=== PATIENT | male | born 1965 | race Caucasian/White ===

== ENCOUNTER → 2016-08-11 | Outpatient (CLI) | payer OTHER ==
[~2016-08-11] MED LIST: BROM100T PO; BROM500T2 PO; BROMALINE PO; FLM4 PO; GLUCTAB7 PO; LISI-729 PO; METF1000 PO; OXCA300T4 PO; OXYC1TAB3 PO; POTA1080 PO; ZOLP10TA PO
== END | disposition home or self-care (01) ==
LOC: C.RDSM 15:10
PROVIDERS: ATTEND Physical Medicine & Rehabilitation Sports Medicine
DX: M25.562 Pain in left knee (principal)

== ENCOUNTER → 2016-08-11 | Outpatient (CLI) | payer OTHER ==
[~2016-08-11] VITALS: Ht 180.3 cm; Wt 147.5 kg
[2016-08-11 08:45] VITALS: BP 142/92; PULSE 84; Ht 180.3 cm; Wt 147.5 kg
== END | disposition home or self-care (01) ==
LOC: C.NEUR 08:31
PROVIDERS: ATTEND Internal Medicine Pulmonary Disease
DX: G47.33 Obstructive sleep apnea (adult) (pediatric) (principal); E66.9 Obesity, unspecified; G47.00 Insomnia, unspecified; M25.562 Pain in left knee

== ENCOUNTER → 2016-08-18 | Outpatient (CLI) | payer OTHER | END | disposition home or self-care (01) | LOC: C.MRI 07:39 | PROVIDERS: ATTEND Physical Medicine & Rehabilitation Sports Medicine | DX: M25.562 Pain in left knee (principal) ==

== ENCOUNTER → 2016-08-24 | Outpatient (CLI) | payer OTHER ==
--- NOTE | 2016-08-24 15:26 | DIAGNOSTIC IMAGING REPORT ---
Pain LEFT LOWER EXT JOINT WITHOUT CLINICAL HISTORY: L KNEE PAIN pain TECHNIQUE: Multiaxial MRI acquisition COMPARISON STUDY: FINDINGS: Study is suboptimal and was attempted on 2 separate occasions. Patient complained of discomfort at both separate occasions creating significant patient motion. Signal characteristics the osseous structures are in general unremarkable. Findings of generalized moderate degenerative change of the medial joint compartment. Cruciate ligament are intact. Lateral meniscus is unremarkable. Medial meniscus demonstrates truncation and substance loss is noted anterior horn. Posterior horn of the medial meniscus appears to be generally intact. There is a small joint effusion. There is no significant popliteal cyst. The cruciate ligament is again are intact. IMPRESSION: 1. Limited study despite attempts on 2 separate occasions to scan the patient 2. Motion artifact compromises diagnostic accuracy in the study. 3. Generalized degenerative deterioration medial joint compartment with substance loss anterior meniscus medial joint compartment. 4. Lateral meniscus is intact. 5. Mild degenerative change patellofemoral joint compartment Electronically signed by: Aydin Gee M.D. 08/24/2016 3:24 PM Dictated Date/Time: 08/24/2016 3:19 PM
== END | disposition home or self-care (01) ==
LOC: C.MRIBC 13:38
PROVIDERS: ATTEND Physical Medicine & Rehabilitation Sports Medicine
DX: M25.562 Pain in left knee (principal); M17.12 Unilateral primary osteoarthritis, left knee

== ENCOUNTER → 2016-10-20 | Outpatient (CLI) | payer OTHER ==
[~2016-10-20] VITALS: Ht 180.3 cm; Wt 147.6 kg
[2016-10-20 09:38] VITALS: BP 143/83; PULSE 61; Ht 180.3 cm; Wt 147.6 kg
== END ==
LOC: C.NEUR 09:04
PROVIDERS: ATTEND Internal Medicine Pulmonary Disease
DX: G47.33 Obstructive sleep apnea (adult) (pediatric) (principal)

== ENCOUNTER → 2016-11-10 | Outpatient (CLI) | payer OTHER ==
[2016-11-10 17:15] LABS: BLOOD UREA NITROGEN 20 mg/dl (7-18); BUN/CREATININE RATIO 16.8 (10-20); CALCIUM 9.8 mg/dl (8.5-10.1); CARBON DIOXIDE 31 mmol/L (21-32); CHLORIDE 110 mmol/L (98-107); GLUCOSE 109 mg/dl (70-99); POTASSIUM 4.1 mmol/L (3.5-5.1); SODIUM 146 mmol/L (136-145)
[2016-11-10 17:54] LABS: HEMATOCRIT 43.7 % (42-52); MEAN CELL VOLUME 92.2 fL (80-100); MEAN CORPUSCULAR HEMOGLOBIN 30.6 pg (25-34); MEAN CORPUSCULAR HGB CONC 33.2 g/dl (32-36); MEAN PLATELET VOLUME 12.2 fL (7.4-10.4); PLATELET COUNT 81 K/uL (130-400); RED BLOOD COUNT 4.74 M/uL (4.7-6.1); WHITE BLOOD COUNT 5.47 K/uL (4.8-10.8)
[2016-11-10 17:55] LABS: BASO % 1.3 %; BASO ABS # 0.07 K/uL (0-0.2); COMPLETE YES; EOS % 6.9 %; IG% 0.2 %; LYMPH % 29.4 %; LYMPH ABS # 1.61 K/uL (1.2-3.4); NEUT % 56.2 %
[2016-11-11 06:45] LABS: ESTIMATED AVERAGE GLUCOSE 126 mg/dl; HA1C FLAG Normal (Normal)
== END | disposition home or self-care (01) ==
LOC: C.LABBC 13:53
PROVIDERS: ATTEND Internal Medicine Geriatric Medicine
DX: I10 Essential (primary) hypertension (principal); F31.9 Bipolar disorder, unspecified; E11.9 Type 2 diabetes mellitus without complications

== ENCOUNTER 2016-11-21 02:30 | Emergency (ER) | payer OTHER ==
[~2016-11-21] VITALS: Ht 180.3 cm; Wt 154.0 kg
[~2016-11-21 02:30] MED LIST changes: -BROM500T2 PO; -BROMALINE PO; -FLM4 PO; -LISI-729 PO; -OXYC1TAB3 PO; -POTA1080 PO
[2016-11-21 02:37] VITALS: TEMP 37.4; Ht 180.3 cm; Wt 154.0 kg
--- NOTE | 2016-11-21 02:47 | EMERGENCY ROOM VISIT NOTE ---
History Report prepared by Priti: Tamera Sahu Under the Supervision of: Dr. Sharlene Fernandez M.D. First contact with patient: 02:33 Chief Complaint: CHEST PAIN Stated Complaint: CHEST PRESSURE/TIGHTNESS Nursing Triage Summary: patient states he woke up at 0100 with chest pain described as pressure. has hx of indigestion/ reflux. EMS gave patient aspirin and one nitro prior to arrival. patient states he has no discomfort at this time . History of Present Illness The patient is a 51 year old male who presents to the Emergency Room with complaints of persistent chest pressure starting 0100 today. He presents to the ED by EMS after waking up with chest pain. He was given nitro and aspirin en route. His blood sugar was [address] He reports face tingling, left arm tingling, and headache. He denies any vomiting or abdominal pain. He had a cold several weeks ago. He has a history of type 2 diabetes, bipolar disorder, sleep apnea. Source of History: patient Onset: 99 today Position: chest Quality: pressure Timing: other (persistent) Associated Symptoms: + headache, No abdominal pain, No vomiting Note: Pt reports face tingling, left arm tingling. Review of Systems See HPI for pertinent positives & negatives. A total of 10 systems reviewed and were otherwise negative. Past Medical & Surgical Medical Problems: (1) Anxiety (2) Benign hypertension (3) BIPOLAR AFFECTIVE NOS (4) Bipolar disorder (5) CHEST PAIN NOS (6) Cholecystectomy (7) DIAB ROCIO WO COMPL, TYPE II OR UNSPEC TYPE, NOT UNCNTRLD (8) Fatty liver disease, nonalcoholic (9) Kidney stones (10) OBESITY, NOS (11) OBSTRUCTIVE SLEEP APNEA (ADULT) (PEDIATRIC) (12) Stress echocardiography (13) Thrombocytopenia Family History FHx: cancer FHx: heart disease FHx: hypertension FHx: kidney disease/stones Social History Smoking Status: Never Smoker Alcohol Use: none Drug Use: none Marital Status: single Housing Status: lives alone Occupation Status: disabled Current/Historical Medications Scheduled Pfolytmqxqx-Llulfatifvk-Itr C- (Glucosamine Chondroitin), 1 TAB PO QAM Metformin Hcl (Glucophage), 1,000 MG PO BIDM Oxcarbazepine (Trileptal), 300 MG PO BID Scheduled PRN Zolpidem Tartrate (Ambien), 10 MG PO HS PRN for Sleep Allergies Coded Allergies: Meloxicam (Verified Allergy, Intermediate, RASH, 11/21/16) Aspirin (Verified Allergy, Mild, NOSE BLEEDS, 11/21/16) Penicillins (Verified Allergy, Mild, TACHYCARDIA, 11/21/16) Physical Exam Vital Signs Date Time Temp Pulse Resp B/P Pulse Ox O2 Delivery O2 Flow Rate FiO2 11/21/16 05:18 74 18 134/89 98 Room Air 11/21/16 04:37 79 20 138/80 98 Room Air 11/21/16 02:55 75 11/21/16 02:37 95 Room Air 11/21/16 02:37 37.4 79 20 138/79 95 Room Air Physical Exam Vital signs reviewed. General: Chronically ill-appearing 51 year old male, obese, in no significant distress. HEENT: No scleral icterus, PERRLA, neck supple. Atraumatic. Cardiovascular: Regular rate and rhythm, no extra sounds. Pulmonary: Clear to auscultation bilaterally, normal work of breathing. Abdomen: Soft, nontender, nondistended, positive bowel sounds. Musculoskeletal: Atraumatic, no peripheral edema. Neurologic: Patient awake alert and oriented x 3, full strength in all 4 extremities. Cranial nerves 2 through 12 grossly intact. Skin: Warm, dry, no rash Medical Decision & Procedures ER Provider Diagnostic Interpretation: X-ray results as stated below per interpretation by me: Chest X-ray: Cardiomegaly with a widened mediastinum. Pulmonary congestion. No focal lung consolidation. No significant change from previous. Laboratory Results 11/21/16 02:40 Red Blood Count 4.93, Mean Corpuscular Volume 91.9, Mean Corpuscular Hemoglobin 30.4, Mean Corpuscular Hemoglobin Concent 33.1, Mean Platelet Volume 12.6, Neutrophils (%) (Auto) 55.5, Lymphocytes (%) (Auto) 27.9, Monocytes (%) (Auto) 8.9, Eosinophils (%) (Auto) 6.0, Basophils (%) (Auto) 1.4, Neutrophils # (Auto) 3.25, Lymphocytes # (Auto) 1.63, Monocytes # (Auto) 0.52, Eosinophils # (Auto) 0.35, Basophils # (Auto) 0.08 11/21/16 02:40 Test 11/21/16 02:40 11/21/16 05:00 White Blood Count 5.85 K/uL (4.8-10.8) Red Blood Count 4.93 M/uL (4.7-6.1) Hemoglobin 15.0 g/dL (14.0-18.0) Hematocrit 45.3 % (42-52) Mean Corpuscular Volume 91.9 fL (80-100) Mean Corpuscular Hemoglobin 30.4 pg (25-34) Mean Corpuscular Hemoglobin Concent 33.1 g/dl (32-36) Platelet Count 83 K/uL (130-400) Mean Platelet Volume 12.6 fL (7.4-10.4) Neutrophils (%) (Auto) 55.5 % Lymphocytes (%) (Auto) 27.9 % Monocytes (%) (Auto) 8.9 % Eosinophils (%) (Auto) 6.0 % Basophils (%) (Auto) 1.4 % Neutrophils # (Auto) 3.25 K/uL (1.4-6.5) Lymphocytes # (Auto) 1.63 K/uL (1.2-3.4) Monocytes # (Auto) 0.52 K/uL (0.11-0.59) Eosinophils # (Auto) 0.35 K/uL (0-0.5) Basophils # (Auto) 0.08 K/uL (0-0.2) RDW Standard Deviation 48.0 fL (36.4-46.3) RDW Coefficient of Variation 14.3 % (11.5-14.5) Immature Granulocyte % (Auto) 0.3 % Immature Granulocyte # (Auto) 0.02 K/uL (0.00-0.02) Platelet Estimate DECREASED Red Blood Cell Morphology Unremarkable Anion Gap 3.0 mmol/L (3-11) Est Creatinine Clear Calc Drug Dose 111.2 ml/min Estimated GFR () 81.2 Estimated GFR (Non- 70.1 BUN/Creatinine Ratio 17.6 (10-20) Calcium Level 9.6 mg/dl (8.5-10.1) Total Bilirubin 0.6 mg/dl (0.2-1) Direct Bilirubin 0.1 mg/dl (0-0.2) Aspartate Amino Transf (AST/SGOT) 22 U/L (15-37) Alanine Aminotransferase (ALT/SGPT) 62 U/L (12-78) Alkaline Phosphatase 104 U/L (45-117) Total Creatine Kinase 64 U/L (39-308) Creatine Kinase MB 1.4 ng/ml (0.5-3.6) Creatine Kinase MB Ratio 2.2 (0-3.0) Total Protein 7.0 gm/dl (6.4-8.2) Albumin 3.7 gm/dl (3.4-5.0) Bedside Troponin I 0.000 ng/ml (0-0.045) Laboratory results per my review. ECG Indication: chest pain Rate (beats per minute): 71 Rhythm: normal sinus Findings: no acute ischemic change, left axis deviation, no ectopy ED Course 0240: Past medical records reviewed. The patient was evaluated in room B6. A complete history and physical examination was performed. 0300: Nitroglycerin 0.4 mg SL. 0530: Upon reevaluation, the patient appeared to have improvement of his symptoms. I discussed findings with him. He verbalized agreement of the treatment plan. He was discharged home. Medical Decision Differential diagnosis: Acute coronary syndrome, pulmonary embolus, aortic dissection, musculoskeletal pain, pneumonia, pleural effusion, pneumothorax This patient was evaluated and appeared to be in no significant distress. The neurologic exam is completely intact. Patient's EKG reveals no evidence of acute ischemia. Troponins are negative 2. Chest x-ray reveals some widening of the mediastinum which is unchanged from previous. There is no evidence of focal lung consolidation. The patient has remained stable and has no complaints of pain at this time. He was discharged to follow-up with his primary care physician this week for consideration of further cardiac testing. He will return to the ER for worsening of symptoms or any medical concerns. Impression Primary Impression: Chest pain radiating to arm Scribe Attestation The scribe's documentation has been prepared under my direction and personally reviewed by me in its entirety. I confirm that the note above accurately reflects all work, treatment, procedures, and medical decision making performed by me. Departure Information Dispostion Home / Self-Care Referrals Julio Mortensen M.D. (PCP) Forms HOME CARE DOCUMENTATION FORM, IMPORTANT VISIT INFORMATION Patient Instructions My [facility] Additional Instructions Diagnosis: Chest pain with radiation to the arm Continue your medications as prescribed. Follow-up with your physician this week for reevaluation. Return to the ER for worsening of symptoms or any medical concerns.
[2016-11-21] MEDS ORDERED: NITROGLYCERIN 0.4 MG SL PER TAB CHARGE SL PRN (03:00)
[2016-11-21 03:41] LABS: BUN/CREATININE RATIO 17.6 (10-20); CALCIUM 9.6 mg/dl (8.5-10.1); CREATININE 1.2 mg/dl (0.60-1.40); POTASSIUM 3.9 mmol/L (3.5-5.1)
[2016-11-21 03:46] LABS: CKMB/CK RATIO 2.2 (0-3.0)
[2016-11-21 03:57] LABS: HEMATOCRIT 45.3 % (42-52); MEAN CELL VOLUME 91.9 fL (80-100); MEAN CORPUSCULAR HEMOGLOBIN 30.4 pg (25-34); MEAN CORPUSCULAR HGB CONC 33.1 g/dl (32-36); MEAN PLATELET VOLUME 12.6 fL (7.4-10.4); PLATELET COUNT 83 K/uL (130-400); RED BLOOD COUNT 4.93 M/uL (4.7-6.1); WHITE BLOOD COUNT 5.85 K/uL (4.8-10.8)
[2016-11-21 03:58] LABS: BASO % 1.4 %; BASO ABS # 0.08 K/uL (0-0.2); COMPLETE YES; IG% 0.3 %; LYMPH % 27.9 %; LYMPH ABS # 1.63 K/uL (1.2-3.4); MONO % 8.9 %; NEUT % 55.5 %; PLT ESTIMATE DECREASED
[2016-11-21 05:18] VITALS: BP 134/89; PULSE 74; O2SAT 98
--- NOTE | 2016-11-21 09:26 | DIAGNOSTIC IMAGING REPORT ---
CHEST ONE VIEW PORTABLE CLINICAL HISTORY: Chest pain. COMPARISON STUDY: Chest radiograph December 21, 2014. FINDINGS: The patient is rotated. Moderate cardiomegaly is unchanged. There is no evidence of pulmonary edema. There are minimal bibasilar opacities. There is no lobar consolidation. No pneumothorax or pleural effusion is present. IMPRESSION: 1. Minimal bibasilar opacities which favor atelectasis. 2. Moderate cardiomegaly without evidence of pulmonary edema. Electronically signed by: Matthew Mccracken M.D. 11/21/2016 9:25 AM Dictated Date/Time: 11/21/2016 9:24 AM
[2017-04-30] MEDS ORDERED: OXCA300T4 PO (12:39)
== END 2016-11-21 05:39 | disposition home or self-care (01) ==
LOC: EDBD 02:30 → C.EDB 02:31
DX: R07.9 Chest pain, unspecified (principal); I10 Essential (primary) hypertension; E11.9 Type 2 diabetes mellitus without complications; F31.9 Bipolar disorder, unspecified; F41.9 Anxiety disorder, unspecified; G47.33 Obstructive sleep apnea (adult) (pediatric); Z87.442 Personal history of urinary calculi; Z90.49 Acquired absence of other specified parts of digestive tract; K76.0 Fatty (change of) liver, not elsewhere classified; Z79.4 Long term (current) use of insulin; Z79.899 Other long term (current) drug therapy; Z88.0 Allergy status to penicillin; Z88.6 Allergy status to analgesic agent; Z88.8 Allergy status to other drugs, medicaments and biological substances; Z80.9 Family history of malignant neoplasm, unspecified; Z82.49 Family history of ischemic heart disease and other diseases of the circulatory system; Z84.1 Family history of disorders of kidney and ureter

== ENCOUNTER → 2016-12-08 | Outpatient (CLI) | payer OTHER ==
[~2016-12-08] MED LIST changes: -BROM100T PO; +BROM500T2 PO; +BROMALINE PO; +FLM4 PO; +LISI-729 PO; +OXYC1TAB3 PO; +POTA1080 PO
--- NOTE | 2016-12-08 14:30 | DIAGNOSTIC IMAGING REPORT ---
LEFT LOWER EXTREMITY VENOUS DOPPLER CLINICAL HISTORY: Left leg pain and swelling. COMPARISON STUDY: No previous studies for comparison. TECHNIQUE: Sonography of the deep venous system of the left lower extremity was performed. Compression and augmentation were evaluated. FINDINGS: The left common femoral, superficial femoral and popliteal veins were compressible. Augmentation was normal. Flow was shown within the deep calf vessels. IMPRESSION: No evidence of deep venous thrombus within the left lower extremity. Electronically signed by: Matthew Mccracken M.D. 12/08/2016 2:28 PM Dictated Date/Time: 12/08/2016 2:28 PM
== END | disposition home or self-care (01) ==
LOC: C.ULTRBC 13:52
PROVIDERS: ATTEND Physician Assistant Medical
DX: R60.0 Localized edema (principal)

== ENCOUNTER 2017-01-15 23:21 | Emergency (ER) | payer OTHER ==
[~2017-01-15] VITALS: Ht 180.3 cm; Wt 145.9 kg
[~2017-01-15 23:21] MED LIST changes: -BROM500T2 PO; -BROMALINE PO; -FLM4 PO; -LISI-729 PO; -OXYC1TAB3 PO; -POTA1080 PO
[2017-01-15 23:24] VITALS: TEMP 36.5; Ht 180.3 cm; Wt 145.9 kg
[2017-01-15] MEDS ORDERED: SODIUM CHLORIDE 0.9% 1000ML 1,000 ML IV STA (23:37)
[2017-01-15] MEDS ORDERED: MoRPHine SULFATE 4 MG/ML 1 ML CARP\\VIAL IV STA (23:37)
[2017-01-15] MEDS ORDERED: ONDANSETRON INJ 2 MG/ML 2 ML VIAL IV STA (23:37)
[2017-01-16 00:12] LABS: BUN/CREATININE RATIO 12.6 (10-20); CALCIUM 9.4 mg/dl (8.5-10.1); CREATININE 1.6 mg/dl (0.60-1.40); POTASSIUM 3.6 mmol/L (3.5-5.1)
[2017-01-16 00:25] LABS: BASO % 0.9 %; BASO ABS # 0.09 K/uL (0-0.2); COMPLETE YES; EOS % 3.8 %; HEMATOCRIT 45.5 % (42-52); IG% 0.2 %; LYMPH % 15.7 %; LYMPH ABS # 1.62 K/uL (1.2-3.4); MEAN CELL VOLUME 88.5 fL (80-100); MEAN CORPUSCULAR HEMOGLOBIN 30.5 pg (25-34); MEAN CORPUSCULAR HGB CONC 34.5 g/dl (32-36); MEAN PLATELET VOLUME 12.6 fL (7.4-10.4); MONO % 7.2 %; NEUT % 72.2 %; PLATELET COUNT 98 K/uL (130-400); PLT ESTIMATE DECREASED; RED BLOOD COUNT 5.14 M/uL (4.7-6.1); WHITE BLOOD COUNT 10.29 K/uL (4.8-10.8)
--- NOTE | 2017-01-16 00:31 | DIAGNOSTIC IMAGING REPORT ---
CT SCAN OF THE ABDOMEN AND PELVIS WITHOUT IV CONTRAST CLINICAL HISTORY: Bilateral flank pain. Diarrhea. COMPARISON STUDY: Abdominal CT dated 12/04/2014. TECHNIQUE: CT scan of the abdomen and pelvis is performed from the lung bases to the proximal femora. Images are reviewed in the axial, sagittal, and coronal planes. IV contrast was not administered for this examination as per the referring clinician. Automated dose control exposure was utilized. The examination is degraded by large body habitus, and by streak artifact from the body wall abutting the CT gantry. CT DOSE: 1887.82 mGy.cm FINDINGS: Lung bases: The heart is top normal in size and without pericardial effusion. The lung bases are clear. Gynecomastia is noted. There is a tiny hiatal hernia. Liver: Evaluation of the liver is degraded by streak artifact. The unenhanced liver is enlarged, measuring 20.3 cm in length. The liver demonstrates diffusely diminished attenuation consistent with hepatic steatosis. There is no intrahepatic biliary ductal dilatation. Gallbladder: Surgically absent noting clips in the gallbladder fossa. Spleen: The spleen is enlarged, measuring 14.2 cm in length. Pancreas: Atrophic for age. Adrenal glands: Unremarkable. Kidneys: The unenhanced kidneys demonstrate mild cortical atrophy. There is a 6 mm obstructing calculus in the right proximal ureter at the level of L3 seen on axial image #251. This causes moderate right-sided hydronephrosis. There is associated right-sided perinephric stranding and trace fluid. There are at least 2 additional nonobstructing right renal calculi measuring up to 5 mm. There are at least 6 nonobstructing left calculi measuring up to 7 mm. There is no left-sided hydronephrosis. Scattered renal cysts are noted. The largest measures 2.1 cm arises exophytically from the left upper pole. Additional subcentimeter cortical hypodensities also likely represent cysts but are too small for definitive characterization. Abdominal vasculature: The abdominal aorta is normal in course and caliber. Bowel: The small bowel and colon are normal in course and caliber. There is mild colonic diverticulosis without CT evidence of acute diverticulitis. The appendix is well-visualized and normal. Peritoneum: There is no intraperitoneal free air or abdominal ascites. There is a fat-containing umbilical hernia. Lymphadenopathy: None. Pelvic viscera: The bladder, prostate, and seminal vesicles are normal as imaged. Skeletal structures: The skeletal structures appear osteopenic. There is lumbosacral spondylosis. Flowing anterior osteophytes suggest DISH. No lytic or blastic lesions are seen. IMPRESSION: 1. There is a 6 mm obstructing calculus in the right proximal ureter. This causes moderate right-sided hydronephrosis. 2. Additional bilateral nonobstructing renal calculi are noted as detailed above. 3. Hepatomegaly and severe hepatic steatosis. 4. Mild sigmoid diverticulosis without CT evidence of acute diverticulitis. 5. Splenomegaly. 6. Additional findings as above. Electronically signed by: Florentino Christensen M.D. 01/16/2017 12:29 AM Dictated Date/Time: 01/16/2017 12:19 AM
[2017-01-16] MEDS ORDERED: LISI-729 PO (01:07)
[2017-01-16] MEDS ORDERED: BROMALINE PO (01:10)
[2017-01-16 01:15] LABS: URINE APPEARANCE CLOUDY (CLEAR); URINE BILIRUBIN NEG (NEG); URINE COLOR YELLOW; URINE NITRITE NEG (NEG); URINE SPECIFIC GRAVITY 1.017 (1.000-1.030); UROBILINOGEN NEG (NEG)
[2017-01-16 01:21] LABS: MANUAL MICROSCOPIC REQUIRED? NO; REVIEW REQ? YES
[2017-01-16 01:47] LABS: URINE MUCUS PRESENT (NONE PRSENT)
[2017-01-16] MEDS ORDERED: OXYC1TAB3 PO (02:03)
[2017-01-16 02:06] VITALS: BP 109/73; PULSE 82; O2SAT 92
[2017-01-16] MEDS ORDERED: OXYCODONE IR HOME PACK PO ONE (02:15)
--- NOTE | 2017-01-16 02:15 | EMERGENCY ROOM VISIT NOTE ---
History Report prepared by Priti: John Moncada Under the Supervision of: Dr. Hema Perez M.D. First contact with patient: 23:29 Chief Complaint: ABDOMINAL PAIN Stated Complaint: L AND R SIDE PAIN History of Present Illness The patient is a 52 year old male who presents to the Emergency Room with complaints of constant right sided abdominal pain that goes into his left side starting around 1530 today. He states that the pain is sharp. He states that he has been dealing with this pain since and is on and off. The patient states that he has had some diarrhea, which is very watery, and he denies any hematochezia. He additionally denies any fever, vomiting, or urinary symptoms. He states that he has a history of kidney stones and he states that this pain is similar. Source of History: patient Onset: 1529 Position: abdomen Quality: sharp Timing: constant Associated Symptoms: + diarrhea, No fevers, No vomiting, No hematochezia, No urinary symptoms Review of Systems See HPI for pertinent positives & negatives. A total of 10 systems reviewed and were otherwise negative. Past Medical & Surgical Medical Problems: (1) Anxiety (2) Benign hypertension (3) BIPOLAR AFFECTIVE NOS (4) Bipolar disorder (5) CHEST PAIN NOS (6) Cholecystectomy (7) DIAB ROCIO WO COMPL, TYPE II OR UNSPEC TYPE, NOT UNCNTRLD (8) Fatty liver disease, nonalcoholic (9) Kidney stones (10) OBESITY, NOS (11) OBSTRUCTIVE SLEEP APNEA (ADULT) (PEDIATRIC) (12) Stress echocardiography (13) Thrombocytopenia Family History FHx: cancer FHx: heart disease FHx: hypertension FHx: kidney disease/stones Social History Smoking Status: Never Smoker Alcohol Use: none Drug Use: none Marital Status: single Housing Status: lives alone Occupation Status: disabled Current/Historical Medications Scheduled Tqlvvagajgc-Afscdianggz-Xmx C- (Glucosamine Chondroitin), 2 TABS PO QAM Lisinopril (Zestril), 5 MG PO DAILY Metformin Hcl (Glucophage), 1,000 MG PO BIDM Oxcarbazepine (Trileptal), 300 MG PO BID [Bromaline], 1 TAB PO DAILY Scheduled PRN Oxycodone Ir (Roxicodone Ir), 5 MG PO Q4H PRN for Pain Zolpidem Tartrate (Ambien), 10 MG PO HS PRN for Sleep Allergies Coded Allergies: Meloxicam (Verified Allergy, Intermediate, RASH, 01/15/17) Aspirin (Verified Allergy, Mild, NOSE BLEEDS, 01/15/17) Penicillins (Verified Allergy, Mild, TACHYCARDIA, 01/15/17) Physical Exam Vital Signs Date Time Temp Pulse Resp B/P (MAP) Pulse Ox O2 Delivery O2 Flow Rate FiO2 01/16/17 02:06 82 24 109/73 92 Room Air 01/16/17 01:00 85 24 117/74 92 Room Air 01/15/17 23:24 36.5 95 20 146/95 96 Room Air Physical Exam Constitutional: Vital signs reviewed. Eyes: Pupils are equal round reactive to light. Conjunctiva are noninjected. ENT: Pharynx is clear without erythema or exudate. Mucous membranes are dry. Neck supple without meningeal signs. Respiratory: Clear to auscultation bilaterally. Breath sounds are equal bilaterally. Cardiovascular: Regular rate and rhythm. No rubs or gallops. GI: Diffuse abdominal tenderness. No CVA tenderness. Soft and nondistended. Bowel sounds are present. Musculoskeletal: No peripheral edema. No lower extremity tenderness. Integumentary: No cyanosis. Neurological: The patient is awake and alert. No focal deficits. Psychiatric: Normal affect. Medical Decision & Procedures ER Provider Diagnostic Interpretation: X-ray results as stated below per interpretation by me and the radiologist: CT SCAN OF THE ABDOMEN AND PELVIS WITHOUT IV CONTRAST CLINICAL HISTORY: Bilateral flank pain. Diarrhea. COMPARISON STUDY: Abdominal CT dated 12/04/2014. TECHNIQUE: CT scan of the abdomen and pelvis is performed from the lung bases to the proximal femora. Images are reviewed in the axial, sagittal, and coronal planes. IV contrast was not administered for this examination as per the referring clinician. Automated dose control exposure was utilized. The examination is degraded by large body habitus, and by streak artifact from the body wall abutting the CT gantry. CT DOSE: 1887.82 mGy.cm FINDINGS: Lung bases: The heart is top normal in size and without pericardial effusion. The lung bases are clear. Gynecomastia is noted. There is a tiny hiatal hernia. Liver: Evaluation of the liver is degraded by streak artifact. The unenhanced liver is enlarged, measuring 20.3 cm in length. The liver demonstrates diffusely diminished attenuation consistent with hepatic steatosis. There is no intrahepatic biliary ductal dilatation. Gallbladder: Surgically absent noting clips in the gallbladder fossa. Spleen: The spleen is enlarged, measuring 14.2 cm in length. Pancreas: Atrophic for age. Adrenal glands: Unremarkable. Kidneys: The unenhanced kidneys demonstrate mild cortical atrophy. There is a 6 mm obstructing calculus in the right proximal ureter at the level of L3 seen on axial image #251. This causes moderate right-sided hydronephrosis. There is associated right-sided perinephric stranding and trace fluid. There are at least 2 additional nonobstructing right renal calculi measuring up to 5 mm. There are at least 6 nonobstructing left calculi measuring up to 7 mm. There is no left-sided hydronephrosis. Scattered renal cysts are noted. The largest measures 2.1 cm arises exophytically from the left upper pole. Additional subcentimeter cortical hypodensities also likely represent cysts but are too small for definitive characterization. Abdominal vasculature: The abdominal aorta is normal in course and caliber. Bowel: The small bowel and colon are normal in course and caliber. There is mild colonic diverticulosis without CT evidence of acute diverticulitis. The appendix is well-visualized and normal. Peritoneum: There is no intraperitoneal free air or abdominal ascites. There is a fat-containing umbilical hernia. Lymphadenopathy: None. Pelvic viscera: The bladder, prostate, and seminal vesicles are normal as imaged. Skeletal structures: The skeletal structures appear osteopenic. There is lumbosacral spondylosis. Flowing anterior osteophytes suggest DISH. No lytic or blastic lesions are seen. IMPRESSION: 1. There is a 6 mm obstructing calculus in the right proximal ureter. This causes moderate right-sided hydronephrosis. 2. Additional bilateral nonobstructing renal calculi are noted as detailed above. 3. Hepatomegaly and severe hepatic steatosis. 4. Mild sigmoid diverticulosis without CT evidence of acute diverticulitis. 5. Splenomegaly. 6. Additional findings as above. Electronically signed by: Florentino Christensen M.D. 01/16/2017 12:29 AM Dictated Date/Time: 01/16/2017 12:19 AM Laboratory Results 01/15/17 23:45 Red Blood Count 5.14, Mean Corpuscular Volume 88.5, Mean Corpuscular Hemoglobin 30.5, Mean Corpuscular Hemoglobin Concent 34.5, Mean Platelet Volume 12.6, Neutrophils (%) (Auto) 72.2, Lymphocytes (%) (Auto) 15.7, Monocytes (%) (Auto) 7.2, Eosinophils (%) (Auto) 3.8, Basophils (%) (Auto) 0.9, Neutrophils # (Auto) 7.43, Lymphocytes # (Auto) 1.62, Monocytes # (Auto) 0.74, Eosinophils # (Auto) 0.39, Basophils # (Auto) 0.09 01/15/17 23:45 Test 01/15/17 23:45 01/16/17 00:50 White Blood Count 10.29 K/uL (4.8-10.8) Red Blood Count 5.14 M/uL (4.7-6.1) Hemoglobin 15.7 g/dL (14.0-18.0) Hematocrit 45.5 % (42-52) Mean Corpuscular Volume 88.5 fL (80-100) Mean Corpuscular Hemoglobin 30.5 pg (25-34) Mean Corpuscular Hemoglobin Concent 34.5 g/dl (32-36) Platelet Count 98 K/uL (130-400) Mean Platelet Volume 12.6 fL (7.4-10.4) Neutrophils (%) (Auto) 72.2 % Lymphocytes (%) (Auto) 15.7 % Monocytes (%) (Auto) 7.2 % Eosinophils (%) (Auto) 3.8 % Basophils (%) (Auto) 0.9 % Neutrophils # (Auto) 7.43 K/uL (1.4-6.5) Lymphocytes # (Auto) 1.62 K/uL (1.2-3.4) Monocytes # (Auto) 0.74 K/uL (0.11-0.59) Eosinophils # (Auto) 0.39 K/uL (0-0.5) Basophils # (Auto) 0.09 K/uL (0-0.2) RDW Standard Deviation 44.3 fL (36.4-46.3) RDW Coefficient of Variation 13.6 % (11.5-14.5) Immature Granulocyte % (Auto) 0.2 % Immature Granulocyte # (Auto) 0.02 K/uL (0.00-0.02) Platelet Estimate DECREASED Red Blood Cell Morphology Unremarkable Anion Gap 10.0 mmol/L (3-11) Est Creatinine Clear Calc Drug Dose 80.0 ml/min Estimated GFR () 57.0 Estimated GFR (Non- 49.2 BUN/Creatinine Ratio 12.6 (10-20) Calcium Level 9.4 mg/dl (8.5-10.1) Total Bilirubin 1.1 mg/dl (0.2-1) Direct Bilirubin 0.2 mg/dl (0-0.2) Aspartate Amino Transf (AST/SGOT) 55 U/L (15-37) Alanine Aminotransferase (ALT/SGPT) 105 U/L (12-78) Alkaline Phosphatase 111 U/L (45-117) Total Protein 7.3 gm/dl (6.4-8.2) Albumin 4.0 gm/dl (3.4-5.0) Lipase 275 U/L (73-393) Urine Color YELLOW Urine Appearance CLOUDY (CLEAR) Urine pH 5.0 (4.5-7.5) Urine Specific [place] 1.017 (1.000-1.030) Urine Protein TRACE (NEG) Urine Glucose (UA) NEG (NEG) Urine Ketones NEG (NEG) Urine Occult Blood 3+ (NEG) Urine Nitrite NEG (NEG) Urine Bilirubin NEG (NEG) Urine Urobilinogen NEG (NEG) Urine Leukocyte Esterase NEG (NEG) Urine WBC (Auto) 1-5 /hpf (0-5) Urine RBC (Auto) 0-4 /hpf (0-4) Urine Hyaline Casts (Auto) 1-5 /lpf (0-5) Urine Epithelial Cells (Auto) 10-20 /lpf (0-5) Urine Bacteria (Auto) NEG (NEG) Urine Crystals URIC ACID (NONE PRSENT) Urine Mucus PRESENT (NONE PRSENT) Urine Yeast (Auto) (NONE PRSENT) Laboratory results as reviewed by me. Medications Administered Medications (Trade) Dose Ordered Sig/Lisa Route Start Time Stop Time Status Last Admin Dose Admin Morphine Sulfate (MoRPHine SULFATE INJ) 4 mg ONE STAT IV 01/15/17 23:37 01/15/17 23:39 DC 01/15/17 23:54 4 MG Ondansetron HCl (Zofran Inj) 4 mg NOW STAT IV 01/15/17 23:37 01/15/17 23:39 DC 01/15/17 23:53 4 MG Sodium Chloride 1,000 ml @ 999 mls/hr Q1H1M STAT IV 01/15/17 23:37 01/16/17 00:37 DC 01/15/17 23:53 999 MLS/HR Oxycodone HCl (Roxicodone Immediate Rel 5MG Home Pack) 1 homepack UD ONCE PO 01/16/17 02:15 01/16/17 02:16 01/16/17 02:10 1 HOMEPACK ED Course 2329: The patient was evaluated in room C5. A complete history and physical exam was performed. 2337: Sodium Chloride 1000 ml @ 999 mls/hr IV, Zofran Inj 4mg IV, Morphine Sulfate 4mg IV 0058: I reevaluated the patient, and he states that he is feeling better now. I discussed the test results with him. 0158: I reevaluated the patient, and he feels ready for discharge. I discussed the test results including the incidental findings on CT. I discussed tonight's findings with he. He verbalized agreement of the treatment plan. He was discharged home. 0215: Roxicodone Immediate Rel 5mg Home Pack PO Medical Decision This is a 52-year-old male who presents with abdominal pain. Differential diagnosis includes renal colic, hydronephrosis, colitis, irritable bowel syndrome, pancreatitis. I did perform a limited focused review of portions of the patient's old chart on the electronic medical record. The patient has had no recent pertinent visits to this hospital. Blood Pressure Screening: Patient was found to have an elevated blood pressure and was referred to their primary doctor for recheck and further treatment. Medication Reconciliation: I attest that I have personally reviewed the patient' s current medication list. I did evaluate the patient as noted above. IV access was established. I did treat the patient with IV morphine and Zofran. He is also given normal saline IV. I did order and review the patient's urinalysis as described above. I did order and review the patient's blood work as noted in the electronic medical record. I did order a CT of the abdomen and pelvis. I did review the images myself as well as the radiology report as described above. The patient has a 6 mm proximal ureteral stone. I did reevaluate the patient. I did discuss the test results with the patient. He states he is feeling better at this time. He does feel well enough for discharge. He will follow up with his urologist. He was given a prescription for oxycodone and discharged with his mother. Impression Primary Impression: Renal colic Additional Impressions: Hepatosplenomegaly Diverticulosis Scribe Attestation The scribe's documentation has been prepared under my direct and personally reviewed by me in its entirety. I confirm that the note above accurately reflects all work, treatment, procedures, and medical decision making performed by me. Departure Information Dispostion Home / Self-Care Prescriptions Oxycodone Ir (Roxicodone Ir) 5 Mg Tab 5 MG PO Q4H Y for Pain, #20 TAB Prov: Hema Perez M.D. 01/16/17 Referrals Julio Mortensen M.D. (PCP) Forms Call Back Authorization, HOME CARE DOCUMENTATION FORM, IMPORTANT VISIT INFORMATION Patient Instructions Kidney Stones Expectant Therapy, My [facility] Additional Instructions You have been examined and treated today on an emergency basis only. This is not a substitute for, or an effort to provide, complete comprehensive medical care. It is impossible to recognize and treat all injuries or illnesses in a single emergency department visit. It is therefore important that you follow up closely with your physician and urologist. Call as soon as possible for an appointment. Return for worsening symptoms or if you develop fever, vomiting, or any other concerning symptoms. Problem Qualifiers Additional Impressions: Diverticulosis Diverticulosis site: diverticulosis of large intestine Diverticulosis bleeding: diverticulosis without bleeding Qualified Codes: K57.30 - Diverticulosis of large intestine without perforation or abscess without bleeding
== END 2017-01-16 02:16 | disposition home or self-care (01) ==
LOC: C.EDB 23:22 → C.EDC 01-16 02:16
DX: K57.30 Diverticulosis of large intestine without perforation or abscess without bleeding (principal); N20.1 Calculus of ureter; R16.2 Hepatomegaly with splenomegaly, not elsewhere classified; F41.9 Anxiety disorder, unspecified; I10 Essential (primary) hypertension; E11.9 Type 2 diabetes mellitus without complications; F31.9 Bipolar disorder, unspecified; G47.33 Obstructive sleep apnea (adult) (pediatric); Z90.49 Acquired absence of other specified parts of digestive tract; K76.0 Fatty (change of) liver, not elsewhere classified; Z82.49 Family history of ischemic heart disease and other diseases of the circulatory system; Z79.899 Other long term (current) drug therapy

== ENCOUNTER → 2017-01-31 | Outpatient (CLI) | payer OTHER ==
[~2017-01-31] MED LIST changes: +BROM500T2 PO; +BROMALINE PO; +FLM4 PO; +LISI-729 PO; +OXYC1TAB3 PO; +POTA1080 PO
== END | disposition home or self-care (01) ==
LOC: C.LABSPEC 11:17
PROVIDERS: ATTEND Urology
DX: N20.0 Calculus of kidney (principal)

== ENCOUNTER → 2017-02-02 | Outpatient (CLI) | payer OTHER | END | disposition home or self-care (01) | LOC: C.LAB1850 13:08 | PROVIDERS: ATTEND Physician Assistant | DX: R94.5 Abnormal results of liver function studies (principal); K80.20 Calculus of gallbladder without cholecystitis without obstruction ==

== ENCOUNTER → 2017-02-03 | Outpatient (CLI) | payer OTHER ==
[~2017-02-03] VITALS: Ht 180.3 cm; Wt 146.1 kg
[2017-02-03 08:38] VITALS: BP 139/84; PULSE 80; Ht 180.3 cm; Wt 146.1 kg
== END | disposition home or self-care (01) ==
LOC: C.NEUR 08:10
PROVIDERS: ATTEND Internal Medicine Pulmonary Disease
DX: G47.33 Obstructive sleep apnea (adult) (pediatric) (principal)

== ENCOUNTER → 2017-02-09 | Outpatient (CLI) | payer OTHER ==
--- NOTE | 2017-02-09 09:24 | DIAGNOSTIC IMAGING REPORT ---
KUB CLINICAL HISTORY: Nephrolithiasis. FINDINGS: 3 AP supine abdominal radiographs are correlated with abdominal CT dated 01/16/2017. The examination is degraded by large body habitus. There is a nonobstructed abdominal bowel gas pattern. No evidence of intraperitoneal free air is seen on these supine views. Cholecystectomy clips are noted. There is no radiographic evidence of nephrolithiasis. Phleboliths are seen in the pelvis. Lumbosacral spondylosis is observed. The bony pelvis appears intact. IMPRESSION: There is no radiographic evidence of nephrolithiasis. Kidney stones seen by CT were not apparent by x-ray. Electronically signed by: Florentino Christensen M.D. 02/09/2017 9:23 AM Dictated Date/Time: 02/09/2017 9:21 AM
== END | disposition home or self-care (01) ==
LOC: C.RADBC 08:18
PROVIDERS: ATTEND Urology
DX: N20.0 Calculus of kidney (principal)

== ENCOUNTER 2017-04-02 05:59 | Emergency (ER) | payer OTHER ==
[~2017-04-02] VITALS: Ht 180.3 cm; Wt 145.0 kg
[~2017-04-02 05:59] MED LIST changes: -BROM500T2 PO; -FLM4 PO; -POTA1080 PO
[2017-04-02 06:04] VITALS: TEMP 36.8; Ht 180.3 cm; Wt 145.0 kg
[2017-04-02] MEDS ORDERED: BROM500T2 PO (06:39)
[2017-04-02] MEDS ORDERED: FLM4 PO (06:39)
[2017-04-02] MEDS ORDERED: POTA1080 PO (06:39)
[2017-04-02] MEDS ORDERED: MoRPHine SULFATE 4 MG/ML 1 ML CARP\\VIAL IM STA (06:44)
[2017-04-02] MEDS: KETOROLAC TROMETHAMINE 30 MG/ML VIAL IV STA ×2 (06:44→07:23)
[2017-04-02] MEDS ORDERED: KETOROLAC TROMETHAMINE 60 MG/2 ML VIAL IM STA (07:43)
--- NOTE | 2017-04-02 07:45 | DIAGNOSTIC IMAGING REPORT ---
CERVICAL SPINE 2 OR 3 VIEWS CLINICAL HISTORY: Chronic neck pain. COMPARISON STUDY: Cervical spine 05/24/2012. FINDINGS: The cervical spine is visualized from C1 through T1 on the lateral view. Straightening of the cervical spine. Alignment appears intact. No fractures. There is fused anterior osteophytes seen from C2 through T1. Mild disc space narrowing throughout the cervical spine. The C1-C2 interval and prevertebral soft tissues are intact. The fused anterior osteophytes appear to extend into the thoracic spine, unchanged. 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 This results in the straightening of the cervical spine. No acute fractures. Electronically signed by: Hema Guevara M.D. 04/02/2017 7:43 AM Dictated Date/Time: 04/02/2017 7:41 AM
[2017-04-02 08:00] VITALS: BP 162/69; PULSE 63; O2SAT 97
--- NOTE | 2017-04-02 08:03 | EMERGENCY ROOM VISIT NOTE ---
History Report prepared by Priti: Yumiko Bower Under the Supervision of: Dr. Lang Guidry D.O. First contact with patient: 06:33 Chief Complaint: NECK PAIN Stated Complaint: NECK PAIN History of Present Illness The patient is a 52 year old male who presents to the Emergency Room with complaints of persistent left sided neck pain that began two hours ago. He currently rates his discomfort as a 7/10 in severity. The patient states that he had just gotten back from a walk this morning when his pain began. He reports numbness in his left arm that has resolved. The patient states that heat alleviates his symptoms. He reports increased pain with movement of his neck and lifting left upper extremity. The patient describes his pain as a soreness. He states that he has had similar pain in the past. The patient states that the last time he had it was one year ago. He states that last year he went to physical therapy, noting that he had made progress. The patient denies any IV drug use. He reports a history of diabetes, noting that his blood glucose was 116 mg/dL around 0600 this morning. Pt denies headache, change in vision, fevers, runny nose, sore throat, chest pain, shortness of breath, nausea, vomiting, and diarrhea. Source of History: patient Onset: two hours ago Position: neck (left sided) Symptom Intensity: 7/10 Quality: other (soreness) Timing: other (persistent) Modifying Factors (Worsening): movement (of neck) Modifying Factors (Relieving): heat Review of Systems See HPI for pertinent positives & negatives. A total of 10 systems reviewed and were otherwise negative. Past Medical & Surgical Medical Problems: (1) Anxiety (2) Benign hypertension (3) BIPOLAR AFFECTIVE NOS (4) Bipolar disorder (5) CHEST PAIN NOS (6) Cholecystectomy (7) DIAB ROCIO WO COMPL, TYPE II OR UNSPEC TYPE, NOT UNCNTRLD (8) Fatty liver disease, nonalcoholic (9) Kidney stones (10) OBESITY, NOS (11) OBSTRUCTIVE SLEEP APNEA (ADULT) (PEDIATRIC) (12) Stress echocardiography (13) Thrombocytopenia Family History FHx: cancer FHx: heart disease FHx: hypertension FHx: kidney disease/stones Social History Smoking Status: Former Smoker Alcohol Use: none Drug Use: none Marital Status: single Housing Status: lives alone Occupation Status: disabled Current/Historical Medications Scheduled Bromelains (Bromelain), 1 TAB PO DAILY Mbmogclhgha-Azomcuwyauu-Srn C- (Glucosamine Chondroitin), 2 TABS PO QAM Lisinopril (Zestril), 5 MG PO DAILY Metformin Hcl (Glucophage), 1,000 MG PO BIDM Oxcarbazepine (Trileptal), 300 MG PO BID Potassium Citrate (Alkalinizer (Potassium Citrate ER), 1 TAB PO BID Tamsulosin HCl (Tamsulosin HCl), 0.4 MG PO DAILY Scheduled PRN Zolpidem Tartrate (Ambien), 10 MG PO HS PRN for Sleep Allergies Coded Allergies: Meloxicam (Verified Allergy, Intermediate, RASH, 04/02/17) Aspirin (Verified Allergy, Mild, NOSE BLEEDS, 04/02/17) Penicillins (Verified Allergy, Mild, TACHYCARDIA, 04/02/17) Physical Exam Vital Signs Date Time Temp Pulse Resp B/P (MAP) Pulse Ox O2 Delivery O2 Flow Rate FiO2 04/02/17 08:00 63 18 162/69 97 04/02/17 06:04 36.8 67 14 134/77 97 Room Air Physical Exam GENERAL: alert, sitting up in bed, holding left neck, well appearing, well nourished, minimal distress distress, non-toxic EYE EXAM: normal conjunctiva, PERRL and EOM's intact OROPHARYNX: no exudate, no erythema, lips, buccal mucosa, and tongue normal and mucous membranes are moist NECK: Moderate pain with rotation/flexion/extension of neck and with abduction of left upper extremity all located on the left posterior lateral cervical musculature LUNGS: Clear to auscultation. Normal chest wall mechanics HEART: no murmurs, S1 normal and S2 normal ABDOMEN: abdomen soft, non-tender, normo-active bowel sounds, no masses, no rebound or guarding. BACK: Back is symmetrical on inspection and there is no deformity, no midline tenderness, no CVA tenderness. SKIN: no rashes and no bruising UPPER EXTREMITIES: Flexion/extension of shoulder, elbow, wrist is 5/5 bilaterally, radial pulses 2/4 gross sensations are intact. Abduction of digits and grasp intact LOWER EXTREMITIES: No pitting edema. NEURO EXAM: Normal sensorium, cranial nerves II-XII grossly intact. Medical Decision & Procedures ER Provider Diagnostic Interpretation: Radiology results as stated below per my review and the radiologist's interpretation: CERVICAL SPINE 2 OR 3 VIEWS CLINICAL HISTORY: Chronic neck pain. COMPARISON STUDY: Cervical spine 05/24/2012. FINDINGS: The cervical spine is visualized from C1 through T1 on the lateral view. Straightening of the cervical spine. Alignment appears intact. No fractures. There is fused anterior osteophytes seen from C2 through T1. Mild disc space narrowing throughout the cervical spine. The C1-C2 interval and prevertebral soft tissues are intact. The fused anterior osteophytes appear to extend into the thoracic spine, unchanged. 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 This results in the straightening of the cervical spine. No acute fractures. Electronically signed by: Hema Guevara M.D. 04/02/2017 7:43 AM Dictated Date/Time: 04/02/2017 7:41 AM Medications Administered Medications (Trade) Dose Ordered Sig/Lisa Route Start Time Stop Time Status Last Admin Dose Admin Morphine Sulfate (MoRPHine SULFATE INJ) 4 mg NOW STAT IM 04/02/17 06:44 04/02/17 06:45 DC 04/02/17 07:23 4 MG Ketorolac Tromethamine (Toradol Inj) 60 mg NOW STAT IM 04/02/17 07:43 04/02/17 07:45 DC 04/02/17 07:48 60 MG ED Course ED COURSE: Vital signs were reviewed and showed hypertensive The patients medical record was reviewed The above diagnostic studies were performed and reviewed. ED treatments and interventions as stated above. 0635: The patient was evaluated in room A11B. A complete history and physical examination was performed. 0644: Ordered Morphine Sulfate 4 mg IM. 0743: Ordered Toradol Inj 30 mg IV. 0751: Upon reevaluation, the patient is resting comfortably.I discussed my findings with the patient and he understands and agrees with the treatment plan. Based on the patients age, coexisting illnesses, exam and lab findings the decision to treat as an outpatient was made. The patient remained stable while under my care. The patient appeared well at the time of discharge. Medical Decision Differential diagnoses includes but is not limited to lumbar radiculopathy, muscle strain, facture, cauda equina, mass, and disc herniation. Patient is a 52-year-old male that presents to ER for left-sided neck pain which started at 4 AM this morning. He notes the pain is worse with movement of his head and abduction of his left upper extremity. On exam pain is reproducible on palpation of the left paracervical muscles tracting into his left trapezius. Pain is worsened with abduction of left upper extremity and rotation of his neck. X-rays show no acute fracture. Patient is completely neurologically intact. He has had this multiple times in the past. Followed up with PT. Do not believe cardiac symptoms are clearly reproducible. Patient is given IM morphine and Toradol. Rotation of his neck improved significantly along with abduction of his left upper extremity. He was discharged follow-up with PCP and PTT. Instructed not to drive for remainder of today. Tylenol and/ or Motrin as needed. Discussed with Pt concerning signs and symptoms to watch out for. Pt was instructed to follow up with their PCP and discussed with the patient their option to return to the ED at anytime for persistent or worsening symptoms. The appropriate anticipatory guidance and out-patient management, including indications for return to the emergency department, were explained at length to the patient and understood. Medication Reconcilliation Current Medication List: was personally reviewed by me Blood Pressure Screening Patient's blood pressure: Elevated blood pressure Blood pressure disposition: Elevated BP felt to be situational, Did not require urgent referral Impression Primary Impression: Sprain of cervical neck Scribe Attestation The scribe's documentation has been prepared under my direction and personally reviewed by me in its entirety. I confirm that the note above accurately reflects all work, treatment, procedures, and medical decision making performed by me. Departure Information Dispostion Home / Self-Care Referrals Julio Mortensen M.D. (PCP) Forms HOME CARE DOCUMENTATION FORM, IMPORTANT VISIT INFORMATION, WORK / SCHOOL INSTRUCTIONS Patient Instructions ED Sprain Strain Neck, My [facility] Additional Instructions Please follow up with your primary care doctor or if you are a student, [facility] with in the next 24 hours. Any worsening of your symptoms, please return to the ED immediately. This includes any fevers greater than 100.4, worsening pain, chest pain, shortness breath, persistent nausea, vomiting, unable to eat or drink, or any other concerning signs or symptoms from your standpoint. You were given medications during this visit that will inhibit your ability to drive, operate machinery and work. Please do NOT drive, operate machinery, drink alcohol or work for the next 12hrs. Problem Qualifiers Primary Impression: Sprain of cervical neck Encounter type: initial encounter Qualified Codes: S13.9XXA - Sprain of joints and ligaments of unspecified parts of neck, initial encounter
== END 2017-04-02 07:59 | disposition home or self-care (01) ==
LOC: EDBD 05:59 → C.EDA 06:02
DX: S13.8XXA Sprain of joints and ligaments of other parts of neck, initial encounter (principal); M54.2 Cervicalgia; X58.XXXA Exposure to other specified factors, initial encounter; E11.9 Type 2 diabetes mellitus without complications; F31.9 Bipolar disorder, unspecified; Z79.4 Long term (current) use of insulin; Z87.891 Personal history of nicotine dependence; Z79.899 Other long term (current) drug therapy

== ENCOUNTER → 2017-04-13 | Outpatient (CLI) | payer OTHER ==
[~2017-04-13] MED LIST changes: +BROM500T2 PO; -BROMALINE PO; +FLM4 PO; -OXYC1TAB3 PO; +POTA1080 PO
--- NOTE | 2017-04-13 15:58 | DIAGNOSTIC IMAGING REPORT ---
ART DOP LOWER EXT BILAT HISTORY: 52 years-old Male TYPE 11 DIABETES,DIABETIC NEUROPATHY diabetic neuropathy. COMPARISON: None available TECHNIQUE: Multiple real-time sonographic images of the bilateral lower extremity arterial structures were obtained assessing grayscale appearance, color and spectral flow. Segmental pressures were also obtained. FINDINGS: RIGHT: Brachial-124; posterior tibial-135 with index of 0.97; dorsalis pedis-128 with index of 0.92. Triphasic arterial waveforms are noted with minimal areas of atherosclerotic plaquing. No elevated peak systolic velocities or occlusion identified. LEFT: Brachial-139; posterior tibial-136 with index of 0.98; dorsalis pedis-137 with index of 0.99. Triphasic arterial waveforms are noted with minimal areas of atherosclerotic plaquing. No elevated peak systolic velocities or occlusion identified. IMPRESSION: 1. Patent arterial structures of the bilateral lower extremities with triphasic flow throughout. 2. Segmental pressures as above. The above report was generated using voice recognition software. It may contain grammatical, syntax or spelling errors. Electronically signed by: Jeremiah Marie M.D. 04/13/2017 3:57 PM Dictated Date/Time: 04/13/2017 3:53 PM
== END | disposition home or self-care (01) ==
LOC: C.ULTR 14:42
PROVIDERS: ATTEND Podiatrist
DX: E11.40 Type 2 diabetes mellitus with diabetic neuropathy, unspecified (principal)

== ENCOUNTER → 2017-04-20 | Outpatient (CLI) | payer OTHER ==
[2017-04-20 17:20] LABS: ALB/GLOB RATIO 1.1 (0.9-2); ALKALINE PHOSPHATASE 94 U/L (45-117); ALT/SGPT 66 U/L (12-78); AST/SGOT 41 U/L (15-37); BLOOD UREA NITROGEN 25 mg/dl (7-18); BUN/CREATININE RATIO 20.7 (10-20); CALCIUM 9.7 mg/dl (8.5-10.1); CARBON DIOXIDE 27 mmol/L (21-32); CHLORIDE 108 mmol/L (98-107); GLUCOSE 80 mg/dl (70-99); POTASSIUM 3.9 mmol/L (3.5-5.1); SODIUM 143 mmol/L (136-145)
[2017-04-20 17:27] LABS: PROSTATE SPECIFIC ANTIGEN 0.276 ng/ml (0.000-4.000)
== END | disposition home or self-care (01) ==
LOC: C.LABBC 14:34
PROVIDERS: ATTEND Urology
DX: N20.0 Calculus of kidney (principal)

== ENCOUNTER 2017-04-28 20:36 | Inpatient (IN) | payer OTHER ==
[~2017-04-28] VITALS: Ht 175.3 cm; Wt 133.6 kg
[2017-04-28] MEDS ORDERED: ONDANSETRON INJ 2 MG/ML 2 ML VIAL IV STA (20:57)
[2017-04-28] MEDS ORDERED: SODIUM CHLORIDE 0.9% 1000ML 1,000 ML IV STA (20:57)
[2017-04-28 21:28] LABS: VEN BLD GAS O2 SATURATION 81.7 %; VEN BLOOD GAS BASE EXCESS 1.9 mEq/L
--- NOTE | 2017-04-28 21:48 | EMERGENCY ROOM VISIT NOTE ---
History Report prepared by Priti: Brian Recinos Under the Supervision of: Dr. Kushal Rios D.O. First contact with patient: 20:48 Chief Complaint: OVERDOSE (INTENTIONAL) Stated Complaint: OVERDOSE History of Present Illness The patient is a 52 year old male who presents to the Emergency Room with complaints of a sudden overdose that occurred prior to arrival. EMS reports that he intentionally took 12 Ambien tablets 45 minutes ago. Per EMS, the patient's friend called 911 to report this overdose. Per nursing, the patient was able to ambulate to the ambulance and was able to keep his eyes open in the ED. Nursing states that he possibly vomited. The HPI is limited due to the patient's condition. Source of History: EMS, nursing staff Onset: 45 minutes SUPPORT STAFF Position: other (global) Timing: other (sudden) Modifying Factors (Worsening): other (Ambien) Associated Symptoms: + vomiting Review of Systems The ROS is limited due to the patient's condition. Past Medical & Surgical Medical Problems: (1) Anxiety (2) Benign hypertension (3) BIPOLAR AFFECTIVE NOS (4) Bipolar disorder (5) CHEST PAIN NOS (6) Cholecystectomy (7) DIAB ROCIO WO COMPL, TYPE II OR UNSPEC TYPE, NOT UNCNTRLD (8) Drug overdose, intentional (9) Fatty liver disease, nonalcoholic (10) Hypoxia (11) Kidney stones (12) OBESITY, NOS (13) OBSTRUCTIVE SLEEP APNEA (ADULT) (PEDIATRIC) (14) Stress echocardiography (15) Thrombocytopenia Family History FHx: cancer FHx: heart disease FHx: hypertension FHx: kidney disease/stones Social History Smoking Status: Current Every Day Smoker Alcohol Use: none Drug Use: none Marital Status: single Housing Status: lives alone Occupation Status: disabled Current/Historical Medications Scheduled Lisinopril (Zestril), 5 MG PO DAILY Metformin Hcl (Glucophage), 1,000 MG PO BIDM Oxcarbazepine (Trileptal), 450 MG PO BID Tamsulosin HCl (Tamsulosin HCl), 0.4 MG PO DAILY Allergies Coded Allergies: Meloxicam (Verified Allergy, Intermediate, RASH, 04/02/17) Aspirin (Verified Allergy, Mild, NOSE BLEEDS, 04/02/17) Penicillins (Verified Allergy, Mild, TACHYCARDIA, 04/02/17) Physical Exam Vital Signs Date Time Temp Pulse Resp B/P (MAP) Pulse Ox O2 Delivery O2 Flow Rate FiO2 04/28/17 22:58 67 18 121/74 98 Oxymask 04/28/17 22:05 66 18 101/59 100 Oxymask 15.0 04/28/17 21:17 78 18 103/66 98 Oxymask 15.0 04/28/17 20:59 98 Mask 15.0 04/28/17 20:57 97 Mask 15.0 04/28/17 20:48 76 04/28/17 20:40 36.7 80 81 Room Air Physical Exam GENERAL: Obtunded and does not respond to verbal or painful commands. EYES: Eyes are closed. When forced open, pupils were equal round and reactive to light. EOMs are intact. EARS, NOSE, MOUTH AND THROAT: The nose is without any evidence of any deformity. Mucous membranes are moist tongue is midline NECK: The neck is nontender and supple. RESPIRATORY: Normal respiratory effort is noted there is no evidence of wheezing rhonchi or rales CARDIOVASCULAR: Regular rate and rhythm noted there no murmurs rubs or gallops normal S1 normal S2 GASTROINTESTINAL: The abdomen is soft. Bowel sounds are present in all quadrants. Abdomen is nontender MUSCULOSKELETAL/EXTREMITIES: There is no evidence of gross deformity full range of motion is noted in the hips and shoulders SKIN: There is no obvious evidence of any rash. There are no petechiae, pallor or cyanosis noted. NEUROLOGIC: Will not answer questions. Unable to assess orientation at time. Patellar reflexes are 2+ bilaterally. Medical Decision & Procedures ER Provider Diagnostic Interpretation: X-ray results as stated below per interpretation by me and the radiologist. CHEST ONE VIEW PORTABLE CLINICAL HISTORY: Overdose. COMPARISON STUDY: Chest radiograph November 21, 2016. FINDINGS: Lung volumes are normal. No pneumothorax or pleural effusion is present. Mild left basilar opacity favors atelectasis. Moderate cardiomegaly is unchanged. There is no evidence of pulmonary edema. IMPRESSION: 1. Mild left basilar opacity which favors atelectasis. 2. Stable cardiomegaly without evidence of pulmonary edema. Electronically signed by: Matthew Mccracken M.D. 04/28/2017 10:08 PM Dictated Date/Time: 04/28/2017 10:07 PM Laboratory Results Test 04/28/17 20:50 04/28/17 21:17 04/28/17 23:27 Prothrombin Time 10.7 SECONDS (9.0-12.0) Prothromb Time International Ratio 1.0 (0.9-1.1) Activated Partial Thromboplast Time 26.2 SECONDS (21.0-31.0) Partial Thromboplastin Ratio 1.0 Osmolality 298 mOsm/kg (280-300) Direct Bilirubin 0.1 mg/dl (0-0.2) Lipase 337 U/L (73-393) Salicylates Level < 1.7 mg/dl (2.8-20) Acetaminophen Level < 2 ug/ml (10-30) Venous Blood pH 7.35 (7.36-7.41) Venous Blood Partial Pressure CO2 53 mmHg (38.0-50.0) Venous Blood Partial Pressure O2 51 mmHg Venous Blood HCO3 28 mmol/L Venous Blood Oxygen Saturation 81.7 % Venous Blood Base Excess 1.9 mEq/L Ethyl Alcohol mg/dL < 3.0 mg/dl (0-3) Urine Color YELLOW Urine Appearance CLEAR (CLEAR) Urine pH 5.0 (4.5-7.5) Urine Specific [place] 1.018 (1.000-1.030) Urine Protein NEG (NEG) Urine Glucose (UA) NEG (NEG) Urine Ketones NEG (NEG) Urine Occult Blood NEG (NEG) Urine Nitrite NEG (NEG) Urine Bilirubin NEG (NEG) Urine Urobilinogen NEG (NEG) Urine Leukocyte Esterase NEG (NEG) Urine Opiates Screen NEG (NEG) Urine Methadone, Qualitative NEG (NEG) Urine Barbiturates NEG (NEG) Urine Phencyclidine (PCP) Level NEG (NEG) Ur Amphetamine/Methamphetamine NEG (NEG) MDMA (Ecstasy) Screen NEG (NEG) Urine Benzodiazepines Screen NEG (NEG) Urine Cocaine Metabolite NEG (NEG) Urine Marijuana (THC) NEG (NEG) Laboratory results per my review. Medications Administered Medications (Trade) Dose Ordered Sig/Lisa Route Start Time Stop Time Status Last Admin Dose Admin Sodium Chloride 1,000 ml @ 999 mls/hr Q1H1M STAT IV 04/28/17 20:57 04/28/17 21:57 DC 04/28/17 21:16 999 MLS/HR Ondansetron HCl (Zofran Inj) 4 mg NOW STAT IV 04/28/17 20:57 04/28/17 20:58 DC 04/28/17 21:15 4 MG ECG Indication: other (overdose) Rate (beats per minute): 77 Rhythm: normal sinus Findings: no ectopy, other (no acute ST segments, early transition) Comparison ECG Date: 11/21/16 Change: no significant change ED Course 2049: The patient was evaluated in room C04. A complete history and physical examination were performed. 2056: Ordered Sodium Chloride 1000 ml @ 999 mls/hr IV. 2303: I discussed the patient's case with Dr. Cheng [facility] Hospitalist. She understands the patient's condition and agrees to accept the patient. The patient will be further evaluated. Medical Decision Prior records/ancillary studies reviewed and summarized above. Nursing notes reviewed. Additional history obtained from patient. The patient's history was concerning for altered mental status. Differential diagnosis: Etiologies such as metabolic, infection, hypoglycemia, electrolyte abnormalities , cardiac sources, intracerebral event, toxicologic, neurologic, as well as others were entertained. The patient is a 52-year-old male who presented to the emergency department for an evaluation after taking multiple doses of Ambien in an attempt to hurt himself. The patient was able to walk out to the ambulance provided time he was received in the emergency department he was very obtunded. He had one episode of hypoxia but this improved on supplemental oxygen. The patient was not found to be retaining CO2. Degree that would require intervention. The patient was observed for a period of time and only mild improvement of his altered mental status was noted. This reason I discussed his case with the on-call [facility] hospitalist group. They've agreed to evaluate the patient in the emergency department for further management and disposition. Medication Reconcilliation Current Medication List: was personally reviewed by me Blood Pressure Screening Patient's blood pressure: Normal blood pressure Consults Time Called: 2303 Consulting Physician: Dr. Cheng [facility] Hospitalist Returned Call: [phone] I discussed the patient's case with Dr. Cheng [facility] Hospitalist. She understands the patient's condition and agrees to accept the patient. The patient will be further evaluated. Impression Primary Impression: Altered mental status Additional Impressions: Suicide gesture Ambien accidental overdose Scribe Attestation The scribe's documentation has been prepared under my direction and personally reviewed by me in its entirety. I confirm that the note above accurately reflects all work, treatment, procedures, and medical decision making performed by me. Departure Information Dispostion Being Evaluated By Hospitalist Prescriptions Oxcarbazepine (TRILEPTAL) 300 Mg Tab 450 MG PO BID, #90 TABS 1 Refill Prov: Kurt Portillo MD 04/30/17 Referrals Julio Mortensen M.D. (PCP) Patient Instructions My [facility] Problem Qualifiers Primary Impression: Altered mental status Altered mental status type: unspecified Qualified Codes: R41.82 - Altered mental status, unspecified Additional Impressions: Suicide gesture Encounter type: initial encounter Qualified Codes: X83.8XXA - Intentional self-harm by other specified means, initial encounter Ambien accidental overdose Encounter type: initial encounter Qualified Codes: T42.6X1A - Poisoning by other antiepileptic and sedative-hypnotic drugs, accidental (unintentional), initial encounter
[2017-04-28 21:54] LABS: PROTHROMBIN TIME (PATIENT) 10.7 SECONDS (9.0-12.0)
[2017-04-28 21:57] LABS: BUN/CREATININE RATIO 24.6 (10-20); CALCIUM 9.7 mg/dl (8.5-10.1); CREATININE 1.13 mg/dl (0.60-1.40); POTASSIUM 3.7 mmol/L (3.5-5.1)
[2017-04-28 21:59] LABS: ACETAMINOPHEN < 2 ug/ml (10-30)
[2017-04-28 22:05] LABS: BASO ABS # 0.06 K/uL (0-0.2); COMPLETE YES; EOS % 6.1 %; IG% 0.2 %; LYMPH % 27.3 %; LYMPH ABS # 1.71 K/uL (1.2-3.4); MEAN CELL VOLUME 91.1 fL (80-100); MEAN CORPUSCULAR HEMOGLOBIN 30.8 pg (25-34); MEAN CORPUSCULAR HGB CONC 33.8 g/dl (32-36); MONO % 5.9 %; NEUT % 59.5 %; PLATELET COUNT 94 K/uL (130-400); PLT ESTIMATE DECREASED; RED BLOOD COUNT 4.39 M/uL (4.7-6.1); WHITE BLOOD COUNT 6.27 K/uL (4.8-10.8)
--- NOTE | 2017-04-28 22:09 | DIAGNOSTIC IMAGING REPORT ---
CHEST ONE VIEW PORTABLE CLINICAL HISTORY: Overdose. COMPARISON STUDY: Chest radiograph November 21, 2016. FINDINGS: Lung volumes are normal. No pneumothorax or pleural effusion is present. Mild left basilar opacity favors atelectasis. Moderate cardiomegaly is unchanged. There is no evidence of pulmonary edema. IMPRESSION: 1. Mild left basilar opacity which favors atelectasis. 2. Stable cardiomegaly without evidence of pulmonary edema. Electronically signed by: Matthew Mccracken M.D. 04/28/2017 10:08 PM Dictated Date/Time: 04/28/2017 10:07 PM
--- NOTE | 2017-04-28 23:43 | History and Physical ---
History & Physical Date & Time of Service: Apr 28, 2017 at 23:43 Chief Complaint: Overdose Primary Care Physician: Julio Mortensen M.D. History of Present Illness Source: patient, hospital records Limited ROS secondary to somnolence This is a 52 yo m with a history of bipolar disorder that is presenting to us in the ED after a suicide attempt earlier this evening. A friend was concerned that the patient was suicidal and called EMS to assess the patient. He was found after he had ingested 12 Ambien. By the time he was in the ED he was extremely somnolent with an oxygen requirement. He has a history of suicidal attempts in the past. Past Medical/Surgical History Medical Problems: (1) Anxiety Status: Chronic (2) Benign hypertension Status: Chronic (3) BIPOLAR AFFECTIVE NOS Status: Chronic (4) Bipolar disorder Status: Chronic (5) CHEST PAIN NOS Status: Chronic (6) Cholecystectomy Status: Resolved (7) DIAB ROCIO WO COMPL, TYPE II OR UNSPEC TYPE, NOT UNCNTRLD Status: Chronic (8) Fatty liver disease, nonalcoholic Status: Chronic (9) Kidney stones Status: Chronic (10) OBESITY, NOS Status: Chronic (11) OBSTRUCTIVE SLEEP APNEA (ADULT) (PEDIATRIC) Status: Chronic (12) Stress echocardiography Status: Resolved (13) Thrombocytopenia Status: Chronic Family History FHx: cancer FHx: heart disease FHx: hypertension FHx: kidney disease/stones Social History Smoking Status: Current Every Day Smoker Smokeless Tobacco Use: No Alcohol Use: none Drug Use: none Marital Status: single Housing status: lives alone Occupational Status: disabled Immunizations History of Influenza Vaccine: Yes History of Tetanus Vaccine?: Yes Tetanus Immunization Date: Apr 12, 2009 History of Pneumococcal: No History of Hepatitis B Vaccine: No Multi-Drug Resistant Organisms History of MDRO: No Allergies Coded Allergies: Meloxicam (Verified Allergy, Intermediate, RASH, 04/02/17) Aspirin (Verified Allergy, Mild, NOSE BLEEDS, 04/02/17) Penicillins (Verified Allergy, Mild, TACHYCARDIA, 04/02/17) Home Medications Scheduled Lisinopril (Zestril), 5 MG PO DAILY Metformin Hcl (Glucophage), 1,000 MG PO BIDM Oxcarbazepine (Trileptal), 300 MG PO BID Tamsulosin HCl (Tamsulosin HCl), 0.4 MG PO DAILY Scheduled PRN Zolpidem Tartrate (Ambien), 10 MG PO HS PRN for Sleep Review of Systems Unable to obtain meaningful ROS secondary to somnolence Physical Exam Vital Signs Date Time Temp Pulse Resp B/P (MAP) Pulse Ox O2 Delivery O2 Flow Rate FiO2 04/28/17 22:58 67 18 121/74 98 Oxymask 04/28/17 22:05 66 18 101/59 100 Oxymask 15.0 04/28/17 21:17 78 18 103/66 98 Oxymask 15.0 04/28/17 20:59 98 Mask 15.0 04/28/17 20:57 97 Mask 15.0 04/28/17 20:48 76 04/28/17 20:40 36.7 80 81 Room Air General Appearance: + obese, + pertinent finding (sitting up in bed somnolent, oxymask in place) Head: normocephalic, atraumatic Eyes: normal inspection ENT: normal ENT inspection Neck: supple Respiratory/Chest: normal breath sounds, no respiratory distress, no accessory muscle use Cardiovascular: regular rate, rhythm, no murmur, normal peripheral pulses Abdomen/GI: normal bowel sounds, non tender, soft Back: normal inspection Extremities/Musculoskelatal: no calf tenderness, + pertinent finding (the right LE is > left LE, difficult to assess if this is BL) Neurologic/Psych: alert, normal mood/affect, oriented x 3 Skin: normal color, warm/dry, no rash Lymphatic: no adenopathy Diagnostics Laboratory Results Results Past 24 Hours Test 04/28/17 20:50 04/28/17 20:57 04/28/17 21:17 Range/Units White Blood Count 6.27 4.8-10.8 K/uL Red Blood Count 4.39 4.7-6.1 M/uL Hemoglobin 13.5 14.0-18.0 g/dL Hematocrit 40.0 42-52 % Mean Corpuscular Volume 91.1 80-100 fL Mean Corpuscular Hemoglobin 30.8 25-34 pg Mean Corpuscular Hemoglobin Concent 33.8 32-36 g/dl Platelet Count 94 130-400 K/uL Mean Platelet Volume 13.0 7.4-10.4 fL Neutrophils (%) (Auto) 59.5 % Lymphocytes (%) (Auto) 27.3 % Monocytes (%) (Auto) 5.9 % Eosinophils (%) (Auto) 6.1 % Basophils (%) (Auto) 1.0 % Neutrophils # (Auto) 3.74 1.4-6.5 K/uL Lymphocytes # (Auto) 1.71 1.2-3.4 K/uL Monocytes # (Auto) 0.37 0.11-0.59 K/uL Eosinophils # (Auto) 0.38 0-0.5 K/uL Basophils # (Auto) 0.06 0-0.2 K/uL RDW Standard Deviation 47.5 36.4-46.3 fL RDW Coefficient of Variation 14.2 11.5-14.5 % Immature Granulocyte % (Auto) 0.2 % Immature Granulocyte # (Auto) 0.01 0.00-0.02 K/uL Platelet Estimate DECREASED Prothrombin Time 10.7 9.0-12.0 SECONDS Prothromb Time International Ratio 1.0 0.9-1.1 Activated Partial Thromboplast Time 26.2 21.0-31.0 SECONDS Partial Thromboplastin Ratio 1.0 Sodium Level 140 136-145 mmol/L Potassium Level 3.7 3.5-5.1 mmol/L Chloride Level 108 98-107 mmol/L Carbon Dioxide Level 27 21-32 mmol/L Anion Gap 5.0 3-11 mmol/L Blood Urea Nitrogen 28 7-18 mg/dl Creatinine 1.13 0.60-1.40 mg/dl Est Creatinine Clear Calc Drug Dose 109.3 ml/min Estimated GFR () 86.7 Estimated GFR (Non- 74.8 BUN/Creatinine Ratio 24.6 10-20 Random Glucose 122 70-99 mg/dl Osmolality 298 280-300 mOsm/kg Calcium Level 9.7 8.5-10.1 mg/dl Total Bilirubin 0.6 0.2-1 mg/dl Direct Bilirubin 0.1 0-0.2 mg/dl Aspartate Amino Transf (AST/SGOT) 31 15-37 U/L Alanine Aminotransferase (ALT/SGPT) 51 12-78 U/L Alkaline Phosphatase 93 45-117 U/L Total Creatine Kinase 335 39-308 U/L Creatine Kinase MB 13.4 0.5-3.6 ng/ml Creatine Kinase MB Ratio 4.0 0-3.0 Troponin I 0.018 0-0.045 ng/ml Total Protein 6.9 6.4-8.2 gm/dl Albumin 3.7 3.4-5.0 gm/dl Lipase 337 73-393 U/L Salicylates Level < 1.7 2.8-20 mg/dl Acetaminophen Level < 2 10-30 ug/ml Venous Blood pH 7.35 7.36-7.41 Venous Blood Partial Pressure CO2 53 38.0-50.0 mmHg Venous Blood Partial Pressure O2 51 mmHg Venous Blood HCO3 28 mmol/L Venous Blood Oxygen Saturation 81.7 % Venous Blood Base Excess 1.9 mEq/L Ethyl Alcohol mg/dL < 3.0 0-3 mg/dl Diagnostic Radiology CHEST ONE VIEW PORTABLE CLINICAL HISTORY: Overdose. COMPARISON STUDY: Chest radiograph November 21, 2016. FINDINGS: Lung volumes are normal. No pneumothorax or pleural effusion is present. Mild left basilar opacity favors atelectasis. Moderate cardiomegaly is unchanged. There is no evidence of pulmonary edema. IMPRESSION: 1. Mild left basilar opacity which favors atelectasis. 2. Stable cardiomegaly without evidence of pulmonary edema. EKG HR 74, no ectopy or ischemic changes noted Impression Assessment and Plan This is a 52 yo m s/p intentional overdose for SI and a history of bipolar disorder Intentional overdose of Ambien for SI with history of Bipolar disorder - Psych consult - Admission to Tele - O2 per nursing protocol - Ambien and Trileptal held Thrombocytopenia - CBC recheck in am - peripheral smear Elevation of CKMB - repeat CKMB and troponin - monitor on tele DMII - insulin ISS with BSG AC HS - metformin held - once tolerating PO can cont Lisinopril 5 mg DVt Prophylaxis SCD Attending Addendum: I have physically seen and examined this patient, have directed the resident's medical activities, and agree with the H&P as noted above with the following exceptions as noted. The patient is sedated, obese, normocephalic and atraumatic, lying in bed and in no acute distress. HEENT--PERRL, EOMI, mucous membranes and oropharynx dry. Neck--supple, no JVD or bruits, thyroid normal, trachea midline, no adenopathy. Heart--normal S1 and S2, no extra beats, no murmurs, rubs or gallops. Lungs--clear bilaterally with good air movement, no respiratory distress, no accessory muscle use. Abdomen--normal bowel sounds and soft, nontender and nondistended, no hernias or masses, no organomegaly, obese. Extremities--no cyanosis, clubbing. Left lower extremity +1 pitting edema, right lower extremity trace to 1+ pitting edema. There are good distal pulses b/ l. Dermatologic--normal skin turgor, normal color, warm and dry, no abnormal lymph nodes, no rash. Neurologic--cranial nerves II through XII grossly intact. Rheumatologic--normal range of motion. Psychiatric--sedated. Assessment and Plan: Intentional overdose of Ambien/bipolar disorder-- Admit to telemetry for observation. Nothing by mouth status until more alert. Holding Ambien and Trileptal. Consult psychiatry. Elevated CK-MB ratio-- Admit to telemetry for serial cardiac enzymes and cardiac rhythm monitoring. Diabetes mellitus-- place on Accu-Cheks before meals and at bedtime with NovoLog coverage per scale. Hold metformin Thrombocytopenia-- Peripheral smear. Repeat CBC with differential in a.m. Level of Care Telemetry Advanced Directives Existing Advance Directive: No Existing Living Will: No Existing Power of Costume Specialist: No Resuscitation Status FULL RESUSCITATION VTE Prophylaxis VTE Risk Assessment Done? Y/N: Yes Risk Level: Moderate Given or contraindicated: SCD's Social Service Consult None Apply Note Total Time: Critical Care 30 - 74 minutes Additional Copies To Julio Mortensen M.D.
[2017-04-28 23:53] LABS: URINE APPEARANCE CLEAR (CLEAR); URINE BILIRUBIN NEG (NEG); URINE COLOR YELLOW; URINE NITRITE NEG (NEG); URINE SPECIFIC GRAVITY 1.018 (1.000-1.030); UROBILINOGEN NEG (NEG)
[2017-04-28 23:54] LABS: MANUAL MICROSCOPIC REQUIRED? NO; REVIEW REQ? NO
[2017-04-29] VITALS (8 sets, daily range): BP systolic 113–132; BP diastolic 68–78; PULSE 62–82; TEMP 36.3–36.7; O2SAT 92–99; Ht 175.3 cm; Wt 133.6 kg
[2017-04-29 00:15] LABS: BENZODIAZEPINE, URINE NEG (NEG); COCAINE,URINE NEG (NEG); PHENCYCLIDINE, URINE NEG (NEG)
[2017-04-29] MEDS: SODIUM CHLORIDE 0.9% 1000ML 1,000 ML IV SCH ×2 (00:35→07:46)
[2017-04-29] MEDS ORDERED: GLUCAGON FOR INJ 1 MG VIAL SQ PRN (00:45)
[2017-04-29] MEDS ORDERED: GLUCOSE 40% GEL 15 GM TUBE PO PRN (00:45)
[2017-04-29] MEDS ORDERED: DEXTROSE 50% 50 ML SYR IV PRN (00:45)
[2017-04-29] MEDS ORDERED: GLUCOSE 10 TABS/TUBE PO PRN (00:45)
[2017-04-29] MEDS: INSULIN ASPART 100 UNITS/ML 3 ML PEN SC SCH ×4 (07:00→21:33)
--- NOTE | 2017-04-29 07:09 | DIAGNOSTIC IMAGING REPORT ---
BILATERAL LOWER EXTREMITY VENOUS DOPPLER HISTORY: Leg swelling. COMPARISON STUDY: Left leg venous doppler 12/08/2016. FINDINGS: There is normal compressibility, flow, and augmentation within the bilateral lower extremity deep venous systems. IMPRESSION: No DVT within the right or left lower extremity. Electronically signed by: Hema Guevara M.D. 04/29/2017 7:07 AM Dictated Date/Time: 04/29/2017 7:07 AM
[2017-04-29 07:28] LABS: BUN/CREATININE RATIO 20.1 (10-20); CALCIUM 9.4 mg/dl (8.5-10.1); CREATININE 1.03 mg/dl (0.60-1.40); POTASSIUM 3.9 mmol/L (3.5-5.1)
[2017-04-29 07:32] LABS: ALB/GLOB RATIO 1.2 (0.9-2)
[2017-04-29] MEDS: LISINOPRIL 5 MG TAB PO SCH (07:45)
[2017-04-29] MEDS: TAMSULOSIN HCL 0.4 MG CAP PO SCH (07:45)
[2017-04-29 08:28] LABS: HEMATOCRIT 40.3 % (42-52); MEAN CELL VOLUME 91.6 fL (80-100); MEAN CORPUSCULAR HEMOGLOBIN 30.2 pg (25-34); MEAN PLATELET VOLUME 12.8 fL (7.4-10.4); PLATELET COUNT 94 K/uL (130-400)
[2017-04-29 08:30] LABS: BASO % 0.7 %; BASO ABS # 0.04 K/uL (0-0.2); COMPLETE YES; EOS % 3.9 %; HYPERSEGMENTED POLYS 1+; IG% 0.2 %; LYMPH ABS # 1.14 K/uL (1.2-3.4); MONO % 5.1 %; NEUT % 70.1 %; PLT ESTIMATE DECREASED; TOXIC GRANULATION 1+
--- NOTE | 2017-04-29 09:56 | Psychiatric Consultation ---
Consultation Date of Consultation Apr 29, 2017. Identifying Data Arturo Rey is a 52-year-old male who presented to the ED on 04/28/17 after a suicide attempt by Ambesha OD. Pt currently resides in [place] and was brought to ED after call to EMS by both his mother and the pt. Chief Complaint "I shouldn't have given her my social security number". History of Present Illness Arturo Rey, 52 y/o male, seen in ICU room E203-1 for psychiatric consult after attempted overdose on Ambien on 04/28/2017. After attempted suicide attempt, he regretted his decision and called his mother who called the EMS. He then followed up by calling the EMS himself. Brought to ED and admitted to the medical floor. Pt admitted to taking "a dozen" Ambien due to increased stress with online "fiance". Pt states he began experimenting with online dating this year and has been texting a particular female regularly. The relationship escalated quickly and she soon asked him to her. Although he stated they should meet first, he viewed their relationship as "fiances". She began asking him for his device passwords and eventually obtained his social security number. After receiving alerts from [employer], he questioned the female about her identity. The texting ended abruptly after this interaction and the pt felt hopeless. Realizing his finances and personal information could be at risk he stated "I just thought my life was over". This led to the overdose of Ambien and his subsequent admission. He is currently prescribed Trileptal by Dr. King at [facility] for his bipolar disorder. Pt admits to depression but denies current SI/HI, visual/auditory hallucinations , delusions, or ray. Past Psychiatric History Current OP Treatment: psychiatrist (Dr. Fernando Whitaker [facility]), therapist (Miguel Angel Dooley, private clinical psychologist in [place]), case mgr Prior OP Treatment: [facility] [place] psych rehab Prior Psych Hospitalizations: [facility] (last stay was D/C'd end of February 2017, SI), [facility] (last admit 2006), other ([facility] - multiple psych admits in ) Access to a Gun: No Suicide Attempts: Yes (Cut in ) Past Medication Trials [facility] - 2006 Depakote Lamictal Past Medical/Surgical History History of Concussion/Seizure: No (1) Benign hypertension (2) DIAB ROCIO WO COMPL, TYPE II OR UNSPEC TYPE, NOT UNCNTRLD (3) OBESITY, NOS (4) OBSTRUCTIVE SLEEP APNEA (ADULT) (PEDIATRIC) (5) Cholecystectomy Allergies Allergies: Coded Allergies: Meloxicam (Verified Allergy, Intermediate, RASH, 04/02/17) Aspirin (Verified Allergy, Mild, NOSE BLEEDS, 04/02/17) Penicillins (Verified Allergy, Mild, TACHYCARDIA, 04/02/17) Home Medications Scheduled Lisinopril (Zestril), 5 MG PO DAILY Metformin Hcl (Glucophage), 1,000 MG PO BIDM Oxcarbazepine (Trileptal), 300 MG PO BID Tamsulosin HCl (Tamsulosin HCl), 0.4 MG PO DAILY Scheduled PRN Zolpidem Tartrate (Ambien), 10 MG PO HS PRN for Sleep Family History FHx: cancer FHx: heart disease FHx: hypertension FHx: kidney disease/stones History of Suicide: No History of Substance Abuse: No Psychiatric History: Yes (depression - maternal grandmother admitted to [facility] until end of life) Alcohol Use Alcohol Use In Past 12 Months: No Smoking Use Smoking Status: Never Smoker Substance History denies substance use Personal History Lives in: [place], [place] Childhood: Pt has two sisters and a mother who live nearby and seem very supportive. Relationship History: never Children: none Legal History: none Psychological Trauma History: Denies Hx Traumatic Event Review of Systems Psych: denies symptoms other than stated above Constitutional: denied Cardiovascular: denied GI: denied Neurologic: denied Remainder of 10 body systems also reviewed and denied other than noted above. Examination Vital Signs Vital Signs Past 12 Hours Date Time Temp Pulse Resp B/P (MAP) Pulse Ox O2 Delivery O2 Flow Rate FiO2 04/29/17 06:58 36.5 62 17 129/73 (91) 93 Room Air 04/29/17 04:00 Room Air 04/29/17 03:05 36.5 82 17 127/76 (93) 96 04/29/17 00:13 36.3 74 19 132/74 99 Nasal Cannula 2.0 04/29/17 00:01 64 18 108/66 98 04/28/17 23:55 64 04/28/17 23:48 69 18 108/66 98 Nasal Cannula 2.0 04/28/17 22:58 67 18 121/74 98 Oxymask 04/28/17 22:05 66 18 101/59 100 Oxymask 15.0 Laboratory Results Last 24 Hours Test 04/28/17 20:50 04/28/17 21:17 04/28/17 23:27 04/29/17 06:19 White Blood Count 6.27 K/uL 5.70 K/uL Red Blood Count 4.39 M/uL 4.40 M/uL Hemoglobin 13.5 g/dL 13.3 g/dL Hematocrit 40.0 % 40.3 % Mean Corpuscular Volume 91.1 fL 91.6 fL Mean Corpuscular Hemoglobin 30.8 pg 30.2 pg Mean Corpuscular Hemoglobin Concent 33.8 g/dl 33.0 g/dl Platelet Count 94 K/uL 94 K/uL Mean Platelet Volume 13.0 fL 12.8 fL Neutrophils (%) (Auto) 59.5 % 70.1 % Lymphocytes (%) (Auto) 27.3 % 20.0 % Monocytes (%) (Auto) 5.9 % 5.1 % Eosinophils (%) (Auto) 6.1 % 3.9 % Basophils (%) (Auto) 1.0 % 0.7 % Neutrophils # (Auto) 3.74 K/uL 4.00 K/uL Lymphocytes # (Auto) 1.71 K/uL 1.14 K/uL Monocytes # (Auto) 0.37 K/uL 0.29 K/uL Eosinophils # (Auto) 0.38 K/uL 0.22 K/uL Basophils # (Auto) 0.06 K/uL 0.04 K/uL RDW Standard Deviation 47.5 fL 48.2 fL RDW Coefficient of Variation 14.2 % 14.2 % Immature Granulocyte % (Auto) 0.2 % 0.2 % Immature Granulocyte # (Auto) 0.01 K/uL 0.01 K/uL Platelet Estimate DECREASED DECREASED Prothrombin Time 10.7 SECONDS Prothromb Time International Ratio 1.0 Activated Partial Thromboplast Time 26.2 SECONDS Partial Thromboplastin Ratio 1.0 Sodium Level 140 mmol/L 143 mmol/L Potassium Level 3.7 mmol/L 3.9 mmol/L Chloride Level 108 mmol/L 110 mmol/L Carbon Dioxide Level 27 mmol/L 29 mmol/L Anion Gap 5.0 mmol/L 4.0 mmol/L Blood Urea Nitrogen 28 mg/dl 21 mg/dl Creatinine 1.13 mg/dl 1.03 mg/dl Est Creatinine Clear Calc Drug Dose 109.3 ml/min 115.1 ml/min Estimated GFR () 86.7 97.0 Estimated GFR (Non- 74.8 83.7 BUN/Creatinine Ratio 24.6 20.1 Random Glucose 122 mg/dl 106 mg/dl Osmolality 298 mOsm/kg Calcium Level 9.7 mg/dl 9.4 mg/dl Total Bilirubin 0.6 mg/dl 0.9 mg/dl Direct Bilirubin 0.1 mg/dl Aspartate Amino Transf (AST/SGOT) 31 U/L 27 U/L Alanine Aminotransferase (ALT/SGPT) 51 U/L 49 U/L Alkaline Phosphatase 93 U/L 92 U/L Total Creatine Kinase 335 U/L Creatine Kinase MB 13.4 ng/ml 9.2 ng/ml Creatine Kinase MB Ratio 4.0 Troponin I 0.018 ng/ml 0.017 ng/ml Total Protein 6.9 gm/dl 6.7 gm/dl Albumin 3.7 gm/dl 3.7 gm/dl Lipase 337 U/L Salicylates Level < 1.7 mg/dl Acetaminophen Level < 2 ug/ml Venous Blood pH 7.35 Venous Blood Partial Pressure CO2 53 mmHg Venous Blood Partial Pressure O2 51 mmHg Venous Blood HCO3 28 mmol/L Venous Blood Oxygen Saturation 81.7 % Venous Blood Base Excess 1.9 mEq/L Ethyl Alcohol mg/dL < 3.0 mg/dl Urine Color YELLOW Urine Appearance CLEAR Urine pH 5.0 Urine Specific [place] 1.018 Urine Protein NEG Urine Glucose (UA) NEG Urine Ketones NEG Urine Occult Blood NEG Urine Nitrite NEG Urine Bilirubin NEG Urine Urobilinogen NEG Urine Leukocyte Esterase NEG Urine Opiates Screen NEG Urine Methadone, Qualitative NEG Urine Barbiturates NEG Urine Phencyclidine (PCP) Level NEG Ur Amphetamine/Methamphetamine NEG MDMA (Ecstasy) Screen NEG Urine Benzodiazepines Screen NEG Urine Cocaine Metabolite NEG Urine Marijuana (THC) NEG Hypersegmented Polys 1+ Toxic Granulation 1+ Globulin 3.0 gm/dl Albumin/Globulin Ratio 1.2 Test 04/29/17 06:57 04/29/17 07:43 Bedside Glucose 112 mg/dl Creatine Kinase MB Ratio Mental Examination During interview pt is: alert and oriented Appearance: appropriately groomed, appeared stated age Eye contact is: good Motor behavior is: steady gait & station (pt lying in bed during interview) Speech: normal in rate, rhythm & volume Affect: tearful, anxious Mood is: depressed, anxious Thought process: linear, logical, concrete Thought content: reality based without delusions Suicidal thought are: denied Homicidal thoughts are: denied Hallucinations: denies auditory, denies visual Cognition: memory grossly intact, attention grossly intact, language grossly intact Intelligence estimated to be: below average Insight: limited Judgement: limited Impression / Recommendations Impression 52 year old male with bipolar disorder s/p Ambien overdose. Risk Factors Assessment Male: Yes : Yes /single/: Yes Mental Health Diagnoses: Yes Previous attempt: Yes Previous psychiatric stay: Yes Protective Factors Assessment Supportive family: Yes Recommendations (1) BIPOLAR AFFECTIVE NOS Acute inpatient hospitalization is recommended when medically cleared. Pt is agreeable to a 201. Please do not d/c AMA without notification of service. Continue to hold psych meds.
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
[2017-04-29] MEDS: METFORMIN HCL 500 MG TAB PO SCH (18:01)
[2017-04-30] MEDS: INSULIN ASPART 100 UNITS/ML 3 ML PEN SC SCH ×2 (06:30→11:00)
[2017-04-30 07:06] VITALS: BP 115/73; PULSE 64; TEMP 36.4; O2SAT 94
[2017-04-30] MEDS: METFORMIN HCL 500 MG TAB PO SCH (08:04)
[2017-04-30] MEDS: TAMSULOSIN HCL 0.4 MG CAP PO SCH (08:04)
[2017-04-30] MEDS: LISINOPRIL 5 MG TAB PO SCH (08:04)
[2017-04-30 08:37] LABS: CKMB/CK RATIO 3.3 (0-3.0)
[2017-04-30 12:30] VITALS: BP 115/73; PULSE 64; TEMP 36.4; O2SAT 94
[2017-04-30] MEDS ORDERED: OXCA300T4 PO (12:39)
--- NOTE | 2017-04-30 12:41 | Psychiatric Progress Notes ---
Psychiatric Progress Note Date of Service Apr 30, 2017. Notes Patient seen. MS assessed. Has been awaiting bed placement. Agreeable to restart Trileptal and titrate for depression. States only past antidepressant trial was Prozac. He was accepted to [place]. Liaison facilitating transport by [facility]. He continues to meet criteria for inpatient mental health treatment given recent suicide attempt.
--- NOTE | 2017-04-30 12:41 | Discharge Instructions ---
Discharge Instructions Date of Service Apr 30, 2017. Admission Reason for Admission: Drug Overdose, Intentional, Hypoxia Discharge Discharge Diagnosis / Problem: Intentional drug overdose Discharge Goals Goal(s): Learn about illness, Diagnostic testing, Therapeutic intervention Activity Recommendations Activity Limitations: resume your previous activity . Instructions / Follow-Up Instructions / Follow-Up To be arranged once released from the psychiatric unit at [facility] Current Hospital Diet Patient's current hospital diet: Diabetes Type 2 Diet Discharge Diet Recommended Diet: Diabetes Type 2 Diet Procedures Procedures Performed: 1. doppler studies of the legs NEGATIVE for DVT 2. chest x-ray without any pneumonia Pending Studies Studies pending at discharge: no Medical Emergencies . Who to Call and When: Medical Emergencies: If at any time you feel your situation is an emergency, please call 911 immediately. . Non-Emergent Contact Non-Emergency issues call your: Specialist (psychiatrist ) Call Non-Emergent contact if: you have any medication questions . . "Provider Documentation" section prepared by Kurt Portillo. . VTE Core Measure Inpt VTE Proph given/why not?: SCD's
[2017-04-30] MEDS ORDERED: OXCARBAZEPINE 150 MG TAB PO ONE (12:45)
--- NOTE | 2017-04-30 12:54 | Discharge Summary ---
Discharge Summary Date of Service Apr 30, 2017. Discharge Summary Admission Date: Apr 28, 2017 at 23:39 Discharge Date: Apr 30, 2017 Discharge Disposition: Acute care mental health ([facility]) Principal Diagnosis: suicide attempt by way of medicinal ingestion Problems/Secondary Diagnoses: 1. bipolar disorder with prior suicide attempts 2. morbid obesity with BMI 43 3. SARINA on night-time CPAP 4. T2DM 5. HTN 6. chronic thrombocytopenia, baseline platelet count about 90-100; ITP? 7. tinea pedis b/l feet 8. acute hypoxic respiratory failure 2nd to toxic ingestion (ambien) resulting in sedation & hypoventilation - resolved Immunizations: Have You Had Influenza Vaccine: Yes History of Tetanus Vaccine?: Yes Tetanus Immunization Date: Apr 12, 2009 History of Pneumococcal: No History of Hepatitis B Vaccine: No Procedures: b/l lower extremity venous duplex exam NEGATIVE for DVT Consultations: psychiatry - Calista Snowden MD Medication Reconciliation Changed Medications: Oxcarbazepine (Trileptal) 300 Mg Tab 450 MG PO BID, #90 TABS 1 Refill (Changed from: 300 MG; Refills: ) Continued Medications: Lisinopril (Zestril) 5 Mg Tab 5 MG PO DAILY, TAB Metformin Hcl (Glucophage) 1,000 Mg Tab 1000 MG PO BIDM Tamsulosin HCl (Tamsulosin HCl) 0.4 Mg Cap 0.4 MG PO DAILY Discontinued Medications: Zolpidem Tartrate (Ambien) 10 Mg Tab 10 MG PO HS PRN for Sleep Discharge Exam Physical Exam: General Appearance: no apparent distress, + obese ENT: pharynx normal Neck: no JVD Respiratory/Chest: lungs clear, no respiratory distress, no accessory muscle use Cardiovascular: regular rate, rhythm, no gallop, no murmur, normal peripheral pulses Abdomen / GI: normal bowel sounds, non tender, soft, no organomegaly Extremities: no pedal edema Neurologic/Psychiatric: alert, oriented x 3 Skin: + pertinent finding (tinea pedis b/l feet, worse on left) Hospital Course HISTORY OF PRESENT ILLNESS: This is a 52yo male with a history of bipolar disorder and prior suicide attempt who presented to the [facility] ED after a suicide attempt. A friend was concerned that the patient was suicidal and called EMS to assess the patient. He was found after he had ingested 12 Ambiens. By the time he was in the ED he was extremely somnolent with an oxygen requirement. HOSPITAL COURSE: The patient's acute hypoxic respiratory failure was due to hypoventilation in the setting of excess sedation from the ambien as well as a history of SARINA. With time and supportive care the respiratory failure resolved and his mentation returned to baseline. He did not voice any further suicidal ideation during his stay. He was seen in consult by psychiatry who recommended inpatient psychiatric care and titration of his trileptal. Multiple referrals were placed and [facility] graciously accepted him for admission. All other medical problems remained stable while hospitalized. Of note - the patient has chronic thrombocytopenia with baseline platelet count of about 90-100. He has had chronically low platelets for many years, likely going back to the . This could represent chronic ITP. No treatment is required at this time. While at [place] the patient should be continued on home CPAP, if available, for his SARINA. 04/28/17 20:50 Red Blood Count 4.39, Mean Corpuscular Volume 91.1, Mean Corpuscular Hemoglobin 30.8, Mean Corpuscular Hemoglobin Concent 33.8, Mean Platelet Volume 13.0, Neutrophils (%) (Auto) 59.5, Lymphocytes (%) (Auto) 27.3, Monocytes (%) (Auto) 5.9, Eosinophils (%) (Auto) 6.1, Basophils (%) (Auto) 1.0, Neutrophils # (Auto) 3.74, Lymphocytes # (Auto) 1.71, Monocytes # (Auto) 0.37, Eosinophils # (Auto) 0.38, Basophils # (Auto) 0.06 04/29/17 06:19 Red Blood Count 4.40, Mean Corpuscular Volume 91.6, Mean Corpuscular Hemoglobin 30.2, Mean Corpuscular Hemoglobin Concent 33.0, Mean Platelet Volume 12.8, Neutrophils (%) (Auto) 70.1, Lymphocytes (%) (Auto) 20.0, Monocytes (%) (Auto) 5.1, Eosinophils (%) (Auto) 3.9, Basophils (%) (Auto) 0.7, Neutrophils # (Auto) 4.00, Lymphocytes # (Auto) 1.14, Monocytes # (Auto) 0.29, Eosinophils # (Auto) 0.22, Basophils # (Auto) 0.04 04/28/17 20:50 04/29/17 06:19 Test 04/28/17 20:50 04/28/17 21:17 04/28/17 23:27 04/29/17 06:19 White Blood Count 6.27 K/uL (4.8-10.8) 5.70 K/uL (4.8-10.8) Red Blood Count 4.39 M/uL (4.7-6.1) 4.40 M/uL (4.7-6.1) Hemoglobin 13.5 g/dL (14.0-18.0) 13.3 g/dL (14.0-18.0) Hematocrit 40.0 % (42-52) 40.3 % (42-52) Mean Corpuscular Volume 91.1 fL (80-100) 91.6 fL (80-100) Mean Corpuscular Hemoglobin 30.8 pg (25-34) 30.2 pg (25-34) Mean Corpuscular Hemoglobin Concent 33.8 g/dl (32-36) 33.0 g/dl (32-36) Platelet Count 94 K/uL (130-400) 94 K/uL (130-400) Mean Platelet Volume 13.0 fL (7.4-10.4) 12.8 fL (7.4-10.4) Neutrophils (%) (Auto) 59.5 % 70.1 % Lymphocytes (%) (Auto) 27.3 % 20.0 % Monocytes (%) (Auto) 5.9 % 5.1 % Eosinophils (%) (Auto) 6.1 % 3.9 % Basophils (%) (Auto) 1.0 % 0.7 % Neutrophils # (Auto) 3.74 K/uL (1.4-6.5) 4.00 K/uL (1.4-6.5) Lymphocytes # (Auto) 1.71 K/uL (1.2-3.4) 1.14 K/uL (1.2-3.4) Monocytes # (Auto) 0.37 K/uL (0.11-0.59) 0.29 K/uL (0.11-0.59) Eosinophils # (Auto) 0.38 K/uL (0-0.5) 0.22 K/uL (0-0.5) Basophils # (Auto) 0.06 K/uL (0-0.2) 0.04 K/uL (0-0.2) RDW Standard Deviation 47.5 fL (36.4-46.3) 48.2 fL (36.4-46.3) RDW Coefficient of Variation 14.2 % (11.5-14.5) 14.2 % (11.5-14.5) Immature Granulocyte % (Auto) 0.2 % 0.2 % Immature Granulocyte # (Auto) 0.01 K/uL (0.00-0.02) 0.01 K/uL (0.00-0.02) Platelet Estimate DECREASED DECREASED Prothrombin Time 10.7 SECONDS (9.0-12.0) Prothromb Time International Ratio 1.0 (0.9-1.1) Activated Partial Thromboplast Time 26.2 SECONDS (21.0-31.0) Partial Thromboplastin Ratio 1.0 Anion Gap 5.0 mmol/L (3-11) 4.0 mmol/L (3-11) Est Creatinine Clear Calc Drug Dose 109.3 ml/min 115.1 ml/min Estimated GFR () 86.7 97.0 Estimated GFR (Non- 74.8 83.7 BUN/Creatinine Ratio 24.6 (10-20) 20.1 (10-20) Osmolality 298 mOsm/kg (280-300) Calcium Level 9.7 mg/dl (8.5-10.1) 9.4 mg/dl (8.5-10.1) Total Bilirubin 0.6 mg/dl (0.2-1) 0.9 mg/dl (0.2-1) Direct Bilirubin 0.1 mg/dl (0-0.2) Aspartate Amino Transf (AST/SGOT) 31 U/L (15-37) 27 U/L (15-37) Alanine Aminotransferase (ALT/SGPT) 51 U/L (12-78) 49 U/L (12-78) Alkaline Phosphatase 93 U/L (45-117) 92 U/L (45-117) Total Creatine Kinase 335 U/L (39-308) Creatine Kinase MB 13.4 ng/ml (0.5-3.6) 9.2 ng/ml (0.5-3.6) Creatine Kinase MB Ratio 4.0 (0-3.0) Troponin I 0.018 ng/ml (0-0.045) 0.017 ng/ml (0-0.045) Total Protein 6.9 gm/dl (6.4-8.2) 6.7 gm/dl (6.4-8.2) Albumin 3.7 gm/dl (3.4-5.0) 3.7 gm/dl (3.4-5.0) Lipase 337 U/L (73-393) Salicylates Level < 1.7 mg/dl (2.8-20) Acetaminophen Level < 2 ug/ml (10-30) Venous Blood pH 7.35 (7.36-7.41) Venous Blood Partial Pressure CO2 53 mmHg (38.0-50.0) Venous Blood Partial Pressure O2 51 mmHg Venous Blood HCO3 28 mmol/L Venous Blood Oxygen Saturation 81.7 % Venous Blood Base Excess 1.9 mEq/L Ethyl Alcohol mg/dL < 3.0 mg/dl (0-3) Urine Color YELLOW Urine Appearance CLEAR (CLEAR) Urine pH 5.0 (4.5-7.5) Urine Specific [place] 1.018 (1.000-1.030) Urine Protein NEG (NEG) Urine Glucose (UA) NEG (NEG) Urine Ketones NEG (NEG) Urine Occult Blood NEG (NEG) Urine Nitrite NEG (NEG) Urine Bilirubin NEG (NEG) Urine Urobilinogen NEG (NEG) Urine Leukocyte Esterase NEG (NEG) Urine Opiates Screen NEG (NEG) Urine Methadone, Qualitative NEG (NEG) Urine Barbiturates NEG (NEG) Urine Phencyclidine (PCP) Level NEG (NEG) Ur Amphetamine/Methamphetamine NEG (NEG) MDMA (Ecstasy) Screen NEG (NEG) Urine Benzodiazepines Screen NEG (NEG) Urine Cocaine Metabolite NEG (NEG) Urine Marijuana (THC) NEG (NEG) Hypersegmented Polys 1+ Toxic Granulation 1+ Globulin 3.0 gm/dl (2.5-4.0) Albumin/Globulin Ratio 1.2 (0.9-2) Test 04/29/17 06:57 04/29/17 07:43 04/29/17 10:57 04/29/17 11:53 Bedside Glucose 112 mg/dl (70-99) 134 mg/dl (70-99) Creatine Kinase MB Ratio (0-3.0) (0-3.0) Creatine Kinase MB 7.2 ng/ml (0.5-3.6) Troponin I 0.016 ng/ml (0-0.045) Test 04/29/17 15:50 04/29/17 19:51 04/30/17 07:41 Bedside Glucose 99 mg/dl (70-99) 110 mg/dl (70-99) Total Creatine Kinase 118 U/L (39-308) Creatine Kinase MB 3.9 ng/ml (0.5-3.6) Creatine Kinase MB Ratio 3.3 (0-3.0) Troponin I 0.018 ng/ml (0-0.045) Total Time Spent: Less than 30 minutes This includes examination of the patient, discharge planning, medication reconciliation, and communication with other providers. Discharge Instructions Please refer to the electronic Patient Visit Report (Discharge Instructions) for additional information. Follow-Up to be arranged once released from [facility] Additional Copies To Calista Snowden M.D.; Julio Mortensen M.D.
[2017-04-30] MEDS ORDERED: OXCARBAZEPINE 150 MG TAB PO SCH (20:00)
== END 2017-04-30 13:42 | DRG 917 ==
LOC: EDBD 20:36 → C.EDC 20:37 → C.2E 23:39 → ENRESERV 23:51 → C.MS4W 04-29 16:02
PROVIDERS: ADMIT Hospitalist; ATTEND Internal Medicine
DX: T42.6X2A Poisoning by other antiepileptic and sedative-hypnotic drugs, intentional self-harm, initial encounter (principal); J96.01 Acute respiratory failure with hypoxia; Z68.41 Body mass index [BMI] 40.0-44.9, adult; R74.8 Abnormal levels of other serum enzymes; R40.0 Somnolence; F31.9 Bipolar disorder, unspecified; D69.6 Thrombocytopenia, unspecified; I10 Essential (primary) hypertension; E11.9 Type 2 diabetes mellitus without complications; B35.3 Tinea pedis; G47.33 Obstructive sleep apnea (adult) (pediatric); F17.200 Nicotine dependence, unspecified, uncomplicated; E66.01 Morbid (severe) obesity due to excess calories; Z99.89 Dependence on other enabling machines and devices; Z91.5 Personal history of self-harm; Z79.84 Long term (current) use of oral hypoglycemic drugs; Z79.899 Other long term (current) drug therapy

== ENCOUNTER → 2017-05-25 | Outpatient (CLI) | payer OTHER ==
[~2017-05-25] MED LIST changes: -BROM500T2 PO; -GLUCTAB7 PO; +OPTIRAY 300 IV PRN; -POTA1080 PO; -ZOLP10TA PO
--- NOTE | 2017-05-25 15:21 | DIAGNOSTIC IMAGING REPORT ---
IVP W/OR W/O TOMOGRAMS CLINICAL HISTORY: 52 years-old Male presenting with N20.0 Nephrolithiasis diabetic-metformin, no latex allergy, no iod. TECHNIQUE: An abdominal semiconductor lab technician radiograph is performed. IVP pyelogram was then performed following the IV administration of 100 mL of Optiray 300, tomographic images are acquired in the corticomedullary and excretory phases of enhancement. Overhead views of the renal collecting system and bladder were obtained in multiple obliquities both pre and post void. COMPARISON: CT from 01/16/2017 and plain radiograph from 02/09/2017. FINDINGS: Initial semiconductor lab technician radiograph demonstrates bilateral nephrolithiasis, somewhat poorly visualized secondary to the presence of bowel gas and stool. Cholecystectomy clips. Flowing osteophytosis in the thoracolumbar region suggest diffuse idiopathic skeletal hyperostosis. Multiple pelvic phleboliths. No calcification along the courses of the ureters. Postcontrast imaging demonstrates normal excretion from the kidneys bilaterally. Nondilated renal collecting systems consistent with resolved right hydronephrosis. Ureters nondilated. No filling defect within the urinary collecting systems. Bladder distends normally. Small post void residual. IMPRESSION: 1. Bilateral nephrolithiasis. 2. Resolved hydronephrosis. 3. Small postvoid residual, which is difficult to quantify. If there is clinical concern, ultrasound of the bladder could be obtained on a nonurgent basis. Electronically signed by: Howard Garcia M.D. 05/25/2017 3:20 PM Dictated Date/Time: 05/25/2017 2:57 PM
== END | disposition home or self-care (01) ==
LOC: C.RAD 12:38
PROVIDERS: ATTEND Urology
DX: N20.0 Calculus of kidney (principal)

== ENCOUNTER → 2017-05-27 | Outpatient (CLI) | payer OTHER ==
[~2017-05-27] MED LIST changes: -OPTIRAY 300 IV PRN
[2017-05-27 12:16] LABS: BLOOD UREA NITROGEN 26 mg/dl (7-18); BUN/CREATININE RATIO 22.4 (10-20); CREATININE 1.17 mg/dl (0.60-1.40)
== END | disposition home or self-care (01) ==
LOC: C.LAB 09:53
PROVIDERS: ATTEND Urology
DX: N20.0 Calculus of kidney (principal)

== ENCOUNTER 2017-06-24 23:01 | Emergency (ER) | payer OTHER ==
[~2017-06-24] VITALS: Ht 180.3 cm; Wt 126.7 kg
[2017-06-24 23:20] VITALS: Ht 180.3 cm; Wt 126.7 kg
[2017-06-24] MEDS ORDERED: TRL300 PO (23:24)
[2017-06-24] MEDS ORDERED: POTA1080 PO (23:24)
[2017-06-24 23:46] LABS: HEMATOCRIT 41.7 % (42-52); MEAN CORPUSCULAR HGB CONC 34.1 g/dl (32-36); MEAN PLATELET VOLUME 12.7 fL (7.4-10.4); PLATELET COUNT 98 K/uL (130-400); RED BLOOD COUNT 4.58 M/uL (4.7-6.1); WHITE BLOOD COUNT 7.19 K/uL (4.8-10.8)
[2017-06-25 00:06] LABS: BASO ABS # 0.07 K/uL (0-0.2); COMPLETE YES; EOS % 4.9 %; IG% 0.1 %; LYMPH % 20.7 %; LYMPH ABS # 1.49 K/uL (1.2-3.4); NEUT % 67.3 %
[2017-06-25 00:11] LABS: ALT/SGPT 45 U/L (12-78); AST/SGOT 30 U/L (15-37); BLOOD UREA NITROGEN 26 mg/dl (7-18); BUN/CREATININE RATIO 20.4 (10-20); CARBON DIOXIDE 26 mmol/L (21-32); CHLORIDE 106 mmol/L (98-107); CREATININE 1.25 mg/dl (0.60-1.40); GLUCOSE 133 mg/dl (70-99); POTASSIUM 3.9 mmol/L (3.5-5.1); SODIUM 140 mmol/L (136-145)
[2017-06-25 00:13] LABS: MANUAL MICROSCOPIC REQUIRED? NO; URINE APPEARANCE CLEAR (CLEAR); URINE BILIRUBIN NEG (NEG); URINE COLOR YELLOW; URINE NITRITE NEG (NEG); URINE SPECIFIC GRAVITY 1.015 (1.000-1.030); UROBILINOGEN NEG (NEG)
[2017-06-25 00:15] LABS: REVIEW REQ? NO
[2017-06-25 00:22] LABS: BENZODIAZEPINE, URINE NEG (NEG); COCAINE,URINE NEG (NEG); PHENCYCLIDINE, URINE NEG (NEG)
[2017-06-25 00:22] LABS: ALKALINE PHOSPHATASE 96 U/L (45-117)
--- NOTE | 2017-06-25 01:07 | EMERGENCY ROOM VISIT NOTE ---
History Report prepared by Priti: Mateusz Walker Under the Supervision of: Dr. Kathy He D.O. First contact with patient: 23:03 Chief Complaint: MENTAL HEALTH EVALUATION Stated Complaint: MENTAL HEALTH History of Present Illness The patient is a 52 year old male who presents to the Emergency Room by police with complaints of resolved suicidal ideation beginning yesterday. Per reinforcing metal worker, the patient had a plan to overdose on his Oxycodone last night. They state that the patient had 20 Oxycodone tablets in his hand upon arrival of the reinforcing metal worker, but eventually put it down. They state that the patient eventually took a knife with him into his room, and police were then called. The reinforcing metal worker states that the patient's feelings of depression are routed in an online relationship he has had with a woman. They state that the woman asked the patient to wire her money, but the patient was unable to come up with the money. They state that the stress of this situation has prompted his thoughts. The patient states that a lot of the stress comes from his inability to successfully send the woman money. He states that the woman told him that she would fly up to visit him if he sent her the money for the [employer]. He notes that his mother called [facility] for him today after he "trashed" his room. The patient states that he made comments to his mother saying "I would be better off ". He currently does not feel suicidal. He notes that he had his dosage of Trileptal increased two months ago from BID to TID. The patient denies any recent fevers, vomiting, diarrhea, rashes, or illness. He denies any drug or alcohol use. Source of History: patient, other (reinforcing metal worker) Onset: Yesterday Quality: other (suicidal ideation) Timing: resolved Associated Symptoms: No fevers, No vomiting, No diarrhea, No rash Review of Systems See HPI for pertinent positives & negatives. A total of 10 systems reviewed and were otherwise negative. Past Medical & Surgical Medical Problems: (1) Anxiety (2) Benign hypertension (3) BIPOLAR AFFECTIVE NOS (4) Bipolar disorder (5) CHEST PAIN NOS (6) Cholecystectomy (7) DIAB ROCIO WO COMPL, TYPE II OR UNSPEC TYPE, NOT UNCNTRLD (8) Drug overdose, intentional (9) Fatty liver disease, nonalcoholic (10) Hypoxia (11) Kidney stones (12) OBESITY, NOS (13) OBSTRUCTIVE SLEEP APNEA (ADULT) (PEDIATRIC) (14) Stress echocardiography (15) Thrombocytopenia Family History FHx: cancer FHx: heart disease FHx: hypertension FHx: kidney disease/stones Social History Smoking Status: Never Smoker Alcohol Use: none Drug Use: none Marital Status: single Housing Status: lives alone Occupation Status: disabled Current/Historical Medications Scheduled Lisinopril (Zestril), 5 MG PO DAILY Metformin Hcl (Glucophage), 1,000 MG PO BIDM Oxcarbazepine (Oxcarbazepine), 300 MG PO TID Potassium Citrate (Alkalinizer (Potassium Citrate ER), 1,080 MG PO BID Tamsulosin HCl (Tamsulosin HCl), 0.4 MG PO DAILY Allergies Coded Allergies: Meloxicam (Verified Allergy, Intermediate, RASH, 06/24/17) Aspirin (Verified Allergy, Mild, NOSE BLEEDS, 06/24/17) Penicillins (Verified Allergy, Mild, TACHYCARDIA, 06/24/17) Physical Exam Vital Signs Date Time Temp Pulse Resp B/P (MAP) Pulse Ox O2 Delivery O2 Flow Rate FiO2 06/25/17 07:00 36.9 69 18 138/66 100 06/25/17 01:57 63 18 125/71 96 Room Air 06/24/17 23:20 36.8 76 20 155/103 98 Room Air Physical Exam GENERAL: alert, well appearing, well nourished, no distress, non-toxic, obese EYE EXAM: normal conjunctiva, PERRL and EOM's grossly intact OROPHARYNX: no exudate, no erythema, lips, buccal mucosa, and tongue normal and mucous membranes are moist NECK: supple, no nuchal rigidity, no adenopathy, non-tender LUNGS: Clear to auscultation. Normal chest wall mechanics HEART: no murmurs, S1 normal and S2 normal ABDOMEN: abdomen soft, non-tender, normo-active bowel sounds, no masses, no rebound or guarding. BACK: Back is symmetrical on inspection and there is no deformity, no midline tenderness, no CVA tenderness. SKIN: no rashes and no bruising UPPER EXTREMITIES: upper extremities are grossly normal. LOWER EXTREMITIES: No pitting edema. NEURO EXAM: Normal sensorium, cranial nerves II-XII grossly intact, normal speech, no gross weakness of arms, no gross weakness of legs. PSYCH: Anxious. Depressed. No SI. No HI. Medical Decision & Procedures Laboratory Results 06/24/17 23:31 Red Blood Count 4.58, Mean Corpuscular Volume 91.0, Mean Corpuscular Hemoglobin 31.0, Mean Corpuscular Hemoglobin Concent 34.1, Mean Platelet Volume 12.7, Neutrophils (%) (Auto) 67.3, Lymphocytes (%) (Auto) 20.7, Monocytes (%) (Auto) 6.0, Eosinophils (%) (Auto) 4.9, Basophils (%) (Auto) 1.0, Neutrophils # (Auto) 4.84, Lymphocytes # (Auto) 1.49, Monocytes # (Auto) 0.43, Eosinophils # (Auto) 0.35, Basophils # (Auto) 0.07 06/24/17 23:31 Test 06/24/17 23:30 06/24/17 23:31 Urine Color YELLOW Urine Appearance CLEAR (CLEAR) Urine pH 5.0 (4.5-7.5) Urine Specific [place] 1.015 (1.000-1.030) Urine Protein NEG (NEG) Urine Glucose (UA) NEG (NEG) Urine Ketones NEG (NEG) Urine Occult Blood NEG (NEG) Urine Nitrite NEG (NEG) Urine Bilirubin NEG (NEG) Urine Urobilinogen NEG (NEG) Urine Leukocyte Esterase NEG (NEG) Urine Opiates Screen POS (NEG) Urine Methadone, Qualitative NEG (NEG) Urine Barbiturates NEG (NEG) Urine Phencyclidine (PCP) Level NEG (NEG) Ur Amphetamine/Methamphetamine NEG (NEG) MDMA (Ecstasy) Screen NEG (NEG) Urine Benzodiazepines Screen NEG (NEG) Urine Cocaine Metabolite NEG (NEG) Urine Marijuana (THC) NEG (NEG) White Blood Count 7.19 K/uL (4.8-10.8) Red Blood Count 4.58 M/uL (4.7-6.1) Hemoglobin 14.2 g/dL (14.0-18.0) Hematocrit 41.7 % (42-52) Mean Corpuscular Volume 91.0 fL (80-100) Mean Corpuscular Hemoglobin 31.0 pg (25-34) Mean Corpuscular Hemoglobin Concent 34.1 g/dl (32-36) Platelet Count 98 K/uL (130-400) Mean Platelet Volume 12.7 fL (7.4-10.4) Neutrophils (%) (Auto) 67.3 % Lymphocytes (%) (Auto) 20.7 % Monocytes (%) (Auto) 6.0 % Eosinophils (%) (Auto) 4.9 % Basophils (%) (Auto) 1.0 % Neutrophils # (Auto) 4.84 K/uL (1.4-6.5) Lymphocytes # (Auto) 1.49 K/uL (1.2-3.4) Monocytes # (Auto) 0.43 K/uL (0.11-0.59) Eosinophils # (Auto) 0.35 K/uL (0-0.5) Basophils # (Auto) 0.07 K/uL (0-0.2) RDW Standard Deviation 46.3 fL (36.4-46.3) RDW Coefficient of Variation 13.9 % (11.5-14.5) Immature Granulocyte % (Auto) 0.1 % Immature Granulocyte # (Auto) 0.01 K/uL (0.00-0.02) Anion Gap 8.0 mmol/L (3-11) Est Creatinine Clear Calc Drug Dose 94.8 ml/min Estimated GFR () 76.8 Estimated GFR (Non- 66.2 BUN/Creatinine Ratio 20.4 (10-20) Calcium Level 9.0 mg/dl (8.5-10.1) Total Bilirubin 0.4 mg/dl (0.2-1) Direct Bilirubin < 0.1 mg/dl (0-0.2) Aspartate Amino Transf (AST/SGOT) 30 U/L (15-37) Alanine Aminotransferase (ALT/SGPT) 45 U/L (12-78) Alkaline Phosphatase 96 U/L (45-117) Total Protein 7.0 gm/dl (6.4-8.2) Albumin 3.7 gm/dl (3.4-5.0) Thyroid Stimulating Hormone (TSH) 1.290 uIu/ml (0.300-4.500) Ethyl Alcohol mg/dL < 3.0 mg/dl (0-3) Laboratory results per my review. ED Course 2309: The patient was evaluated in room A8. A complete history and physical exam was performed. 0035: Pt seen by psych case liner, willing to sign voluntary. 0135: I discussed the patients case with the piano case and bench assembler. He states that the patient is agreeable to staying as an inpatient. 0210: I signed the 201 petitioning statement. A bed search is underway. 0609: The patient was accepted for transfer to [facility]. The patient will be transferred. Medical Decision Differential diagnosis: Etiologies such as mood disorder, infection, hypoglycemia, electrolyte abnormalities, cardiac sources, intracerebral event, toxicologic, neurologic, as well as others were entertained. Pt with known bipolar and angry outburst, si with plan last night to overdose and then stood in front of the can help liaison with a handful of pills. Pt in need of inpatient treatment and signed voluntary. Cooperative here. Medication Reconcilliation Current Medication List: was personally reviewed by me Blood Pressure Screening Patient's blood pressure: Elevated blood pressure Blood pressure disposition: Elevated BP felt to be situational Impression Primary Impression: Bipolar disorder Additional Impression: Anger Scribe Attestation The scribe's documentation has been prepared under my direction and personally reviewed by me in its entirety. I confirm that the note above accurately reflects all work, treatment, procedures, and medical decision making performed by me. Departure Information Dispostion [facility] ([place]) Referrals Julio Mortensen M.D. (PCP) Patient Instructions My [facility] Problem Qualifiers Primary Impression: Bipolar disorder Active/Remission status: currently active Current bipolar episode type: mixed Current episode severity: moderate Qualified Codes: F31.62 - Bipolar disorder, current episode mixed, moderate
[2017-06-25 07:00] VITALS: BP 138/66; PULSE 69; TEMP 36.9; O2SAT 100
[2017-06-27 03:29] LABS: COD UR NEGATIVE NG/ML (CUTOFF=50); HYDROCOD UR NEGATIVE NG/ML (CUTOFF=50); HYDROMOR UR NEGATIVE NG/ML (CUTOFF=50); MORPHINE UR 198 NG/ML (CUTOFF=50); NORHYDROCODONE CONF UR NEGATIVE NG/ML (CUTOFF=50); OXYMORPH UR NEGATIVE NG/ML (CUTOFF=50)
== END 2017-06-25 07:02 ==
LOC: EDBD 23:01 → C.EDA 23:02
DX: F31.9 Bipolar disorder, unspecified (principal); R45.4 Irritability and anger; I10 Essential (primary) hypertension; E11.9 Type 2 diabetes mellitus without complications; K76.0 Fatty (change of) liver, not elsewhere classified; Z79.84 Long term (current) use of oral hypoglycemic drugs; Z80.9 Family history of malignant neoplasm, unspecified; Z82.49 Family history of ischemic heart disease and other diseases of the circulatory system; Z84.1 Family history of disorders of kidney and ureter

== ENCOUNTER 2017-09-18 22:17 | Emergency (ER) | payer OTHER ==
[~2017-09-18] VITALS: Ht 180.3 cm; Wt 130.0 kg
[~2017-09-18 22:17] MED LIST changes: -OXCA300T4 PO; +POTA1080 PO; +TRL300 PO
[2017-09-18 22:19] VITALS: TEMP 36.7; Ht 180.3 cm; Wt 130.0 kg
[2017-09-18] MEDS ORDERED: VENL75CA PO (22:35)
--- NOTE | 2017-09-18 23:37 | EMERGENCY ROOM VISIT NOTE ---
History Report prepared by Priti: Marco Beal Under the Supervision of: Dr. Kathy He D.O. First contact with patient: 22:31 Chief Complaint: MENTAL HEALTH EVALUATION Stated Complaint: MHID History of Present Illness The patient is a 52 year old male who presents to the Emergency Room with complaints of intermittent suicidal ideations which were triggered on Tuesday of last week. The patient reports beginning a correspondence with a woman on the internet over the summer. The patient notes that he eventually asked the woman to him and she accepted his proposal. The patient reports that the woman told him that he was to be a beneficiary to her father's inheritance fund and therefore required him to send money to an unknown fund in "[facility]" on a regular basis. The patient reports that on Tuesday of last week, 800 dollars were wired to the patient, he added 200 dollars of his own to the fund and attempted to wire the money to "[facility]". The patient notes that the transaction was denied and he was informed that he had fallen victim to a scam. The patient then attempted to return the 800 dollars to the original sender by contacting local police. After doing this his fiance messaged him asking him why he went to the police department. The patient was outraged after realized he was being cheated by his fiance and threatened to kill himself to 911, as well as to his family. The patient notes that he has attempted to kill himself in the past by overdosing on Ambien. He reports that he has access to knives at home, but is not in possession of any firearms. The patient denies any homicidal ideations or hallucinations. He states that he is a type 2 Diabetic and also suffers from sleep apnea, a stiff neck, hypertension, and bipolar disorder. The patient notes that he was in the ED in June where he was put on a new medication to control his bipolar disorder; he feel that this new medication has improved his symptoms. The patient denies any recent infection including cold or flu. Source of History: patient Onset: 6 days ago Position: other (psych) Quality: other (suicidal ideations) Timing: intermittent Associated Symptoms: No fevers, No chills Note: Denies: Homicidal ideations, hallucinations, recent infection. Review of Systems See HPI for pertinent positives & negatives. A total of 10 systems reviewed and were otherwise negative. Past Medical & Surgical Medical Problems: (1) Anxiety (2) Benign hypertension (3) BIPOLAR AFFECTIVE NOS (4) Bipolar disorder (5) CHEST PAIN NOS (6) Cholecystectomy (7) DIAB ROCIO WO COMPL, TYPE II OR UNSPEC TYPE, NOT UNCNTRLD (8) Drug overdose, intentional (9) Fatty liver disease, nonalcoholic (10) Hypoxia (11) Kidney stones (12) OBESITY, NOS (13) OBSTRUCTIVE SLEEP APNEA (ADULT) (PEDIATRIC) (14) Stress echocardiography (15) Thrombocytopenia Family History FHx: cancer FHx: heart disease FHx: hypertension FHx: kidney disease/stones Social History Smoking Status: Never Smoker Alcohol Use: none Drug Use: none Marital Status: single Housing Status: lives alone Occupation Status: disabled Current/Historical Medications Scheduled Lisinopril (Zestril), 5 MG PO DAILY Metformin Hcl (Glucophage), 1,000 MG PO BIDM Oxcarbazepine (Oxcarbazepine), 300 MG PO TID Potassium Citrate (Alkalinizer (Potassium Citrate ER), 1,080 MG PO BID Tamsulosin HCl (Tamsulosin HCl), 0.4 MG PO DAILY Venlafaxine Hcl (Effexor Xr), 75 MG PO DAILY Allergies Coded Allergies: Meloxicam (Verified Allergy, Intermediate, RASH, 09/18/17) Aspirin (Verified Allergy, Mild, NOSE BLEEDS, 09/18/17) Penicillins (Verified Allergy, Mild, TACHYCARDIA, 09/18/17) Bupropion (Unverified Adverse Reaction, Mild, RASH, 09/18/17) Physical Exam Vital Signs Date Time Temp Pulse Resp B/P (MAP) Pulse Ox O2 Delivery O2 Flow Rate FiO2 09/19/17 08:30 78 20 142/78 100 09/19/17 01:00 81 20 155/85 97 Room Air 09/18/17 22:19 36.7 86 20 160/73 98 Room Air Physical Exam GENERAL: alert, well appearing, well nourished, no distress, non-toxic EYE EXAM: normal conjunctiva, PERRL and EOM's grossly intact OROPHARYNX: no exudate, no erythema, lips, buccal mucosa, and tongue normal and mucous membranes are moist NECK: supple, no nuchal rigidity, no adenopathy, non-tender LUNGS: Clear to auscultation. Normal chest wall mechanics HEART: no murmurs, S1 normal and S2 normal ABDOMEN: abdomen soft, non-tender, normo-active bowel sounds, no masses, no rebound or guarding. BACK: Back is symmetrical on inspection and there is no deformity, no midline tenderness, no CVA tenderness. SKIN: no rashes and no bruising UPPER EXTREMITIES: upper extremities are grossly normal. LOWER EXTREMITIES: No pitting edema. NEURO EXAM: Normal sensorium, cranial nerves II-XII [grossly] intact, normal speech, no [gross] weakness of arms, no [gross] weakness of legs. PSYCH: Positive SI, no HI, no hallucinations Medical Decision & Procedures Laboratory Results 09/18/17 23:37 Red Blood Count 4.48, Mean Corpuscular Volume 90.0, Mean Corpuscular Hemoglobin 31.0, Mean Corpuscular Hemoglobin Concent 34.5, Mean Platelet Volume 12.1, Neutrophils (%) (Auto) 62.9, Lymphocytes (%) (Auto) 24.7, Monocytes (%) (Auto) 5.3, Eosinophils (%) (Auto) 5.0, Basophils (%) (Auto) 1.9, Neutrophils # (Auto) 4.05, Lymphocytes # (Auto) 1.59, Monocytes # (Auto) 0.34, Eosinophils # (Auto) 0.32, Basophils # (Auto) 0.12 09/18/17 23:37 Test 09/18/17 23:37 09/19/17 00:05 White Blood Count 6.43 K/uL (4.8-10.8) Red Blood Count 4.48 M/uL (4.7-6.1) Hemoglobin 13.9 g/dL (14.0-18.0) Hematocrit 40.3 % (42-52) Mean Corpuscular Volume 90.0 fL (80-100) Mean Corpuscular Hemoglobin 31.0 pg (25-34) Mean Corpuscular Hemoglobin Concent 34.5 g/dl (32-36) Platelet Count 92 K/uL (130-400) Mean Platelet Volume 12.1 fL (7.4-10.4) Neutrophils (%) (Auto) 62.9 % Lymphocytes (%) (Auto) 24.7 % Monocytes (%) (Auto) 5.3 % Eosinophils (%) (Auto) 5.0 % Basophils (%) (Auto) 1.9 % Neutrophils # (Auto) 4.05 K/uL (1.4-6.5) Lymphocytes # (Auto) 1.59 K/uL (1.2-3.4) Monocytes # (Auto) 0.34 K/uL (0.11-0.59) Eosinophils # (Auto) 0.32 K/uL (0-0.5) Basophils # (Auto) 0.12 K/uL (0-0.2) RDW Standard Deviation 46.8 fL (36.4-46.3) RDW Coefficient of Variation 14.2 % (11.5-14.5) Immature Granulocyte % (Auto) 0.2 % Immature Granulocyte # (Auto) 0.01 K/uL (0.00-0.02) Anion Gap 7.0 mmol/L (3-11) Est Creatinine Clear Calc Drug Dose 92.4 ml/min Estimated GFR () 73.2 Estimated GFR (Non- 63.2 BUN/Creatinine Ratio 20.4 (10-20) Calcium Level 9.1 mg/dl (8.5-10.1) Total Bilirubin 0.6 mg/dl (0.2-1) Aspartate Amino Transf (AST/SGOT) 24 U/L (15-37) Alanine Aminotransferase (ALT/SGPT) 34 U/L (12-78) Alkaline Phosphatase 112 U/L (45-117) Total Protein 7.4 gm/dl (6.4-8.2) Albumin 3.8 gm/dl (3.4-5.0) Globulin 3.6 gm/dl (2.5-4.0) Albumin/Globulin Ratio 1.1 (0.9-2) Thyroid Stimulating Hormone (TSH) 0.865 uIu/ml (0.300-4.500) Salicylates Level < 1.7 mg/dl (2.8-20) Acetaminophen Level < 2 ug/ml (10-30) Ethyl Alcohol mg/dL < 3.0 mg/dl (0-3) Urine Color YELLOW Urine Appearance CLEAR (CLEAR) Urine pH 5.0 (4.5-7.5) Urine Specific [place] 1.012 (1.000-1.030) Urine Protein NEG (NEG) Urine Glucose (UA) NEG (NEG) Urine Ketones NEG (NEG) Urine Occult Blood NEG (NEG) Urine Nitrite NEG (NEG) Urine Bilirubin NEG (NEG) Urine Urobilinogen NEG (NEG) Urine Leukocyte Esterase NEG (NEG) Urine Opiates Screen NEG (NEG) Urine Methadone, Qualitative NEG (NEG) Urine Barbiturates NEG (NEG) Urine Phencyclidine (PCP) Level NEG (NEG) Ur Amphetamine/Methamphetamine NEG (NEG) MDMA (Ecstasy) Screen NEG (NEG) Urine Benzodiazepines Screen NEG (NEG) Urine Cocaine Metabolite NEG (NEG) Urine Marijuana (THC) NEG (NEG) Laboratory results per my review. Medications Administered Medications (Trade) Dose Ordered Sig/Lisa Route Start Time Stop Time Status Last Admin Dose Admin Lorazepam (Ativan Tab) 1 mg NOW STAT SL 09/19/17 01:13 09/19/17 01:14 DC 09/19/17 01:22 1 MG Tamsulosin HCl (Flomax Cap) 0.4 mg NOW ONCE PO 09/19/17 04:45 09/19/17 04:46 DC 09/19/17 05:59 0.4 MG Lisinopril (Zestril Tab) 5 mg NOW ONCE PO 09/19/17 04:45 09/19/17 04:46 DC 09/19/17 06:00 5 MG Oxcarbazepine (Trileptal Tab) 300 mg NOW STAT PO 09/19/17 04:41 09/19/17 04:45 DC 09/19/17 06:01 300 MG Venlafaxine HCl (effeXOR TAB) 75 mg NOW STAT PO 09/19/17 04:41 09/19/17 04:45 DC 09/19/17 06:02 75 MG Metformin HCl (Glucophage Tab) 1,000 mg NOW STAT PO 09/19/17 04:41 09/19/17 04:45 DC 09/19/17 06:01 1,000 MG ED Course 2316: The patient was evaluated in room A7. A complete history and physical exam was performed. 0308: Voluntary admission form signed. Attempting [facility]. Medical Decision Differential diagnosis: Etiologies such as mood disorder, infection, hypoglycemia, electrolyte abnormalities, cardiac sources, intracerebral event, toxicologic, neurologic, as well as others were entertained. Pt calm and cooperative here. Labs reassuring. I do not suspect intentional ingestion or other trauma. 201 signed. Medication Reconcilliation Current Medication List: was personally reviewed by me Blood Pressure Screening Patient's blood pressure: Elevated blood pressure Blood pressure disposition: Elevated BP felt to be situational Impression Primary Impression: Suicidal ideation Additional Impression: Bipolar disorder Scribe Attestation The scribe's documentation has been prepared under my direction and personally reviewed by me in its entirety. I confirm that the note above accurately reflects all work, treatment, procedures, and medical decision making performed by me. Departure Information Dispostion Still a Patient Referrals Julio Mortensen M.D. (PCP) Patient Instructions My [facility] Problem Qualifiers Additional Impression: Bipolar disorder Active/Remission status: currently active Current bipolar episode type: depressed Current episode severity: moderate Qualified Codes: F31.32 - Bipolar disorder, current episode depressed, moderate
[2017-09-18 23:55] LABS: HEMATOCRIT 40.3 % (42-52); HEMOGLOBIN 13.9 g/dL (14.0-18.0); MEAN CORPUSCULAR HGB CONC 34.5 g/dl (32-36); MEAN PLATELET VOLUME 12.1 fL (7.4-10.4); PLATELET COUNT 92 K/uL (130-400); RED CELL DISTRIBUTION WIDTH CV 14.2 % (11.5-14.5); RED CELL DISTRIBUTION WIDTH SD 46.8 fL (36.4-46.3); WHITE BLOOD COUNT 6.43 K/uL (4.8-10.8)
[2017-09-19 00:16] LABS: ALBUMIN 3.8 gm/dl (3.4-5.0); CALCIUM 9.1 mg/dl (8.5-10.1); CREATININE 1.3 mg/dl (0.60-1.40); POTASSIUM 3.6 mmol/L (3.5-5.1)
[2017-09-19 00:26] LABS: BASO % 1.9 %; BASO ABS # 0.12 K/uL (0-0.2); EOS ABS # 0.32 K/uL (0-0.5); IG# 0.01 K/uL (0.00-0.02); LYMPH % 24.7 %; LYMPH ABS # 1.59 K/uL (1.2-3.4); MONO % 5.3 %; MONO ABS # 0.34 K/uL (0.11-0.59); NEUT % 62.9 %; NEUT ABS # 4.05 K/uL (1.4-6.5); TOTAL PROTEIN 7.4 gm/dl (6.4-8.2)
[2017-09-19] MEDS ORDERED: LORAZEPAM 1 MG TAB SL STA (01:13)
--- NOTE | 2017-09-19 03:49 | EMERGENCY ROOM VISIT NOTE ---
ED Visit Note First contact with patient: 03:48 This case was signed out to me at change of shift by Dr. chapman. The patient is a voluntary admission for psychiatric care. He has been accepted at the [facility]. He will be transported there in the morning. The patient's morning medications will be ordered. He is resting at this time.
[2017-09-19] MEDS ORDERED: METFORMIN HCL 500 MG TAB PO STA (04:41)
[2017-09-19] MEDS ORDERED: VENLAFAXINE HCL 50 MG TAB PO STA (04:41)
[2017-09-19] MEDS ORDERED: OXCARBAZEPINE 150 MG TAB PO STA (04:41)
[2017-09-19] MEDS ORDERED: LISINOPRIL 5 MG TAB PO ONE (04:45)
[2017-09-19] MEDS ORDERED: TAMSULOSIN HCL 0.4 MG CAP PO ONE (04:45)
[2017-09-19 08:30] VITALS: BP 142/78; PULSE 78; O2SAT 100
== END 2017-09-19 08:33 ==
LOC: C.EDA 22:17
DX: R45.851 Suicidal ideations (principal); F31.32 Bipolar disorder, current episode depressed, moderate; F41.9 Anxiety disorder, unspecified; E11.9 Type 2 diabetes mellitus without complications; G47.33 Obstructive sleep apnea (adult) (pediatric); I10 Essential (primary) hypertension; K76.0 Fatty (change of) liver, not elsewhere classified; Z79.84 Long term (current) use of oral hypoglycemic drugs; Z88.6 Allergy status to analgesic agent; Z88.0 Allergy status to penicillin; Z88.8 Allergy status to other drugs, medicaments and biological substances; Z80.9 Family history of malignant neoplasm, unspecified; Z82.49 Family history of ischemic heart disease and other diseases of the circulatory system; Z84.1 Family history of disorders of kidney and ureter

== ENCOUNTER → 2017-10-26 | Outpatient (CLI) | payer OTHER ==
[~2017-10-26] MED LIST changes: +VENL75CA PO
[2017-10-26 11:00] LABS: HEMATOCRIT 43.1 % (42-52); HEMOGLOBIN 14.3 g/dL (14.0-18.0); MEAN CELL VOLUME 93.1 fL (80-100); MEAN CORPUSCULAR HEMOGLOBIN 30.9 pg (25-34); MEAN CORPUSCULAR HGB CONC 33.2 g/dl (32-36); MEAN PLATELET VOLUME 12.5 fL (7.4-10.4); PLATELET COUNT 88 K/uL (130-400); RED CELL DISTRIBUTION WIDTH CV 14.6 % (11.5-14.5); RED CELL DISTRIBUTION WIDTH SD 49.1 fL (36.4-46.3); WHITE BLOOD COUNT 5.58 K/uL (4.8-10.8)
[2017-10-26 12:02] LABS: HEMOGLOBIN A1C 5.4 % (4.5-5.6)
[2017-10-26 12:08] LABS: BASO % 1.6 %; BASO ABS # 0.09 K/uL (0-0.2); EOS % 6.6 %; EOS ABS # 0.37 K/uL (0-0.5); IG# 0.02 K/uL (0.00-0.02); LYMPH % 25.8 %; LYMPH ABS # 1.44 K/uL (1.2-3.4); MONO % 6.3 %; MONO ABS # 0.35 K/uL (0.11-0.59); NEUT % 59.3 %; NEUT ABS # 3.31 K/uL (1.4-6.5)
[2017-10-26 14:25] LABS: ALBUMIN 3.9 gm/dl (3.4-5.0); ALT/SGPT 38 U/L (12-78); AST/SGOT 17 U/L (15-37); BLOOD UREA NITROGEN 26 mg/dl (7-18); CALCIUM 9.6 mg/dl (8.5-10.1); CARBON DIOXIDE 30 mmol/L (21-32); CHOLESTEROL 160 mg/dl (0-200); CREATININE 1.13 mg/dl (0.60-1.40); GLUCOSE 110 mg/dl (70-99); POTASSIUM 4.2 mmol/L (3.5-5.1); SODIUM 142 mmol/L (136-145)
[2017-10-26 14:28] LABS: ALKALINE PHOSPHATASE 103 U/L (45-117); LDL CHOLESTEROL CALCULATED 85 mg/dl; TOTAL PROTEIN 7.2 gm/dl (6.4-8.2)
== END | disposition home or self-care (01) ==
LOC: C.LABBC 09:09
PROVIDERS: ATTEND Physician Assistant
DX: Z79.899 Other long term (current) drug therapy (principal); I10 Essential (primary) hypertension; D69.3 Immune thrombocytopenic purpura; E11.9 Type 2 diabetes mellitus without complications; R79.89 Other specified abnormal findings of blood chemistry; K21.9 Gastro-esophageal reflux disease without esophagitis

== ENCOUNTER → 2017-11-09 | Outpatient (CLI) | payer OTHER ==
--- NOTE | 2017-11-09 09:18 | DIAGNOSTIC IMAGING REPORT ---
ABD/PELVIS NO IV OR ORAL CONT CLINICAL HISTORY: 52 years-old Male presenting with N20.0 [id number]. TECHNIQUE: Multidetector CT of the abdomen and pelvis was performed without the use of intravenous contrast. IV contrast: None. A dose lowering technique was used consistent with the principles of ALARA (as low as reasonably achievable). COMPARISON: 01/16/2017. CT DOSE (mGy.cm): The estimated cumulative dose is 1574.26 mGy.cm. FINDINGS: Ceo Na topogram: Cholecystectomy clips. Lung bases: Minimal basilar opacities, likely atelectasis. Normal heart size. No pericardial or pleural effusion. Liver: Normal morphology. Density consistent with hepatic steatosis. Biliary: No gross biliary ductal dilatation allowing for noncontrast technique. Gallbladder surgically absent. Pancreas: Moderate parenchymal atrophy. Spleen: Normal noncontrast appearance. Splenule noted. Adrenal glands: Normal noncontrast appearance. Kidneys and ureters: Exophytic hypodense lesion arising from the upper pole the left kidney indeterminate but likely cysts. Multiple additional low-density lesions bilaterally likely cysts. Nonobstructing 4 mm calculus in the interpolar region of the right kidney. Multiple nonobstructing left renal calculi though some punctate foci may represent parenchymal calcifications. The largest suspected renal calculus on the left measures 3 mm. No hydronephrosis. Normal nonspecific perinephric fat stranding. Ureters are normal. Bladder: Circumferential bladder wall thickening. Pelvic organs: Prostate and seminal vesicles normal. Bowel: Diverticulosis of the sigmoid colon. No pericolonic inflammatory change. No wall thickening. Moderate stool burden throughout normal caliber colon. The appendix is normal. No bowel obstruction. Peritoneal cavity: No free fluid or intraperitoneal gas. Lymph nodes: No gross lymphadenopathy allowing for noncontrast technique. Vasculature: Aorta and IVC patent and normal in caliber. Right varicocele suspected. Abdominal wall: Bilateral gynecomastia. Musculoskeletal: Degenerative changes of the spine. IMPRESSION: 1. Moderate stool burden suggest constipation. 2. Diverticulosis without evidence of diverticulitis. 3. Nonobstructing 4 mm right renal calculus and multiple nonobstructing punctate left renal calculi. Overall stone burden is similar to prior exam. No ureteral calculi. No hydronephrosis. 4. Circumferential bladder wall thickening could indicate chronic bladder outlet obstruction or cystitis. Correlate with urinalysis. 5. Hepatic steatosis. Electronically signed by: Howard Garcia M.D. 11/09/2017 9:17 AM Dictated Date/Time: 11/09/2017 9:10 AM
== END | disposition home or self-care (01) ==
LOC: C.CTS 08:58
PROVIDERS: ATTEND Urology
DX: N20.0 Calculus of kidney (principal); N32.89 Other specified disorders of bladder

== ENCOUNTER → 2018-02-16 | Outpatient (CLI) | payer OTHER ==
[~2018-02-16] VITALS: Ht 180.3 cm; Wt 143.3 kg
[~2018-02-16] MED LIST changes: -VENL75CA PO; +VENL75CA88 PO
[2018-02-16 15:33] VITALS: BP 145/78; PULSE 99; Ht 180.3 cm; Wt 143.3 kg
== END | disposition home or self-care (01) ==
LOC: C.NEUR 14:23
PROVIDERS: ATTEND Physician Assistant
DX: G47.33 Obstructive sleep apnea (adult) (pediatric) (principal)

== ENCOUNTER 2019-03-26 19:29 | Inpatient (IN) ==
[2019-03-26] MEDS ORDERED: ONDANSETRON INJ 2 MG/ML 2 ML VIAL IV STA (20:42)
[2019-03-26] MEDS ORDERED: SODIUM CHLORIDE 0.9% 1000ML 1,000 ML IV SCH (20:45)
--- NOTE | 2019-03-26 21:14 | XRay Report ---
XR chest 1V portable CLINICAL HISTORY: Atypical chest pain COMPARISON STUDY: 04/28/2017 FINDINGS: The study is limited from a technical standpoint due to morbid obesity. The heart is enlarg ed. There is no lobar consolidation. Increased markings at the lung bases are likely due to technical factors and mild atelectasis.[ IMPRESSION: Cardiomegaly. No acute findings. Electronically signed by: Kuldip White M.D. 03/26/2019 9:13 PM
[2019-03-26 21:26] LABS: Partial Thromboplastin Ratio 1.1; Partial Thromboplastin Time 29.3 Seconds (21.0-31.0)
[2019-03-26 21:28] LABS: iSTAT Blood Urea Nitrogen > 140 mg/dl (7-18); iSTAT Carbon Dioxide 12 mEq/l (24-31); iSTAT Chloride 95 mEq/L (101-112); iSTAT Creatinine 15.1 mg/dl (0.6-1.3); iSTAT Glucose 110 mg/dl (70-99); iSTAT Hematocrit 42 % (42-52); iSTAT Hemoglobin 14.3 g/dl (14.0-18.0); iSTAT Ionized Calcium 1.19 mmol/l (1.12-1.32); iSTAT Potassium 5.3 mEq/L (3.3-5.0); iSTAT Sodium 125 mEq/L (135-144)
[2019-03-26 21:41] LABS: INR 1.1 (0.9-1.1)
[2019-03-26 21:43] LABS: Alanine Aminotransferase 33 U/L (12-78); Albumin Globulin Ratio 0.9 (0.9-2); Albumin Level 3.3 gm/dl (3.4-5.0); Alkaline Phosphatase 91 U/L (45-117); Aspartate Aminotransferase 20 U/L (15-37); BUN Creatinine Ratio 9.7 (10-20); Bilirubin,Total 0.5 mg/dl (0.2-1); Blood Urea Nitrogen 130 mg/dl (7-18); Calcium 9.4 mg/dl (8.5-10.1); Carbon Dioxide 10 mmol/L (21-32); Chloride 92 mmol/L (98-107); Creatinine Clr Calc Pharmacy 9.7 ml/min; Est GFR (African American) 4.4; Est GFR (Non-African American) 3.8; Globulin 3.8 gm/dl (2.5-4.0); Glucose 112 mg/dl (70-99); Potassium 5.2 mmol/L (3.5-5.1); Sodium 127 mmol/L (136-145); Total Protein 7.1 gm/dl (6.4-8.2); Troponin I < 0.015 ng/ml (0-0.045)
[2019-03-26] MEDS ORDERED: SODIUM CHLORIDE 0.9% 1000ML 1,000 ML IV ONE (21:51)
[2019-03-26] MEDS ORDERED: FAMOTIDINE 20MG/5ML IV PUSH IV STA (21:51)
[2019-03-26 21:56] LABS: Lipase 34038 U/L (73-393)
[2019-03-26 22:07] LABS: Appearance Urine Turbid (Clear); Bacteria Urine Automated Negative (Negative); Bilirubin Urine Negative (Negative); Blood Urine 3+ (Negative); Color Urine Yellow; Epithelial Cell Urine Auto 20-30 /lpf (0-5); Glucose Urine UA Negative (Negative); Ketones Urine Negative (Negative); Leukocyte Esterase Urine 3+ (Negative); Nitrite Urine Negative (Negative); Protein Urine 2+ (Negative); Specific Gravity Urine 1.017 (1.000-1.030); Urobilinogen Urine Negative (Negative)
[2019-03-26] MEDS ORDERED: cefTRIAXone SODIUM 1,000 MG/50 ML BAG IV STA (22:17)
--- NOTE | 2019-03-26 22:25 | CT Scan Report ---
CT SCAN OF THE ABDOMEN AND PELVIS WITHOUT CONTRAST CLINICAL HISTORY: vomiting COMPARISON STUDY: 11/09/2017 TECHNIQUE: CT scan of the abdomen and pelvis was performed from the lung bases to the proximal femurs . Images are reviewed in the axial, sagittal, and coronal planes. IV contrast was not administered fo r this examination. A dose lowering technique was utilized adhering to the principles of ALARA. CT DOSE: 2023.07 mGy.cm FINDINGS: Lower chest: There are dependent atelectatic changes. A partially visualized opacity within the lingu la, is also likely atelectatic. A small hiatal hernia with mild distal esophageal wall thickening Liver: There is hepatic steatosis. No focal masses are visualized. Gallbladder: Surgically absent. Spleen: Spleen is mildly enlarged measuring 13 cm Pancreas: Unremarkable. Adrenal glands: Unremarkable. Kidneys: There are punctate nonobstructing bilateral renal calculi. There is a 5 mm right ureteropelv ic junction calculus with mild secondary obstructive changes. There is a 5 mm proximal to mid left ur eteral calculus with secondary obstructive changes. Bilateral renal hypodensities likely represent cy sts. Bowel: There are no transition zones indicate bowel obstruction. There is colonic diverticulosis. The re is no evidence of acute diverticulitis. The appendix appears normal. Peritoneum: There is no intraperitoneal free air or abdominal ascites. Vasculature: The abdominal aorta is normal in course and caliber. Adenopathy: None. Pelvic viscera: There is an indwelling Diego catheter. Skeletal structures: No destructive osseous lesions are seen. IMPRESSION: 1. Bilateral obstructing ureteral calculi 2. Bilateral nephrolithiasis 3. No evidence of bowel obstruction. No evidence of free air 4. Hepatic steatosis with mild splenomegaly Electronically signed by: Kuldip White M.D. 03/26/2019 10:24 PM
[2019-03-26 22:31] LABS: Basophils # (auto) 0.01 K/uL (0-0.2); Basophils % (auto) 0.1 %; Echinocytes 1+; Hematocrit (blood only) 41.3 % (42-52); Hemoglobin 14.1 g/dL (14.0-18.0); Immature Granulocytes # (auto) 0.07 K/uL (0.00-0.02); Immature Granulocytes % (auto) 0.6 %; Lymphocytes # (auto) 0.51 K/uL (1.2-3.4); Mean Corpuscular Hemoglobin 30.3 pg (25-34); Mean Corpuscular Hgb Conc 34.1 g/dL (32-36); Mean Corpuscular Volume 88.6 fL (80-100); Monocytes # (auto) 0.55 K/uL (0.11-0.59); Monocytes % (auto) 4.3 %; Neutrophils # (auto) 11.51 K/uL (1.4-6.5); Platelet Count 133 K/uL (130-400); Platelet Estimate Normal (Normal); RDW Coefficient of Variation 13.4 % (11.5-14.5); Red Blood Count 4.66 M/uL (4.7-6.1); White Blood Count 12.65 K/uL (4.8-10.8)
[2019-03-26 22:34] LABS: RBC Urine Automated >30 /hpf (0-4)
[2019-03-26] MEDS ORDERED: PROPOFOL IV EMULSION 10 MG/ML 20 ML VIAL IV ONE (23:25)
[2019-03-26] MEDS ORDERED: fentaNYL citrate 100 MCG/2 ML VIAL ONE (23:25)
[2019-03-26] MEDS ORDERED: MIDAZOLAM HCL 1 MG/ML 2ML VIAL ONE (23:25)
[2019-03-26] MEDS ORDERED: ONDANSETRON INJ 2 MG/ML 2 ML VIAL ONE (23:26)
[2019-03-26] MEDS ORDERED: ROCURONIUM BROMIDE 10 MG/ML 5 ML VIAL ONE (23:26)
[2019-03-26] MEDS ORDERED: LIDOCAINE HCL 2% 2 ML VIAL/AMP(20MG/ML) INFIL ONE (23:26)
[2019-03-26] MEDS ORDERED: GLYCOPYRROLATE 0.2 MG/ML VIAL ONE (23:26)
[2019-03-26] MEDS ORDERED: NEOSTIGMINE METHYLSULFATE 5 MG/5 ML SYR ONE (23:26)
[2019-03-26] MEDS ORDERED: IOTHALAMATE MEGLUMINE II 17.2% 250 ML VIAL ONE (23:28)
--- NOTE | 2019-03-26 23:30 | Urology Consultation ---
Date of Consultation March 26, 2019 Assessment & Plan (1) Bilateral ureteral obstruction: Findings reviewed with patient - will proceed with emergent cystoscopy, bilateral RPG, bilateral stent placement. Risks and benefits reviewed. Further postop management per medical service. (2) Acute renal failure: History of Present Illness Reason for Consultation: Bilateral ureteral stones and renal failure. History of Present Illness 54 yo male, lost to f/u by our service 2 years ago, here acutely with a Cr of 13, n/v, malaise, abdominal distension and bilateral ureteral stones on KUB. His past notes are reviewed. He is being brought to the OR emergently for decompression seen his findings. Anuric after kendall placement per ER service. Covered with cephalosporins per ER. He notes his difficulties started with back and abdominal pain 2-3 days ago worsening into nausea and emesis a couple of days ago. His issues worsened until his current presentation. Nephrolithiasis, Acute: The patient is currently experiencing symptoms. Pertinent medical history: no previous kidney stone and no recurrent nephrolithiasis. Pertinent surgical history: no basket retrieval of previous stone, no placement of ureteral stent, no percutaneous nephrolithotomy, no lithotripsy for previous stone and no nephrostomy. Previous presentation included flank pain. Past evaluation has included urinalysis, kidney, ureters and bladder x-ray, abdominal CT, complete blood count, blood urea nitrogen, serum creatinine and urology consultation. Past treatment has included oral rehydration and Flomax. Allergies Allergy/AdvReac Type Severity Reaction Status Date / Time meloxicam Allergy Intermediate RASH Verified 03/26/19 22:28 aspirin Allergy Mild NOSE BLEEDS Verified 03/26/19 22:28 Penicillins Allergy Mild TACHYCARDIA Verified 03/26/19 22:28 bupropion AdvReac Mild RASH Unverified 03/26/19 22:28 Home Medications Home Medications Medication Instructions Recorded Confirmed Type benztropine 0.5 mg PO DAILY 03/26/19 03/26/19 History chlorpromazine 10 mg PO QAM 03/26/19 03/26/19 History chlorpromazine 25 mg PO HS 03/26/19 03/26/19 History diphenhydramine HCl 25 mg PO HS 03/26/19 03/26/19 History lisinopril 5 mg PO DAILY 03/26/19 03/26/19 History melatonin 3 mg PO HS 03/26/19 03/26/19 History metformin 1,000 mg PO BID 03/26/19 03/26/19 History venlafaxine 75 mg PO HS 03/26/19 03/26/19 History Patient History Medical History Bipolar 1 disorder Diabetes Family History Father Colon cancer Social History Feels Safe at Home: Yes Smoking Status: Never smoker Review of Systems Constitutional: + malaise; no fever and no chills Eyes: no diplopia Ear, Nose, Mouth, Throat: no ear trauma Respiratory: no hemoptysis Cardiovascular: no chest pain Gastrointestinal: + abdominal pain, + nausea and + vomiting Genitourinary: + flank pain Musculoskeletal: + swelling Integumentary: no acne Neurologic: no paralysis and no numbness Endocrine: + fatigue Hematologic / Lymphatic: no coagulopathy Allergy / Immunological: no tongue swelling Physical Exam Constitutional: + acute distress and + obese Eyes: eyes not dysmorphic ENMT: Ears: no external ear abnormality Neck: trachea midline; no anterior neck swelling Cardiovascular: Vessels: radial pulses present Musculoskeletal: Head/Neck/Chest: normocephalic and neck supple Skin: normal turgor Neurologic: awake; not obtunded Psychiatric: Orientation: oriented x 3 Lymphatic: no lymphadenopathy Results & Data Vital Signs (Past 12 Hours) Vital Signs Temp Pulse Pulse Resp BP BP Pulse Ox 03/26/19 23:00 91 H 18 128/71 97 03/26/19 21:13 91 H 18 99 03/26/19 20:52 100 03/26/19 19:44 36.8 C 68 20 146/67 H 100 PG Care Time/CCT Total # of Minutes Spent Total Time Spent with Patient: Total time spent is greater than 50% in coordination of care (as documented) at patient's floor/unit and/or counseling patient: (1) Acute renal failure Acute renal failure type: unspecified Qualified Code(s): N17.9 - Acute kidney failure, unspecified
--- NOTE | 2019-03-26 23:38 | Anesthesiology Consultation ---
Date of Service March 26, 2019 Assessment & Plan Chart Review Chart Review: Acceptable Risk for Surgery Consults Requested none History Surgery Operation Date: 03/26/19 22:50 Proposed Procedures p Ureteral Stent Insertion/Removal - Linden Del Toro MD Height/Weight Height: 5 ft 11 in Weight: 151.5 kg Allergies Allergy/AdvReac Type Severity Reaction Status Date / Time meloxicam Allergy Intermediate RASH Verified 03/26/19 22:28 aspirin Allergy Mild NOSE BLEEDS Verified 03/26/19 22:28 Penicillins Allergy Mild TACHYCARDIA Verified 03/26/19 22:28 bupropion AdvReac Mild RASH Unverified 03/26/19 22:28 Medications Home Medications Medication Instructions Recorded Confirmed Last Taken benztropine 0.5 mg PO DAILY 03/26/19 03/26/19 Unknown chlorpromazine 10 mg PO QAM 03/26/19 03/26/19 Unknown chlorpromazine 25 mg PO HS 03/26/19 03/26/19 Unknown diphenhydramine HCl 25 mg PO HS 03/26/19 03/26/19 Unknown lisinopril 5 mg PO DAILY 03/26/19 03/26/19 Unknown melatonin 3 mg PO HS 03/26/19 03/26/19 Unknown metformin 1,000 mg PO BID 03/26/19 03/26/19 Unknown venlafaxine 75 mg PO HS 03/26/19 03/26/19 Unknown NPO Date Last Intake of Fluids: 03/26/19 Time Last Intake of Fluids: 16:00 Last Intake of Fluids Comment: sips of water all day last at 1600 Date Last Intake of Solids: 03/26/19 Time Last Intake of Solids: 14:00 Last Intake of Solids Comment: bannana Past Medical History Medical History Bipolar 1 disorder Diabetes Past Family History Family History Father Colon cancer Social History Smoking Status: Never smoker Physical Exam Vital Signs Last Vital Signs Temp 36.8 C 03/26/19 19:44 Pulse 91 H 03/26/19 23:00 Resp 18 03/26/19 23:00 BP 128/71 03/26/19 23:00 Pulse Ox 97 03/26/19 23:00 Testing Laboratory Results 03/26/19 20:57 03/26/19 20:57 PT 11.0 Seconds (9.0-12.0) 03/26/19 20:57 INR 1.1 (0.9-1.1) 03/26/19 20:57 APTT 29.3 Seconds (21.0-31.0) 03/26/19 20:57 Urine Color Yellow 03/26/19 21:44 Urine Appearance Turbid (Clear) A 03/26/19 21:44 Urine pH 5.0 (4.5-7.5) 03/26/19 21:44 Ur Specific [place] 1.017 (1.000-1.030) 03/26/19 21:44 Urine Protein 2+ (Negative) H 03/26/19 21:44 Urine Glucose (UA) Negative (Negative) 03/26/19 21:44 Urine Ketones Negative (Negative) 03/26/19 21:44 Urine Nitrite Negative (Negative) 03/26/19 21:44 Ur Leukocyte Esterase 3+ (Negative) H 03/26/19 21:44 Urine WBC (Auto) 10-30 /hpf (0-5) H 03/26/19 21:44 Urine RBC (Auto) >30 /hpf (0-4) H 03/26/19 21:44 U Hyaline Cast (Auto) 1-5 /lpf (0-5) 03/26/19 21:44 U Epithel Cells (Auto) 20-30 /lpf (0-5) H 03/26/19 21:44 Urine Bacteria (Auto) Negative (Negative) 03/26/19 21:44 03/26/19 21:13 POC Glucose (other) 110 H
[2019-03-26] MEDS ORDERED: ATROPINE SULFATE 0.1 MG/ML 10ML SYR IV PRN (23:39)
[2019-03-26] MEDS ORDERED: ONDANSETRON INJ 2 MG/ML 2 ML VIAL IV PRN (23:39)
[2019-03-26] MEDS ORDERED: METOCLOPRAMIDE HCL INJ 5 MG/ML 2 ML VIAL IV PRN (23:39)
[2019-03-26] MEDS ORDERED: DEXAMETHASONE SOD INJ 4 MG/ML VIAL IV PRN (23:39)
[2019-03-26] MEDS ORDERED: HYDROmorphone INJ 2 MG/ML SYR/VIAL IV PRN (23:39)
[2019-03-26] MEDS ORDERED: PROMETHAZINE HCL 12.5 MG in SODIUM CHLORIDE 0.9% 50 ML IV PRN (23:39)
[2019-03-26] MEDS ORDERED: fentaNYL citrate 100 MCG/2 ML VIAL IV PRN (23:39)
[2019-03-26] MEDS ORDERED: ePHEDrine sulfate 50 MG/ML AMP IV PRN (23:39)
--- NOTE | 2019-03-26 23:50 | Operative Report ---
Post Operative Report Pre & Post Diagnosis Operation Date: 03/26/19 22:50 Preoperative diagnosis: Bilateral ureteral stones with renal failure. Postoperative diagnosis: Same. Procedure: Cystoscopy, bilateral retrograde pyelography, bilateral ureteral stent placement. Surgeon: Dr. Linden Del Toro. It Operations Specialist: None. Anesthesia: General anesthesia with endotracheal ablation. Drains left in place: Bilateral 6 [place] multilength ureteral stents, 18 fr Diego catheter to gravity drainage. Specimen sent pathology: UC&S after stent placement. Findings: hydro-left greater than right, necrotic debris left greater than right. Procedure Operation Date: 03/26/19 22:50 Brief history: Patient is a 54-year-old male last followed by our service 2 years ago who presents acutely with nausea, vomiting, creatinine of 13, bilateral ureteral stones, abdominal pain and distention. Seen his presentation is being brought to the operating room acutely for bilateral ureteral stent placement and decompression. Please see H&P and consultation for further details. Patient has been covered with antibiotics in the emergency room. Procedure: Patient was properly identified and brought into the operative suite after identification of appropriate consent in the chart. General anesthesia with endotracheal the patient was initiated due to a history of nausea and emesis patient was prepped and draped in standard fashion for this procedure. Full timeout procedure was followed. 22 [place] rigid cystoscope was introduced into the bladder under direct visualization bladder was surveyed in its entirety demonstrate no intravesical lesions, papillary masses or calculi. Ureteral orifices were appreciated in the normal anatomic location bilaterally. Right ureteral orifice was addressed. Gentle retrograde pyelography was performed de monstrating a normal distal ureter and a filling defect proximally consistent with the patient's stone with proximal hydronephrosis. Sensor tip wire was advanced up to the level of the kidney on the right side followed by a multilength stent with redundant clothing present both within the bladder and the renal pelvis. Procedure was repeated on the left hand side with similar results. Dark purulent debris was drained from both sides, right greater than left. Hydronephrosis was noted to be more significant on the left-hand side. Culture was collected and sent after placement of both stents. Bladder was partially distended and Diego catheter was replaced. Anesthesia was reversed and patient was transferred to the recovery room in stable condition. Follow-up CARE: Patient will be admitted to the floor for further medical management per the primary service. Surgeon Linden Del Toro MD It Operations Specialist None Estimated Blood Loss 0 Findings Consistent with Post-Op Diagnosis Specimens Urine for culture and sensitivity Description of Procedure Cystoscopy, bilateral ureteral stent placement, bilateral retrograde pyelography I attest to the content of the Intraoperative Record and any orders documented therein. Any exceptions are noted below.
[2019-03-27] MEDS ORDERED: SUGAMMADEX SODIUM 200 MG/2 ML VIAL IV ONE (01:07)
--- NOTE | 2019-03-27 01:18 | Emergency Department Note ---
Entered by Estefania Garza acting as a scribe for History of Present Illness General Chief complaint: Abdominal Pain Stated complaint: UPSET STOMACH, VOMITINT, DIARRHEA Time Seen by Provider: 03/26/19 20:37 Source: patient and family History of Present Illness Provider complaint: upper abdominal pain Onset (ago): day(s) 6 Location: abdomen (upper) Radiation: non-radiation Pain Consistency: + other (episode) Maximum Pain Intensity: 5 Associated symptoms: + denies other symptoms (alcohol and tobacco use ), + nausea/vomiting, + rash (on left arm for 3 months) and + other (diarrhea for 6 days, he states his blood sugars are good but his mother states he is not checking them); no chest pain, no fever/chills and no shortness of breath The patient is a 54 year old male who presents to the ED with complaints of upper abdominal pain that started 6 days ago. The patient states that the pain is non-radiating. The patient states that he has also had diarrhea for 6 days. The patient notes that he started vomiting yesterday. The patient states that he is diabetic, but notes that his sugar levels have been good. Per mother, the patient has not been checking his blood sugars levels. The patient notes that he has had a rash on his left arm for 3 months. The patient denies fever, chills, shortness of breath, and chest pain. The patient denies alcohol and tobacco use. Home Medications Home Medications Medication Instructions Recorded Confirmed Type benztropine 0.5 mg PO DAILY 03/26/19 03/26/19 History chlorpromazine 10 mg PO QAM 03/26/19 03/26/19 History chlorpromazine 25 mg PO HS 03/26/19 03/26/19 History diphenhydramine HCl 25 mg PO HS 03/26/19 03/26/19 History lisinopril 5 mg PO DAILY 03/26/19 03/26/19 History melatonin 3 mg PO HS 03/26/19 03/26/19 History metformin 1,000 mg PO BID 03/26/19 03/26/19 History venlafaxine 75 mg PO HS 03/26/19 03/26/19 History Allergies Allergy/AdvReac Type Severity Reaction Status Date / Time meloxicam Allergy Intermediate RASH Verified 03/26/19 22:28 aspirin Allergy Mild NOSE BLEEDS Verified 03/26/19 22:28 Penicillins Allergy Mild TACHYCARDIA Verified 03/26/19 22:28 bupropion AdvReac Mild RASH Unverified 03/26/19 22:28 Past Med/Surg History Medical History Bipolar 1 disorder Diabetes Family History Father Colon cancer Social History Feels Safe at Home: Yes Smoking Status: Never smoker Review of Systems See HPI for pertinent positives & negatives. and A total of 10 systems reviewed and were otherwise negative Physical Exam Vital Signs Vital Signs - 24 hr 03/26/19 19:44 03/26/19 20:52 03/26/19 21:13 Temperature 36.8 C Temperature Source Oral Sepsis Action Taken by Nursing No Action Required Pulse Rate 68 Pulse Rate [Apical] 91 H Respiratory Rate 20 18 Respiratory Effort / Characteristics Non-Labored Spontaneous Respiratory Depth Normal Blood Pressure 146/67 H Blood Pressure [Right Arm] Blood Pressure Mean 93 Blood Pressure Mean [Right Arm] Pulse Oximetry 100 100 99 Oxygen Delivery Method Room Air Room Air Room Air 03/26/19 23:00 Temperature Temperature Source Sepsis Action Taken by Nursing Pulse Rate Pulse Rate [Apical] 91 H Respiratory Rate 18 Respiratory Effort / Characteristics Non-Labored Spontaneous Respiratory Depth Normal Blood Pressure Blood Pressure [Right Arm] 128/71 Blood Pressure Mean Blood Pressure Mean [Right Arm] 90 Pulse Oximetry 97 Oxygen Delivery Method Room Air GENERAL: Patient is awake, alert, and mildly anxious. EYES: The conjunctivae are clear. The pupils are round and reactive. EARS, NOSE, MOUTH AND THROAT: The nose is without any evidence of any deformity. Mucous membranes are moist.Tongue is midline NECK: The neck is nontender and supple. RESPIRATORY: Normal respiratory effort is noted. There is no evidence of wheezing rhonchi or rales to auscultation. CARDIOVASCULAR: Regular rate and rhythm noted. There no murmurs rubs or gallops normal S1 normal S2 GASTROINTESTINAL: The abdomen is moderately distended and diffusely tender. No guarding or rigidity appreciated. MUSCULOSKELETAL/EXTREMITIES: There is no evidence of gross deformity. Full range of motion is noted in the hips and shoulders. SKIN: There is no obvious evidence of any rash. There are no petechiae, pallor or cyanosis noted. NEUROLOGIC: Patient is awake alert and oriented x3. Course 2040: Past medical records reviewed. The patient was evaluated in room C5. A complete history and physical exam was performed. 2157: I went to reevaluate the patient but he was not in the room. I updated the patient's mother on the test results and plan for admission. She verbally agrees and understands. 2240: I discussed the patient's case with Dr. Lola Christy. He states that he will probably place a stent in the patient tonight. 2246: I discussed the patient's case with Dr. Montero [facility], Hospitalist. He will evaluate the patient for further management. Consultations Consultation #1: I discussed the patient's case with Dr. Lola Christy. He states that he will probably place a stent in the patient tonight. Time: 22:41 Consultation #2: I discussed the patient's case with Dr. Montero [facility], Hospitalist. He will evaluate the patient for further management. Time: 22:46 Administered Medications Discontinued Medications Famotidine (Pepcid 20mg Iv Push) 20 mg IV ONE STA Stop: 03/26/19 21:52 Last Admin: 03/26/19 22:26 Dose: 20 mg Documented by: [id number] Sodium Chloride (Nss 1000ml) 1,000 mls @ 999 mls/hr IV .Q1H1M KULDEEP Stop: 03/26/19 21:45 Last Infusion: 03/26/19 23:09 Dose: 0 mls/hr Documented by: [id number] Admin: 03/26/19 21:09 Dose: 999 mls/hr Documented by: [id number] Sodium Chloride (Nss 1000ml) 1,000 mls @ 999 mls/hr IV .Q1H1M ONE Stop: 03/26/19 22:51 Last Admin: 03/26/19 23:08 Dose: 999 mls/hr Documented by: [id number] Ceftriaxone Sodium (Rocephin) 1,000 mg in 50 mls @ 100 mls/hr IV NOW STA Stop: 03/26/19 22:46 Last Infusion: 03/26/19 22:53 Dose: 0 mls/hr Documented by: [id number] Admin: 03/26/19 22:26 Dose: 100 mls/hr Documented by: [id number] Iothalamate Meglumine (Cysto-Conray Ii) Confirm Administered Dose 250 ml .ROUTE .STK-MED ONE Stop: 03/26/19 23:29 Last Admin: 03/27/19 00:09 Dose: 40 ml Documented by: [id number] Ondansetron HCl (Zofran) 4 mg IV NOW STA Stop: 03/26/19 20:43 Last Admin: 03/26/19 21:09 Dose: 4 mg Documented by: [id number] Medical Decision Making Differential Diagnosis Differential diagnosis: Etiologies such as gastroenteritis, food borne illness, infections, appendicitis, diverticulitis, inflammatory bowel disease, obstruction, GI bleed, biliary pathology, cardiac process, intracranial process, as well as others were entertained. Medical Records Attestation: I reviewed the patient's medical records. Home Medications Current Medication List: was personally reviewed by me Laboratory Data Attestation: I reviewed the patient's lab results. Result diagrams: 03/26/19 20:57 03/26/19 20:57 Lab Results 03/26/19 03/26/19 03/26/19 Range/Units 20:57 20:57 20:57 WBC 12.65 H (4.8-10.8) K/uL RBC 4.66 L (4.7-6.1) M/uL Hgb 14.1 (14.0-18.0) g/dL POC Hgb (14.0-18.0) g/dl Hct 41.3 L (42-52) % POC Hct (42-52) % MCV 88.6 (80-100) fL MCH 30.3 (25-34) pg MCHC 34.1 (32-36) g/dL RDW Std Deviation 43.0 (36.4-46.3) fL RDW Coeff of Izabela 13.4 (11.5-14.5) % Plt Count 133 (130-400) K/uL MPV 13.0 H (7.4-10.4) fL Immature Gran % (Auto) 0.6 % Neut % (Auto) 91.0 % Lymph % (Auto) 4.0 % [place] % (Auto) 4.3 % Eos % (Auto) 0.0 % Baso % (Auto) 0.1 % Immature Gran # (Auto) 0.07 H (0.00-0.02) K/uL Neut # (Auto) 11.51 H (1.4-6.5) K/uL Lymph # (Auto) 0.51 L (1.2-3.4) K/uL [place] # (Auto) 0.55 (0.11-0.59) K/uL Eos # (Auto) 0.00 (0-0.5) K/uL Baso # (Auto) 0.01 (0-0.2) K/uL Platelet Estimate Normal (Normal) Echinocytes 1+ PT (9.0-12.0) Seconds INR (0.9-1.1) APTT 29.3 (21.0-31.0) Seconds PTT Ratio 1.1 POC Sodium (135-144) mEq/L Sodium 127 L (136-145) mmol/L POC Potassium (3.3-5.0) mEq/L Potassium 5.2 H (3.5-5.1) mmol/L POC Chloride (101-112) mEq/L Chloride 92 L (98-107) mmol/L Carbon Dioxide 10 L (21-32) mmol/L POC Total CO2 (24-31) mEq/l Anion Gap 26.0 H (3-11) POC Anion Gap (16-25) mmol/L POC BUN (7-18) mg/dl BUN 130 H (7-18) mg/dl Creatinine 13.20 H* (0.6-1.4) mg/dl POC Creatinine (0.6-1.3) mg/dl Est Cr Clr Drug Dosing 9.7 ml/min Est GFR ( Amer) 4.4 Est GFR (Non-Af Amer) 3.8 BUN/Creatinine Ratio 9.7 L (10-20) Glucose 112 H (70-99) mg/dl POC Glucose (other) (70-99) mg/dl Calcium 9.4 (8.5-10.1) mg/dl POC Ioniz Calcium Zachary (1.12-1.32) mmol/l Total Bilirubin 0.5 (0.2-1) mg/dl AST 20 (15-37) U/L ALT 33 (12-78) U/L Alkaline Phosphatase 91 (45-117) U/L Troponin I < 0.015 (0-0.045) ng/ml Total Protein 7.1 (6.4-8.2) gm/dl Albumin 3.3 L (3.4-5.0) gm/dl Globulin 3.8 (2.5-4.0) gm/dl Albumin/Globulin Ratio 0.9 (0.9-2) Lipase 33216 H (73-393) U/L Urine Color Urine Appearance (Clear) Urine pH (4.5-7.5) Ur Specific Spiro (1.000-1.030) Urine Protein (Negative) Urine Glucose (UA) (Negative) Urine Ketones (Negative) Urine Blood (Negative) Urine Nitrite (Negative) Urine Bilirubin (Negative) Urine Urobilinogen (Negative) Ur Leukocyte Esterase (Negative) Urine WBC (Auto) (0-5) /hpf Urine RBC (Auto) (0-4) /hpf U Hyaline Cast (Auto) (0-5) /lpf U Epithel Cells (Auto) (0-5) /lpf Urine Bacteria (Auto) (Negative) Granular Casts (0) /lpf Urine Yeast 03/26/19 03/26/19 03/26/19 Range/Units 20:57 21:13 21:44 WBC (4.8-10.8) K/uL RBC (4.7-6.1) M/uL Hgb (14.0-18.0) g/dL POC Hgb 14.3 (14.0-18.0) g/dl Hct (42-52) % POC Hct 42 (42-52) % MCV (80-100) fL MCH (25-34) pg MCHC (32-36) g/dL RDW Std Deviation (36.4-46.3) fL RDW Coeff of Izabela (11.5-14.5) % Plt Count (130-400) K/uL MPV (7.4-10.4) fL Immature Gran % (Auto) % Neut % (Auto) % Lymph % (Auto) % [place] % (Auto) % Eos % (Auto) % Baso % (Auto) % Immature Gran # (Auto) (0.00-0.02) K/uL Neut # (Auto) (1.4-6.5) K/uL Lymph # (Auto) (1.2-3.4) K/uL [place] # (Auto) (0.11-0.59) K/uL Eos # (Auto) (0-0.5) K/uL Baso # (Auto) (0-0.2) K/uL Platelet Estimate (Normal) Echinocytes PT 11.0 (9.0-12.0) Seconds INR 1.1 (0.9-1.1) APTT (21.0-31.0) Seconds PTT Ratio POC Sodium 125 L (135-144) mEq/L Sodium (136-145) mmol/L POC Potassium 5.3 H (3.3-5.0) mEq/L Potassium (3.5-5.1) mmol/L POC Chloride 95 L (101-112) mEq/L Chloride (98-107) mmol/L Carbon Dioxide (21-32) mmol/L POC Total CO2 12 L (24-31) mEq/l Anion Gap (3-11) POC Anion Gap 25.0 (16-25) mmol/L POC BUN > 140 H* (7-18) mg/dl BUN (7-18) mg/dl Creatinine (0.6-1.4) mg/dl POC Creatinine 15.1 H* (0.6-1.3) mg/dl Est Cr Clr Drug Dosing ml/min Est GFR ( Amer) Est GFR (Non-Af Amer) BUN/Creatinine Ratio (10-20) Glucose (70-99) mg/dl POC Glucose (other) 110 H (70-99) mg/dl Calcium (8.5-10.1) mg/dl POC Ioniz Calcium Zachary 1.19 (1.12-1.32) mmol/l Total Bilirubin (0.2-1) mg/dl AST (15-37) U/L ALT (12-78) U/L Alkaline Phosphatase (45-117) U/L Troponin I (0-0.045) ng/ml Total Protein (6.4-8.2) gm/dl Albumin (3.4-5.0) gm/dl Globulin (2.5-4.0) gm/dl Albumin/Globulin Ratio (0.9-2) Lipase (73-393) U/L Urine Color Yellow Urine Appearance Turbid A (Clear) Urine pH 5.0 (4.5-7.5) Ur Specific Spiro 1.017 (1.000-1.030) Urine Protein 2+ H (Negative) Urine Glucose (UA) Negative (Negative) Urine Ketones Negative (Negative) Urine Blood 3+ H (Negative) Urine Nitrite Negative (Negative) Urine Bilirubin Negative (Negative) Urine Urobilinogen Negative (Negative) Ur Leukocyte Esterase 3+ H (Negative) Urine WBC (Auto) 10-30 H (0-5) /hpf Urine RBC (Auto) >30 H (0-4) /hpf U Hyaline Cast (Auto) 1-5 (0-5) /lpf U Epithel Cells (Auto) 20-30 H (0-5) /lpf Urine Bacteria (Auto) Negative (Negative) Granular Casts 1-5 H (0) /lpf Urine Yeast Not Reportable Imaging Data Radiologist's Impression: Radiology results as stated below per my review and the radiologist's interpretation: XR chest 1V portable CLINICAL HISTORY: Atypical chest pain COMPARISON STUDY: 04/28/2017 FINDINGS: The study is limited from a technical standpoint due to morbid obesity. The heart is enlarged. There is no lobar consolidation. Increased markings at the lung bases are likely due to technical factors and mild atelectasis.[ IMPRESSION: Cardiomegaly. No acute findings. Electronically signed by: Kuldip White M.D. 03/26/2019 9:[address] SCAN OF THE ABDOMEN AND PELVIS WITHOUT CONTRAST CLINICAL HISTORY: vomiting COMPARISON STUDY: 11/09/2017 TECHNIQUE: CT scan of the abdomen and pelvis was performed from the lung bases to the proximal femurs. Images are reviewed in the axial, sagittal, and coronal planes. IV contrast was not administered for this examination. A dose lowering technique was utilized adhering to the principles of ALARA. CT DOSE: 3.07 mGy.cm FINDINGS: Lower chest: There are dependent atelectatic changes. A partially visualized opacity within the lingula, is also likely atelectatic. A small hiatal hernia with mild distal esophageal wall thickening Liver: There is hepatic steatosis. No focal masses are visualized. Gallbladder: Surgically absent. Spleen: Spleen is mildly enlarged measuring 13 cm Pancreas: Unremarkable. Adrenal glands: Unremarkable. Kidneys: There are punctate nonobstructing bilateral renal calculi. There is a 5 mm right ureteropelvic junction calculus with mild secondary obstructive changes. There is a 5 mm proximal to mid left ureteral calculus with secondary obstructive changes. Bilateral renal hypodensities likely represent cysts. Bowel: There are no transition zones indicate bowel obstruction. There is colonic diverticulosis. There is no evidence of acute diverticulitis. The appendix appears normal. Peritoneum: There is no intraperitoneal free air or abdominal ascites. Vasculature: The abdominal aorta is normal in course and caliber. Adenopathy: None. Pelvic viscera: There is an indwelling Diego catheter. Skeletal structures: No destructive osseous lesions are seen. IMPRESSION: 1. Bilateral obstructing ureteral calculi 2. Bilateral nephrolithiasis 3. No evidence of bowel obstruction. No evidence of free air 4. Hepatic steatosis with mild splenomegaly Electronically signed by: Kuldip White M.D. 03/26/2019 10:24 PM ECG Data Attestation: I personally reviewed and interpreted this ECG as follows: Indication: abdominal pain Rate (beats per minute): 94 Rhythm: normal sinus Findings: no PAC, no PVC, no ST depression, no ST elevation and no ectopy Comparison ECG Date: from (04/28/2017) Change: no significant change Blood Pressure Blood Pressure Findings: Elevated blood pressure Blood Pressure Disposition: further management by hospitalist PABLO Meraz The patient is a 54-year-old male who presented to the emergency department for an evaluation of nausea and vomiting. The patient has also been having loose bowel movements but this is been ongoing for quite some time. The patient's exam was consistent with very significant abdominal distention but he did not have a surgical abdomen. I was very concerned given the patient's comorbidities as well as the amount of vomiting he was having. For this reason a CT the abdomen and pelvis was obtained. [id number] testing did reveal the patient had renal failure. For this reason he was treated with IV fluids and the CAT scan was changed to a noncontrast CAT scan. The CAT scan did reveal bilateral ureteral calculi which were obstructive. I do feel this is most likely the cause of the patient's renal failure. He was further treated with IV antibiotics for possible urinary tract infection. I discussed the patient's laboratory and radiographic studies with him. I also discussed his case with the on-call urologist as well as the on-call [facility] hospitalist group. They have agreed to evaluate the patient in the emergency department for further management disposition however the surgeon did recommend stenting because of the renal failure and bilateral ureteral calculi. I discussed this plan with the patient as well as his family member. They were agreeable to this plan. Impression & Plan Acute renal failure, Pancreatitis, Bilateral ureteral obstruction, UTI (urinary tract infection), Hyponatremia Critical Care Time Critical Care Time: Yes Total Critical Care Time: 60 I have personally spent 60 minutes of critical care time in the direct management of this patient. This includes bedside care, interpretation of diagnostic studies, and testing, discussion with consultants, patient, and family members, and other required patient management activities. This 60 minutes is in excess of all separately billable procedures. Discharge Plan Visit Data *Final* Discharge Date/Time: 03/26/19 23:23 Chief Complaint: Abdominal Pain Stated Complaint: UPSET STOMACH, VOMITINT, DIARRHEA ED Provider: Kushal Rios Discharge Problem: Acute renal failure, Pancreatitis, Bilateral ureteral obstruction, UTI (urinary tract infection), Hyponatremia Patient Disposition: Being Evaluated by Hospitalist Discharge Instructions Interventions: ED Discharge Assessment Last Done: 03/26/19 23:23 Discharge Problem: Acute renal failure Qualifiers: Acute renal failure type: unspecified Qualified Code(s): N17.9 - Acute kidney failure, unspecified Pancreatitis Qualifiers: Chronicity: acute Pancreatitis type: unspecified pancreatitis type Acute pancreatitis complication: unspecified Qualified Code(s): K85.90 - Acute pancreatitis without necrosis or infection, unspecified UTI (urinary tract infection) Qualifiers: Urinary tract infection type: site unspecified Hematuria presence: with hematuria Qualified Code(s): N39.0 - Urinary tract infection, site not specified The scribe's documentation has been prepared under my direction and personally reviewed by me in its entirety. I confirm that the note above accurately reflects all work, treatment, procedures, and medical decision making performed by me.
[2019-03-27] MEDS ORDERED: ACETAMINOPHEN 325 MG TAB PO PRN (01:30)
[2019-03-27] MEDS ORDERED: MAGNESIUM HYDROXIDE SUSP 30 ML UDC PO PRN (01:30)
[2019-03-27] MEDS ORDERED: ZOLPIDEM TARTRATE 5 MG TAB PO PRN (01:30)
[2019-03-27] MEDS ORDERED: SODIUM CHLORIDE 0.9% 1000ML 1,000 ML IV SCH (01:30)
[2019-03-27] MEDS ORDERED: POLYETHYLENE (MIRALAX) 17 GM PACK PO PRN (01:30)
[2019-03-27] MEDS ORDERED: ONDANSETRON INJ 2 MG/ML 2 ML VIAL IV PRN (01:30)
[2019-03-27] MEDS ORDERED: ALUMINUM/MAGNESIUM SUSP 30 ML UDC PO PRN (01:30)
--- NOTE | 2019-03-27 01:31 | History & Physical Report ---
Date of Service March 27, 2019 Assessment & Plan (1) Acute renal failure: Likely ATN multifactorial as below Obstructive uropathy Dehydration, decreased oral intake, vomiting/diarrhea Generous IV fluid hydration Neurology consult with stent placement Stool studies C. difficile, ova parasite, culture and sensitivity Hemoglobin A1c is to stratify patient risk factors Admit to telemetry after that Heparin subcu for DVT prophylaxis Continue n.p.o. for bowel rest due to the pancreatitis Patient is full code as per discussion with patient and his mother (2) Pancreatitis: CT scan abdomen showed surgically absent gallbladder We will monitor lipase in a.m. and liver enzymes Order lipids to rule out hypertriglyceridemia N.p.o. for bowel rest Continue generous IV fluid hydration (3) Bilateral ureteral obstruction: Status post urologist consultation from ED Patient will go for stent placement (4) Depression: Currently stable continue home (5) Fatty liver disease, nonalcoholic: Stable no further interval (6) Bipolar disorder: Stable continue home meds with renal adjustment (7) Diabetes 1.5, managed as type 2: Since patient is n.p.o., he was only on metformin, we will not put him on sliding scale insulin as he is creatinine is 13 and would like to avoid any accidental hypoglycemia History of Present Illness 54-year-old man with past medical history of diabetes mellitus type 2 on oral hypoglycemic, essential hypertension, bipolar disorder and morbid obesity presented to the ED with 3 days history of dry heaving, vomiting, abdominal pain. Patient said that his symptoms started with diarrhea on and off for 2 weeks, then about 3 to 4 days ago he started having dry heaving and nausea, 2 days ago started to have vomiting, denies any hematemesis, then yesterday started having significant abdominal pain, denies any fever or chills. In ED he was found to have a creatinine of 13, CT scan abdomen showed bilateral obstructive uropathy. Lipase was found to be elevated without any CT scan evidence of acute pancreatitis. Primary Care Provider: Beryl Velazquez PA-C Allergies Allergy/AdvReac Type Severity Reaction Status Date / Time meloxicam Allergy Intermediate RASH Verified 03/26/19 22:28 aspirin Allergy Mild NOSE BLEEDS Verified 03/26/19 22:28 Penicillins Allergy Mild TACHYCARDIA Verified 03/26/19 22:28 bupropion AdvReac Mild RASH Unverified 03/26/19 22:28 Home Medications Home Medications Medication Instructions Recorded Confirmed Type benztropine 0.5 mg PO DAILY 03/26/19 03/26/19 History chlorpromazine 10 mg PO QAM 03/26/19 03/26/19 History chlorpromazine 25 mg PO HS 03/26/19 03/26/19 History diphenhydramine HCl 25 mg PO HS 03/26/19 03/26/19 History lisinopril 5 mg PO DAILY 03/26/19 03/26/19 History melatonin 3 mg PO HS 03/26/19 03/26/19 History metformin 1,000 mg PO BID 03/26/19 03/26/19 History venlafaxine 75 mg PO HS 03/26/19 03/26/19 History Past Med/Surg History Medical History Bipolar 1 disorder Diabetes Family History Father Colon cancer Social History Feels Safe at Home: Yes Smoking Status: Never smoker Review of Systems Review of Systems: Denies any headache double vision blurry vision Denies any chest pain or palpitation Denies any chest shortness of breath Admits to abdominal pain, nausea, vomiting, diarrhea as mentioned above Denies any focal weakness tingling numbness Rest of the review of system is negative except for generalized fatigue Physical Exam Physical Exam: Physical examination General morbidly obese appears to be is moderate acute distress HEENT: Right eye has conjunctival discharge, normocephalic /no jaundice /no pallor /anicteric /no dry mucous membrane /normal external ear inspection Neck: Supple /no swelling /central trach Heart: S1/S2 normal/regular rate and rhythm/no gallop /no rub /no murmur Lungs: Clear to auscultation bilaterally/normal chest with expansion/no rhonchi/no rales/no wheezing/no use of accessory muscles of respiration Abdomen: Abdomen is tender but no guarding or rebound/no organomegaly/no pulsatile mass Musculoskeletal: No swelling/no edema/no tenderness/normal range of motion Neuro exam: Awake alert oriented 3/cranial nerves II through XII appear to be intact/sensation intact/moves all extremities/no abnormal movements Psychiatric evaluation: No depressed mood/normal affect Skin: No rash on exposed skin area/no erythema Extremity: Normal pulse/no pitting edema/no clubbing or cyanosis Results & Data Vital Signs (Past 12 Hours) Vital Signs Temp Pulse Pulse Resp BP BP Pulse Ox 03/26/19 23:00 91 H 18 128/71 97 03/26/19 21:13 91 H 18 99 03/26/19 20:52 100 03/26/19 19:44 36.8 C 68 20 146/67 H 100 PG Care Time/CCT Total # of Minutes Spent Total Time Spent with Patient: Total time spent is greater than 50% in coordination of care (as documented) at patient's floor/unit and/or counseling patient: (1) Acute renal failure Acute renal failure type: unspecified Qualified Code(s): N17.9 - Acute kidney failure, unspecified (2) Pancreatitis Acute pancreatitis complication: unspecified Chronicity: acute Pancreatitis type: unspecified pancreatitis type Qualified Code(s): K85.90 - Acute pa ncreatitis without necrosis or infection, unspecified
--- NOTE | 2019-03-27 02:12 | Anesthesiology Progress Note ---
Date of Service March 27, 2019 Anesthesia Post Procedure Vital Signs Vital Signs: Temp Pulse Pulse Resp BP BP Pulse Ox 03/27/19 02:00 72 22 98/56 L 92 03/27/19 01:50 74 18 106/55 L 92 03/27/19 01:40 75 16 102/60 91 03/27/19 01:30 36.6 C 76 18 117/58 L 94 03/27/19 01:25 77 17 122/62 94 03/27/19 01:20 77 17 117/59 L 94 03/27/19 01:15 78 17 131/70 93 03/27/19 01:12 82 20 168/64 H 90 03/27/19 01:03 36.6 C 84 18 167/75 H 87 L 03/26/19 23:00 91 H 18 128/71 97 03/26/19 21:13 91 H 18 99 03/26/19 20:52 100 03/26/19 19:44 36.8 C 68 20 146/67 H 100 Transfer of Care Handoff Completed per policy Notes Mental Status: alert / awake / arousable and participated in evaluation Patient Amnestic to Procedure: Yes Nausea / Vomiting: adequately controlled Pain: adequately controlled Airway Patency, RR, SpO2: stable & adequate BP & HR: stable & adequate Hydration State: stable & adequate Anesthetic Complications: no major complications apparent
[2019-03-27] MEDS ORDERED: PNEUMOCOCCAL POLYSACCHARIDES 25 MCG/0.5 ML VIAL/SYR IM ONE (05:45)
[2019-03-27] MEDS ORDERED: PNEUMOCOCCAL ADMINISTRATION CHARGE ONE (05:45)
[2019-03-27 06:21] LABS: Hematocrit (blood only) 41.2 % (42-52); Hemoglobin 14.1 g/dL (14.0-18.0); Mean Corpuscular Hemoglobin 31.1 pg (25-34); Mean Corpuscular Hgb Conc 34.2 g/dL (32-36); Mean Corpuscular Volume 90.9 fL (80-100); Mean Platelet Volume 12.4 fL (7.4-10.4); Platelet Count 162 K/uL (130-400); RDW Coefficient of Variation 13.6 % (11.5-14.5); RDW Standard Deviation 45.1 fL (36.4-46.3); Red Blood Count 4.53 M/uL (4.7-6.1); White Blood Count 19.73 K/uL (4.8-10.8)
[2019-03-27 06:41] LABS: Estimated Average Glucose 189 mg/dl; Hemoglobin A1C 8.2 % (4.5-5.6)
--- NOTE | 2019-03-27 06:47 | Fluoroscopy Report ---
FL retrograde includes kub CLINICAL HISTORY: B/L STENTS COMPARISON STUDY: CT of the abdomen and pelvis March 26, 2019. FLUOROSCOPY TIME: 41.3 seconds. FLUOROSCOPIC IMAGES: 5. FINDINGS: These images demonstrate bilateral retrograde exams and insertion of bilateral ureteral diamond nts. IMPRESSION: Fluoroscopy provided for bilateral ureteral stent insertion. Electronically signed by: Matthew Mccracken M.D. 03/27/2019 6:46 AM
[2019-03-27 07:18] LABS: Albumin Globulin Ratio 0.8 (0.9-2); Albumin Level 2.9 gm/dl (3.4-5.0); BUN Creatinine Ratio 11.4 (10-20); Bilirubin,Total 0.4 mg/dl (0.2-1); Calcium 8.2 mg/dl (8.5-10.1); Creatinine Clr Calc Pharmacy 11.1 ml/min; Est GFR (African American) 5.1; Est GFR (Non-African American) 4.4; Globulin 3.5 gm/dl (2.5-4.0); Potassium 7.8 mmol/L (3.5-5.1); Total Protein 6.4 gm/dl (6.4-8.2)
--- NOTE | 2019-03-27 07:25 | Anesthesiology Progress Note ---
Date of Service March 27, 2019 Anesthesia Post Procedure Vital Signs Vital Signs: Temp Pulse Pulse Resp BP BP Pulse Ox 03/27/19 03:14 36.4 C L 73 18 92/49 L 92 03/27/19 02:50 36.6 C 74 18 95/49 L 92 03/27/19 02:40 74 20 89/50 L 93 03/27/19 02:30 76 20 93/44 L 91 03/27/19 02:20 76 20 101/54 L 91 03/27/19 02:10 78 22 97/62 L 93 03/27/19 02:00 72 22 98/56 L 92 03/27/19 01:50 74 18 106/55 L 92 03/27/19 01:40 75 16 102/60 91 03/27/19 01:30 36.6 C 76 18 117/58 L 94 03/27/19 01:25 77 17 122/62 94 03/27/19 01:20 77 17 117/59 L 94 03/27/19 01:15 78 17 131/70 93 03/27/19 01:12 82 20 168/64 H 90 03/27/19 01:03 36.6 C 84 18 167/75 H 87 L 03/26/19 23:00 91 H 18 128/71 97 03/26/19 21:13 91 H 18 99 03/26/19 20:52 100 03/26/19 19:44 36.8 C 68 20 146/67 H 100 Notes Mental Status: alert / awake / arousable and participated in evaluation Nausea / Vomiting: adequately controlled Pain: adequately controlled Airway Patency, RR, SpO2: stable & adequate BP & HR: stable & adequate Hydration State: stable & adequate
[2019-03-27] MEDS ORDERED: ALBUTEROL 0.083% NEBU SOLN 3 ML VIAL NEB STA (07:41)
[2019-03-27] MEDS ORDERED: INSULIN REGULAR 250 UNITS in SODIUM CHLORIDE 0.9% 247.5 ML IV SCH (07:45)
[2019-03-27] MEDS ORDERED: DEXTROSE 5% 1,000 ML IV SCH (07:45)
[2019-03-27] MEDS ORDERED: CALCIUM GLUCONATE 10% 2,000 MG in SODIUM CHLORIDE 0.9% 50 ML IV ONE (08:00)
[2019-03-27] MEDS ORDERED: FUROSEMIDE 20 MG in SYRINGE 0 ML IV ONE (08:15)
[2019-03-27] MEDS ORDERED: DEXTROSE 50% 50 ML SYRINGE IV ONE (08:15)
--- NOTE | 2019-03-27 08:27 | Urology Progress Note ---
Date of Service March 27, 2019 Assessment & Plan (1) Acute renal failure: POD #1 s/p bilateral ureteral stent placement. Patient appears to be tolerating his stents, no pain, Diego not bothersome. Maintain Diego. Antibiotics per primary team. UC&S pending. Nephrology consult pending. Will continue to intermittently follow along, please contact our service with change in patient status. (2) Bilateral ureteral obstruction: (3) UTI (urinary tract infection): Subjective 54 YO male with ARF, bilateral ureteral obstruction due to stones, likely UTI, POD #1 s/p bilateral ureteral stent placement. Patient reports feeling "a little better" this morning. Denies pain. Diego not bothersome. Nausea has improved. Review of Systems Review of Systems: Per HPI. Physical Exam Physical Exam: NAD +obese. Resp effort normal. No JVD. Abd soft. : Diego in place, patent, draining clear red urine without clot. A&Ox3, appropriate affect. Results & Data Vital Signs (Past 12 Hours) Vital Signs Temp Pulse Resp BP Pulse Ox 03/27/19 08:08 89 22 90 03/27/19 03:14 36.4 C L 73 18 92/49 L 92 03/27/19 02:50 36.6 C 74 18 95/49 L 92 03/27/19 02:40 74 20 89/50 L 93 03/27/19 02:30 76 20 93/44 L 91 03/27/19 02:20 76 20 101/54 L 91 03/27/19 02:10 78 22 97/62 L 93 03/27/19 02:00 72 22 98/56 L 92 03/27/19 01:50 74 18 106/55 L 92 03/27/19 01:40 75 16 102/60 91 03/27/19 01:30 36.6 C 76 18 117/58 L 94 03/27/19 01:25 77 17 122/62 94 03/27/19 01:20 77 17 117/59 L 94 03/27/19 01:15 78 17 131/70 93 03/27/19 01:12 82 20 168/64 H 90 03/27/19 01:03 36.6 C 84 18 167/75 H 87 L 03/26/19 23:00 91 H 18 128/71 97 09/16/19 21:13 91 H 18 99 09/16/19 20:52 100 (1) Acute renal failure Acute renal failure type: unspecified Qualified Code(s): N17.9 - Acute kidney failure, unspecified (2) UTI (urinary tract infection) Hematuria presence: with hematuria Urinary tract infection type: site unspecified Qualified Code(s): N39.0 - Urinary tract infection, site not specified; R31.9 - Hematuria, unspecified
[2019-03-27] MEDS ORDERED: INSULIN HUMAN REGULAR PER UNIT 10 UNITS in SYRINGE 9.9 ML IV ONE (08:30)
[2019-03-27 08:53] LABS: BUN Creatinine Ratio 11.6 (10-20); Calcium 8.1 mg/dl (8.5-10.1); Creatinine Clr Calc Pharmacy 11.3 ml/min; Est GFR (African American) 5.2; Est GFR (Non-African American) 4.5; Potassium 7.8 mmol/L (3.5-5.1)
[2019-03-27] MEDS: BENZTROPINE MESYLATE 0.5 MG TAB PO SCH (09:05)
[2019-03-27] MEDS: CHLORPROMAZINE HCL 10 MG TABLET PO SCH (09:05)
[2019-03-27] MEDS: HEPARIN SOD 5,000 UNIT/0.5 ML VIAL SQ SCH ×2 (09:05→21:08)
--- NOTE | 2019-03-27 09:20 | Hospitalist Progress Note ---
Date of Service March 27, 2019 Assessment & Plan (1) Acute renal failure: Creat 13 on admission Contributing factors: Obstructive uropathy, dehydration, decreased oral intake, vomiting/diarrhea Will discontinue fluids due to coarse breath sounds/hypoxia, CXR pending Urology consult with bilateral ureteral stent placement 03/26 Nephrology consulted - patient to be dialyzed today with temporary catheter (2) Hyperkalemia: Potassium 7.8 this morning Continue telemetry monitoring - currently sinus rhythm Patient will have catheter placed and be dialyzed today per nephrology Continue NPO for now (3) Hyponatremia: Na 127 Will recheck following dialysis, no symptoms at this time (4) Hypoxia: Developed morning 03/27 with coarse lung sounds bilaterally and requiring 10L oxymask CXR with non specific right midlung zone airspace opacities and costophrenic blunting - will start ceftriaxone especially as patient has significant leukocytosis today. Remains afebrile Hold fluids for now duonebs (5) Pancreatitis: CT scan abdomen showed surgically absent gallbladder Lipase trending down from 34,000 to 16,000 today Lipids wnl N.p.o. for bowel rest Hold IV fluids for hypoxia (6) Bilateral ureteral obstruction: Status post urologist consultation from ED s/p bilateral ureteral stent placement 03/26 (7) Depression: Currently stable continue home (8) Fatty liver disease, nonalcoholic: Stable (9) Bipolar disorder: Stable continue home meds with renal adjustment (10) Diabetes 1.5, managed as type 2: Insulin and dextrose ordered for hyperkalemia, monitor bsgs per protocol Hemoglobin A1c 8.2 (11) DVT prophylaxis: heparin subq Supervising Physician Co-Signing Physician Notes I supervised Diana Mortensen NP on this patient's care. I examined the patient today with her. I discussed the plan of care with her with the plan being as written in her note except for any following changes/exceptions: None. Evaluated in the evening with Ms. Acevedoeric as his O2 was up to 12L per charting. Patient in no acute respiratory distress. Turned the O2 down to 6L without any increase in discomfort or drop in O2 sat. Lungs sound clear to my exam which is improved from prior in the day. HD took off 1.7L per RN. BP stable at 113/75. No change in plan for overnight. Will closely monitor. Subjective Mr. Rey reports a cough due to dry throat but denies feeling sob or bringing up sputum. He denies any aches or chills. He is no longer nauseas or experiencing abdominal pain. He has become quite hypoxic this morning, requiring 10L O2 to maintain 90%. Patient's mother updated per patient's request. Review of Systems Review of Systems: All systems reviewed & are unremarkable except as noted in HPI & below Physical Exam Physical Exam: General: no distress Eyes: normal inspection, PERLL Respiratory: chest non tender, breath sounds coarse bilaterally, no respiratory distress, no accessory muscle use Cardiac: regular rate and rhythm, no rub or gallop, no murmur, no edema, no jvd GI/: active bowel sounds, left lower abdominal tenderness, soft, non distended Extremities: normal range of motion, normal strength, non tender Neuro/Psych: alert and oriented x 3, normal mood and affect Skin: normal color, dry Results & Data Vital Signs (Past 12 Hours) Vital Signs Temp Pulse Resp BP Pulse Ox 03/27/19 08:22 36.6 C 88 22 112/64 87 L 03/27/19 08:08 89 22 90 03/27/19 03:14 36.4 C L 73 18 92/49 L 92 03/27/19 02:50 36.6 C 74 18 95/49 L 92 03/27/19 02:40 74 20 89/50 L 93 03/27/19 02:30 76 20 93/44 L 91 03/27/19 02:20 76 20 101/54 L 91 03/27/19 02:10 78 22 97/62 L 93 03/27/19 02:00 72 22 98/56 L 92 03/27/19 01:50 74 18 106/55 L 92 03/27/19 01:40 75 16 102/60 91 03/27/19 01:30 36.6 C 76 18 117/58 L 94 03/27/19 01:25 77 17 122/62 94 03/27/19 01:20 77 17 117/59 L 94 03/27/19 01:15 78 17 131/70 93 03/27/19 01:12 82 20 168/64 H 90 03/27/19 01:03 36.6 C 84 18 167/75 H 87 L 03/26/19 23:00 91 H 18 128/71 97 PG Care Time/CCT Total # of Minutes Spent Total Time Spent with Patient: Total time spent is greater than 50% in coordination of care (as documented) at patient's floor/unit and/or counseling patient: (1) Acute renal failure Acute renal failure type: unspecified Qualified Code(s): N17.9 - Acute kidney failure, unspecified (2) Pancreatitis Acute pancreatitis complication: unspecified Chronicity: acute Pancreatitis type: unspecified pancreatitis type Qualified Code(s): K85.90 - Acute pancreatitis without necrosis or infection, unspecified
[2019-03-27] MEDS ORDERED: SODIUM CHLORIDE 0.9% 1000ML 1,000 ML IV PRN ×2 (09:38→16:12)
[2019-03-27 11:10] LABS: Hepatitis B Surface Ab Quant < 3.10 mIU/mL (>or=10mIU/mL Immune); Hepatitis B Surface Antibody Non-Immune
--- NOTE | 2019-03-27 11:15 | Nephrology Consultation ---
Date of Consultation March 27, 2019 Assessment & Plan (1) Acute renal failure: -- Stop Metformin -- Suspect ATN related to obstruction -- s/p bilateral ureteral stents 03/26/19 -- Profound hyperkalemia, metabolic acidosis and emerging CHF warrant emergency HD -- Indications/benefits/risks and alternatives to HD discussed in detail w/ patient. He appeared to comprehend and voiced agreement w/ starting HD -- Critical care consulted for HD catheter insertion (I have spoken w/ Florentino Bar) -- HD orders entered into EMR and HD RN notified (2) Hyperkalemia: -- HD this am (3) Metabolic acidosis: -- HD this am (4) Pulmonary edema: -- Worsening pulmonary status by physical exam. Patient has rales and progressive oxygen requirements -- Will check CXR following temporary HD catheter insertion -- Will attempt 2 L UF w/ HD today History of Present Illness Attending Physician: Salo Del Toro MD History of Present Illness Mr. Rey is a 54 year old white male who was seen at the request of Dr. Del Toro for evaluation of CHAD and electrolyte abnormalities. Medical records in the EMR were reviewed this morning and are summarized as follows: Mr. Rey has a h/o AODM, HTN, bipolar disorder, and obesity. He presented to the ED last night w/ a 2 week h/o flank pain, N/V and diarrhea. In ED creatinine was 13. Noncontrast CT revealed bilateral nonobstructing kidney stones. Urology placed stents emergently last night. This morning creatinine had improved to 11 but patient has developed mild CHF and severe electrolyte abnomalities w/ K > 7 and HCO3 <10. Nephrology consultation was requested this morning to provide emergency HD. Allergies Allergy/AdvReac Type Severity Reaction Status Date / Time meloxicam Allergy Intermediate RASH Verified 03/26/19 22:28 aspirin Allergy Mild NOSE BLEEDS Verified 03/26/19 22:28 Penicillins Allergy Mild TACHYCARDIA Verified 03/26/19 22:28 bupropion AdvReac Mild RASH Unverified 03/26/19 22:28 Home Medications Home Medications Medication Instructions Recorded Confirmed Type benztropine 0.5 mg PO DAILY 03/26/19 03/26/19 History chlorpromazine 10 mg PO QAM 03/26/19 03/26/19 History chlorpromazine 25 mg PO HS 03/26/19 03/26/19 History diphenhydramine HCl 25 mg PO HS 03/26/19 03/26/19 History lisinopril 5 mg PO DAILY 03/26/19 03/26/19 History melatonin 3 mg PO HS 03/26/19 03/26/19 History metformin 1,000 mg PO BID 03/26/19 03/26/19 History venlafaxine 75 mg PO HS 03/26/19 03/26/19 History Patient History Medical History Kidney stones (Chronic) Abdominal pain (Acute) Anxiety (Acute) Back pain, thoracic (Acute) Depression (Acute) Diverticulitis (Acute) Drug overdose, intentional Dyspepsia (Acute) Epistaxis (Acute ~05/14/14) Fatty liver disease, nonalcoholic (Chronic Unknown) Renal insufficiency (Acute) Thrombocytopenia (Chronic 2011) Bipolar 1 disorder Diabetes Family History Father Colon cancer Social History Preferred Language: Lebanese Communication Ability: Effective Direct Marketing Executive Required: No Beliefs That Will Affect Care: None Current Living Situation: Alone Other Information That Helps Us Care for You: No Feels Safe at Home: Yes Safety Concerns: Feels Safe At This Time Smoking Status: Never smoker Do You Dip or Chew Tobacco: No ; Second Hand Exposure: No ; Tobacco Cessation Education Requested by Patient: No Hx Alcohol Use: No Hx Substance Use: No Review of Systems Constitutional: no fever and no chills Eyes: no worsening vision and no problem reported Ear, Nose, Mouth, Throat: no problem reported Respiratory: + dyspnea Cardiovascular: no chest pain, no palpitations and no edema Gastrointestinal: + nausea; no abdominal pain and no vomiting Genitourinary: no dysuria, no urinary hesitancy and no hematuria Musculoskeletal: + back pain Integumentary: no rash Neurologic: no confusion Physical Exam Constitutional: + ill appearing and + overweight Eyes: PERRL, conjunctivae normal, anicteric sclerae ENMT: external ear and nose normal, oropharynx normal Neck: trachea midline, no thyromegaly Respiratory: Auscultation: + rales Cardiovascular: Rate/Rhythm: regular rate and regular rhythm Extremities: + edema (2+ LE edema) Gastrointestinal (Abdomen): normal bowel sounds, soft, nontender, no hepatosplenomegaly Musculoskeletal: no cyanosis or clubbing, extremities motor strength 5/5 Skin: no rashes, warm and dry Neurologic: awake; not confused Results & Data Vital Signs (Past 12 Hours) Vital Signs Temp Pulse Resp BP Pulse Ox 03/27/19 08:22 36.6 C 88 22 112/64 87 L 03/27/19 08:08 89 22 90 03/27/19 03:14 36.4 C L 73 18 92/49 L 92 03/27/19 02:50 36.6 C 74 18 95/49 L 92 03/27/19 02:40 74 20 89/50 L 93 03/27/19 02:30 76 20 93/44 L 91 03/27/19 02:20 76 20 101/54 L 91 03/27/19 02:10 78 22 97/62 L 93 03/27/19 02:00 72 22 98/56 L 92 03/27/19 01:50 74 18 106/55 L 92 03/27/19 01:40 75 16 102/60 91 03/27/19 01:30 36.6 C 76 18 117/58 L 94 03/27/19 01:25 77 17 122/62 94 03/27/19 01:20 77 17 117/59 L 94 03/27/19 01:15 78 17 131/70 93 03/27/19 01:12 82 20 168/64 H 90 03/27/19 01:03 36.6 C 84 18 167/75 H 87 L Laboratory Results Laboratory Tests 03/27/19 03/27/19 05:57 07:48 WBC 19.73 H Hgb 14.1 Hct 41.2 L Plt Count 162 Sodium 125 L Potassium 7.8 H* Chloride 98 Carbon Dioxide 8 L* BUN 133 H Creatinine 11.40 H* TELEMETRY: NSR PG Care Time/CCT Total # of Minutes Spent Total Time Spent with Patient: Total time spent is greater than 50% in coordination of care (as documented) at patient's floor/unit and/or counseling patient: (1) Acute renal failure Acute renal failure type: unspecified Qualified Code(s): N17.9 - Acute kidney failure, unspecified
[2019-03-27 11:21] LABS: Hepatitis B Surface Antigen Neg (Neg)
[2019-03-27] MEDS ORDERED: INSULIN ASPART 100 UNITS/ML 3 ML PEN SC SCH (11:30)
--- NOTE | 2019-03-27 12:13 | Critical Care Consultation ---
Date of Consultation March 27, 2019 Assessment & Plan (1) Acute renal failure: Patient presents with acute renal failure secondary to urinary obstruction POD #[address] Linden Del Toro status post placement of bilateral ureteral stents Nephrology consulted Dr. Barber is requested placement of temporary dialysis cath Bedside ultrasound with adequate anatomy for vascular access We will discuss with Dr. Montes Consent to be obtained by Dr. Montes (2) Kidney stones: Urology following POD #1 bilateral ureteral stents placed by Dr. Linden Del Toro Increased urinary output with hematuria Further management per urology (3) Hyperkalemia: Potassium this morning 7.8 Plan is for temporary dialysis Follow serial labs Further management per hospitalist team Thank you for including us in the care of this patient. Please refer to Dr. Montes's addendum for further recommendations. Supervising Physician Co-Signing Physician Notes Patient seen and examined with Florentino Bar PA-C. I agree with his assessment and plan aside for the additions/exceptions noted: Patient requires hemodialysis as per nephrology due to worsening renal failure and hyperkalemia. He had an obstructive uropathy and had bilateral stents pl aced in his ureters for large kidney stones. He has hematuria now and is putting out good urine, however, nephrology feels that he is not improving quickly enough and he has a significantly elevated BUN with evidence of uremia. We placed a 16 cm right-sided Quoc catheter without any complications. Chest x-ray was reviewed. We will sign off the case. Thank you for the consult. Please do not hesitate to call with questions. History of Present Illness Attending Physician: Salo Del Toro MD History of Present Illness Attending: Dr. Montes Patient seen and examined at bedside. This is a 54-year-old male that was admitted for kidney stone bilatera lly with obstruction. He was taken the operating room emergently last night by Dr. Linden Del Toro and received bilateral stents. This morning labs reveal elevated creatinine as well as elevated potassium. Medical management was felt to be less than optimal secondary to the need for large amounts of fluid. Patient appears to be somewhat fluid overloaded per the nephrology and hospitalist reports. Patient does have developmental delays. He requested we contact his mother for any consents or further information about his care. I received a call directly from Dr. Vinny Barber from nephrology asking for assistance with placement of a temporary dialysis catheter. Platelet count 162 Hemoglobin 14.1 INR 1.1 APTT 29.3 Patient is agreeable to placement of a cath but consent will be obtained from mother. Allergies Allergy/AdvReac Type Severity Reaction Status Date / Time meloxicam Allergy Intermediate RASH Verified 03/26/19 22:28 aspirin Allergy Mild NOSE BLEEDS Verified 03/26/19 22:28 Penicillins Allergy Mild TACHYCARDIA Verified 03/26/19 22:28 bupropion AdvReac Mild RASH Unverified 03/26/19 22:28 Home Medications Home Medications Medication Instructions Recorded Confirmed Type benztropine 0.5 mg PO DAILY 03/26/19 03/26/19 History chlorpromazine 10 mg PO QAM 03/26/19 03/26/19 History chlorpromazine 25 mg PO HS 03/26/19 03/26/19 History diphenhydramine HCl 25 mg PO HS 03/26/19 03/26/19 History lisinopril 5 mg PO DAILY 03/26/19 03/26/19 History melatonin 3 mg PO HS 03/26/19 03/26/19 History metformin 1,000 mg PO BID 03/26/19 03/26/19 History venlafaxine 75 mg PO HS 03/26/19 03/26/19 History Patient History Medical History Kidney stones (Chronic) Abdominal pain (Acute) Anxiety (Acute) Back pain, thoracic (Acute) Depression (Acute) Diverticulitis (Acute) Drug overdose, intentional Dyspepsia (Acute) Epistaxis (Acute ~05/14/14) Fatty liver disease, nonalcoholic (Chronic Unknown) Renal insufficiency (Acute) Thrombocytopenia (Chronic 2012) Bipolar 1 disorder Diabetes Family History Father Colon cancer Social History Preferred Language: Macedonian Communication Ability: Effective Type Soldering Machine Tender Required: No Beliefs That Will Affect Care: None Current Living Situation: Alone Other Information That Helps Us Care for You: No Feels Safe at Home: Yes Safety Concerns: Feels Safe At This Time Smoking Status: Never smoker Do You Dip or Chew Tobacco: No ; Second Hand Exposure: No ; Tobacco Cessation Education Requested by Patient: No Hx Alcohol Use: No Hx Substance Use: No Review of Systems Review of Systems: All systems reviewed & are unremarkable except as noted in HPI & below Physical Exam Constitutional: WD/WN, vitals as above + morbidly obese; no acute distress Afebrile Eyes: PERRL, conjunctivae normal, anicteric sclerae ENMT: Throat: uvula midline Mucosa moist. Tongue midline Neck: normal visual inspection and + thick neck Respiratory: Auscultation: + diminished lung sounds and + crackles (bilaterally) Cardiovascular: Rate/Rhythm: regular rate and regular rhythm Vessels: no JVD Chest (Breasts): Chest: normal inspection of chest Gastrointestinal (Abdomen): Inspection/Auscultation: normal bowel sounds; abdomen not distended Percussion/Palpation: abdomen soft; abdomen nontender and no guarding Musculoskeletal: Extremities: extremities normal to inspection Neurologic: A&OX3 Results & Data Vital Signs (Past 12 Hours) Vital Signs Temp Pulse Resp BP Pulse Ox 03/27/19 11:25 36.8 C 91 H 18 100/67 90 03/27/19 08:22 36.6 C 88 22 112/64 87 L 03/27/19 08:08 89 22 90 03/27/19 03:14 36.4 C L 73 18 92/49 L 92 03/27/19 02:50 36.6 C 74 18 95/49 L 92 03/27/19 02:40 74 20 89/50 L 93 03/27/19 02:30 76 20 93/44 L 91 03/27/19 02:20 76 20 101/54 L 91 03/27/19 02:10 78 22 97/62 L 93 03/27/19 02:00 72 22 98/56 L 92 03/27/19 01:50 74 18 106/55 L 92 03/27/19 01:40 75 16 102/60 91 03/27/19 01:30 36.6 C 76 18 117/58 L 94 03/27/19 01:25 77 17 122/62 94 03/27/19 01:20 77 17 117/59 L 94 03/27/19 01:15 78 17 131/70 93 03/27/19 01:12 82 20 168/64 H 90 03/27/19 01:03 36.6 C 84 18 167/75 H 87 L Laboratory Results 03/27/19 05:57 03/27/19 12:15 Diagnostic Findings XR chest 1V portable CLINICAL HISTORY: hypoxia COMPARISON STUDY: 03/26/2019 FINDINGS: There has been interval placement of a right sided internal jugular central venous catheter. The tip projects over the superior vena cava. There is no pneumothorax. The heart remains enlarged. There is blunting of both lateral costophrenic angles. Since the prior study, the patient developed airspace opacities within the right midlung zone laterally. This could represent a pneumonia. Clinical and radiographic follow-up is recommended.[ IMPRESSION: 1. Persistent cardiomegaly 2. No evidence of pneumothorax status post placement of a right internal jugular central venous catheter 3. Interval development of nonspecific right midlung zone airspace opacities. Clinical and radiographic follow-up is recommended. Electronically signed by: Kuldip White M.D. 03/27/2019 2:17 PM PG Care Time/CCT Total # of Minutes Spent Total Time Spent with Patient: Total time spent is greater than 50% in coordination of care (as documented) at patient's floor/unit and/or counseling patient:30 (1) Acute renal failure Acute renal failure type: unspecified Qualified Code(s): N17.9 - Acute kidney failure, unspecified
[2019-03-27 13:05] LABS: BUN Creatinine Ratio 12.1 (10-20); Calcium 8.6 mg/dl (8.5-10.1); Creatinine Clr Calc Pharmacy 11.6 ml/min; Est GFR (African American) 5.4; Est GFR (Non-African American) 4.7; Potassium 7.4 mmol/L (3.5-5.1)
--- NOTE | 2019-03-27 14:19 | XRay Report ---
XR chest 1V portable CLINICAL HISTORY: hypoxia COMPARISON STUDY: 03/26/2019 FINDINGS: There has been interval placement of a right sided internal jugular central venous catheter . The tip projects over the superior vena cava. There is no pneumothorax. The heart remains enlarged. There is blunting of both lateral costophrenic angles. Since the prior study, the patient developed airspace opacities within the right midlung zone laterally. This could represent a pneumonia. Clinica l and radiographic follow-up is recommended.[ IMPRESSION: 1. Persistent cardiomegaly 2. No evidence of pneumothorax status post placement of a right internal jugular central venous unruly ter 3. Interval development of nonspecific right midlung zone airspace opacities. Clinical and radiograph ic follow-up is recommended. Electronically signed by: Kuldip White M.D. 03/27/2019 2:17 PM
--- NOTE | 2019-03-27 14:46 | Procedure Note ---
Procedure Note Date of Service Right INTERNAL JUGULAR CENTRAL LINE PROCEDURE NOTE -dialysis catheter, double- lumen: Procedure: Internal Jugular Central Line Placement Indication: Central Drug Administration, Poor Venous Access, Multiple Lab Draws Necessary, etc. Anesthesia: xNone/8 mL lidocaine 1% Consent was signed and placed on the chart prior to procedure. Indication, risks, and benefits were explained at length. A time-out was completed verifying correct patient, procedure, site, positioning, and implants(s) or special equipment if applicable. Patients right neck was cleansed and draped in the typical sterile fashion using Chloraprep. The Internal Jugular Vein and Carotid Artery were identified using ultrasound. The superficial tissue was anesthetized using 8 mL of 1% lidocaine without epinephrine under direct visualization with the ultrasound. After adequate anesthetization was achieved, the Internal Jugular vein was cannulated under direct ultrasound guidance using an introducer needle on a syringe. Good venous blood return was maintained prior to removal of syringe from introducer needle. Using Seldinger Technique, a guide wire was advanced through the introducer needle without resistance. The introducer needle was removed and ultrasound images were obtained of the guide wire within the Internal Jugular Vein and saved to the patients medical record. A small incision was made in penetrating fashion at the guide wire insertion site utilizing an 11 blade scalpel. The dilator was advanced to the vessel without resistance. The dilator was exchanged for the triple lumen catheter which was advanced into the vessel without resistance. The guide wire was removed intact from the catheter without issue. Claves were placed on each catheter tip with confirmation of good blood flow from each lumen. Each port was easily flushed with sterile saline. The catheter was placed at 16 cm and sutured in place. BioPatch was applied to the catheter and a sterile Tegaderm dressing was applied over the catheter with careful attention to sterility. Patient tolerated procedure well. No immediate complications were met. Post procedure x-ray was completed, placement was appropriate and no pneumothorax was noted. Images obtained are saved for permanent record Procedural Ultrasound Guidance: Procedure Date: 03/27/2019 Indication: Temporary dialysis Artery AND Vein visualized: Yes Compressible Vein: Yes Guidewire or Short Catheter seen in vein prior to dilation: Yes Images obtained are saved for permanent record. Coding CPT Codes Tubes, Drains, and Vasc Access - Tubes, Drains, and Vasc Access: Ultrasonic Guide For Needle Placement ([id number])
[2019-03-27] MEDS ORDERED: ALBUT/IPRATROP 3MG/0.5MG NEB 3 ML VIAL NEB PRN (18:05)
[2019-03-27] MEDS: cefTRIAXone SODIUM 2,000 MG in DEXTROSE 5% 50 ML IV SCH (18:25)
[2019-03-27] MEDS: CIPROFLOXACIN HCL 0.3% OP SOLN 2.5 ML BTL OPR SCH ×2 (18:25→23:59)
[2019-03-27] MEDS ORDERED: Nursing to Pharmacy Communication ONE (19:49)
[2019-03-27 20:06] LABS: BUN Creatinine Ratio 12.7 (10-20); Calcium 8.8 mg/dl (8.5-10.1); Creatinine Clr Calc Pharmacy 16.6 ml/min; Est GFR (African American) 8.3; Est GFR (Non-African American) 7.2; Potassium 4.5 mmol/L (3.5-5.1)
[2019-03-27] MEDS ORDERED: VENLAFAXINE HCL XR 75 MG CAPXR PO SCH (21:00)
[2019-03-27] MEDS: CHLORPROMAZINE HCL 25 MG TABLET PO SCH (21:08)
[2019-03-28] MEDS: CIPROFLOXACIN HCL 0.3% OP SOLN 2.5 ML BTL OPR SCH ×4 (05:56→23:26)
[2019-03-28 07:01] LABS: Hematocrit (blood only) 40.6 % (42-52); Hemoglobin 13.9 g/dL (14.0-18.0); Mean Corpuscular Hemoglobin 29.8 pg (25-34); Mean Corpuscular Hgb Conc 34.2 g/dL (32-36); Mean Corpuscular Volume 87.1 fL (80-100); Mean Platelet Volume 12.3 fL (7.4-10.4); Platelet Count 108 K/uL (130-400); RDW Coefficient of Variation 13.8 % (11.5-14.5); RDW Standard Deviation 43.6 fL (36.4-46.3); Red Blood Count 4.66 M/uL (4.7-6.1); White Blood Count 8.22 K/uL (4.8-10.8)
[2019-03-28 07:20] LABS: Albumin Globulin Ratio 0.7 (0.9-2); Albumin Level 2.7 gm/dl (3.4-5.0); BUN Creatinine Ratio 14.6 (10-20); Bilirubin,Total 0.5 mg/dl (0.2-1); Calcium 9.3 mg/dl (8.5-10.1); Creatinine Clr Calc Pharmacy 19.5 ml/min; Est GFR (African American) 10.1; Est GFR (Non-African American) 8.7; Globulin 4.1 gm/dl (2.5-4.0); Total Protein 6.8 gm/dl (6.4-8.2)
[2019-03-28 07:44] LABS: Potassium 4.6 mmol/L (3.5-5.1)
[2019-03-28 07:49] LABS: Magnesium 1.8 mg/dl (1.8-2.4)
[2019-03-28] MEDS: BENZTROPINE MESYLATE 0.5 MG TAB PO SCH (08:32)
[2019-03-28] MEDS: HEPARIN SOD 5,000 UNIT/0.5 ML VIAL SQ SCH ×2 (08:32→20:05)
[2019-03-28] MEDS: VENLAFAXINE HCL XR 75 MG CAPXR PO SCH (08:32)
[2019-03-28] MEDS: CHLORPROMAZINE HCL 10 MG TABLET PO SCH (08:32)
--- NOTE | 2019-03-28 09:55 | Nephrology Progress Note ---
Date of Service March 28, 2019 Assessment & Plan (1) Acute renal failure: -- Hold Metformin until Cr < 2 -- ATN due to ureteral obstruction by kidney stones s/p bilateral ureteral stents 03/26/19 -- Emergency HD 03/27/19. Electrolyte balance acceptable this morning. Volume status improved. Patient is nonoliguric and now appears to be in recovery phase of ATN -- Recheck PRP and reassess need for HD in am (2) Pulmonary edema: -- Clinically improved -- Taper O2 as tolerated Subjective Mr. Rey was seen and examined in his hospital room this morning. He underwent RIJ THC insertion and 3 hours of HD yesterday. 2 L UF were obtained but SBP dropped to mid 80's w/ treatment. This morning Mr. Rey is breathing comfortably on O2 at 2 L/min NC. He has a kendall catheter in place w/ blood tinged urine. He voices no medical concerns. Review of Systems Constitutional: no fever and no chills Eyes: no worsening vision and no problem reported Ear, Nose, Mouth, Throat: no problem reported Respiratory: no cough and no dyspnea Cardiovascular: no chest pain, no palpitations and no edema Gastrointestinal: no abdominal pain, no nausea, no vomiting and no diarrhea/loose stools Genitourinary: no dysuria, no urinary hesitancy and no hematuria Musculoskeletal: no back pain Integumentary: no rash Neurologic: no falls, no dizziness and no confusion Physical Exam Constitutional: + overweight; not in distress Eyes: PERRL, conjunctivae normal, anicteric sclerae ENMT: external ear and nose normal, oropharynx normal Neck: trachea midline, no thyromegaly Respiratory: Auscultation: lungs clear to auscultation bilaterally Cardiovascular: Rate/Rhythm: regular rate and regular rhythm Extremities: + edema (trace LE edema) Gastrointestinal (Abdomen): normal bowel sounds, soft, nontender, no hepatosplenomegaly Musculoskeletal: Extremities: no cyanosis Skin: no rashes, warm and dry Neurologic: awake; not confused Results & Data Vital Signs (Past 12 Hours) Vital Signs Temp Pulse Pulse Resp BP Pulse Ox 03/28/19 07:43 37.1 C 95 H 23 123/72 90 03/28/19 04:56 36.5 C 93 H 18 120/72 96 03/27/19 23:36 94 H 03/27/19 23:12 36.7 C 88 22 112/73 92 Laboratory Results Laboratory Tests 03/28/19 03/28/19 03/28/19 06:05 06:05 06:05 WBC 8.22 Hgb 13.9 L Hct 40.6 L Plt Count 108 L Sodium 135 L Potassium 4.6 Chloride 103 Carbon Dioxide 20 L BUN 95 H Creatinine 6.62 H* D Glucose 187 H PG Care Time/CCT Total # of Minutes Spent Total Time Spent with Patient: Total time spent is greater than 50% in coordination of care (as documented) at patient's floor/unit and/or counseling patient: (1) Acute renal failure Acute renal failure type: unspecified Qualified Code(s): N17.9 - Acute kidney failure, unspecified
--- NOTE | 2019-03-28 10:52 | Urology Progress Note ---
Date of Service March 28, 2019 Assessment & Plan (1) Bilateral ureteral obstruction: 54 YO male with ARF, bilateral ureteral obstruction due to stones, likely UTI, POD #2 s/p bilateral ureteral stent placement. Stents not bothersome. Hematuria clearing, urine output increasing. Will continue to intermittently follow along. Subjective 54 YO male with ARF, bilateral ureteral obstruction due to stones, likely UTI, POD #2 s/p bilateral ureteral stent placement. Patient reports feeling about the same. Had temp dialysis catheter placed and underwent dialysis yesterday. No pain, stents are not bothersome. Diego also not bothersome, urine appears to be increased volume and hematuria is clearing. Review of Systems Review of Systems: Per HPI. Physical Exam Physical Exam: NAD +obese. Resp effort normal. Abd nondistended. : Diego patent draining light red urine. A&Ox3, appropriate affect. Results & Data Vital Signs (Past 12 Hours) Vital Signs Temp Pulse Pulse Resp BP Pulse Ox 03/28/19 08:00 92 H 03/28/19 07:43 37.1 C 95 H 23 123/72 90 03/28/19 04:56 36.5 C 93 H 18 120/72 96 03/27/19 23:36 94 H 03/27/19 23:12 36.7 C 88 22 112/73 92
--- NOTE | 2019-03-28 14:49 | Hospitalist Progress Note ---
Date of Service March 28, 2019 Assessment & Plan (1) Acute renal failure: Creat 13 on admission Contributing factors: Obstructive uropathy, dehydration, decreased oral intake, vomiting/diarrhea Urology consult with bilateral ureteral stent placement 03/26 Nephrology consulted - patient dialyzed 03/27 Improving - creatinine trending down, producing good amount of urine, potassium normal (2) Hyperkalemia: Potassium peaked at 7.8 and normalized following dialysis (3) Hyponatremia: resolved (4) Hypoxia: Developed morning 03/27 with coarse lung sounds bilaterally and requiring 10L oxymask - oxygen requirements improved to 4L CXR with non specific right midlung zone airspace opacities and costophrenic blunting, leukocytosis - ceftriaxone initiated 03/27 duonebs (5) Pneumonia: As above (6) Pancreatitis: CT scan abdomen showed surgically absent gallbladder Lipase trending down from 34,000 Lipids wnl Will give clear liquids (7) Bilateral ureteral obstruction: Status post urologist consultation from ED s/p bilateral ureteral stent placement 03/26 (8) Depression: Currently stable continue home (9) Fatty liver disease, nonalcoholic: Stable (10) Bipolar disorder: Stable continue home meds with renal adjustment (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 Rey is improving, requiring less supplemental O2. Reports feeling hungry, no further nausea or abdominal pain. Review of Systems 2 Review of Systems: All systems reviewed & are unremarkable except as noted in HPI & below Physical Exam Physical Exam: General: no distress Eyes: normal inspection, PERLL Respiratory: chest non tender, clear to auscultation, normal breath sounds, no respiratory distress, no accessory muscle use Cardiac: regular rate and rhythm, no rub or gallop, no murmur, no edema, no jvd GI/: active bowel sounds, no abd pain or tenderness, soft, non distended Extremities: normal range of motion, normal strength, non tender Neuro/Psych: alert and oriented x 3, normal mood and affect Skin: normal color, dry Results & Data Vital Signs (Past 12 Hours) Vital Signs Temp Pulse Pulse Resp BP Pulse Ox 03/28/19 11:04 37.4 C 104 H 19 133/78 95 03/28/19 08:00 92 H 03/28/19 07:43 37.1 C 95 H 23 123/72 90 03/28/19 04:56 36.5 C 93 H 18 120/72 96 PG Care Time/CCT Total # of Minutes Spent Total Time Spent with Patient: Total time spent is greater than 50% in coordination of care (as documented) at patient's floor/unit and/or counseling patient: (1) Acute renal failure Acute renal failure type: unspecified Qualified Code(s): N17.9 - Acute kidney failure, unspecified (2) Pancreatitis Acute pancreatitis complication: unspecified Chronicity: acute Pancreatitis type: unspecified pancreatitis type Qualified Code(s): K85.90 - Acute pancreatitis without necrosis or infection, unspecified
[2019-03-28] MEDS: cefTRIAXone SODIUM 2,000 MG in DEXTROSE 5% 50 ML IV SCH (18:30)
[2019-03-28] MEDS: CHLORPROMAZINE HCL 25 MG TABLET PO SCH (20:04)
[2019-03-28] MEDS: INSULIN ASPART 100 UNITS/ML 3 ML PEN SC SCH (21:25)
[2019-03-29] MEDS: CIPROFLOXACIN HCL 0.3% OP SOLN 2.5 ML BTL OPR SCH ×4 (05:58→23:36)
[2019-03-29 06:29] LABS: Hemoglobin 14.3 g/dL (14.0-18.0); Mean Corpuscular Hemoglobin 30.7 pg (25-34); Mean Corpuscular Hgb Conc 34.9 g/dL (32-36); Mean Platelet Volume 12.3 fL (7.4-10.4); Platelet Count 123 K/uL (130-400); RDW Standard Deviation 45.1 fL (36.4-46.3); Red Blood Count 4.66 M/uL (4.7-6.1); White Blood Count 12.01 K/uL (4.8-10.8)
[2019-03-29 07:00] LABS: Albumin Globulin Ratio 0.7 (0.9-2); Albumin Level 3.1 gm/dl (3.4-5.0); BUN Creatinine Ratio 20.3 (10-20); Bilirubin,Total 0.7 mg/dl (0.2-1); Calcium 9.7 mg/dl (8.5-10.1); Creatinine Clr Calc Pharmacy 39.8 ml/min; Est GFR (African American) 23.9; Est GFR (Non-African American) 20.7; Globulin 4.4 gm/dl (2.5-4.0); Magnesium 1.6 mg/dl (1.8-2.4); Potassium 3.5 mmol/L (3.5-5.1); Total Protein 7.5 gm/dl (6.4-8.2)
[2019-03-29] MEDS: CHLORPROMAZINE HCL 10 MG TABLET PO SCH (09:17)
[2019-03-29] MEDS: HEPARIN SOD 5,000 UNIT/0.5 ML VIAL SQ SCH ×2 (09:17→20:55)
[2019-03-29] MEDS: VENLAFAXINE HCL XR 75 MG CAPXR PO SCH (09:17)
[2019-03-29] MEDS: INSULIN ASPART 100 UNITS/ML 3 ML PEN SC SCH ×4 (09:17→20:55)
[2019-03-29] MEDS: BENZTROPINE MESYLATE 0.5 MG TAB PO SCH (09:17)
[2019-03-29] MEDS: INSULIN GLARGINE SOLOSTAR 100 UNITS/ML 3 ML PEN SC SCH ×2 (10:07→20:56)
--- NOTE | 2019-03-29 10:38 | Nephrology Progress Note ---
Date of Service March 29, 2019 Assessment & Plan (1) Acute renal failure: -- Hold Metformin until Cr < 2 -- ATN due to ureteral obstruction by kidney stones s/p bilateral ureteral stents 03/26/19 -- Emergency HD 03/27/19. Now in recovery phase. Patient has post obstructive diuresis. Electrolyte balance acceptable this morning. Volume status improved. -- Will remove IJ THC and recheck PRP in am (2) Pulmonary edema: -- Clinically improved -- Taper O2 as tolerated Subjective Mr. Rey was seen & examined in his hospital room this morning. Diego catheter remains in place and he now has post obstructive diuresis. He denies fever, angina or dyspnea Review of Systems Constitutional: no fever, no chills and no weakness Eyes: no worsening vision and no problem reported Ear, Nose, Mouth, Throat: no problem reported Respiratory: no cough and no dyspnea Cardiovascular: no chest pain, no palpitations and no edema Gastrointestinal: no abdominal pain, no nausea, no vomiting and no diarrhea /loose stools Genitourinary: no dysuria, no urinary hesitancy and no hematuria Musculoskeletal: no back pain Integumentary: no rash Neurologic: no falls, no dizziness and no confusion Physical Exam Constitutional: + overweight; not in distress Eyes: PERRL, conjunctivae normal, anicteric sclerae ENMT: external ear and nose normal, oropharynx normal Neck: trachea midline, no thyromegaly Respiratory: Auscultation: lungs clear to auscultation bilaterally Cardiovascular: Rate/Rhythm: regular rate and regular rhythm Extremities: + edema (trace LE edema) Gastrointestinal (Abdomen): normal bowel sounds, soft, nontender, no hepatosplenomegaly Musculoskeletal: no cyanosis or clubbing, extremities motor strength 5/5 Ex tremities: no cyanosis Skin: no rashes, warm and dry Neurologic: awake; not confused Results & Data Vital Signs (Past 12 Hours) Vital Signs Temp Pulse Resp BP Pulse Ox 03/29/19 07:34 37.7 C H 92 H 19 127/81 93 03/29/19 03:00 36.7 C 100 H 20 110/74 92 03/28/19 23:00 37.4 C 97 H 20 153/80 H 91 PG Care Time/CCT Total # of Minutes Spent Total Time Spent with Patient: Total time spent is greater than 50% in coordination of care (as documented) at patient's floor/unit and/or counseling patient: (1) Acute renal failure Acute renal failure type: unspecified Qualified Code(s): N17.9 - Acute kidney failure, unspecified
--- NOTE | 2019-03-29 14:56 | Hospitalist Progress Note ---
Date of Service March 29, 2019 Assessment & Plan (1) Acute renal failure: Creat 13 on admission now trending down Contributing factors: Obstructive uropathy, dehydration, decreased oral intake, vomiting/diarrhea Urology consult with bilateral ureteral stent placement 03/26 Nephrology consulted - patient dialyzed 03/27 Improving - creatinine trending down, producing good amount of urine, potassium normal Per nephrology: Hold Metformin until Cr < 2, they will remove dialysis catheter today and repeat prp am (2) Hyperkalemia: Potassium peaked at 7.8 and normalized following dialysis (3) Hyponatremia: resolved (4) Hypoxia: Developed morning 03/27 with coarse lung sounds bilaterally and requiring 10L oxymask - now on RA CXR with non specific right midlung zone airspace opacities and costophrenic blunting, leukocytosis - ceftriaxone initiated 03/27 duonebs (5) Pneumonia: As above (6) Pancreatitis: CT scan abdomen showed surgically absent gallbladder Lipase trending down from 34,000 Lipids wnl tolerating advancing diet (7) Bilateral ureteral obstruction: Status post urologist consultation from ED s/p bilateral ureteral stent placement 03/26 (8) Depression: Currently stable continue home (9) Fatty liver disease, nonalcoholic: Stable (10) Bipolar disorder: Stable continue home meds with renal adjustment (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 Rey feels well, tolerating diet. No complaints. Review of Systems Review of Systems: All systems reviewed & are unremarkable except as noted in HPI & below Physical Exam Physical Exam: General: no distress Eyes: normal inspection, PERLL Respiratory: chest non tender, clear to auscultation, normal breath sounds, no respiratory distress, no accessory muscle use Cardiac: regular rate and rhythm, no rub or gallop, no murmur, no edema, no jvd GI/: active bowel sounds, generalized abdominal tenderness, soft, non di stended Extremities: normal range of motion, normal strength, non tender Neuro/Psych: alert and oriented x 3, normal mood and affect Skin: normal color, dry Results & Data Vital Signs (Past 12 Hours) Vital Signs Temp Pulse Pulse Resp BP BP Pulse Ox 03/29/19 10:54 36.8 C 93 H 20 119/72 90 03/29/19 08:00 101 H 03/29/19 07:34 37.7 C H 92 H 19 127/81 93 03/29/19 03:00 36.7 C 100 H 20 110/74 92 PG Care Time/CCT Total # of Minutes Spent Total Time Spent with Patient: Total time spent is greater than 50% in coordination of care (as documented) at patient's floor/unit and/or counseling patient: (1) Acute renal failure Acute renal failure type: unspecified Qualified Code(s): N17.9 - Acute kidney failure, unspecified (2) Pancreatitis Acute pancreatitis complication: unspecified Chronicity: acute Pancreatitis type: unspecified pancreatitis type Qualified Code(s): K85.90 - Acute pancreatitis without necrosis or infection, unspecified
[2019-03-29] MEDS: cefTRIAXone SODIUM 2,000 MG in DEXTROSE 5% 50 ML IV SCH (17:46)
[2019-03-29] MEDS: CHLORPROMAZINE HCL 25 MG TABLET PO SCH (20:55)
[2019-03-30] MEDS: CIPROFLOXACIN HCL 0.3% OP SOLN 2.5 ML BTL OPR SCH ×2 (06:00→12:26)
[2019-03-30 06:08] LABS: Hemoglobin 13.5 g/dL (14.0-18.0); Mean Corpuscular Hemoglobin 30.3 pg (25-34); Mean Corpuscular Hgb Conc 33.8 g/dL (32-36); Mean Corpuscular Volume 89.7 fL (80-100); Mean Platelet Volume 12.1 fL (7.4-10.4); Platelet Count 120 K/uL (130-400); Red Blood Count 4.46 M/uL (4.7-6.1); White Blood Count 9.69 K/uL (4.8-10.8)
[2019-03-30 06:34] LABS: BUN Creatinine Ratio 23.1 (10-20); Calcium 9.5 mg/dl (8.5-10.1); Creatinine Clr Calc Pharmacy 59.1 ml/min; Est GFR (African American) 38.6; Est GFR (Non-African American) 33.3; Magnesium 1.4 mg/dl (1.8-2.4); Potassium 3.6 mmol/L (3.5-5.1)
[2019-03-30] MEDS ORDERED: MAGNESIUM OXIDE 400 MG TAB PO ONE (08:00)
[2019-03-30] MEDS ORDERED: MAGNESIUM SULFATE / D5W 1 GM/100 ML BAG IV ONE (08:00)
[2019-03-30] MEDS: CHLORPROMAZINE HCL 10 MG TABLET PO SCH (08:20)
[2019-03-30] MEDS: BENZTROPINE MESYLATE 0.5 MG TAB PO SCH (08:20)
[2019-03-30] MEDS: VENLAFAXINE HCL XR 75 MG CAPXR PO SCH (08:20)
[2019-03-30] MEDS: HEPARIN SOD 5,000 UNIT/0.5 ML VIAL SQ SCH (08:21)
[2019-03-30] MEDS: INSULIN ASPART 100 UNITS/ML 3 ML PEN SC SCH ×3 (08:22→16:58)
[2019-03-30] MEDS: INSULIN GLARGINE SOLOSTAR 100 UNITS/ML 3 ML PEN SC SCH (08:23)
--- NOTE | 2019-03-30 09:45 | Nephrology Progress Note ---
Date of Service March 30, 2019 Assessment & Plan (1) Acute renal failure: -- Hold Metformin until Cr < 2 -- ATN due to ureteral obstruction by kidney stones s/p bilateral ureteral stents 03/26/19 -- Emergency HD 03/27/19. Now in recovery phase. Patient has post obstructive diuresis. Electrolyte balance acceptable this morning. Volume status improved. -- IJ THC removed yesterday -- Recommend removing Diego catheter if OK w/ Urology -- If discharge is anticipated, will need outpatient f/u w/ Urology and PCP (2) Pulmonary edema: -- Resolved. Breathing comfortably on RA this am Subjective Mr. Rey was seen & examined in his hospital room this morning. Diego catheter remains in place. Urine is now clear. He denies fever, angina or dyspnea Review of Systems Constitutional: no fever, no chills and no weakness Eyes: no worsening vision and no problem reported Ear, Nose, Mouth, Throat: no problem reported Respiratory: no cough and no dyspnea Cardiovascular: no chest pain, no palpitations and no edema Gastrointestinal: no abdominal pain, no nausea, no vomiting and no diarrhea/loose stools Genitourinary: no dysuria, no urinary hesitancy and no hematuria Musculoskeletal: no back pain Integumentary: no rash Neurologic: no falls, no dizziness and no confusion Physical Exam Constitutional: + overweight; not in distress Eyes: PERRL, conjunctivae normal, anicteric sclerae ENMT: external ear and nose normal, oropharynx normal Neck: trachea midline, no thyromegaly (R IJ site w/ clean dry dressing in place) Respiratory: Auscultation: lungs clear to auscultation bilaterally Cardiovascular: Rate/Rhythm: regular rate and regular rhythm Extremities: no edema (trace LE edema) Gastrointestinal (Abdomen): normal bowel sounds, soft, nontender, no hepatosplenomegaly Musculoskeletal: no cyanosis or clubbing, extremities motor strength 5/5 Extremities: no cyanosis Skin: no rashes, warm and dry Neurologic: awake; not confused Results & Data Vital Signs (Past 12 Hours) Vital Signs Temp Pulse Resp BP BP Pulse Ox 03/30/19 07:26 37.1 C 88 22 124/83 96 03/30/19 03:20 36.6 C 84 18 122/82 91 03/29/19 23:47 36.7 C 87 20 121/78 92 Laboratory Results Laboratory Tests 03/29/19 03/29/19 03/30/19 06:12 06:12 05:40 WBC 12.01 H Hgb 14.3 Hct 41.0 L Plt Count 123 L Sodium 138 143 Potassium 3.5 D 3.6 Chloride 105 108 H Carbon Dioxide 22 25 BUN 66 H 50 H Creatinine 3.24 H D 2.18 H D 03/30/19 05:40 WBC 9.69 Hgb 13.5 L Hct 40.0 L Plt Count 120 L Sodium Potassium Chloride Carbon Dioxide BUN Creatinine PG Care Time/CCT Total # of Minutes Spent Total Time Spent with Patient: Total time spent is greater than 50% in coordination of care (as documented) at patient's floor/unit and/or counseling patient: (1) Acute renal failure Acute renal failure type: unspecified Qualified Code(s): N17.9 - Acute kidney failure, unspecified
[2019-03-30] MEDS ORDERED: POLYETHYLENE (MIRALAX) 17 GM PACK PO PRN (10:01)
[2019-03-30] MEDS ORDERED: DEXTROSE 50% 50 ML SYRINGE IV PRN (15:15)
[2019-03-30] MEDS ORDERED: GLUCOSE 10 TABS/TUBE PO PRN (15:15)
[2019-03-30] MEDS ORDERED: CARBOHYDRATES FOR HYPOGLYCEMIA PO PRN (15:15)
[2019-03-30] MEDS ORDERED: GLUCOSE 40% GEL 15 GM TUBE PO PRN (15:15)
[2019-03-30] MEDS ORDERED: GLUCAGON FOR INJ 1 MG VIAL IM PRN (15:15)
--- NOTE | 2019-03-30 15:54 | Discharge Summary ---
Date of Service March 30, 2019 Principal Diagnosis Renal failure, pancreatitis, pneumonia, Discharge Exam Constitutional WD/WN, vitals as above Respiratory normal respiratory effort, lungs clear to auscultation Cardiovascular RRR, no murmur, no edema Gastrointestinal (Abdomen) normal bowel sounds, soft, nontender, no hepatosplenomegaly Musculoskeletal no cyanosis or clubbing, extremities motor strength 5/5 Skin no rashes, warm and dry Neurologic moves all extremities and awake Psychiatric A+Ox3, euthymic affect Discharge Data Allergies Allergy/AdvReac Type Severity Reaction Status Date / Time meloxicam Allergy Intermediate RASH Verified 03/26/19 22:28 aspirin Allergy Mild NOSE BLEEDS Verified 03/26/19 22:28 Penicillins Allergy Mild TACHYCARDIA Verified 03/26/19 22:28 bupropion AdvReac Mild RASH Unverified 03/26/19 22:28 Consultations 03/26/19 22:46 ED Decision to Admit Stat 03/27/19 01:30 Consult Nephrology Routine 03/27/19 09:35 Consult A And P Mechanic Routine 03/27/19 13:41 Consult Urology Routine Procedures Performed Operation Date: 03/26/19 22:50 Actual Procedures p Cystoscopy, Bilateral Retrograde Plyeogram and Bilateral Ureteral Stent Insertion(Bilateral) - Linden Del Toro MD Ordered Studies 03/26/19 21:19 CT abd pelvis wo con Stat 03/26/19 23:19 FL retrograde includes kub Routine 03/27/19 11:19 US point of care ultrasound Routine Hospital Course (1) Acute renal failure: Creat 13 on admission now trending down Contributing factors: Obstructive uropathy, dehydration, decreased oral intake, vomiting/diarrhea Urology consult with bilateral ureteral stent placement 03/26 Nephrology consulted - patient dialyzed 03/27 x1 Improving - creatinine trending down, producing good amount of urine, potassium normal Per nephrology: Hold Metformin until Cr < 2, (2) Hyperkalemia: Potassium peaked at 7.8 and normalized following dialysis (3) Hyponatremia: resolved (4) Hypoxia: Developed morning 03/27 with coarse lung sounds bilaterally and requiring 10L oxymask - now on RA CXR with non specific right midlung zone airspace opacities and costophrenic blunting, leukocytosis - ceftriaxone initiated 03/27 - will discharge with c efdinir for a 7 day regimen as below mane (5) Pneumonia: As above (6) Pancreatitis: CT scan abdomen showed unremarkable pancreas Lipase trended down from 34,000 Lipids wnl tolerating advancing diet (7) Bilateral ureteral obstruction: bilateral obstructing ureteral calculi Status post urologist consultation from ED s/p bilateral ureteral stent placement 03/26 Urine culture grew group B beta strep and then less than 1,000 colonies on repeat - will have patient complete 7 days total of abx - ceftriaxone inpatient and then change to cefdinir for home (8) Depression: Currently stable continue home (9) Fatty liver disease, nonalcoholic: Stable (10) Bipolar disorder: Stable continue home meds with renal adjustment (11) Diabetes 1.5, managed as type 2: insulin glargine and ss while inpatient Hemoglobin A1c 8.2 Will hold metformin per nephrology recommendation. Will send home with glimeperide 1 mg daily. I did discuss patient's case generally with his pcp Beryl Velazquez and we discussed his home diabetic regimen. I will have him check his sugars 4 times per day and keep a log to bring with him to his appointment on Tuesday. She will talk with him about possibly starting some insulin but at this point I will hold off on initiating insulin until he meets with her and can discuss. He should call her if his sugars are running over 250 (12) DVT prophylaxis: heparin subq (13) Hypomagnesemia: 1.4 on labwork today Give 1g IV and then 400 mg daily Recheck with outpatient labs Tuesday Total Time Total Time Spent Total Time Spent (In Minutes): greater than 30 minutes Discharge Plan Discharge Items Patient Disposition: Home - Self-Care Reason For Visit: CHAD, PANCREATITIS Discharge Diagnosis: Acute kidney injury, bilateral ureteral obstruction due to kidney stones, pancreatitis, pneumonia Activity: Resume your previous activity Activity Comment: gradually as tolerated Non-emergency contact: Primary Care Provider Call non-emergency contact if: you have any medication questions, your symptoms worsen, your pain is not controlled and you have a fever Follow-up/Referrals: [facility] [place] Urology [Provider Group] (Please, follow up at [facility] Urology Office. *The office is located at [address] [place] [address] in [place]. A nurse will call you with the appointment information. If you have any questions, call the office at [phone].) Beryl Velazquez PA-C [Primary Care Provider] - 04/03/19 11:00 am (Please, follow up with Beryl Velazquez PA-C on TuesdayApril 03 at 11:00 am. *If you need to change this appointment, call the office at [phone].) Vinny Barber MD [Physician] - 04/06/19 8:45 am (Please, follow up at [facility] Nephrology Office with Dr. Barber on TuesdayApril 06 at 8:45 am. *The office is located in [address] of [facility]. This is the big building located next to this hospital. If you need to change this appointment, call the office at [phone].) Diet: Carb Consistent or DM2 Ambulatory Orders: Comprehensive Metabolic Panel (Routine) Timeframe: 20190402 Location: Determined by Patient Ordered By: Diana Mortensen Magnesium (Routine) Timeframe: 20190326 Location: Determined by Patient Ordered By: Diana Mortensen Addtl Attending Provider Instructions: Because your kidney function is reduced, you should hold your metformin until your primary care provider tells you otherwise. I will send you out on a new medication called glimepiride to control your sugars. You should check your blood sugars before meals and before bed, and keep a log to take with you to your next appointment so that Beryl Velazquez can review and adjust your medication regimen as necessary. Please call her if your sugars are running above 250. You should call your doctor right away if you get a blood sugar below 70. Try to limit the amount of carbohydrates you are eating and focus on eating fruits, vegetables, lean proteins like fish and chicken, unsweetened dairy products and small amounts of whole grains like brown rice or whole wheat bread. You should start the glimepiride and cefdinir in the morning Please have your blood work drawn on Tuesday. You will go over the results with Beryl Velazquez. Pending Studies at Discharge: No Stand-Alone Forms: Call Back Authorization, My [facility] Medications and DC Order Prescriptions: New magnesium oxide 400 mg (241.3 mg magnesium) Tablet 400 mg PO QAM Qty: 30 RF: 0 glimepiride 1 mg tablet 1 mg PO DAILY Qty: 30 RF: 0 cefdinir 300 mg Capsule 300 mg PO Q12 Qty: 9 RF: 0 Continued lisinopril 5 mg tablet 5 mg PO DAILY RF: 0 venlafaxine 75 mg capsule,extended release 24hr 75 mg PO HS RF: 0 benztropine 0.5 mg tablet 0.5 mg PO DAILY RF: 0 chlorpromazine 10 mg tablet 10 mg PO QAM RF: 0 chlorpromazine 25 mg tablet 25 mg PO HS RF: 0 melatonin 3 mg tablet 3 mg PO HS RF: 0 diphenhydramine HCl 25 mg capsule 25 mg PO HS RF: 0 Discontinued metformin 1,000 mg tablet 1,000 mg PO BID RF: 0 Discharge Orders: Discharge Order (Routine); Ordered 03/30/19 Ordered By: Diana Mortensen Admission Data Admit Date/Time: 03/27/19 01:30 Attending Provider: Salo Del Toro Admit Provider: Keisha Travis Primary Care Provider: Beryl Velazquez Other Providers: Rosa Galaviz ; Tram Crum ; Elías Montes ; Linden Del Toro I.
[2019-03-30] MEDS: cefTRIAXone SODIUM 2,000 MG in DEXTROSE 5% 50 ML IV SCH (16:36)
[2019-03-30] MEDS ORDERED: CEFDINIR 300 MG CAP PO SCH (21:00)
[2019-03-31] MEDS ORDERED: MAGNESIUM OXIDE 400 MG TAB PO SCH (09:00)
== END 2019-03-30 19:53 | disposition home or self-care (01) | DRG 659 ==
LOC: ED 19:29 → ASU 23:23 → 2S 03-27 01:30 → SUATTDRO 03-27 01:30 → 2E 03-28 11:07 → 2S 03-28 11:15

== ENCOUNTER 2019-04-06 22:45 | Inpatient (IN) ==
[2019-04-06] MEDS ORDERED: SODIUM CHLORIDE 0.9% 1000ML 1,000 ML IV SCH (23:45)
[2019-04-07 00:14] LABS: Alanine Aminotransferase 158 U/L (12-78); Albumin Level 3.6 gm/dl (3.4-5.0); Aspartate Aminotransferase 79 U/L (15-37); BUN Creatinine Ratio 16.2 (10-20); Blood Urea Nitrogen 29 mg/dl (7-18); Calcium 9.8 mg/dl (8.5-10.1); Carbon Dioxide 26 mmol/L (21-32); Chloride 110 mmol/L (98-107); Creatinine Clr Calc Pharmacy 68.5 ml/min; Est GFR (African American) 48.4; Est GFR (Non-African American) 41.8; Glucose 139 mg/dl (70-99); Magnesium 1.8 mg/dl (1.8-2.4); Potassium 3.9 mmol/L (3.5-5.1); Sodium 144 mmol/L (136-145)
[2019-04-07 00:22] LABS: INR 1.1 (0.9-1.1)
[2019-04-07 00:25] LABS: Alkaline Phosphatase 90 U/L (45-117); Bilirubin,Total 0.9 mg/dl (0.2-1); Creatine Kinase 401 U/L (39-308); Globulin 3.5 gm/dl (2.5-4.0); Total Protein 7.1 gm/dl (6.4-8.2); Troponin I < 0.015 ng/ml (0-0.045)
[2019-04-07 00:46] LABS: Basophils # (auto) 0.04 K/uL (0-0.2); Basophils % (auto) 0.5 %; Eosinophils # (auto) 0.23 K/uL (0-0.5); Eosinophils % (auto) 2.9 %; Hematocrit (blood only) 39.2 % (42-52); Immature Granulocytes # (auto) 0.02 K/uL (0.00-0.02); Immature Granulocytes % (auto) 0.3 %; Lymphocytes # (auto) 1.39 K/uL (1.2-3.4); Lymphocytes % (auto) 17.6 %; Mean Corpuscular Hemoglobin 30.4 pg (25-34); Mean Corpuscular Hgb Conc 33.2 g/dL (32-36); Mean Corpuscular Volume 91.8 fL (80-100); Mean Platelet Volume 12.4 fL (7.4-10.4); Monocytes # (auto) 0.46 K/uL (0.11-0.59); Monocytes % (auto) 5.8 %; Neutrophils # (auto) 5.77 K/uL (1.4-6.5); Neutrophils % (auto) 72.9 %; Platelet Count 101 K/uL (130-400); Platelet Estimate Decreased (Normal); RDW Coefficient of Variation 13.8 % (11.5-14.5); Red Blood Count 4.27 M/uL (4.7-6.1); White Blood Count 7.91 K/uL (4.8-10.8)
[2019-04-07 01:27] LABS: Appearance Urine Slightly Cloudy (Clear); Bilirubin Urine Negative (Negative); Blood Urine 3+ (Negative); Color Urine Yellow; Glucose Urine UA Negative (Negative); Ketones Urine Negative (Negative); Leukocyte Esterase Urine 1+ (Negative); Nitrite Urine Negative (Negative); Protein Urine 2+ (Negative); Urobilinogen Urine Negative (Negative)
[2019-04-07 01:49] LABS: Amorphous Sediment Urine Present (None Prsent); Bacteria Urine Negative (Negative); Epithelial Cell Urine 0-5 /lpf (0-5)
--- NOTE | 2019-04-07 02:12 | Emergency Department Note ---
Entered by Radha Cardoza acting as a scribe for Freedom Acosta DO History of Present Illness General Chief complaint: Confusion Stated complaint: AMS Time Seen by Provider: 04/06/19 23:40 Source: patient History of Present Illness Provider complaint: Confusion Onset (ago): week(s) 1 Location: head (confusion) Pain Consistency: + constant Maximum Pain Intensity: 0 Quality: + constant Associated symptoms: + other (Positive: confusion. Negative: abdominal pain, back pain.) The patient is a 54 year old male with past medical history of pneumonia, hypomagnesemia, PE, DVT prophylaxis, DM, bipolar disorder, anxiety, kidney st ones, who presents to the ED with complaints of constant confusion that started a week ago. The patients sister reports he had surgery a week and a half ago for kidney failure and had 2 stents placed. She notes he was fine when he was released from the hospital, however, he has been confused and his brain is not clearly functioning. The sister additionally reports the mother went to his apartment to check on him and he was not there. She notes they waited for him and called the handle bar assembler when he did not come back. The sister states the patient has not been drinking or eat and is not sure if he has been taking his medications or not. She additionally notes the handle bar assembler found him downtown sitting on the ground by [place] and he was not sure why he was there. The patient denies abdominal pain, or back pain. Home Medications Home Medications Medication Instructions Recorded Confirmed Type benztropine 0.5 mg PO QAM 03/26/19 04/06/19 History chlorpromazine 10 mg PO QAM 03/26/19 04/06/19 History chlorpromazine 25 mg PO HS 03/26/19 04/06/19 History diphenhydramine HCl 25 mg PO HS 03/26/19 04/06/19 History venlafaxine 75 mg PO DAILY 03/26/19 04/06/19 History magnesium oxide 400 mg PO QAM #30 tab 03/30/19 04/06/19 Rx diphenhydramine HCl [Banophen] 25 mg PO HS 04/06/19 04/06/19 History glimepiride 1 mg PO QAM 04/06/19 04/06/19 History lisinopril 5 mg PO DAILY 04/06/19 04/06/19 History melatonin 3 mg PO HS 04/06/19 04/06/19 History Allergies Allergy/AdvReac Type Severity Reaction Status Date / Time meloxicam Allergy Intermediate RASH Verified 04/06/19 08:54 aspirin Allergy Mild NOSE BLEEDS Verified 04/06/19 08:54 Penicillins Allergy Mild TACHYCARDIA Verified 04/06/19 08:54 bupropion AdvReac Mild RASH Verified 04/06/19 08:54 Past Med/Surg History Medical History Kidney stones (Chronic) Abdominal pain (Acute) Anxiety (Acute) Back pain, thoracic (Acute) Depression (Acute) Diverticulitis (Acute) Drug overdose, intentional Dyspepsia (Acute) Epistaxis (Acute ~05/14/14) Fatty liver disease, nonalcoholic (Chronic Unknown) Renal insufficiency (Acute) Thrombocytopenia (Chronic 2011) Bipolar 1 disorder Diabetes Family History Father Colon cancer Social History Preferred Language: Bulgarian Communication Ability: Effective Applied Mathematician Required: No Beliefs That Will Affect Care: None Current Living Situation: Alone Feels Safe at Home: Yes Smoking Status: Never smoker Second Hand Exposure: No ; Hx Alcohol Use: No Hx Substance Use: No Review of Systems See HPI for pertinent positives & negatives. and A total of 10 systems reviewed and were otherwise negative Physical Exam Vital Signs Vital Signs - 24 hr 04/06/19 23:00 04/06/19 23:01 04/06/19 23:11 Temperature 37.0 C Temperature Source Oral Sepsis Recent Fever Within 48 Hours No Sepsis New/Unexplained Change in Mental Status No Sepsis Action Taken by Nursing No Action Required Pulse Rate 85 82 91 H Pulse Rate [Finger] Pulse Rate from SpO2 Sensor 83 84 Respiratory Rate 25 H 23 16 Blood Pressure 122/83 123/75 Blood Pressure [Right Arm] Blood Pressure Mean 96 91 Blood Pressure Mean [Right Arm] Pulse Oximetry 96 95 94 Oxygen Delivery Method Room Air Room Air Room Air 04/06/19 23:20 04/06/19 23:30 04/06/19 23:40 Temperature Temperature Source Sepsis Recent Fever Within 48 Hours Sepsis New/Unexplained Change in Mental Status Sepsis Action Taken by Nursing Pulse Rate 71 79 74 Pulse Rate [Finger] Pulse Rate from SpO2 Sensor 73 74 74 Respiratory Rate 27 H 23 24 Blood Pressure Blood Pressure [Right Arm] Blood Pressure Mean Blood Pressure Mean [Right Arm] Pulse Oximetry 95 95 95 Oxygen Delivery Method Room Air Room Air Room Air 04/06/19 23:50 04/07/19 00:00 04/07/19 00:10 Temperature Temperature Source Sepsis Recent Fever Within 48 Hours Sepsis New/Unexplained Change in Mental Status Sepsis Action Taken by Nursing Pulse Rate 77 72 74 Pulse Rate [Finger] Pulse Rate from SpO2 Sensor 77 72 77 Respiratory Rate 17 25 H 27 H Blood Pressure 121/82 Blood Pressure [Right Arm] Blood Pressure Mean 95 Blood Pressure Mean [Right Arm] Pulse Oximetry 96 95 95 Oxygen Delivery Method Room Air Room Air Room Air 04/07/19 00:20 04/07/19 00:30 04/07/19 00:40 Temperature Temperature Source Sepsis Recent Fever Within 48 Hours Sepsis New/Unexplained Change in Mental Status Sepsis Action Taken by Nursing Pulse Rate 75 84 76 Pulse Rate [Finger] Pulse Rate from SpO2 Sensor 73 86 76 Respiratory Rate 25 H 17 22 Blood Pressure Blood Pressure [Right Arm] Blood Pressure Mean Blood Pressure Mean [Right Arm] Pulse Oximetry 96 95 97 Oxygen Delivery Method Room Air Room Air Room Air 04/07/19 01:49 Temperature Temperature Source Sepsis Recent Fever Within 48 Hours Sepsis New/Unexplained Change in Mental Status Sepsis Action Taken by Nursing Pulse Rate Pulse Rate [Finger] 95 H Pulse Rate from SpO2 Sensor Respiratory Rate 22 Blood Pressure Blood Pressure [Right Arm] 122/77 Blood Pressure Mean Blood Pressure Mean [Right Arm] 92 Pulse Oximetry 95 Oxygen Delivery Method Room Air CONSTITUTIONAL/VITAL SIGNS: Reviewed / noted above. GENERAL: Non-toxic in appearance. INTEGUMENTARY: Warm, dry, and [place]. HEAD: Normocephalic. EYES: without scleral icterus or trauma. ENT/OROPHARYNX: clear and moist. LYMPHADENOPATHY/NECK: Is supple without lymphadenopathy or meningismus. RESPIRATORY: Lungs clear and equal. CARDIOVASCULAR: Regular rate and rhythm. GI/ABDOMEN: Soft and nontender. No organomegaly or pulsatile mass. No rebound or guarding. Normal bowel sounds. EXTREMITIES: Warm and well perfused. Abrasion to the left 5th toe. BACK: No CVA tenderness. NEUROLOGICAL: Intact without focal deficits. PSYCHIATRIC: normal affect. MUSCULOSKELETAL: Normally developed with good muscle tone. Course 2341: The patient was evaluated in room B12B. A complete history and physical exam was performed. 0122: I talked to the top case assembler regarding the patients case. 0130: I discussed the patients case with Dr. Carrera [facility] Hospitalist. She will evaluate the patient for further management. Consultations Consultation #1: I discussed the patients case with Dr. Carrera [facility] Ho spitalist. She will evaluate the patient for further management. Time: 01:30 Administered Medications Discontinued Medications Sodium Chloride (Nss 1000ml) 1,000 mls @ 999 mls/hr IV .Q1H1M KULDEEP Stop: 04/07/19 00:45 Last Infusion: 04/07/19 01:44 Dose: 0 mls/hr Documented by: [id number] Admin: 04/07/19 00:10 Dose: 999 mls/hr Documented by: [id number] Medical Decision Making Differential Diagnosis Differential diagnosis: Etiologies such as metabolic, infection, hypoglycemia, electrolyte abnormali ties, cardiac sources, intracerebral event, toxicologic, neurologic, as well as others were entertained. Medical Records Attestation: I reviewed the patient's medical records. Home Medications Current Medication List: was personally reviewed by me Laboratory Data Attestation: I reviewed the patient's lab results. Result diagrams: 04/06/19 23:37 04/06/19 23:37 Lab Results 04/06/19 04/06/19 04/06/19 Range/Units 23:37 23:37 23:37 WBC 7.91 (4.8-10.8) K/uL RBC 4.27 L (4.7-6.1) M/uL Hgb 13.0 L (14.0-18.0) g/dL Hct 39.2 L (42-52) % MCV 91.8 (80-100) fL MCH 30.4 (25-34) pg MCHC 33.2 (32-36) g/dL RDW Std Deviation 46.0 (36.4-46.3) fL RDW Coeff of Izabela 13.8 (11.5-14.5) % Plt Count 101 L (130-400) K/uL MPV 12.4 H (7.4-10.4) fL Immature Gran % (Auto) 0.3 % Neut % (Auto) 72.9 % Lymph % (Auto) 17.6 % [place] % (Auto) 5.8 % Eos % (Auto) 2.9 % Baso % (Auto) 0.5 % Immature Gran # (Auto) 0.02 (0.00-0.02) K/uL Neut # (Auto) 5.77 (1.4-6.5) K/uL Lymph # (Auto) 1.39 (1.2-3.4) K/uL [place] # (Auto) 0.46 (0.11-0.59) K/uL Eos # (Auto) 0.23 (0-0.5) K/uL Baso # (Auto) 0.04 (0-0.2) K/uL Platelet Estimate Decreased L (Normal) PT 11.0 (9.0-12.0) Seconds INR 1.1 (0.9-1.1) Sodium 144 (136-145) mmol/L Potassium 3.9 (3.5-5.1) mmol/L Chloride 110 H (98-107) mmol/L Carbon Dioxide 26 (21-32) mmol/L Anion Gap 8.0 (3-11) BUN 29 H (7-18) mg/dl Creatinine 1.81 H (0.6-1.4) mg/dl Est Cr Clr Drug Dosing 68.5 ml/min Est GFR ( Amer) 48.4 Est GFR (Non-Af Amer) 41.8 BUN/Creatinine Ratio 16.2 (10-20) Glucose 139 H (70-99) mg/dl POC Glucose (70-99) Lactate (0.4-2.0) mmol/L Calcium 9.8 (8.5-10.1) mg/dl Magnesium 1.8 (1.8-2.4) mg/dl Total Bilirubin 0.9 (0.2-1) mg/dl AST 79 H (15-37) U/L ALT 158 H (12-78) U/L Alkaline Phosphatase 90 (45-117) U/L Ammonia (11-32) umol/L Total Creatine Kinase 401 H (39-308) U/L Troponin I < 0.015 (0-0.045) ng/ml Total Protein 7.1 (6.4-8.2) gm/dl Albumin 3.6 (3.4-5.0) gm/dl Globulin 3.5 (2.5-4.0) gm/dl Albumin/Globulin Ratio 1.0 (0.9-2) TSH 1.330 (0.300-4.500) uIu/ml Urine Color Urine Appearance (Clear) Urine pH (4.5-7.5) Ur Specific [place] (1.000-1.030) Urine Protein (Negative) Urine Glucose (UA) (Negative) Urine Ketones (Negative) Urine Blood (Negative) Urine Nitrite (Negative) Urine Bilirubin (Negative) Urine Urobilinogen (Negative) Ur Leukocyte Esterase (Negative) Urine RBC (0-4) /hpf Urine WBC (0-5) /hpf Ur Epithelial Cells (0-5) /lpf Amorphous Sediment (None Prsent) Urine Bacteria (Negative) Hyaline Casts (0-5) /lpf 04/06/19 04/07/19 04/07/19 Range/Units 23:43 00:25 00:25 WBC (4.8-10.8) K/uL RBC (4.7-6.1) M/uL Hgb (14.0-18.0) g/dL Hct (42-52) % MCV (80-100) fL MCH (25-34) pg MCHC (32-36) g/dL RDW Std Deviation (36.4-46.3) fL RDW Coeff of Izabela (11.5-14.5) % Plt Count (130-400) K/uL MPV (7.4-10.4) fL Immature Gran % (Auto) % Neut % (Auto) % Lymph % (Auto) % [place] % (Auto) % Eos % (Auto) % Baso % (Auto) % Immature Gran # (Auto) (0.00-0.02) K/uL Neut # (Auto) (1.4-6.5) K/uL Lymph # (Auto) (1.2-3.4) K/uL [place] # (Auto) (0.11-0.59) K/uL Eos # (Auto) (0-0.5) K/uL Baso # (Auto) (0-0.2) K/uL Platelet Estimate (Normal) PT (9.0-12.0) Seconds INR (0.9-1.1) Sodium (136-145) mmol/L Potassium (3.5-5.1) mmol/L Chloride (98-107) mmol/L Carbon Dioxide (21-32) mmol/L Anion Gap (3-11) BUN (7-18) mg/dl Creatinine (0.6-1.4) mg/dl Est Cr Clr Drug Dosing ml/min Est GFR ( Amer) Est GFR (Non-Af Amer) BUN/Creatinine Ratio (10-20) Glucose (70-99) mg/dl POC Glucose 133 H (70-99) Lactate 1.4 (0.4-2.0) mmol/L Calcium (8.5-10.1) mg/dl Magnesium (1.8-2.4) mg/dl Total Bilirubin (0.2-1) mg/dl AST (15-37) U/L ALT (12-78) U/L Alkaline Phosphatase (45-117) U/L Ammonia 21.9 (11-32) umol/L Total Creatine Kinase (39-308) U/L Troponin I (0-0.045) ng/ml Total Protein (6.4-8.2) gm/dl Albumin (3.4-5.0) gm/dl Globulin (2.5-4.0) gm/dl Albumin/Globulin Ratio (0.9-2) TSH (0.300-4.500) uIu/ml Urine Color Urine Appearance (Clear) Urine pH (4.5-7.5) Ur Specific [place] (1.000-1.030) Urine Protein (Negative) Urine Glucose (UA) (Negative) Urine Ketones (Negative) Urine Blood (Negative) Urine Nitrite (Negative) Urine Bilirubin (Negative) Urine Urobilinogen (Negative) Ur Leukocyte Esterase (Negative) Urine RBC (0-4) /hpf Urine WBC (0-5) /hpf Ur Epithelial Cells (0-5) /lpf Amorphous Sediment (None Prsent) Urine Bacteria (Negative) Hyaline Casts (0-5) /lpf 04/07/19 Range/Units 01:05 WBC (4.8-10.8) K/uL RBC (4.7-6.1) M/uL Hgb (14.0-18.0) g/dL Hct (42-52) % MCV (80-100) fL MCH (25-34) pg MCHC (32-36) g/dL RDW Std Deviation (36.4-46.3) fL RDW Coeff of Izabela (11.5-14.5) % Plt Count (130-400) K/uL MPV (7.4-10.4) fL Immature Gran % (Auto) % Neut % (Auto) % Lymph % (Auto) % [place] % (Auto) % Eos % (Auto) % Baso % (Auto) % Immature Gran # (Auto) (0.00-0.02) K/uL Neut # (Auto) (1.4-6.5) K/uL Lymph # (Auto) (1.2-3.4) K/uL [place] # (Auto) (0.11-0.59) K/uL Eos # (Auto) (0-0.5) K/uL Baso # (Auto) (0-0.2) K/uL Platelet Estimate (Normal) PT (9.0-12.0) Seconds INR (0.9-1.1) Sodium (136-145) mmol/L Potassium (3.5-5.1) mmol/L Chloride (98-107) mmol/L Carbon Dioxide (21-32) mmol/L Anion Gap (3-11) BUN (7-18) mg/dl Creatinine (0.6-1.4) mg/dl Est Cr Clr Drug Dosing ml/min Est GFR ( Amer) Est GFR (Non-Af Amer) BUN/Creatinine Ratio (10-20) Glucose (70-99) mg/dl POC Glucose (70-99) Lactate (0.4-2.0) mmol/L Calcium (8.5-10.1) mg/dl Magnesium (1.8-2.4) mg/dl Total Bilirubin (0.2-1) mg/dl AST (15-37) U/L ALT (12-78) U/L Alkaline Phosphatase (45-117) U/L Ammonia (11-32) umol/L Total Creatine Kinase (39-308) U/L Troponin I (0-0.045) ng/ml Total Protein (6.4-8.2) gm/dl Albumin (3.4-5.0) gm/dl Globulin (2.5-4.0) gm/dl Albumin/Globulin Ratio (0.9-2) TSH (0.300-4.500) uIu/ml Urine Color Yellow Urine Appearance Slightly Cloudy (Clear) Urine pH 5.0 (4.5-7.5) Ur Specific [place] 1.010 (1.000-1.030) Urine Protein 2+ H (Negative) Urine Glucose (UA) Negative (Negative) Urine Ketones Negative (Negative) Urine Blood 3+ H (Negative) Urine Nitrite Negative (Negative) Urine Bilirubin Negative (Negative) Urine Urobilinogen Negative (Negative) Ur Leukocyte Esterase 1+ H (Negative) Urine RBC 10-30 H (0-4) /hpf Urine WBC 10-30 H (0-5) /hpf Ur Epithelial Cells 0-5 (0-5) /lpf Amorphous Sediment Present A (None Prsent) Urine Bacteria Negative (Negative) Hyaline Casts 5-10 H (0-5) /lpf Imaging Data Attestation: I personally reviewed and interpreted this imaging study as follows: My Impression: Chest x-ray shows no pneumothorax, no pneumonia, no acute disease. ECG Data Attestation: I personally reviewed and interpreted this ECG as follows: Indication: altered mental status and weakness Rate (beats per minute): 75 Rhythm: normal sinus Findings: no ST elevation and no ectopy Blood Pressure Blood Pressure Findings: Normal blood pressure Blood Pressure Disposition: did not require urgent referral MDM Narrative This is a 54-year-old male who presents to the ED with a chief complaint of some mild confusion. The patient was brought in by family for further evaluation. The patient was reportedly found sitting in the grass near [facility] about 2 miles from his house. The patient was not sure how he arrived at that location. The patient seems to be more forgetful this past week compared to his baseline, according to family. He lives alone. They also feel that he has not been eating or drinking well. They are unsure if he has been taking his meds. The patient was recently admitted to the hospital for acute renal failure and required a stent. He also had pneumonia and acute hyperkalemia in addition to some other abnormalities. The patient is cooperative on my evaluation. He does seem to have short-term memory loss as to the events that occurred today. He had reportedly seen Dr. Del Toro today from urology service but the patient cannot recall the details of the visit. He also could not recall how he arrived to the area near the [facility]. The patient otherwise denies any complaints. Denies headaches, chest pains, abdominal pains. His physical exam was benign. Neurologically he is intact. The patient CBC revealed a slightly low platelet count but otherwise unremarkable. BUN is 29. Creatinine is 1.1. AST and ALT are slightly elevated but this appears to be chronic. Total CK was 401. Troponin was negative. TSH was normal. Lactic acid was normal. Chest x-ray did not show acute process. The urine revealed some blood but no obvious infection. The patient did appear to be weak when he was standing giving a urine sample. He also had an abrasion to the left fifth toe. The patient was treated with IV fluids. Based on the patient's recent significant history and his confusion and short-term memory loss, the patient will be seen by the hospitalist for further inpatient evaluation and care. Impression & Plan Confusion, Short-term memory loss, Hematuria, Weakness Discharge Plan Visit Data Chief Complaint: Confusion Stated Complaint: AMS ED Provider: Freedom Acosta Discharge Problem: Confusion, Short-term memory loss, Hematuria, Weakness Patient Disposition: Being Evaluated by Hospitalist Forms Stand Alone Forms: My [facility] Prescriptions Prescriptions: No Action venlafaxine 75 mg capsule,extended release 24hr 75 mg PO DAILY RF: 0 benztropine 0.5 mg tablet 0.5 mg PO QAM RF: 0 chlorpromazine 10 mg tablet 10 mg PO QAM RF: 0 chlorpromazine 25 mg tablet 25 mg PO HS RF: 0 diphenhydramine HCl 25 mg capsule 25 mg PO HS RF: 0 magnesium oxide 400 mg (241.3 mg magnesium) Tablet 400 mg PO QAM Qty: 30 RF: 0 glimepiride 1 mg tablet 1 mg PO QAM RF: 0 lisinopril 5 mg tablet 5 mg PO DAILY RF: 0 diphenhydramine HCl [Banophen] 25 mg capsule 25 mg PO HS RF: 0 melatonin 3 mg tablet 3 mg PO HS RF: 0 Referrals Referrals: Beryl Velazquez PA-C [Primary Care Provider] - Discharge Problem: Hematuria Qualifiers: Hematuria type: unspecified type Qualified Code(s): R31.9 - Hematuria, unspecified The scribe's documentation has been prepared under my direction and personally reviewed by me in its entirety. I confirm that the note above accurately refle cts all work, treatment, procedures, and medical decision making performed by me.
--- NOTE | 2019-04-07 03:00 | History & Physical Report ---
Date of Service April 07, 2019 Assessment & Plan (1) Confusion: Family describes episodes of confusion since returning from the hospital. This evening, patient walked 2.5 miles from his home and did not recollect doing so. Workup thus far is unremarkable to include normal chemistry, improving renal function, no overt evident of infection. Neuro exam WNL. ?if patient is taking his medication as prescribed -Observation to medical floor with telemetry -Check Utox, EtOH -Neuro checks -Consider CT head Present on Admission?: Yes (2) Elevated CK: LB=394, no muscle pain/tenderness. ?if from his long walk today. -IVF -Repeat CK in AM Present on Admission?: Yes (3) Abdominal pain: Patient appear to have abdominal distention, tympanic to percussion, diffusely tender with deep palpation. Liver studies and lactate unremarkable -Check KUB Present on Admission?: Yes (4) Anxiety: Chronic. Well controlled -Continue Venlafaxine -Continue Benadryl Present on Admission?: Yes (5) Fatty liver disease, nonalcoholic: Liver labs and INR improving from prior. Ammonia level unremarkable -Monitor Present on Admission?: Yes (6) Renal insufficiency: Renal function is improving from prior. He reports making adequate urine -Monitor I/Os -Avoid nephrotoxins -Renal dosing where needed Present on Admission?: Yes (7) Diabetes 1.5, managed as type 2: Blood sugar well controlled at present -Hold glimepiride -ISS and bolus while inpatient -Continue Lisinopril, patient with proteinuria Present on Admission?: Yes (8) Bipolar disorder: Bipolar I disorder. Patient presently on Chlorpromazine. ?additional diagnoses? -Continue Chlorpromazine BID -Continue Benztropine F/E/N - LR at 125mL/hr x 2 liters, monitor electrolytes and replete as needed, CC diet as tolerated Ppx - Lovenox Code - Full Dispo - Observation to medical with telemetry History of Present Illness Chief Complaint: altered mental status Primary Care Provider: Beryl Velazquez PA-C Arturo Rey is a 54yo C male with DM, CKD, fatty liver, anxiety/depression and Bipolar I. He was recently admitted from 03/27 - 03/30 with CHAD, obstructive uropathy with renal stones. Cr=13 and K=7.8 at that time. He received emergent dialysis on 03/27, cystoscopy with placement of a stent on 03/26. He was discharged home in stable condition. Patient presents today with episodic confusion, memory loss. Sister and [id number] are at bedside and provide pertinent details of history. Patient's mother looked in on him this afternoon and found that he was not there. His family searched for him then called the police to help look for him. He was ultimately found in [facility] near [facility] 2.5 miles from his home. He does not recollect walking there. When asked he states that he remembers going for a walk but will give varying renditions of the story, ie, going to [employer] or going to [place]. Family states that since returning from the hospital he has had episodes of confusion and forgetfulness. He denies fevers, chills, CORREIA, visual changes, chest pain, palpitations, cough, SOB, abdominal pain, nausea, vomiting, diarrhea or constipation. He denies falls, LOC, head trauma, numbness, weakness or tingling. Uncertain if he has been taking his medications as prescribed. Of note, he was to take Cefdinir to complete his antibiotic course for PNA and UTI. Patient does complain of difficulty urinating, stating that he feels that he has to go but then nothing comes out. Also complains of occasional palpitations and a dry cough. ER Course: NSS Allergies Allergy/AdvReac Type Severity Reaction Status Date / Time meloxicam Allergy Intermediate RASH Verified 04/06/19 08:54 aspirin Allergy Mild NOSE BLEEDS Verified 04/06/19 08:54 Penicillins Allergy Mild TACHYCARDIA Verified 04/06/19 08:54 bupropion AdvReac Mild RASH Verified 04/06/19 08:54 Home Medications Home Medications Medication Instructions Recorded Confirmed Type benztropine 0.5 mg PO QAM 03/26/19 04/06/19 History chlorpromazine 10 mg PO QAM 03/26/19 04/06/19 History chlorpromazine 25 mg PO HS 03/26/19 04/06/19 History diphenhydramine HCl 25 mg PO HS 03/26/19 04/06/19 History venlafaxine 75 mg PO DAILY 03/26/19 04/06/19 History magnesium oxide 400 mg PO QAM #30 tab 03/30/19 04/06/19 Rx diphenhydramine HCl [Banophen] 25 mg PO HS 04/06/19 04/06/19 History glimepiride 1 mg PO QAM 04/06/19 04/06/19 History lisinopril 5 mg PO DAILY 04/06/19 04/06/19 History melatonin 3 mg PO HS 04/06/19 04/06/19 History Past Med/Surg History Medical History Kidney stones (Chronic) Abdominal pain (Acute) Anxiety (Acute) Back pain, thoracic (Acute) Depression (Acute) Diverticulitis (Acute) Drug overdose, intentional Dyspepsia (Acute) Epistaxis (Acute ~05/14/14) Fatty liver disease, nonalcoholic (Chronic Unknown) Renal insufficiency (Acute) Thrombocytopenia (Chronic 2011) Bipolar 1 disorder Diabetes Surgical History History of cholecystectomy History of renal stent Family History Father Colon cancer Social History Preferred Language: Polish Communication Ability: Effective Adjunct Sociology Professor Required: No Beliefs That Will Affect Care: None Current Living Situation: Alone Feels Safe at Home: Yes Smoking Status: Never smoker Second Hand Exposure: No ; Hx Alcohol Use: No Hx Substance Use: No Review of Systems Review of Systems: All systems reviewed & are unremarkable except as noted in HPI & below Physical Exam Physical Exam: General: patient resting comfortably, NAD, slightly disheveled and unkempt, AA&O x 4 Skin: warm, dry, small abrasion on lateral portion of left 5th toe with dried blood HEENT: NC/AT, PERRL, EOMI, anicteric sclera, conjunctiva without injection, external ear normal to inspection and nontender, nares patent, moist mucus membranes, dentition intact, no oropharyngeal lesions, neck supple, trachea midline, no LAD, no thyromegaly, no JVD Heart: +S1/S2, regular, no m/r/g Lungs: equal air entry bilaterally, no rales/rhonchi/wheezes Abd: +BS, soft, distended and mildly tender to palpation, no masses/organomegaly/ascites, no CVA tenderness Ext: warm, 2+ pulses in UE/LE bilaterally, no clubbing/cyanosis, swelling of bilateral feet and ankles, tenderness of left ankle Neuro: nonfocal, patient AA&O x 4, speech intact, no facial droop, moving all extremities on command with equal strength 5/5 Results & Data Vital Signs (Past 12 Hours) Vital Signs Temp Pulse Pulse Resp BP BP Pulse Ox 04/07/19 01:49 95 H 22 122/77 95 04/07/19 00:40 76 22 97 04/07/19 00:30 84 17 95 04/07/19 00:20 75 25 H 96 04/07/19 00:10 74 27 H 95 04/07/19 00:00 72 25 H 121/82 95 04/06/19 23:50 77 17 96 04/06/19 23:40 74 24 95 04/06/19 23:30 79 23 95 04/06/19 23:20 71 27 H 95 04/06/19 23:11 91 H 16 94 04/06/19 23:01 37.0 C 82 23 123/75 95 04/06/19 23:00 85 25 H 122/83 96 Laboratory Results Lab Results 04/06/19 04/06/19 04/06/19 Range/Units 23:37 23:37 23:37 WBC 7.91 (4.8-10.8) K/uL RBC 4.27 L (4.7-6.1) M/uL Hgb 13.0 L (14.0-18.0) g/dL Hct 39.2 L (42-52) % MCV 91.8 (80-100) fL MCH 30.4 (25-34) pg MCHC 33.2 (32-36) g/dL RDW Std Deviation 46.0 (36.4-46.3) fL RDW Coeff of Izabela 13.8 (11.5-14.5) % Plt Count 101 L (130-400) K/uL MPV 12.4 H (7.4-10.4) fL Immature Gran % (Auto) 0.3 % Neut % (Auto) 72.9 % Lymph % (Auto) 17.6 % [place] % (Auto) 5.8 % Eos % (Auto) 2.9 % Baso % (Auto) 0.5 % Immature Gran # (Auto) 0.02 (0.00-0.02) K/uL Neut # (Auto) 5.77 (1.4-6.5) K/uL Lymph # (Auto) 1.39 (1.2-3.4) K/uL [place] # (Auto) 0.46 (0.11-0.59) K/uL Eos # (Auto) 0.23 (0-0.5) K/uL Baso # (Auto) 0.04 (0-0.2) K/uL Platelet Estimate Decreased L (Normal) PT 11.0 (9.0-12.0) Seconds INR 1.1 (0.9-1.1) Sodium 144 (136-145) mmol/L Potassium 3.9 (3.5-5.1) mmol/L Chloride 110 H (98-107) mmol/L Carbon Dioxide 26 (21-32) mmol/L Anion Gap 8.0 (3-11) BUN 29 H (7-18) mg/dl Creatinine 1.81 H (0.6-1.4) mg/dl Est Cr Clr Drug Dosing 68.5 ml/min Est GFR ( Amer) 48.4 Est GFR (Non-Af Amer) 41.8 BUN/Creatinine Ratio 16.2 (10-20) Glucose 139 H (70-99) mg/dl POC Glucose (70-99) Lactate (0.4-2.0) mmol/L Calcium 9.8 (8.5-10.1) mg/dl Magnesium 1.8 (1.8-2.4) mg/dl Total Bilirubin 0.9 (0.2-1) mg/dl AST 79 H (15-37) U/L ALT 158 H (12-78) U/L Alkaline Phosphatase 90 (45-117) U/L Ammonia (11-32) umol/L Total Creatine Kinase 401 H (39-308) U/L Troponin I < 0.015 (0-0.045) ng/ml Total Protein 7.1 (6.4-8.2) gm/dl Albumin 3.6 (3.4-5.0) gm/dl Globulin 3.5 (2.5-4.0) gm/dl Albumin/Globulin Ratio 1.0 (0.9-2) TSH 1.330 (0.300-4.500) uIu/ml Urine Color Urine Appearance (Clear) Urine pH (4.5-7.5) Ur Specific Floral (1.000-1.030) Urine Protein (Negative) Urine Glucose (UA) (Negative) Urine Ketones (Negative) Urine Blood (Negative) Urine Nitrite (Negative) Urine Bilirubin (Negative) Urine Urobilinogen (Negative) Ur Leukocyte Esterase (Negative) Urine RBC (0-4) /hpf Urine WBC (0-5) /hpf Ur Epithelial Cells (0-5) /lpf Amorphous Sediment (None Prsent) Urine Bacteria (Negative) Hyaline Casts (0-5) /lpf 04/06/19 04/07/19 04/07/19 Range/Units 23:43 00:25 00:25 WBC (4.8-10.8) K/uL RBC (4.7-6.1) M/uL Hgb (14.0-18.0) g/dL Hct (42-52) % MCV (80-100) fL MCH (25-34) pg MCHC (32-36) g/dL RDW Std Deviation (36.4-46.3) fL RDW Coeff of Izabela (11.5-14.5) % Plt Count (130-400) K/uL MPV (7.4-10.4) fL Immature Gran % (Auto) % Neut % (Auto) % Lymph % (Auto) % [place] % (Auto) % Eos % (Auto) % Baso % (Auto) % Immature Gran # (Auto) (0.00-0.02) K/uL Neut # (Auto) (1.4-6.5) K/uL Lymph # (Auto) (1.2-3.4) K/uL [place] # (Auto) (0.11-0.59) K/uL Eos # (Auto) (0-0.5) K/uL Baso # (Auto) (0-0.2) K/uL Platelet Estimate (Normal) PT (9.0-12.0) Seconds INR (0.9-1.1) Sodium (136-145) mmol/L Potassium (3.5-5.1) mmol/L Chloride (98-107) mmol/L Carbon Dioxide (21-32) mmol/L Anion Gap (3-11) BUN (7-18) mg/dl Creatinine (0.6-1.4) mg/dl Est Cr Clr Drug Dosing ml/min Est GFR ( Amer) Est GFR (Non-Af Amer) BUN/Creatinine Ratio (10-20) Glucose (70-99) mg/dl POC Glucose 133 H (70-99) Lactate 1.4 (0.4-2.0) mmol/L Calcium (8.5-10.1) mg/dl Magnesium (1.8-2.4) mg/dl Total Bilirubin (0.2-1) mg/dl AST (15-37) U/L ALT (12-78) U/L Alkaline Phosphatase (45-117) U/L Ammonia 21.9 (11-32) umol/L Total Creatine Kinase (39-308) U/L Troponin I (0-0.045) ng/ml Total Protein (6.4-8.2) gm/dl Albumin (3.4-5.0) gm/dl Globulin (2.5-4.0) gm/dl Albumin/Globulin Ratio (0.9-2) TSH (0.300-4.500) uIu/ml Urine Color Urine Appearance (Clear) Urine pH (4.5-7.5) Ur Specific Floral (1.000-1.030) Urine Protein (Negative) Urine Glucose (UA) (Negative) Urine Ketones (Negative) Urine Blood (Negative) Urine Nitrite (Negative) Urine Bilirubin (Negative) Urine Urobilinogen (Negative) Ur Leukocyte Esterase (Negative) Urine RBC (0-4) /hpf Urine WBC (0-5) /hpf Ur Epithelial Cells (0-5) /lpf Amorphous Sediment (None Prsent) Urine Bacteria (Negative) Hyaline Casts (0-5) /lpf 04/07/19 Range/Units 01:05 WBC (4.8-10.8) K/uL RBC (4.7-6.1) M/uL Hgb (14.0-18.0) g/dL Hct (42-52) % MCV (80-100) fL MCH (25-34) pg MCHC (32-36) g/dL RDW Std Deviation (36.4-46.3) fL RDW Coeff of Izabela (11.5-14.5) % Plt Count (130-400) K/uL MPV (7.4-10.4) fL Immature Gran % (Auto) % Neut % (Auto) % Lymph % (Auto) % [place] % (Auto) % Eos % (Auto) % Baso % (Auto) % Immature Gran # (Auto) (0.00-0.02) K/uL Neut # (Auto) (1.4-6.5) K/uL Lymph # (Auto) (1.2-3.4) K/uL [place] # (Auto) (0.11-0.59) K/uL Eos # (Auto) (0-0.5) K/uL Baso # (Auto) (0-0.2) K/uL Platelet Estimate (Normal) PT (9.0-12.0) Seconds INR (0.9-1.1) Sodium (136-145) mmol/L Potassium (3.5-5.1) mmol/L Chloride (98-107) mmol/L Carbon Dioxide (21-32) mmol/L Anion Gap (3-11) BUN (7-18) mg/dl Creatinine (0.6-1.4) mg/dl Est Cr Clr Drug Dosing ml/min Est GFR ( Amer) Est GFR (Non-Af Amer) BUN/Creatinine Ratio (10-20) Glucose (70-99) mg/dl POC Glucose (70-99) Lactate (0.4-2.0) mmol/L Calcium (8.5-10.1) mg/dl Magnesium (1.8-2.4) mg/dl Total Bilirubin (0.2-1) mg/dl AST (15-37) U/L ALT (12-78) U/L Alkaline Phosphatase (45-117) U/L Ammonia (11-32) umol/L Total Creatine Kinase (39-308) U/L Troponin I (0-0.045) ng/ml Total Protein (6.4-8.2) gm/dl Albumin (3.4-5.0) gm/dl Globulin (2.5-4.0) gm/dl Albumin/Globulin Ratio (0.9-2) TSH (0.300-4.500) uIu/ml Urine Color Yellow Urine Appearance Slightly Cloudy (Clear) Urine pH 5.0 (4.5-7.5) Ur Specific Floral 1.010 (1.000-1.030) Urine Protein 2+ H (Negative) Urine Glucose (UA) Negative (Negative) Urine Ketones Negative (Negative) Urine Blood 3+ H (Negative) Urine Nitrite Negative (Negative) Urine Bilirubin Negative (Negative) Urine Urobilinogen Negative (Negative) Ur Leukocyte Esterase 1+ H (Negative) Urine RBC 10-30 H (0-4) /hpf Urine WBC 10-30 H (0-5) /hpf Ur Epithelial Cells 0-5 (0-5) /lpf Amorphous Sediment Present A (None Prsent) Urine Bacteria Negative (Negative) Hyaline Casts 5-10 H (0-5) /lpf Diagnostic Findings CXR - appears to have mild cardiomegaly, no infiltrate, effusion ECG Additional Comments: The study shows NSR at 75bpm, left axis deviation, HR=712, XXY=701, SNl=323, no acute ischemic changes Code Status & VTE Plan Code Status FULL VTE Prophylaxis Plan VTE Prophylaxis will be ordered: Yes PG Care Time/CCT Total # of Minutes Spent Total Time Spent with Patient: Total time spent is greater than 50% in coordination of care (as documented) at patient's floor/unit and/or counseling patient: (1) Abdominal pain Abdominal location: generalized Qualified Code(s): R10.84 - Generalized abdominal pain
[2019-04-07] MEDS ORDERED: GLUCAGON FOR INJ 1 MG VIAL SQ PRN (03:42)
[2019-04-07] MEDS ORDERED: GLUCOSE 40% GEL 15 GM TUBE PO PRN (03:42)
[2019-04-07] MEDS ORDERED: ACETAMINOPHEN 325 MG TAB PO PRN (03:42)
[2019-04-07] MEDS ORDERED: DEXTROSE 50% 50 ML SYRINGE IV PRN (03:42)
[2019-04-07] MEDS ORDERED: POLYETHYLENE (MIRALAX) 17 GM PACK PO PRN (03:42)
[2019-04-07] MEDS ORDERED: DOCUSATE SODIUM 100 MG CAP PO PRN (03:42)
[2019-04-07] MEDS ORDERED: GLUCOSE 10 TABS/TUBE PO PRN (03:42)
[2019-04-07] MEDS ORDERED: CARBOHYDRATES FOR HYPOGLYCEMIA PO PRN (03:42)
[2019-04-07] MEDS: LACTATED RINGER'S 1,000 ML IV SCH ×2 (03:55→11:12)
[2019-04-07 04:52] LABS: Phosphorus 3.3 mg/dl (2.5-4.9)
[2019-04-07] MEDS: CHLORPROMAZINE HCL 25 MG TABLET PO SCH ×2 (05:01→20:55)
--- NOTE | 2019-04-07 07:22 | Family Medicine Progress Note ---
Date of Service April 07, 2019 Assessment & Plan (1) Confusion: 54 y/o M who was found wandering 2.5miles from home with confusion and disorientation; continues to have confusion this morning. Confusion: -patient walked 2.5 miles from his home and did not recollect doing so -remains confused today; no electrolyte abnormalities over this time -will attempt to speak with family for better determination of surrounding timeline -CT scan pending. If negative will check MRI Elevated CK: -ZA=749(04/06); 497 (04/07); no muscle pain/tenderness. -maintain IV fluids -Repeat CK in AM Diabetes: -hold home glimepiride -continue SSI with basal dose Bipolar Disorder/Anxiety: -continue home med - chlorpromazine, effexor Acute Kidney injury: -Cr 1.98 on admission, down to 1.7 (04/07); baseline Cr seems to be 1.0 -maintain IV fluids Abdominal pain: -no continued abdominal pain DVT proph -lovenox. d/c IVF (2) Elevated CK: (3) Diabetes 1.5, managed as type 2: (4) Bipolar disorder: (5) Anxiety: (6) Acute renal failure: (7) Abdominal pain: Supervising Physician Co-Signing Physician Notes Resident Physician Supervision Note: I independently interviewed and examined the patient and verified the gonsalves history and physical, reviewed labs and image studies, discussed the case with the resident Dr. Szymanski and agree with the findings and care plan. Subjective feels like he has a portion of his memory that is coming back, remembers getting out of the hospital but the timeframe leading up to when he was found 2.5 miles from his home is still unclear; this morning continues to feel fine, with just some general baseline confusion about how he got here and what all happened. Review of Systems Constitutional: no fever, no chills, no fatigue and no weakness Eyes: no eye pain, no photophobia and no worsening vision Respiratory: no cough, no dyspnea and no sputum production Cardiovascular: no chest pain, no dyspnea, no lightheadedness and no edema Gastrointestinal: no nausea, no vomiting and no diarrhea/loose stools Genitourinary: no dysuria and no hematuria Psychiatric: no depression, no hopelessness, no anhedonia, no suicidal ideation, no homicidal ideation and no anxiety Physical Exam Respiratory: normal respiratory effort, lungs clear to auscultation Cardiovascular: RRR, no murmur, no edema Heart Sounds: normal S1 and normal S2 Neurologic: Cranial Nerves: PERRL, normal accommodation, EOM intact bilaterally, normal facial strength, tongue midline, able to rotate head bilaterally, able to elevate shoulders bilaterally, no nystagmus and symmetric palate elevation Psychiatric: Orientation: alert and oriented x 3 Eye Contact: good eye contact Speech: normal rate/rhythm/volume of speech Affect: euthymic affect Thought Process: + circumstantial thought process and + concrete thought process Suicidal Thoughts: denies suicidal thoughts Homicidal Thoughts: denies homicidal thoughts Hallucinations: no auditory zari lucinations and no visual hallucinations Cognition: attention grossly intact and language grossly intact; + recent memory not intact Insight: + limited insight Judgement: + limited judgement Results & Data Vital Signs (Past 12 Hours) Vital Signs Temp Pulse Pulse Resp BP BP BP 04/07/19 05:42 36.8 C 69 20 133/75 04/07/19 03:00 78 15 144/82 H 04/07/19 02:50 80 27 H 04/07/19 02:40 82 27 H 04/07/19 02:30 80 18 143/88 H 04/07/19 02:20 22 04/07/19 02:10 21 04/07/19 02:00 84 14 124/81 04/07/19 01:51 84 23 04/07/19 01:50 72 24 122/77 04/07/19 01:49 77 95 H 17 122/77 04/07/19 01:00 75 17 122/81 04/07/19 00:52 72 30 H 120/73 04/07/19 00:50 75 18 04/07/19 00:40 76 22 04/07/19 00:30 84 17 04/07/19 00:20 75 25 H 04/07/19 00:10 74 27 H 04/07/19 00:00 72 25 H 121/82 04/06/19 23:50 77 17 04/06/19 23:40 74 24 04/06/19 23:30 79 23 04/06/19 23:20 71 27 H 04/06/19 23:11 91 H 16 04/06/19 23:01 37.0 C 82 23 123/75 04/06/19 23:00 85 25 H 122/83 Pulse Ox 04/07/19 05:42 94 04/07/19 03:00 93 04/07/19 02:50 93 04/07/19 02:40 91 04/07/19 02:30 94 04/07/19 02:20 97 04/07/19 02:10 96 04/07/19 02:00 98 04/07/19 01:51 94 04/07/19 01:50 94 04/07/19 01:49 94 04/07/19 01:00 04/07/19 00:52 04/07/19 00:50 96 04/07/19 00:40 97 04/07/19 00:30 95 04/07/19 00:20 96 04/07/19 00:10 04/07/19 00:00 04/06/19 23:50 04/06/19 23:40 04/06/19 23:30 04/06/19 23:20 04/06/19 23:11 04/06/19 23:01 04/06/19 23:00 96 Laboratory Results 04/07/19 04/07/19 04/07/19 Range/Units 04:24 04:24 01:05 WBC (4.8-10.8) K/uL RBC (4.7-6.1) M/uL Hgb (14.0-18.0) g/dL Hct (42-52) % MCV (80-100) fL MCH (25-34) pg MCHC (32-36) g/dL RDW Std Deviation (36.4-46.3) fL RDW Coeff of Izabela (11.5-14.5) % Plt Count (130-400) K/uL MPV (7.4-10.4) fL Immature Gran % (Auto) % Neut % (Auto) % Lymph % (Auto) % Gosper % (Auto) % Eos % (Auto) % Baso % (Auto) % Immature Gran # (Auto) (0.00-0.02) K/uL Neut # (Auto) (1.4-6.5) K/uL Lymph # (Auto) (1.2-3.4) K/uL Gosper # (Auto) (0.11-0.59) K/uL Eos # (Auto) (0-0.5) K/uL Baso # (Auto) (0-0.2) K/uL Platelet Estimate (Normal) PT (9.0-12.0) Seconds INR (0.9-1.1) Sodium (136-145) mmol/L Potassium (3.5-5.1) mmol/L Chloride (98-107) mmol/L Carbon Dioxide (21-32) mmol/L Anion Gap (3-11) BUN (7-18) mg/dl Creatinine (0.6-1.4) mg/dl Est Cr Clr Drug Dosing ml/min Est GFR ( Amer) Est GFR (Non-Af Amer) BUN/Creatinine Ratio (10-20) Glucose (70-99) mg/dl POC Glucose (70-99) Lactate (0.4-2.0) mmol/L Calcium (8.5-10.1) mg/dl Phosphorus 3.3 (2.5-4.9) mg/dl Magnesium (1.8-2.4) mg/dl Total Bilirubin (0.2-1) mg/dl AST (15-37) U/L ALT (12-78) U/L Alkaline Phosphatase (45-117) U/L Ammonia (11-32) umol/L Total Creatine Kinase 497 H (39-308) U/L Troponin I (0-0.045) ng/ml NT-Pro-B Natriuret Pep 54 (0-900) pg/ml Total Protein (6.4-8.2) gm/dl Albumin (3.4-5.0) gm/dl Globulin (2.5-4.0) gm/dl Albumin/Globulin Ratio (0.9-2) TSH (0.300-4.500) uIu/ml Urine Color Yellow Urine Appearance Slightly Cloudy (Clear) Urine pH 5.0 (4.5-7.5) Ur Specific University 1.010 (1.000-1.030) Urine Protein 2+ H (Negative) Urine Glucose (UA) Negative (Negative) Urine Ketones Negative (Negative) Urine Blood 3+ H (Negative) Urine Nitrite Negative (Negative) Urine Bilirubin Negative (Negative) Urine Urobilinogen Negative (Negative) Ur Leukocyte Esterase 1+ H (Negative) Urine RBC 10-30 H (0-4) /hpf Urine WBC 10-30 H (0-5) /hpf Ur Epithelial Cells 0-5 (0-5) /lpf Amorphous Sediment Present A (None Prsent) Urine Bacteria Negative (Negative) Hyaline Casts 5-10 H (0-5) /lpf Ethyl Alcohol mg/dL < 3.0 (0-3) mg/dl 04/07/19 04/07/19 04/06/19 Range/Units 00:25 00:25 23:43 WBC (4.8-10.8) K/uL RBC (4.7-6.1) M/uL Hgb (14.0-18.0) g/dL Hct (42-52) % MCV (80-100) fL MCH (25-34) pg MCHC (32-36) g/dL RDW Std Deviation (36.4-46.3) fL RDW Coeff of Izabela (11.5-14.5) % Plt Count (130-400) K/uL MPV (7.4-10.4) fL Immature Gran % (Auto) % Neut % (Auto) % Lymph % (Auto) % Gosper % (Auto) % Eos % (Auto) % Baso % (Auto) % Immature Gran # (Auto) (0.00-0.02) K/uL Neut # (Auto) (1.4-6.5) K/uL Lymph # (Auto) (1.2-3.4) K/uL Gosper # (Auto) (0.11-0.59) K/uL Eos # (Auto) (0-0.5) K/uL Baso # (Auto) (0-0.2) K/uL Platelet Estimate (Normal) PT (9.0-12.0) Seconds INR (0.9-1.1) Sodium (136-145) mmol/L Potassium (3.5-5.1) mmol/L Chloride (98-107) mmol/L Carbon Dioxide (21-32) mmol/L Anion Gap (3-11) BUN (7-18) mg/dl Creatinine (0.6-1.4) mg/dl Est Cr Clr Drug Dosing ml/min Est GFR ( Amer) Est GFR (Non-Af Amer) BUN/Creatinine Ratio (10-20) Glucose (70-99) mg/dl POC Glucose 133 H (70-99) Lactate 1.4 (0.4-2.0) mmol/L Calcium (8.5-10.1) mg/dl Phosphorus (2.5-4.9) mg/dl Magnesium (1.8-2.4) mg/dl Total Bilirubin (0.2-1) mg/dl AST (15-37) U/L ALT (12-78) U/L Alkaline Phosphatase (45-117) U/L Ammonia 21.9 (11-32) umol/L Total Creatine Kinase (39-308) U/L Troponin I (0-0.045) ng/ml NT-Pro-B Natriuret Pep (0-900) pg/ml Total Protein (6.4-8.2) gm/dl Albumin (3.4-5.0) gm/dl Globulin (2.5-4.0) gm/dl Albumin/Globulin Ratio (0.9-2) TSH (0.300-4.500) uIu/ml Urine Color Urine Appearance (Clear) Urine pH (4.5-7.5) Ur Specific University (1.000-1.030) Urine Protein (Negative) Urine Glucose (UA) (Negative) Urine Ketones (Negative) Urine Blood (Negative) Urine Nitrite (Negative) Urine Bilirubin (Negative) Urine Urobilinogen (Negative) Ur Leukocyte Esterase (Negative) Urine RBC (0-4) /hpf Urine WBC (0-5) /hpf Ur Epithelial Cells (0-5) /lpf Amorphous Sediment (None Prsent) Urine Bacteria (Negative) Hyaline Casts (0-5) /lpf Ethyl Alcohol mg/dL (0-3) mg/dl 04/06/19 04/06/19 04/06/19 Range/Units 23:37 23:37 23:37 WBC 7.91 (4.8-10.8) K/uL RBC 4.27 L (4.7-6.1) M/uL Hgb 13.0 L (14.0-18.0) g/dL Hct 39.2 L (42-52) % MCV 91.8 (80-100) fL MCH 30.4 (25-34) pg MCHC 33.2 (32-36) g/dL RDW Std Deviation 46.0 (36.4-46.3) fL RDW Coeff of Izabela 13.8 (11.5-14.5) % Plt Count 101 L (130-400) K/uL MPV 12.4 H (7.4-10.4) fL Immature Gran % (Auto) 0.3 % Neut % (Auto) 72.9 % Lymph % (Auto) 17.6 % Gosper % (Auto) 5.8 % Eos % (Auto) 2.9 % Baso % (Auto) 0.5 % Immature Gran # (Auto) 0.02 (0.00-0.02) K/uL Neut # (Auto) 5.77 (1.4-6.5) K/uL Lymph # (Auto) 1.39 (1.2-3.4) K/uL Gosper # (Auto) 0.46 (0.11-0.59) K/uL Eos # (Auto) 0.23 (0-0.5) K/uL Baso # (Auto) 0.04 (0-0.2) K/uL Platelet Estimate Decreased L (Normal) PT 11.0 (9.0-12.0) Seconds INR 1.1 (0.9-1.1) Sodium 144 (136-145) mmol/L Potassium 3.9 (3.5-5.1) mmol/L Chloride 110 H (98-107) mmol/L Carbon Dioxide 26 (21-32) mmol/L Anion Gap 8.0 (3-11) BUN 29 H (7-18) mg/dl Creatinine 1.81 H (0.6-1.4) mg/dl Est Cr Clr Drug Dosing 68.5 ml/min Est GFR ( Amer) 48.4 Est GFR (Non-Af Amer) 41.8 BUN/Creatinine Ratio 16.2 (10-20) Glucose 139 H (70-99) mg/dl POC Glucose (70-99) Lactate (0.4-2.0) mmol/L Calcium 9.8 (8.5-10.1) mg/dl Phosphorus (2.5-4.9) mg/dl Magnesium 1.8 (1.8-2.4) mg/dl Total Bilirubin 0.9 (0.2-1) mg/dl AST 79 H (15-37) U/L ALT 158 H (12-78) U/L Alkaline Phosphatase 90 (45-117) U/L Ammonia (11-32) umol/L Total Creatine Kinase 401 H (39-308) U/L Troponin I < 0.015 (0-0.045) ng/ml NT-Pro-B Natriuret Pep (0-900) pg/ml Total Protein 7.1 (6.4-8.2) gm/dl Albumin 3.6 (3.4-5.0) gm/dl Globulin 3.5 (2.5-4.0) gm/dl Albumin/Globulin Ratio 1.0 (0.9-2) TSH 1.330 (0.300-4.500) uIu/ml Urine Color Urine Appearance (Clear) Urine pH (4.5-7.5) Ur Specific University (1.000-1.030) Urine Protein (Negative) Urine Glucose (UA) (Negative) Urine Ketones (Negative) Urine Blood (Negative) Urine Nitrite (Negative) Urine Bilirubin (Negative) Urine Urobilinogen (Negative) Ur Leukocyte Esterase (Negative) Urine RBC (0-4) /hpf Urine WBC (0-5) /hpf Ur Epithelial Cells (0-5) /lpf Amorphous Sediment (None Prsent) Urine Bacteria (Negative) Hyaline Casts (0-5) /lpf Ethyl Alcohol mg/dL (0-3) mg/dl Medications Administered Current Inpatient Medications Acetaminophen (Tylenol) 650 mg PO Q4H PRN PRN Reason: pain/fever Stop: 05/07/19 03:41 Benztropine Mesylate (Cogentin) 0.5 mg PO QAM KULDEEP Stop: 05/07/19 08:59 Chlorpromazine HCl (Thorazine) 25 mg PO HS KULDEEP Stop: 05/07/19 03:41 Last Admin: 04/07/19 05:01 Dose: 25 mg Documented by: Chlorpromazine HCl (Thorazine) 10 mg PO QAM KULDEEP Stop: 05/07/19 08:59 Dextrose (Dextrose 50%) 25 - 50 ml IV UD PRN; Protocol PRN Reason: Hypoglycemia Protocol Stop: 05/07/19 03:41 Diphenhydramine HCl (Benadryl Capsule) 25 mg PO HS KULDEEP Stop: 05/07/19 03:41 Last Admin: 04/07/19 05:01 Dose: 25 mg Documented by: Docusate Sodium (Colace) 100 mg PO BID PRN PRN Reason: Constipation Stop: 05/07/19 03:41 Enoxaparin Sodium (Lovenox) 40 mg SQ Q24H KULDEEP Stop: 05/07/19 07:59 Glucagon (Glucagen) 1 mg SQ UD PRN; Protocol PRN Reason: Hypoglycemia Protocol Stop: 05/07/19 03:41 Glucose (Glucose 40%) 15 - 30 gm PO UD PRN; Protocol PRN Reason: Hypoglycemia Protocol Stop: 05/07/19 03:41 Glucose (Dex4 Glucose) 4 - 8 tabs PO UD PRN; Protocol PRN Reason: Hypoglycemia Protocol Stop: 05/07/19 03:41 Lactated Ringer's (Lr) 1,000 mls @ 125 mls/hr IV .Q8H KULDEEP Stop: 04/07/19 19:41 Last Admin: 04/07/19 03:55 Dose: 125 mls/hr Documented by: Insulin Aspart (Novolog Flexpen) 0 units SC ACHS KULDEEP Stop: 05/07/19 07:29 Lisinopril (Zestril) 5 mg PO DAILY KULDEEP Stop: 05/07/19 08:59 Magnesium Oxide (Mag-Ox) 400 mg PO QAM KULDEEP Stop: 05/07/19 08:59 Miscellaneous (Carbohydrates For Hypoglycemia) 15 - 30 gm PO UD PRN PRN Reason: Hypoglycemia Treatment Stop: 05/07/19 03:41 Polyethylene Glycol (Miralax Powder Packet) 17 gm PO DAILY PRN PRN Reason: Constipation Stop: 05/07/19 03:41 Venlafaxine HCl (Effexor Extended Release) 75 mg PO DAILY KULDEEP Stop: 05/07/19 08:59 PG Care Time/CCT Total # of Minutes Spent Total Time Spent with Patient: Total time spent is greater than 50% in coordination of care (as documented) at patient's floor/unit and/or counseling patient: Resident Activity Tracking Resident Involvement: Resident Care Provided Care Provided: Adult Hospital Medicine (1) Acute renal failure Acute renal failure type: unspecified Qualified Code(s): N17.9 - Acute kidney failure, unspecified
--- NOTE | 2019-04-07 07:54 | XRay Report ---
XR chest 1V portable HISTORY: weakness COMPARISON: Chest 03/27/2019. FINDINGS: There are low lung volumes. No pneumothorax. No pleural effusions. The heart remains enlarg ed. No evidence for pulmonary edema. No new focal lung consolidations to suggest pneumonia. IMPRESSION: No significant change compared to the prior study. No acute process. Stable cardiomegaly. Electronically signed by: Hema Guevara M.D. 04/07/2019 7:53 AM
[2019-04-07] MEDS: MAGNESIUM OXIDE 400 MG TAB PO SCH (08:58)
[2019-04-07] MEDS: BENZTROPINE MESYLATE 0.5 MG TAB PO SCH (08:58)
[2019-04-07] MEDS: CHLORPROMAZINE HCL 10 MG TABLET PO SCH (08:58)
[2019-04-07] MEDS: ENOXAPARIN INJ 40 MG/0.4 ML SYR SQ SCH (08:58)
[2019-04-07] MEDS: lisinopriL 5 MG TAB PO SCH (08:58)
[2019-04-07] MEDS: VENLAFAXINE HCL XR 75 MG CAPXR PO SCH (08:58)
[2019-04-07] MEDS: INSULIN ASPART 100 UNITS/ML 3 ML PEN SC SCH ×4 (08:59→21:17)
--- NOTE | 2019-04-07 09:38 | XRay Report ---
KUB HISTORY: Abdominal distention, tenderness COMPARISON: Abdomen and pelvis CT 11/09/2017. FINDINGS: The bowel gas pattern is unremarkable. There are no dilated loops of small bowel to suggest an obstruction. Bilateral ureteral stents are in good position. Prior cholecystectomy. The renal sh adows are mostly obscured by overlying bowel gas. No definite renal or ureteral calculi. Small to mod erate amount of well-formed stool seen within the colon. No pneumoperitoneum or pneumatosis. IMPRESSION: 1. No evidence for bowel obstruction. 2. Small to moderate amount of well-formed stool within the colon. 3. The bilateral ureteral stents appear to be in good position. No renal or ureteral calculi identifi ed. Electronically signed by: Hema Guevara M.D. 04/07/2019 9:37 AM
[2019-04-07 10:39] LABS: BUN Creatinine Ratio 14.8 (10-20); Calcium 9.3 mg/dl (8.5-10.1); Creatinine Clr Calc Pharmacy 72.9 ml/min; Est GFR (African American) 52.2; Potassium 3.8 mmol/L (3.5-5.1)
--- NOTE | 2019-04-07 11:58 | CT Scan Report ---
HEAD CT NONCONTRAST CT DOSE: 1437.38 mGy.cm HISTORY: confusion TECHNIQUE: Multiaxial CT images of the head were performed without the use of intravenous contrast. A utomated exposure control was utilized for this study. A dose lowering technique was utilized adheri ng to the principles of ALARA. Comparison: Head CT 04/11/2013. Findings: Stable small retention cyst within the left maxillary sinus. The mastoid air cells are domenic r. The calvarium and skull base are intact. The ventricles and sulci are within normal limits. There is no mass, hematoma, midline shift, or acute infarct. Impression: No acute intracranial abnormality. Electronically signed by: Hema Guevara M.D. 04/07/2019 11:56 AM
[2019-04-07 15:17] LABS: Amphetamines+Metham, Urine Neg (Neg); Barbiturates, Urine Neg (Neg); Benzodiazepine, Urine Neg (Neg); Cocaine, Urine Neg (Neg); MDMA (Ecstacy), Urine Neg (Neg); Methadone, Urine Neg (Neg); Opiate, Urine Neg (Neg); Phencyclidine, Urine Neg (Neg)
[2019-04-07] MEDS ORDERED: OLANZapine 10 MG/2.1 ML SDV IM PRN (18:52)
[2019-04-08 06:14] LABS: Hematocrit (blood only) 37.1 % (42-52); Hemoglobin 11.9 g/dL (14.0-18.0); Mean Corpuscular Hemoglobin 30.1 pg (25-34); Mean Corpuscular Hgb Conc 32.1 g/dL (32-36); Mean Corpuscular Volume 93.7 fL (80-100); RDW Standard Deviation 47.8 fL (36.4-46.3); Red Blood Count 3.96 M/uL (4.7-6.1); White Blood Count 4.56 K/uL (4.8-10.8)
[2019-04-08 06:21] LABS: Mean Platelet Volume 11.8 fL (7.4-10.4); Platelet Count 87 K/uL (130-400)
[2019-04-08 06:41] LABS: BUN Creatinine Ratio 12.3 (10-20); Calcium 9.2 mg/dl (8.5-10.1); Est GFR (African American) 55.8; Est GFR (Non-African American) 48.1
[2019-04-08 06:56] LABS: Basophils # (auto) 0.03 K/uL (0-0.2); Basophils % (auto) 0.7 %; Eosinophils % (auto) 4.4 %; Immature Granulocytes # (auto) 0.01 K/uL (0.00-0.02); Immature Granulocytes % (auto) 0.2 %; Lymphocytes # (auto) 1.46 K/uL (1.2-3.4); Monocytes # (auto) 0.28 K/uL (0.11-0.59); Monocytes % (auto) 6.1 %; Neutrophils # (auto) 2.58 K/uL (1.4-6.5); Neutrophils % (auto) 56.6 %; RBC Morphology Unremarkable
[2019-04-08] MEDS: lisinopriL 5 MG TAB PO SCH (08:04)
[2019-04-08] MEDS: VENLAFAXINE HCL XR 75 MG CAPXR PO SCH (08:04)
[2019-04-08] MEDS: BENZTROPINE MESYLATE 0.5 MG TAB PO SCH (08:04)
[2019-04-08] MEDS: ENOXAPARIN INJ 40 MG/0.4 ML SYR SQ SCH (08:05)
[2019-04-08] MEDS: MAGNESIUM OXIDE 400 MG TAB PO SCH (08:05)
[2019-04-08] MEDS: CHLORPROMAZINE HCL 10 MG TABLET PO SCH (08:06)
[2019-04-08] MEDS: INSULIN ASPART 100 UNITS/ML 3 ML PEN SC SCH ×4 (08:39→21:43)
--- NOTE | 2019-04-08 14:07 | Family Medicine Progress Note ---
Date of Service April 08, 2019 Assessment & Plan (1) Confusion: 54 y/o M who was found wandering 2.5miles from home with confusion and disorientation; continues to have confusion this morning. Mental status change: -was found 2.5 miles from his home while confused -today has recollection of the events but unsure of the reasons why he was downtown sitting on the [place]. -unaware of the events of yesterday, while recognizing the providers that saw him yesterday -Negative infection work up -no electrolyte abnormalities over this time -CT scan negative for any abnormality; MRI unable to be obtained due to pt's body habitus -Consult psych Acute Kidney injury sec to ? poor oral intake/obstructive -Cr 1.98 on admission, down to 1.6 (04/08); baseline Cr seems to be 1.0 -KUB - ureteral stents in place -UA with blood on microscopy -urine culture negative. -check renal ultrasound. Elevated CK: -QX=484(04/06); 497 (04/07); no muscle pain/tenderness. -maintain IV fluids Diabetes: -hold home glimepiride -continue SSI with basal dose Bipolar Disorder: -continue home medications Anxiety: -continue diphenhydramine Sleep apnea -hasn't been compliant with cpap at home -will arrange cpap while here. Abdominal pain: -no continued abdominal pain Ambulation Carb consistent diet. Hep lock, (2) Elevated CK: (3) Diabetes 1.5, managed as type 2: (4) Bipolar disorder: (5) Anxiety: (6) Acute renal failure: (7) Abdominal pain: Supervising Physician Co-Signing Physician Notes Resident Physician Supervision Note: I independently interviewed and examined the patient and verified the gonsalves history and physical, reviewed labs and image studies, discussed the case with the resident Dr. Szymanski and agree with the findings and care plan. Subjective Feels much better today, is able to recall all the events leading up to being found and brought in for evaluation; is unsure of the reasoning for doing most of the things he was doing, and concerned about his strange behaviour; feels more like himself than he did yesterday, but does not have much memory of everything that happened while he was in the hospital yesterday. Review of Systems Constitutional: no fever, no chills and no sweats Ear, Nose, Mouth, Throat: no dizziness, no nasal congestion and no nasal discharge Respiratory: no cough and no dyspnea Cardiovascular: no chest pain, no dyspnea and no orthopnea Gastrointestinal: no abdominal pain, no nausea and no vomiting Physical Exam Constitutional: cooperative and comfortable Eyes: PERRL, conjunctivae normal, anicteric sclerae Respiratory: normal respiratory effort, lungs clear to auscultation Cardiovascular: RRR, no murmur, no edema Heart Sounds: normal S1 and normal S2 Neurologic: CN's II-XI intact bilaterally and moves all extremities; no focal motor deficits Motor/Sensory: no sensory deficit Psychiatric: A+Ox3, euthymic affect Eye Contact: good eye contact Speech: + loud speech Affect: + anxious affect Thought Process: clear/coherent thought process Thought Content: + self deprecation Suicidal Thoughts: + reports suicidal thoughts Homicidal Thoughts: + reports homicidal thoughts Cognition: recent memory grossly intact and remote memory grossly intact Insight: + limited insight Judgement: + limited judgement Results & Data Vital Signs (Past 12 Hours) Vital Signs Temp Pulse Resp BP Pulse Ox 04/08/19 07:00 36.6 C 89 20 137/91 94 Laboratory Results 04/08/19 04/08/19 04/08/19 Range/Units 11:28 07:39 05:54 WBC (4.8-10.8) K/uL RBC (4.7-6.1) M/uL Hgb (14.0-18.0) g/dL Hct (42-52) % MCV (80-100) fL MCH (25-34) pg MCHC (32-36) g/dL RDW Std Deviation (36.4-46.3) fL RDW Coeff of Izabela (11.5-14.5) % Plt Count (130-400) K/uL MPV (7.4-10.4) fL Immature Gran % (Auto) % Neut % (Auto) % Lymph % (Auto) % Coos % (Auto) % Eos % (Auto) % Baso % (Auto) % Immature Gran # (Auto) (0.00-0.02) K/uL Neut # (Auto) (1.4-6.5) K/uL Lymph # (Auto) (1.2-3.4) K/uL Coos # (Auto) (0.11-0.59) K/uL Eos # (Auto) (0-0.5) K/uL Baso # (Auto) (0-0.2) K/uL RBC Morphology Sodium 145 (136-145) mmol/L Potassium 4.0 (3.5-5.1) mmol/L Chloride 112 H (98-107) mmol/L Carbon Dioxide 30 (21-32) mmol/L Anion Gap 3.0 (3-11) BUN 20 H (7-18) mg/dl Creatinine 1.61 H (0.6-1.4) mg/dl Est Cr Clr Drug Dosing 77.0 ml/min Est GFR ( Amer) 55.8 Est GFR (Non-Af Amer) 48.1 BUN/Creatinine Ratio 12.3 (10-20) Glucose 120 H (70-99) mg/dl POC Glucose 112 H 109 H (70-99) Calcium 9.2 (8.5-10.1) mg/dl Ammonia Urine Opiates Screen (Neg) Ur Methadone, Qual (Neg) Urine Barbiturates (Neg) Ur Phencyclidine (PCP) (Neg) U Amphetamin/Meth Scrn (Neg) MDMA (Ecstasy) Screen (Neg) U Benzodiazepines Scrn (Neg) Ur Cocaine Metabolite (Neg) U Marijuana (THC) Screen (Neg) 04/08/19 04/07/19 04/07/19 Range/Units 05:54 20:49 19:54 WBC 4.56 L (4.8-10.8) K/uL RBC 3.96 L (4.7-6.1) M/uL Hgb 11.9 L (14.0-18.0) g/dL Hct 37.1 L (42-52) % MCV 93.7 (80-100) fL MCH 30.1 (25-34) pg MCHC 32.1 (32-36) g/dL RDW Std Deviation 47.8 H (36.4-46.3) fL RDW Coeff of Izabela 14.0 (11.5-14.5) % Plt Count 87 L (130-400) K/uL MPV 11.8 H (7.4-10.4) fL Immature Gran % (Auto) 0.2 % Neut % (Auto) 56.6 % Lymph % (Auto) 32.0 % Coos % (Auto) 6.1 % Eos % (Auto) 4.4 % Baso % (Auto) 0.7 % Immature Gran # (Auto) 0.01 (0.00-0.02) K/uL Neut # (Auto) 2.58 (1.4-6.5) K/uL Lymph # (Auto) 1.46 (1.2-3.4) K/uL Coos # (Auto) 0.28 (0.11-0.59) K/uL Eos # (Auto) 0.20 (0-0.5) K/uL Baso # (Auto) 0.03 (0-0.2) K/uL RBC Morphology Unremarkable Sodium (136-145) mmol/L Potassium (3.5-5.1) mmol/L Chloride (98-107) mmol/L Carbon Dioxide (21-32) mmol/L Anion Gap (3-11) BUN (7-18) mg/dl Creatinine (0.6-1.4) mg/dl Est Cr Clr Drug Dosing ml/min Est GFR ( Amer) Est GFR (Non-Af Amer) BUN/Creatinine Ratio (10-20) Glucose (70-99) mg/dl POC Glucose 101 H (70-99) Calcium (8.5-10.1) mg/dl Ammonia 26.0 Urine Opiates Screen (Neg) Ur Methadone, Qual (Neg) Urine Barbiturates (Neg) Ur Phencyclidine (PCP) (Neg) U Amphetamin/Meth Scrn (Neg) MDMA (Ecstasy) Screen (Neg) U Benzodiazepines Scrn (Neg) Ur Cocaine Metabolite (Neg) U Marijuana (THC) Screen (Neg) 04/07/19 04/07/19 04/07/19 Range/Units 19:06 16:40 14:32 WBC (4.8-10.8) K/uL RBC (4.7-6.1) M/uL Hgb (14.0-18.0) g/dL Hct (42-52) % MCV (80-100) fL MCH (25-34) pg MCHC (32-36) g/dL RDW Std Deviation (36.4-46.3) fL RDW Coeff of Izabela (11.5-14.5) % Plt Count (130-400) K/uL MPV (7.4-10.4) fL Immature Gran % (Auto) % Neut % (Auto) % Lymph % (Auto) % Coos % (Auto) % Eos % (Auto) % Baso % (Auto) % Immature Gran # (Auto) (0.00-0.02) K/uL Neut # (Auto) (1.4-6.5) K/uL Lymph # (Auto) (1.2-3.4) K/uL Coos # (Auto) (0.11-0.59) K/uL Eos # (Auto) (0-0.5) K/uL Baso # (Auto) (0-0.2) K/uL RBC Morphology Sodium (136-145) mmol/L Potassium (3.5-5.1) mmol/L Chloride (98-107) mmol/L Carbon Dioxide (21-32) mmol/L Anion Gap (3-11) BUN (7-18) mg/dl Creatinine (0.6-1.4) mg/dl Est Cr Clr Drug Dosing ml/min Est GFR ( Amer) Est GFR (Non-Af Amer) BUN/Creatinine Ratio (10-20) Glucose (70-99) mg/dl POC Glucose 130 H (70-99) Calcium (8.5-10.1) mg/dl Ammonia Cancelled Urine Opiates Screen Neg (Neg) Ur Methadone, Qual Neg (Neg) Urine Barbiturates Neg (Neg) Ur Phencyclidine (PCP) Neg (Neg) U Amphetamin/Meth Scrn Neg (Neg) MDMA (Ecstasy) Screen Neg (Neg) U Benzodiazepines Scrn Neg (Neg) Ur Cocaine Metabolite Neg (Neg) U Marijuana (THC) Screen Neg (Neg) Medications Administered Current Inpatient Medications Acetaminophen (Tylenol) 650 mg PO Q4H PRN PRN Reason: pain/fever Stop: 05/07/19 03:41 Last Admin: 04/07/19 21:47 Dose: 650 mg Documented by: Benztropine Mesylate (Cogentin) 0.5 mg PO QAM [facility] Stop: 05/07/19 08:59 Last Admin: 04/08/19 08:04 Dose: 0.5 mg Documented by: Chlorpromazine HCl (Thorazine) 25 mg PO HS [facility] Stop: 05/07/19 03:41 Last Admin: 04/07/19 20:55 Dose: 25 mg Documented by: Chlorpromazine HCl (Thorazine) 10 mg PO QAM [facility] Stop: 05/07/19 08:59 Last Admin: 04/08/19 08:06 Dose: 10 mg Documented by: Dextrose (Dextrose 50%) 25 - 50 ml IV UD PRN; Protocol PRN Reason: Hypoglycemia Protocol Stop: 05/07/19 03:41 Diphenhydramine HCl (Benadryl Capsule) 25 mg PO HS [facility] Stop: 05/07/19 03:41 Last Admin: 04/07/19 20:55 Dose: 25 mg Documented by: Docusate Sodium (Colace) 100 mg PO BID PRN PRN Reason: Constipation Stop: 05/07/19 03:41 Enoxaparin Sodium (Lovenox) 40 mg SQ Q24H [facility] Stop: 05/07/19 07:59 Last Admin: 04/08/19 08:05 Dose: 40 mg Documented by: Glucagon (Glucagen) 1 mg SQ UD PRN; Protocol PRN Reason: Hypoglycemia Protocol Stop: 05/07/19 03:41 Glucose (Glucose 40%) 15 - 30 gm PO UD PRN; Protocol PRN Reason: Hypoglycemia Protocol Stop: 05/07/19 03:41 Glucose (Dex4 Glucose) 4 - 8 tabs PO UD PRN; Protocol PRN Reason: Hypoglycemia Protocol Stop: 05/07/19 03:41 Insulin Aspart (Novolog Flexpen) 0 units SC ACHS [facility] Stop: 05/07/19 07:29 Last Admin: 04/08/19 12:16 Dose: 8 units Documented by: Lisinopril (Zestril) 5 mg PO DAILY [facility] Stop: 05/07/19 08:59 Last Admin: 04/08/19 08:04 Dose: 5 mg Documented by: Magnesium Oxide (Mag-Ox) 400 mg PO QAM [facility] Stop: 05/07/19 08:59 Last Admin: 04/08/19 08:05 Dose: 400 mg Documented by: Miscellaneous (Carbohydrates For Hypoglycemia) 15 - 30 gm PO UD PRN PRN Reason: Hypoglycemia Treatment Stop: 05/07/19 03:41 Olanzapine (Zyprexa) 5 mg IM Q12 PRN PRN Reason: Agitation Stop: 05/07/19 18:51 Polyethylene Glycol (Miralax Powder Packet) 17 gm PO DAILY PRN PRN Reason: Constipation Stop: 05/07/19 03:41 Venlafaxine HCl (Effexor Extended Release) 75 mg PO DAILY [facility] Stop: 05/07/19 08:59 Last Admin: 04/08/19 08:04 Dose: 75 mg Documented by: PG Care Time/CCT Total # of Minutes Spent Total Time Spent with Patient: Total time spent is greater than 50% in coordination of care (as documented) at patient's floor/unit and/or counseling patient: Resident Activity Tracking Resident Involvement: Resident Care Provided Care Provided: Adult Hospital Medicine (1) Acute renal failure Acute renal failure type: unspecified Qualified Code(s): N17.9 - Acute kidney failure, unspecified
[2019-04-08] MEDS: CHLORPROMAZINE HCL 25 MG TABLET PO SCH (20:29)
--- NOTE | 2019-04-08 20:42 | Ultrasound Report ---
ULTRASOUND KIDNEYS AND BLADDER CLINICAL HISTORY: Hematuria. Renal failure. COMPARISON STUDY: Abdominal CT dated 03/26/2019. KUB dated 04/07/2019. TECHNIQUE: Real-time, grayscale, and color flow sonography of the kidneys and bladder is performed. I mages are reviewed in the transverse and longitudinal planes. The examination is degraded by large miki dy habitus. FINDINGS: Kidneys: The kidneys demonstrate mild cortical atrophy and are normal in echotexture. The right kidne y measures 13.2 x 5.9 x 4.1 cm and the left kidney measures 12.0 x 5.7 x 5.8 cm. There is mild fullne ss of the left renal collecting system. No hydronephrosis is seen. No shadowing renal calculi are rigoberto ntified. There are small left renal cyst which measure up to 2.6 cm. There is no sonographic evidence of contour deforming renal mass lesion. No perinephric fluid is identified. Bladder: The bladder was decompressed and could not be evaluated. Upper abdomen: Survey images of the liver show evidence of hepatomegaly and severe hepatic steatosis. IMPRESSION: 1. The kidneys demonstrate mild cortical atrophy. 2. There is fullness of the left renal collecting system. No hydronephrosis is clearly seen. 3. The bladder was decompressed and could not be assessed. 4. Hepatomegaly and severe hepatic steatosis. Electronically signed by: Florentino Christensen M.D. 04/08/2019 8:41 PM
[2019-04-09 05:45] LABS: Hematocrit (blood only) 37.5 % (42-52); Hemoglobin 11.8 g/dL (14.0-18.0); Mean Corpuscular Hemoglobin 29.7 pg (25-34); Mean Corpuscular Hgb Conc 31.5 g/dL (32-36); Mean Corpuscular Volume 94.5 fL (80-100); Platelet Count 91 K/uL (130-400); RDW Standard Deviation 48.4 fL (36.4-46.3); Red Blood Count 3.97 M/uL (4.7-6.1); White Blood Count 4.37 K/uL (4.8-10.8)
[2019-04-09 05:52] LABS: Basophils # (auto) 0.06 K/uL (0-0.2); Basophils % (auto) 1.4 %; Eosinophils # (auto) 0.22 K/uL (0-0.5); Immature Granulocytes # (auto) 0.01 K/uL (0.00-0.02); Immature Granulocytes % (auto) 0.2 %; Lymphocytes # (auto) 1.68 K/uL (1.2-3.4); Lymphocytes % (auto) 38.4 %; Monocytes # (auto) 0.33 K/uL (0.11-0.59); Monocytes % (auto) 7.6 %; Neutrophils # (auto) 2.07 K/uL (1.4-6.5); Neutrophils % (auto) 47.4 %; RBC Morphology Unremarkable
[2019-04-09 06:01] LABS: BUN Creatinine Ratio 11.4 (10-20); Calcium 9.2 mg/dl (8.5-10.1); Creatinine Clr Calc Pharmacy 77.9 ml/min; Est GFR (African American) 56.6; Est GFR (Non-African American) 48.8; Potassium 3.6 mmol/L (3.5-5.1)
[2019-04-09] MEDS: lisinopriL 5 MG TAB PO SCH (08:43)
[2019-04-09] MEDS: BENZTROPINE MESYLATE 0.5 MG TAB PO SCH (08:44)
[2019-04-09] MEDS: CHLORPROMAZINE HCL 10 MG TABLET PO SCH (08:44)
[2019-04-09] MEDS: INSULIN ASPART 100 UNITS/ML 3 ML PEN SC SCH ×4 (08:44→20:24)
[2019-04-09] MEDS: MAGNESIUM OXIDE 400 MG TAB PO SCH (08:44)
[2019-04-09] MEDS: ENOXAPARIN INJ 40 MG/0.4 ML SYR SQ SCH (08:44)
[2019-04-09] MEDS: VENLAFAXINE HCL XR 75 MG CAPXR PO SCH (08:44)
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
--- NOTE | 2019-04-09 18:22 | Family Medicine Progress Note ---
Date of Service April 09, 2019 Assessment & Plan (1) Confusion: 54 y/o M who was found wandering 2.5miles from home with confusion and disorientation; continues to have confusion this morning. Mental status change: - likely multifactorial; renal insufficiency, possible build-up Clorpromazine, baseline mental illness/question intellectual disability, possible hypoglycemic episode - Psych consulted, no criteria for inpatient psych, follow up in the outpatient, no med adjustments, plan to discharge 04/10/19 -Negative infection work up, no electrolyte abnormalities over this time, CT scan negative for any abnormality; MRI unable to be obtained due to pt's body habitus Acute Kidney injury sec to ? poor oral intake/obstructive -Cr 1.98 on admission, down to 1.6 (04/08); baseline Cr seems to be 1.0 -KUB - ureteral stents in place -UA with blood on microscopy -urine culture negative. -check renal ultrasound. Elevated CK: -XD=777(04/06); 497 (04/07); no muscle pain/tenderness. -maintain IV fluids Diabetes: -hold home glimepiride -continue SSI with basal dose Bipolar Disorder: -continue home medications Anxiety: -continue diphenhydramine Sleep apnea -hasn't been compliant with cpap at home -will arrange cpap while here. Abdominal pain: -no continued abdominal pain DVT ppx; Ambulation Carb consistent diet. Hep lock, (2) Short-term memory loss: (3) Pneumonia: (4) Metabolic acidosis: (5) DVT prophylaxis: (6) Diabetes 1.5, managed as type 2: (7) UTI (urinary tract infection): (8) Bipolar disorder: (9) Anxiety: Supervising Physician Co-Signing Physician Notes I personally examined the patient and verified all gonsalves points of history and exam, discussed case, and agree with decision making with Dr Hopper. Feeling better. Eating okay. No new problems. Vitals noted, in general he is awake and alert pleasant no distress. HEENT normocephalic atraumatic mucous membranes are moist. Breathing unlabored no accessory muscle use good effort. Skin shows no rashes no pallor or icterus. Altered mental statusseems to have improved. Question whether he had an hypoglycemic event with a little bit of delirium afterwards, versus possibly accumulation of some of his psychiatric meds given that he went from normal renal function to such florid renal failure, although it is now improving. He does appear overall improved, continue to follow closely, anticipate home soon. Subjective Patient is doing well today, no acute complaints Review of Systems Review of Systems: All systems reviewed & are unremarkable except as noted in HPI & below Physical Exam Constitutional: WD/WN, vitals as above Eyes: PERRL, conjunctivae normal, anicteric sclerae ENMT: external ear and nose normal, oropharynx normal Neck: trachea midline, no thyromegaly Respiratory: normal respiratory effort, lungs clear to auscultation Cardiovascular: RRR, no murmur, no edema Gastrointestinal (Abdomen): Inspection/Auscultation: abdomen normal to inspection and normal bowel sounds; abdomen not distended Percussion/Palpation: + abdomen tender (generalized ) and abdomen soft; no guarding and abdomen not rigid Musculoskeletal: no cyanosis or clubbing, extremities motor strength 5/5 Skin: no rashes, warm and dry Neurologic: PERRL, EOMI, accommodation nl, no face palsy, no dysarthria Psychiatric: A+Ox3, euthymic affect Results & Data Vital Signs (Past 12 Hours) Vital Signs Temp Pulse Resp BP Pulse Ox 04/09/19 16:00 36.5 C 73 18 115/71 97 04/09/19 07:28 36.5 C 71 20 146/89 H 98 PG Care Time/CCT Total # of Minutes Spent Total Time Spent with Patient: Total time spent is greater than 50% in coordination of care (as documented) at patient's floor/unit and/or counseling patient: Resident Activity Tracking Resident Involvement: Resident Care Provided Care Provided: Adult Hospital Medicine (1) UTI (urinary tract infection) Hematuria presence: with hematuria Urinary tract infection type: site unspecified Qualified Code(s): N39.0 - Urinary tract infection, site not specified; R31.9 - Hematuria, unspecified
[2019-04-09] MEDS: CHLORPROMAZINE HCL 25 MG TABLET PO SCH (20:41)
[2019-04-10 07:46] LABS: Hematocrit (blood only) 37.5 % (42-52); Hemoglobin 12.1 g/dL (14.0-18.0); Mean Corpuscular Hemoglobin 30.1 pg (25-34); Mean Corpuscular Hgb Conc 32.3 g/dL (32-36); Mean Corpuscular Volume 93.3 fL (80-100); RDW Coefficient of Variation 13.7 % (11.5-14.5); RDW Standard Deviation 46.9 fL (36.4-46.3); Red Blood Count 4.02 M/uL (4.7-6.1); White Blood Count 4.66 K/uL (4.8-10.8)
[2019-04-10 07:51] LABS: Mean Platelet Volume 11.6 fL (7.4-10.4); Platelet Count 88 K/uL (130-400)
[2019-04-10 08:19] LABS: Est GFR (African American) 54.9; Est GFR (Non-African American) 47.4; Potassium 4.2 mmol/L (3.5-5.1)
[2019-04-10 08:20] LABS: BUN Creatinine Ratio 13.1 (10-20); Calcium 9.6 mg/dl (8.5-10.1)
[2019-04-10] MEDS: ENOXAPARIN INJ 40 MG/0.4 ML SYR SQ SCH ×2 (09:22→09:28)
[2019-04-10] MEDS: INSULIN ASPART 100 UNITS/ML 3 ML PEN SC SCH ×4 (09:22→22:03)
[2019-04-10] MEDS: CHLORPROMAZINE HCL 10 MG TABLET PO SCH (09:23)
[2019-04-10] MEDS: BENZTROPINE MESYLATE 0.5 MG TAB PO SCH (09:23)
[2019-04-10] MEDS: lisinopriL 5 MG TAB PO SCH (09:23)
[2019-04-10] MEDS: MAGNESIUM OXIDE 400 MG TAB PO SCH (09:23)
[2019-04-10] MEDS: VENLAFAXINE HCL XR 75 MG CAPXR PO SCH (09:23)
--- NOTE | 2019-04-10 18:15 | Discharge Summary ---
Date of Service April 10, 2019 Admission HPI Per Admitting Provider Nikos Au" is a 54-year-old male admitted medically on 04/07/19 due to reported confusion. Pt was admitted from 03/26 - 03/30 for [facility] with need for emergent dialysis and placement of a ureteral stent on 03/26. Pt was discharged to home in stable condition. Pt's mother reported checked in on patient on 04/06/19 and found that he was not home. Police were called, who found the patient near the [facility] [employer] [facility] in [place]. Pt was found to have altered mental status and was brought to the ED. Family has reported that the patient has demonstrated periods of confusion and forgetfulness since he was discharged home. Psychiatric consultation was requested in order to determine if confusion is related to psychiatric history. Patient's case was reviewed and discussed with psychiatric nurse liaison and psychiatrist. Pt was cooperative with evaluation today. He is able to recount events of his last admission and was able to share some stories from his week at home. Pt states that he was found outside the [facility] [employer] [facility] (reportedly 2.5 miles from his home) without clear reason as to his intent. Pt states, "I was so rude, people were offering to help me or call someone, and I was like 'get the f away from me', I wouldn't normally say things like that." Pt states that he is not sure why he was [facility] the [facility], and becomes tearful after sharing concerns about his recent confusion. Pt states that he feels his confusion has been improving and denies any difficulty connecting thoughts, expressing ideas, or remembering dates or events since being admitted. Pt is agreeable with discussing his psychiatric history. Pt reports a diagnosis of "bipolar disorder". Outpatient records, however, suggest a diagnosis of major depressive disorder and intermittent explosive disorder. When asked about characteristic of his "manic" and depressive episodes, the patient reports - "I'm really withdrawn when I'm depressed, and I have problems with spending when I'm manic. There is this brand of expensive socks, and I'll buy like one pair a week." Pt does not describe a clear pattern of changes in mood that are consistent with a formal bipolar diagnosis. He admits to previous suicide attempts by overdose, most recently in 04/2017. When asked about current suicidality, he states - "no, it's like the exact opposite right now." He reports hopefulness and feels as though things have been going well for him. Pt states he was admitted to the [facility] in 09/2017, and has continued to do will with medication changes since that time. Pt denies A/V hallucinations, paranoia, and does not verbalize delusional thoughts. Pt denies acute needs from our service at this time. He is agreeable to signing ROIs to allow for our service to coordinate care with his outpatient psychiatric providers. Pt denies SI, HI, SIB, A/V hallucinations, paranoia, OCD, PTSD, eating disorder, and other specific psychiatric symptoms. Admission Exam Per Admitting Provider Constitutional: WD/WN, vitals as above Eyes: PERRL, conjunctivae normal, anicteric sclerae ENMT: external ear and nose normal, oropharynx normal Neck: trachea midline, no thyromegaly Respiratory: normal respiratory effort, lungs clear to auscultation Cardiovascular: RRR, no murmur, no edema Gastrointestinal (Abdomen): Inspection/Auscultation: abdomen normal to inspection and normal bowel sounds; abdomen not distended Percussion/Palpation: + abdomen tender (generalized ) and abdomen soft; no guarding and abdomen not rigid Musculoskeletal: no cyanosis or clubbing, extremities motor strength 5/5 Skin: no rashes, warm and dry Neurologic: PERRL, EOMI, accommodation nl, no face palsy, no dysarthria Psychiatric: A+Ox3, euthymic affect Principal Diagnosis Altered Mental Status Discharge Exam Constitutional WD/WN, vitals as above Eyes PERRL, conjunctivae normal, anicteric sclerae ENMT external ear and nose normal, oropharynx normal Neck trachea midline, no thyromegaly Respiratory normal respiratory effort, lungs clear to auscultation Cardiovascular RRR, no murmur, no edema Gastrointestinal (Abdomen) Inspection/Auscultation: abdomen normal to inspection and normal bowel sounds; abdomen not distended Percussion/Palpation: + abdomen tender (generalized ) and abdomen soft; no guarding and abdomen not rigid Musculoskeletal no cyanosis or clubbing, extremities motor strength 5/5 Skin no rashes, warm and dry Neurologic PERRL, EOMI, accommodation nl, no face palsy, no dysarthria Psychiatric A+Ox3, euthymic affect Discharge Data Allergies Allergy/AdvReac Type Severity Reaction Status Date / Time meloxicam Allergy Intermediate RASH Verified 04/06/19 08:54 aspirin Allergy Mild NOSE BLEEDS Verified 04/06/19 08:54 Penicillins Allergy Mild TACHYCARDIA Verified 04/06/19 08:54 bupropion AdvReac Mild RASH Verified 04/06/19 08:54 Consultations 04/07/19 02:27 ED Decision to Admit Stat 04/08/19 14:25 Consult Psychiatry Routine Ordered Studies 04/07/19 11:16 CT head/brain wo con Routine 04/08/19 16:12 US renal/blad retro comp Routine [place], [place] [phone] Ultrasound Report Patient: NIKOS CABALLERO Date: 04/07/19 MR#: [id number]: [address] Acct ID:[id number]: Date: 1965City Zip: [place] [address] Age: 54Location: 2N Sex: M Room/Bed: N280-2 Att Phy: Kaylah Lerner MDDiagnosis: AMS Lacie Phy: Beryl Velazquez PA-CService Date: 04/08/19 Fam Phy:Interpreting Phy: Florentino Christensen MD Admit Phy: Yumiko Long, D.O. Ordering Phy: Kaylah Lerner MD cc: ~ ULTRASOUND KIDNEYS AND BLADDER CLINICAL HISTORY: Hematuria. Renal failure. COMPARISON STUDY: Abdominal CT dated 03/26/2019. KUB dated 04/07/2019. TECHNIQUE: Real-time, grayscale, and color flow sonography of the kidneys and bladder is performed. Images are reviewed in the transverse and longitudinal planes. The examination is degraded by large body habitus. FINDINGS: Kidneys: The kidneys demonstrate mild cortical atrophy and are normal in echotexture. The right kidney measures 13.2 x 5.9 x 4.1 cm and the left kidney measures 12.0 x 5.7 x 5.8 cm. There is mild fullness of the left renal collecting system. No hydronephrosis is seen. No shadowing renal calculi are identified. There are small left renal cyst which measure up to 2.6 cm. There is no sonographic evidence of contour deforming renal mass lesion. No perinephric fluid is identified. Bladder: The bladder was decompressed and could not be evaluated. Upper abdomen: Survey images of the liver show evidence of hepatomegaly and severe hepatic steatosis. IMPRESSION: 1. The kidneys demonstrate mild cortical atrophy. 2. There is fullness of the left renal collecting system. No hydronephrosis is clearly seen. 3. The bladder was decompressed and could not be assessed. 4. Hepatomegaly and severe hepatic steatosis. Electronically signed by: Florentino Christensen M.D. 04/08/2019 8:41 PM Dictated: 04/08/192037 Transcribed: 04/08/192037 [place], [place] [phone] CT Scan Report Patient: NIKOS CABALLERO Date: 04/07/19 MR#: [id number]: [address] Acct ID:[id number]: Date: 1965City Zip: [place] [address] Age: 54Location: 2N Sex: M Room/Bed: 80 Att Phy: Kaylah Lerner MDDiagnosis: AMS Lacie Phy: Beryl Velazquez PA-CService Date: 04/07/19 Fam Phy:Interpreting Phy: Hema Guevara MD Admit Phy: Yumiko Long D.O. Ordering Phy: Jaspreet Szymanski MD cc: ~ HEAD CT NONCONTRAST CT DOSE: 1437.38 mGy.cm HISTORY: confusion TECHNIQUE: Multiaxial CT images of the head were performed without the use of intravenous contrast. Automated exposure control was utilized for this study. A dose lowering technique was utilized adhering to the principles of ALARA. Comparison: Head CT 04/11/2013. Findings: Stable small retention cyst within the left maxillary sinus. The mastoid air cells are clear. The calvarium and skull base are intact. The ventricles and sulci are within normal limits. There is no mass, hematoma, midline shift, or acute infarct. Impression: No acute intracranial abnormality. Electronically signed by: Hema Guevara M.D. 04/07/2019 11:56 AM Dictated: 04/07/19 1153 Transcribed: 04/07/19 1153 [place], [place] [phone] XRay Report Patient: NIKOS CABALLERO Date: 04/07/19 MR#: [id number]: [address]IGEL [place] Acct ID:[id number]: Date: [address] Zip: [place] [address] Age: 54Location: 2N Sex: M [facility]Bed[facility] Att Phy: Kaylah Lerner MDDiagnosis: AMS Lacie Phy: Beryl Velazquez PA-CService Date: 04/07/19 Fam Phy:Interpreting Phy: Hema Guevara MD Admit Phy: Yumiko Long D.O. Ordering Phy: Yumiko Long D.O. cc: ~ KUB HISTORY: Abdominal distention, tenderness COMPARISON: Abdomen and pelvis CT 11/09/2017. FINDINGS: The bowel gas pattern is unremarkable. There are no dilated loops of small bowel to suggest an obstruction. Bilateral ureteral stents are in good p osition. Prior cholecystectomy. The renal shadows are mostly obscured by overlying bowel gas. No definite renal or ureteral calculi. Small to moderate amount of well-formed stool seen within the colon. No pneumoperitoneum or pneumatosis. IMPRESSION: 1. No evidence for bowel obstruction. 2. Small to moderate amount of well-formed stool within the colon. 3. The bilateral ureteral stents appear to be in good position. No renal or ureteral calculi identified. Electronically signed by: Hema Guevara M.D. 04/07/2019 9:37 AM Dictated: 04/07/1935 Transcribed: 04/07/19 0935 Hospital Course (1) Confusion: 54 y/o M who was found wandering 2.5miles from home with confusion and disorientation. Admitted for metabolic, central and psychiatric causes. Alert, oriented and medically stable at discharge, but without a clear diagnosis for the cause of his acute mental status changes. Mental status change: - likely multifactorial; possible build-up Chlorpromazine in the setting of renal insufficiency, baseline mental illness, possible hypoglycemic episode - Seen by psych, no criteria for inpatient psych, follow up in the outpatient on - Negative infectious work up, no electrolyte abnormalities over this time, CT scan negative for any abnormality; MRI unable to be obtained due to pt's body habitus Acute Kidney injury - Recent admission for obstructive uropathy, stents placed -Cr 1.98 on admission, down to 1.6 (04/08); baseline Cr seems to be 1.0 -KUB - ureteral stents in place -UA with blood on microscopy -urine culture negative. Elevated CK: -MU=052(04/06); 497 (04/07); no muscle pain/tenderness. -maintain IV fluids Diabetes: -continue home glimepiride Bipolar Disorder: -continue home medications Anxiety: -continue diphenhydramine Sleep apnea -Continue CPAP (2) Short-term memory loss: (3) Pneumonia: (4) Metabolic acidosis: (5) DVT prophylaxis: (6) Diabetes 1.5, managed as type 2: (7) UTI (urinary tract infection): (8) Bipolar disorder: (9) Anxiety: Total Time Total Time Spent Total Time Spent (In Minutes): less than 30 minutes Total Time Includes: Examination of the Patient, Discharge Planning, Medication Reconciliation and Communication With Other Providers Discharge Plan Discharge Items Patient Disposition: Home - Self-Care Reason For Visit: AMS Discharge Diagnosis: altered mental status Activity: Per Instructions section Non-emergency contact: Primary Care Provider Call non-emergency contact if: your symptoms worsen Follow-up/Referrals: [facility] [Outside] (follow up appointment April 12 at 1400 with Beryl Burgess PA-C [Primary Care Provider] - 04/13/19 1:00 pm (Please, follow up with Beryl Velazquez PA-C on TuesdayApril 13 at 1:00 pm. *If you need to change this appointment, call the office at [phone].) Diet: Carb Consistent or DM2 Addtl Attending Provider Instructions: The reason that you were in the hospital is that you were found wandering away from your house confused. You were also found to be dehydrated after looking at your labs. Changes from before you were in the hospital include: increasing the amount of fluid that you drink in the day. Your psychiatric medications will remain the same, but you will need to see you psychiatrist. Follow up will be with primary care Beryl Reddy on Tuesday the 13 of April. Warning signs include confusion or worsening of your mental status, pain, blood in your urine, or decreased urine. If you have any of these warning signs you should call or come in to be evaluated. Pending Studies at Discharge: No Stand-Alone Forms: My [facility] Medications and DC Order Prescriptions: Continued venlafaxine 75 mg capsule,extended release 24hr 75 mg PO DAILY RF: 0 benztropine 0.5 mg tablet 0.5 mg PO QAM RF: 0 chlorpromazine 10 mg tablet 10 mg PO QAM RF: 0 chlorpromazine 25 mg tablet 25 mg PO HS RF: 0 diphenhydramine HCl 25 mg capsule 25 mg PO HS RF: 0 magnesium oxide 400 mg (241.3 mg magnesium) Tablet 400 mg PO QAM Qty: 30 RF: 0 glimepiride 1 mg tablet 1 mg PO QAM RF: 0 lisinopril 5 mg tablet 5 mg PO DAILY RF: 0 diphenhydramine HCl [Banophen] 25 mg capsule 25 mg PO HS RF: 0 melatonin 3 mg tablet 3 mg PO HS RF: 0 Discharge Orders: Discharge Order (Routine); Ordered 04/10/19 Ordered By: Ray Plasencia Admission Data Admit Date/Time: 04/09/19 21:26 Attending Provider: Lang Kaufman Admit Provider: Yumiko Long Primary Care Provider: Beryl Velazquez Other Providers: Yumkio Long ; Jamaal Ivory ; Kaylah Lerner Other Interventions: Discharge Summary Assessment (RN) Last Done: 04/10/19 18:36 Supervising Physician Co-Signing Physician Notes I personally examined the patient and verified all gonsalves points of history and exam, discussed case, and agree with decision making with Dr Hopper. Feeling better. Eating okay. Bowel movements good. Notes that he was frustrated last night about not being able to go home, relates that he stopped and hit in the bathroom, but seems to feel sheepishly embarrassed about this today. Dr. Plasencia has an extensive discussion with the family about the readiness for him to come home, and it seems in discussion with him their biggest concern is whether or not this may happen again, which of course it seems unlikely but we are unable to truly promise. Vitals noted, in general he is awake and alert pleasant no distress. HEENT normocephalic atraumatic mucous membranes are moist. Breathing unlabored no accessory muscle use good effort. Skin shows no rashes no pallor or icterus. Abdomen soft tender right-sided, he relates this to being stent pain. Altered mental statusseems to have improved. Question whether he had an hypoglycemic event with a little bit of delirium afterwards, versus possibly accumulation of some of his psychiatric meds given that he went from normal renal function to such florid renal failure, although it is now improving. Appears stable for discharge with close follow-up, nurse navigator arranged close follow-up. Dr. Plasencia provided updates and reassurance to family as best as we are able. Abdominal pain seems to be much more stent related than anything, he is eating well he is having no GI symptoms and he is having normal bowel movements. Outpatient urology follow-up in this regard Resident Activity Tracking Resident Involvement: Resident Care Provided Care Provided: Adult Hospital Medicine
[2019-04-10] MEDS ORDERED: HALOPERIDOL LACTATE 5 MG/ML 1 ML VIAL IM STA (20:06)
[2019-04-10] MEDS ORDERED: HALOPERIDOL LACTATE 5 MG/ML 1 ML VIAL IM PRN (20:09)
--- NOTE | 2019-04-10 21:19 | Family Medicine Progress Note ---
Date of Service April 10, 2019 Assessment & Plan (1) Confusion: 54 y/o M who was found wandering 2.5miles from home with confusion and disorientation. Admitted for metabolic, central and psychiatric causes. Alert, oriented and medically stable at discharge, but without a clear diagnosis for the cause of his acute mental status changes. Mental status change, possible metabolic encephalopathy - likely multifactorial; possible build-up Chlorpromazine in the setting of renal insufficiency, baseline mental illness, possible hypoglycemic episode, possible metabolic encephalopathy - initially psych noted: no criteria for inpatient psych, [facility] - will discuss with psych the changes in patient since initial evaluation - due to frustration was given 5mg Haldol w/ PRN dose of 5mg Q4 - Negative infectious work up, no electrolyte abnormalities over this time, CT scan negative for any abnormality; MRI unable to be obtained due to pt's body habitus Acute Kidney injury - Recent admission for obstructive uropathy, stents placed -Cr 1.98 on admission, down to 1.6 (04/08); baseline Cr seems to be 1.0 -KUB - ureteral stents in place -UA with blood on microscopy -urine culture negative. Elevated CK: -SW=854(04/06); 497 (04/07); no muscle pain/tenderness. -maintain IV fluids Diabetes: -continue home glimepiride Bipolar Disorder: -continue home medications Anxiety: -continue diphenhydramine Sleep apnea -Continue CPAP DVT: Lovenox Code: Full Diet: DM (2) Short-term memory loss: (3) Pneumonia: (4) Metabolic acidosis: (5) DVT prophylaxis: (6) Diabetes 1.5, managed as type 2: (7) UTI (urinary tract infection): (8) Bipolar disorder: (9) Anxiety: Supervising Physician Co-Signing Physician Notes I personally examined the patient and verified all gonsalves points of history and exam, discussed case, and agree with decision making with Dr Plasencia. Earlier in the day feeling better and wants to go home. This evening whenever the family comes he is taken off his close and is starting to shake, whenever we see him he is sitting in the hallway much more calm noting that the smell in the room was driving him crazy. His thought process seems a bit incongruence. He does occasionally stop and pound his fist but more in a frustrated rather than violent way. Vitals noted, in general he is in no physical distress, but emotionally does appear distraught. His thought process is tangential at best, sometimes answering questions somewhat nonsensically. HEENT normocephalic atraumatic mucous membranes moist. Breathing unlabored no accessory muscle use good effort. Skin shows no rashes no pallor or icterus. Altered mental statusdenies decompensation does strongly suggest that it could have easily been psych related. That said his current decompensation seems to be more centered on frustration of still being in the hospital, with the difficult situation being that the family has not felt safe taking him home, but it seems that the longer he is here the more he is deteriorating. It is quite probable that the physical and emotional stress of what he was just through over the last few weeks is likely what triggered an episode that caused him to wander off, but now, having been stable for several days, it seems most likely that the frustration of still being in the hospital with no clear site of when he is going to go home and is now what is triggering him. He is unfortunately now fairly irrational with thinking gross thoughts, and getting progressively agitated, and it appears that a dose of Haldol would be warranted to try to help calm him. We discussed this and while he initially expresses reluctance he does agree, and further it certainly appears to be clinically warranted given his agitation. Family in agreement as well. Will have to ask psychiatry for further thoughts on whether or not he requires adjustment of medications or inpatient treatment, or the initial plan of close outpatient follow-up. Subjective Mr. Rey was going well this morning with no concerns, over the middle of the day I went over discharge instructions and Mr. Rey appeared to understand what had happened over his hospital course, what had changed and warning signs to look out for. I was called to bedside when patients family was here to last picker patient for discharge. He became frustrated, focused on the smell in the room. After leaving the room the patient continued to become frustrated. With family we discussed their concern that they did not feel it would be safe for the patient to go home at this time. We discussed him receiving medication, staying another night and having psych see him again tomorrow. Review of Systems Respiratory: no cough denies shortness of breath Genitourinary: no dysuria, no urinary frequency and no urinary hesitancy Neurologic: + behavioral changes and + confusion Psychiatric: + behavioral changes, + irritability, + anxiety and + confusion Physical Exam Physical Exam: Constitutional: initially walking around with no concern, in the evening: shaking, writhing, rocking back and forth Neuro: initially alert and oriented, in the evening: not oriented, tangential thinking, easily frustrated CV: RRR no m/r/g Resp: CTAB Abd: tender on the right side, small bruises at lovenox injection site Skin: ecchymosis on abdomen Ext: nTTP Results & Data Vital Signs (Past 12 Hours) Vital Signs Temp Pulse Resp BP BP Pulse Ox 04/10/19 19:23 36.9 C 94 H 18 108/73 94 04/10/19 18:36 37.5 C 102 H 18 109/68 134/76 95 04/10/19 15:58 37.5 C 102 H 18 109/68 95 PG Care Time/CCT Total # of Minutes Spent Total Time Spent with Patient: Total time spent is greater than 50% in coordination of care (as documented) at patient's floor/unit and/or counseling patient: Resident Activity Tracking Resident Involvement: Resident Care Provided Care Provided: Adult Hospital Medicine (1) UTI (urinary tract infection) Hematuria presence: with hematuria Urinary tract infection type: site unspecified Qualified Code(s): N39.0 - Urinary tract infection, site not specified; R31.9 - Hematuria, unspecified
[2019-04-10] MEDS: CHLORPROMAZINE HCL 25 MG TABLET PO SCH (22:05)
[2019-04-11 07:19] LABS: Hematocrit (blood only) 38.1 % (42-52); Hemoglobin 12.1 g/dL (14.0-18.0); Mean Corpuscular Hgb Conc 31.8 g/dL (32-36); Mean Corpuscular Volume 94.5 fL (80-100); RDW Coefficient of Variation 13.9 % (11.5-14.5); RDW Standard Deviation 48.2 fL (36.4-46.3); Red Blood Count 4.03 M/uL (4.7-6.1); White Blood Count 3.74 K/uL (4.8-10.8)
[2019-04-11 07:26] LABS: Mean Platelet Volume 12.6 fL (7.4-10.4); Platelet Count 82 K/uL (130-400)
[2019-04-11 07:43] LABS: BUN Creatinine Ratio 13.3 (10-20); Calcium 9.9 mg/dl (8.5-10.1); Creatinine Clr Calc Pharmacy 79.9 ml/min; Est GFR (African American) 58.4; Est GFR (Non-African American) 50.4; Potassium 4.1 mmol/L (3.5-5.1)
[2019-04-11] MEDS: ENOXAPARIN INJ 40 MG/0.4 ML SYR SQ SCH (09:25)
[2019-04-11] MEDS: CHLORPROMAZINE HCL 10 MG TABLET PO SCH (09:26)
[2019-04-11] MEDS: VENLAFAXINE HCL XR 75 MG CAPXR PO SCH (09:26)
[2019-04-11] MEDS: BENZTROPINE MESYLATE 0.5 MG TAB PO SCH (09:26)
[2019-04-11] MEDS: MAGNESIUM OXIDE 400 MG TAB PO SCH (09:26)
[2019-04-11] MEDS: lisinopriL 5 MG TAB PO SCH (09:26)
[2019-04-11] MEDS: INSULIN ASPART 100 UNITS/ML 3 ML PEN SC SCH ×3 (09:26→17:47)
[2019-04-11 15:37] VITALS: BP 108/72; PULSE 74; TEMP 97.9; O2SAT 95
--- NOTE | 2019-04-11 17:58 | Family Medicine Progress Note ---
Date of Service April 11, 2019 Assessment & Plan (1) Confusion: 54 y/o M who was found wandering 2.5miles from home with confusion and disorientation. Admitted for metabolic, central and psychiatric causes. Alert, oriented and medically stable at discharge, but without a clear diagnosis for the cause of his acute mental status changes. Mental status change: - likely multifactorial; possible build-up Chlorpromazine in the setting of renal insufficiency, baseline mental illness, possible hypoglycemic episode - Seen by psych, no criteria for inpatient psych, follow up in the outpatient on - Negative infectious work up, no electrolyte abnormalities over this time, CT scan negative for any abnormality; MRI unable to be obtained due to pt's body habitus - Intended to discharge last night, but the patient became acutely agitated last night. He was observed today, seen by psych and ultimately discharged this afternoon. Acute Kidney injury - Recent admission for obstructive uropathy, stents placed -Cr 1.98 on admission, down to 1.6 (04/08); baseline Cr seems to be 1.0 -KUB - ureteral stents in place -UA with blood on microscopy -urine culture negative. Elevated CK: -QN=589(04/06); 497 (04/07); no muscle pain/tenderness. -maintain IV fluids Diabetes: -continue home glimepiride Bipolar Disorder: -continue home medications Anxiety: -continue diphenhydramine Sleep apnea -Continue CPAP (2) Short-term memory loss: (3) Pneumonia: (4) Metabolic acidosis: (5) DVT prophylaxis: (6) Diabetes 1.5, managed as type 2: (7) UTI (urinary tract infection): (8) Bipolar disorder: (9) Anxiety: Supervising Physician Co-Signing Physician Notes I personally examined the patient and verified all gonsalves points of history and exam, discussed case, and agree with decision making with Dr Hopper Subjective Patient doing well this morning. Patient was supposed to be discharged last night, but became significantly agitated. Denies any issues this morning, says that he slept soundly overnight. Review of Systems Review of Systems: All systems reviewed & are unremarkable except as noted in HPI & below Physical Exam Constitutional: WD/WN, vitals as above Eyes: PERRL, conjunctivae normal, anicteric sclerae ENMT: external ear and nose normal, oropharynx normal Neck: trachea midline, no thyromegaly Respiratory: normal respiratory effort, lungs clear to auscultation Cardiovascular: RRR, no murmur, no edema Gastrointestinal (Abdomen): normal bowel sounds, soft, nontender, no hepatosplenomegaly Musculoskeletal: no cyanosis or clubbing, extremities motor strength 5/5 Neurologic: PERRL, EOMI, accommodation nl, no face palsy, no dysarthria Psychiatric: A+Ox3, euthymic affect Results & Data Vital Signs (Past 12 Hours) Vital Signs Temp Pulse Resp BP BP Pulse Ox 04/11/19 15:36 36.6 C 74 18 108/72 95 04/11/19 15:17 36.8 C 75 18 119/66 109/64 92 04/11/19 07:12 36.8 C 75 18 109/64 92 PG Care Time/CCT Total # of Minutes Spent Total Time Spent with Patient: Total time spent is greater than 50% in coordination of care (as documented) at patient's floor/unit and/or counseling patient: Resident Activity Tracking Resident Involvement: Resident Care Provided Care Provided: Adult Hospital Medicine (1) UTI (urinary tract infection) Hematuria presence: with hematuria Urinary tract infection type: site unspecified Qualified Code(s): N39.0 - Urinary tract infection, site not specified; R31.9 - Hematuria, unspecified
== END 2019-04-11 18:25 | disposition home or self-care (01) | DRG 682 ==
LOC: 2N 22:45 → ED 22:45 → SUATTDRO 04-07 02:38 → 2N 04-07 03:04 → 2W 04-10 20:34

== ENCOUNTER 2023-11-14 19:45 | Inpatient (IN) ==
[2023-11-14] MEDS: SODIUM CHLORIDE 0.9% 1,000 ML IV ONE (20:37)
--- NOTE | 2023-11-14 20:42 | Emergency Department Note ---
Impression & Plan CHAD (acute kidney injury), CHI (closed head injury), Contusion of scalp, Fall, Rhabdomyolysis, Abnormal LFTs ED Provider Note ED Provider Note NAME: NIKOS CABALLERO AGE:58 SEX: Male : 1965 ARRIVES VIA: EMS INFORMANT: Patient ED PROVIDER(s): Kathy He DO CHIEF COMPLAINT: Fall, head injury HPI: This is a 58-year-old male who presents after an accidental fall at home. Patient states he got his foot caught in a blanket on the floor and tripped landing on his left side. Patient states he did strike his head on the floor but did not lose consciousness. He states he does not take any antiplatelet or anticoagulation medications. Patient states he was unable to get up, and laid there for several hours before his mother got home from work. He states after this they were able to contact neighbors to come help get him into a standing position while using a walker. He states he went to sit down and missed the chair and fell directly down on the floor landing on his butt. He states he did not have any injuries from this. Patient denies any other concern for trunk or extremity injury. He states he was feeling in his usual state of health prior to this. He admits to decreased water intake today. PAST MEDICAL HISTORY:See Below PAST SURGICAL HISTORY:See Below FAMILY HISTORY:See Below SOCIAL HISTORY:See Below HOME MEDICATIONS:See Below ALLERGIES:See Below VITALS:See Below PHYSICAL EXAMINATION: GENERAL: alert, well appearing, well nourished, no distress, non-toxic, BMI 44 HEAD: nc, contusion and superficial abrasion noted to the left parietal region, no still signs, no raccoon eyes; no other evidence of facial trauma EYE EXAM: normal conjunctiva, PERRL and EOM's grossly intact OROPHARYNX: no exudate, no erythema, lips, buccal mucosa, and tongue normal and mucous membranes are dry NECK: supple, no nuchal rigidity, no adenopathy, non-tender LUNGS: Clear to auscultation. Normal chest wall mechanics, no w/r/r HEART: no murmurs, S1 normal and S2 normal CHEST WALL: No step-off, no crepitus, nontender with palpation ABDOMEN: abdomen soft, non-tender, normo-active bowel sounds, no masses, no rebound or guarding. PELVIS: stable to compression BACK: Back is symmetrical on inspection and there is no deformity, no midline tenderness, no CVA tenderness. SKIN: no rashes, petechiae, orbruising UPPER EXTREMITIES: upper extremities are grossly normal. FROM, nml pulses b/l. No evidence of trauma or deformity. LOWER EXTREMITIES: No pitting edema. FROM, nml pulses b/l. No evidence of trauma or deformity. NEURO EXAM: Normal sensorium, cranial nerves II-XII grossly intact, normal speech, no facial droop,nogross weakness of arms, no gross weakness of legs. Gross sensation intact. No ataxia. Vital Signs: reviewed and remarkable Differential Diagnosis: CHI, ICH, contusion, abrasion, spinal cord injury, ligamentous injury, hemoperitoneum, occult fracture, as well as others were considered MEDICAL DECISION MAKING: This is a 58-year-old male presents emergency department after an accidental mechanical fall at home. Patient was afebrile and vital signs stable on arrival. Only visible evidence of trauma on exam was to the scalp. Labs drawn and sent, IV established, patient sent for x-ray imaging which were interpreted by me at bedside. CT head and C-spine performed as a precaution. No evidence of ICH. Patient had no new or evolving symptoms on monitor in the emergency room. Patient was started on IV fluids while awaiting labs due to appearance of clinical dehydration reported decreased oral intake while he was awaiting help to get up after his fall. Patient noted to have CHAD and so a CPK was added due to concern for possible underlying rhabdomyolysis. Patient noted to have rhabdo. IV fluids were continued. Patient and family who then presented to bedside were updated on all results and plan. Case discussed with hospitalist team for additional evaluation and management. Consultation(s): 2308: Discussed with Dr. Long, [facility] hospitalist team, for additional evaluation and management. ER Treatment Provided: See below Diagnostics Interpreted By Me: -Cardiac Monitoring: An order was placed for continuous cardiac monitoring. The monitor shows a rate of 90 with normal sinus rhythm. -Laboratory studies: As stated above and show below. -Imaging studies: Chest x-ray: No pleural effusion, no focal infiltrate, no obvious rib fractures, no pneumothorax X-ray: No obvious fracture or dislocation Triage Nursing Note Reviewed Prior/Outside Records Reviewed Past Med/Surg History Medical History Complex renal cyst Repeat US 05/2023. no further screening Eczema Hyperlipidemia History of colon polyps Morbid obesity with BMI of 45.0-49.9, adult Kidney stones Cervicalgia CKD stage 3 due to type 2 diabetes mellitus BPH with obstruction/lower urinary tract symptoms Benign hypertension (01/22/13) Cyst of kidney, acquired Gastroesophageal reflux disease Idiopathic thrombocytopenic purpura Inguinal hernia Left Side Lumbar radiculopathy Obstructive sleep apnea (adult) (pediatric) (01/22/13) does not use CPAP as ordered Tubulovillous adenoma of colon CHAD (acute kidney injury) CHAD 03/2019 in setting of ureteral stones (b/l stent placed) Fatty liver disease, nonalcoholic (Unknown) Diverticulitis Depression Anxiety Surgical History History of bilateral cataract extraction History of cystoscopy x2--last 05/2019. Cystoscopy b/l stents: 03/26/19: Grade 2 view, MAC#3, ETT 7.5 at [facility] (no anesthesia complications per anesthesia progress note but patient reports post-op confusion) History of colonoscopy 04/2015 recommended 5 yrs--with polypectomy History of hand surgery LEFT History of cholecystectomy Family History Father Colon cancer age 63 Other No family history of adverse response to anesthesia Denies family history of Ovarian cancer Prostate cancer Crohn's disease Breast cancer Lung cancer Ulcerative colitis Social History Smoking Status: Never smoker Second Hand Exposure: No; Do You Dip or Chew Tobacco: No; Hx Alcohol Use: No Hx Substance Use: No Preferred Language: Zimbabwean Communication Ability: Effective Visual Impairment: No Limitations Hearing Ability: Normal Supervisor Plasma Required: No marital status: Single Current Living Situation: Alone current occupational status: unemployed Feels Safe at Home: Yes Childhood Exposure to Second-Hand Smoke: No Diet: regular caffeine: Yes Dental Care, Regularly: No Physical Activity Frequency: 3-4 Times per Week Physical Activity Frequency Comment: WALKS Seatbelt Use: always Sunscreen Use: Yes Gender Identity: Male Assistive Devices: None Allergies Allergies Allergy/AdvReac Type Severity Reaction Status Date / Time aspirin Allergy Mild NOSE BLEEDS Verified 11/14/23 19:51 bupropion Allergy Mild RASH Verified 11/14/23 19:51 meloxicam Allergy Mild RASH Verified 11/14/23 19:51 Penicillins Allergy Mild Rash Verified 11/14/23 19:51 ciprofloxacin [From Cipro] Allergy Unknown Rash Verified 11/14/23 19:51 Home Meds Home Medications Medication Instructions Recorded Confirmed glucosamine HCl 500 mg tablet 500 mg PO QAM 04/26/19 11/14/23 acetaminophen 325 mg capsule 325 mg PO QID PRN Pain 05/12/20 11/14/23 (Tylenol) venlafaxine 150 mg 150 mg PO QAM 09/29/22 11/14/23 capsule,extended release 24 hr hydroxyzine HCl 50 mg tablet 50 mg PO HS PRN Anxiety 01/12/23 11/14/23 paliperidone palmitate 156 mg/mL 156 mg IM MONTHLY 11/14/23 11/14/23 intramuscular syringe (Invega Sustenna) Previous Rx's Medication Instructions Recorded Accu-Chek Guide Glucose Meter #1 ea 04/01/21 (blood-glucose meter) Accu-Chek Guide test strips (blood #200 ea 04/01/21 sugar diagnostic) lancets (Accu-Chek Softclix #100 ea 04/02/21 Lancets) empagliflozin 10 mg tablet 10 mg PO DAILY #90 tabs 06/30/23 (Jardiance) tamsulosin 0.4 mg capsule 0.4 mg PO DAILY #90 caps 07/06/23 metformin 500 mg tablet,extended 2,000 mg (4 x 500 mg) PO DAILY 10/03/23 release 24 hr #360 tabs glimepiride 4 mg tablet 4 mg PO DAILY #90 tabs 11/09/23 lisinopril 5 mg tablet 5 mg PO QAM #90 tabs 11/09/23 Results & Data (ED) Vital Signs Vital Signs - 24 hr 11/14/23 19:51 11/14/23 19:57 11/14/23 20:02 Temperature 37.4 C Temperature Source Oral Pulse Rate 107 H 96 H Pulse Rate [Apical] 101 H Respiratory Rate 24 23 Respiratory Effort / Characteristics Non-Labored Respiratory Depth Normal Respiratory Pattern Regular Blood Pressure 112/57 L Blood Pressure [Left Arm] 112/57 L Blood Pressure Mean 75 Blood Pressure Mean [Left Arm] 75 Pulse Oximetry 92 90 Oxygen Delivery Method Room Air Room Air Sepsis Recent Fever Within 48 Hours No Sepsis New/Unexplained Change in Mental Status No Sepsis Action Taken by Nursing No Action Required 11/14/23 21:00 11/14/23 23:00 11/14/23 23:52 Temperature Temperature Source Pulse Rate 109 H Pulse Rate [Apical] 94 H 105 H Respiratory Rate 23 Respiratory Effort / Characteristics Respiratory Depth Respiratory Pattern Blood Pressure Blood Pressure [Left Arm] 110/57 L 119/84 Blood Pressure Mean Blood Pressure Mean [Left Arm] 74 95 Pulse Oximetry 92 93 Oxygen Delivery Method Room Air Room Air Sepsis Recent Fever Within 48 Hours Sepsis New/Unexplained Change in Mental Status Sepsis Action Taken by Nursing 11/15/23 01:00 Temperature Temperature Source Pulse Rate Pulse Rate [Apical] 61 Respiratory Rate 19 Respiratory Effort / Characteristics Respiratory Depth Respiratory Pattern Blood Pressure Blood Pressure [Left Arm] 133/92 Blood Pressure Mean Blood Pressure Mean [Left Arm] 105 Pulse Oximetry 91 Oxygen Delivery Method Room Air Sepsis Recent Fever Within 48 Hours Sepsis New/Unexplained Change in Mental Status Sepsis Action Taken by Nursing Laboratory Data 11/14/23 20:34 11/14/23 20:34 Lab Results 11/14/23 Range/Units 20:34 WBC 12.81 H (4.8-10.8) K/ul RBC 4.68 L (4.70-6.10) M/uL Hgb 13.7 L (14.0-18.0) g/dl Hct 41.1 L (42.0-52.0) % MCV 87.8 (80.0-100.0) fL MCH 29.3 (25.0-34.0) pg MCHC 33.3 (32.0-36.0) g/dL RDW Std Deviation 46.1 (36.4-46.3) fL RDW Coeff of Izabela 14.4 (11.5-14.5) % Plt Count 88 L (130-400) K/uL MPV 12.4 (9.4-12.4) fL Immature Gran % (Auto) 0.5 % Neut % (Auto) 83.4 % Lymph % (Auto) 7.3 % [place] % (Auto) 5.9 % Eos % (Auto) 2.6 % Baso % (Auto) 0.3 % Neut # (Auto) 10.69 H (1.40-6.50) K/uL Lymph # (Auto) 0.93 L (1.20-3.40) K/uL [place] # (Auto) 0.75 H (0.11-0.59) K/uL Eos # (Auto) 0.33 (0.00-0.50) K/uL Baso # (Auto) 0.04 (0.00-0.20) K/uL Immature Gran # (Auto) 0.07 (0.01-0.20) K/uL Sodium 132 L (136-145) mmol/L Potassium 4.6 (3.5-5.1) mmol/L Chloride 99 (98-107) mmol/L Carbon Dioxide 22 (21-32) mmol/L Anion Gap 11 (3-11) BUN 38 H (6-23) mg/dl Creatinine 2.83 H (0.6-1.4) mg/dl Est Cr Clr Drug Dosing 41.9 ml/min Est GFR ( Amer) 27.4 ml/min Est GFR (Non-Af Amer) 23.6 ml/min BUN/Creatinine Ratio 13.4 (10-20) Glucose 169 H (70-99(Fasting)) mg/dl Calcium 9.6 (8.6-10.3) mg/dl Magnesium 2.0 (1.7-2.4) mg/dl Total Bilirubin 1.1 H (0.2-1.0) mg/dl AST 574 H (13-39) U/L ALT 76 H (7-52) U/L Alkaline Phosphatase 98 (34-104) U/L Total Creatine Kinase 50853 H (30-223) U/L Total Protein 7.0 (6.0-8.3) gm/dl Albumin 3.7 (3.4-5.0) gm/dl Globulin 3.3 (2.5-4.0) gm/dl Albumin/Globulin Ratio 1.1 (0.9-2) Administered Medications Discontinued Medications Sodium Chloride (Nss) 1,000 mls @ 999 mls/hr IV .Q1H1M ONE Stop: 11/14/23 21:22 Last Admin: 11/14/23 20:37 Dose: 999 mls/hr Documented By: LAKIA Lactated Ringer's (Lr) 1,000 mls @ 999 mls/hr IV .Q1H1M ONE Stop: 11/15/23 00:04 Last Admin: 11/15/23 01:07 Dose: 999 mls/hr Documented By: [facility] Imaging Data Radiologist's Impression: Cervical Spine CT 11/14/23 20:22 Exam(s): CT C SPINE EXAM: CT Cervical Spine Without Intravenous Contrast CLINICAL HISTORY: Reason for exam: trauma. TECHNIQUE: Axial computed tomography images of the cervical spine without intravenous contrast. CTDI is 26.96 mGy and DLP is 542.95 mGy-cm. Automated exposure control was utilized for the study. A dose lowering technique was utilized adhering to the principles of ALARA. COMPARISON: CT C-spine on 10/01/2020 FINDINGS: Bones: Straightening of the normal cervical lordosis. Ossifications in the nuchal ligament are likely related to remote trauma. No acute fracture or bony lesion. Disc spaces: No subluxation. Degenerative changes of the spine with flowing osteophytes and fusion, suggesting DISH. Soft tissues: Normal. IMPRESSION: No acute traumatic abnormality. Electronically signed by: Madai Ortega M.D. 11/14/23 21:[address] 11/14/23 20:22 Exam(s): CT HEAD Without Contrast EXAM: CT Head Without Intravenous Contrast CLINICAL HISTORY: Reason for exam: trauma. TECHNIQUE: Axial computed tomography images of the head/brain without intravenous contrast. CTDI is 17.41 mGy and DLP is 278.62 mGy-cm. Automated exposure control was utilized for the study. A dose lowering technique was utilized adhering to the principles of ALARA. COMPARISON: CT head on 10/01/2020 FINDINGS: Exam is limited by motion artifact. Brain: No acute infarct or hemorrhage identified. No extra-axial fluid collection. No mass effect or midline shift. Scattered areas of hypoattenuation in the supratentorial white matter likely represent chronic small vessel ischemic changes. Small remote lacunar infarct in the left basal ganglia. Ventricles and sulci: Prominence of the ventricles and sulci is likely secondary to cerebral volume loss. Bones: Normal. No bony lesion or acute fracture. Subcutaneous tissues: Normal. Sinuses: Normal. No air-fluid levels or mucosal thickening. Mastoid air cells: Normal. Orbits: Bilateral lens implants. Other: Atherosclerotic calcifications in the intracranial vasculature. IMPRESSION: 1. No definite acute intracranial abnormality. Exam is limited by motion artifact. 2. Chronic small vessel ischemic changes and cerebral volume loss. Electronically signed by: Madai Ortega M.D. 11/14/23 21:19 PM Discharge Plan Visit Data Chief Complaint: Fall Stated Complaint: FELL AT @1430. UNSTEADY GAIT TODAY ED Provider: Kathy He Discharge Problem: CHAD (acute kidney injury), CHI (closed head injury), Contusion of scalp, Fall, Rhabdomyolysis, Abnormal LFTs Forms Stand Alone Forms: [facility] US Toxicology Prescriptions Prescriptions: No Action (DME) blood-glucose meter [Accu-Chek Guide Glucose Meter] Misc See Rx Instructions .Route Qty: 1 0RF Rx Instructions: TEST TWICE DAILY. DX: E13.9 (DME) Accu-Chek Guide test strips Strip See Rx Instructions .Route Qty: 200 0RF Rx Instructions: TEST TWICE DAILY. DX: E13.9 (DME) lancets [Accu-Chek Softclix Lancets] Misc See Rx Instructions .Route Qty: 100 5RF Rx Instructions: test twice daily Jardiance 10 mg tablet 10 mg PO DAILY Qty: 90 3RF tamsulosin 0.4 mg capsule 0.4 mg PO DAILY Qty: 90 3RF metformin 500 mg tablet extended release 24 hr 2,000 mg PO DAILY Qty: 360 3RF lisinopril 5 mg tablet 5 mg PO QAM Qty: 90 3RF glimepiride 4 mg tablet 4 mg PO DAILY Qty: 90 3RF Hold Instructions: determining dosing glucosamine HCl 500 mg tablet 500 mg PO QAM hydroxyzine HCl 50 mg tablet 50 mg PO HS PRN (Reason: Anxiety) venlafaxine 150 mg capsule,extended release 24hr 150 mg PO QAM acetaminophen [Tylenol] 325 mg Capsule 325 mg PO QID PRN (Reason: Pain) Invega Sustenna 156 mg/mL syringe 156 mg IM MONTHLY Referrals Referrals: David Pierre DO [Primary Care Provider] -
[2023-11-14 20:55] LABS: Basophils # (auto) 0.04 K/uL (0.00-0.20); Basophils % (auto) 0.3 %; Eosinophils # (auto) 0.33 K/uL (0.00-0.50); Eosinophils % (auto) 2.6 %; Hematocrit (blood only) 41.1 % (42.0-52.0); Hemoglobin 13.7 g/dl (14.0-18.0); Immature Granulocytes # (auto) 0.07 K/uL (0.01-0.20); Immature Granulocytes % (auto) 0.5 %; Lymphocytes # (auto) 0.93 K/uL (1.20-3.40); Lymphocytes % (auto) 7.3 %; Mean Corpuscular Hemoglobin 29.3 pg (25.0-34.0); Mean Corpuscular Hgb Conc 33.3 g/dL (32.0-36.0); Mean Corpuscular Volume 87.8 fL (80.0-100.0); Mean Platelet Volume 12.4 fL (9.4-12.4); Monocytes # (auto) 0.75 K/uL (0.11-0.59); Monocytes % (auto) 5.9 %; Neutrophils # (auto) 10.69 K/uL (1.40-6.50); Neutrophils % (auto) 83.4 %; Platelet Count 88 K/uL (130-400); RDW Coefficient of Variation 14.4 % (11.5-14.5); RDW Standard Deviation 46.1 fL (36.4-46.3); Red Blood Count 4.68 M/uL (4.70-6.10); White Blood Count 12.81 K/ul (4.8-10.8)
[2023-11-14 21:13] LABS: Albumin Globulin Ratio 1.1 (0.9-2); Albumin Level 3.7 gm/dl (3.4-5.0); BUN Creatinine Ratio 13.4 (10-20); Bilirubin,Total 1.1 mg/dl (0.2-1.0); Calcium 9.6 mg/dl (8.6-10.3); Creatinine Clr Calc Pharmacy 41.9 ml/min; Est GFR (African American) 27.4 ml/min; Est GFR (Non-African American) 23.6 ml/min; Globulin 3.3 gm/dl (2.5-4.0); Potassium 4.6 mmol/L (3.5-5.1)
--- NOTE | 2023-11-14 21:21 | CT Scan Report ---
Exam(s): CT HEAD Without Contrast EXAM: CT Head Without Intravenous Contrast CLINICAL HISTORY: Reason for exam: trauma. TECHNIQUE: Axial computed tomography images of the head/brain without intravenous contrast. CTDI is 17.41 mGy and DLP is 278.62 mGy-cm. Automated exposure control was utilized for the study. A dose lowering technique was utilized adhering to the principles of ALARA. COMPARISON: CT head on 10/01/2020 FINDINGS: Exam is limited by motion artifact. Brain: No acute infarct or hemorrhage identified. No extra-axial fluid collection. No mass effect or midline shift. Scattered areas of hypoattenuation in the supratentorial white matter likely represent chronic small vessel ischemic changes. Small remote lacunar infarct in the left basal ganglia. Ventricles and sulci: Prominence of the ventricles and sulci is likely secondary to cerebral volume loss. Bones: Normal. No bony lesion or acute fracture. Subcutaneous tissues: Normal. Sinuses: Normal. No air-fluid levels or mucosal thickening. Mastoid air cells: Normal. Orbits: Bilateral lens implants. Other: Atherosclerotic calcifications in the intracranial vasculature. IMPRESSION: 1. No definite acute intracranial abnormality. Exam is limited by motion artifact. 2. Chronic small vessel ischemic changes and cerebral volume loss. Electronically signed by: Madai Ortega M.D. 11/14/23 21:19 PM
--- NOTE | 2023-11-14 21:25 | CT Scan Report ---
Exam(s): CT C SPINE EXAM: CT Cervical Spine Without Intravenous Contrast CLINICAL HISTORY: Reason for exam: trauma. TECHNIQUE: Axial computed tomography images of the cervical spine without intravenous contrast. CTDI is 26.96 mGy and DLP is 542.95 mGy-cm. Automated exposure control was utilized for the study. A dose lowering technique was utilized adhering to the principles of ALARA. COMPARISON: CT C-spine on 10/01/2020 FINDINGS: Bones: Straightening of the normal cervical lordosis. Ossifications in the nuchal ligament are likely related to remote trauma. No acute fracture or bony lesion. Disc spaces: No subluxation. Degenerative changes of the spine with flowing osteophytes and fusion, suggesting DISH. Soft tissues: Normal. IMPRESSION: No acute traumatic abnormality. Electronically signed by: Madai Ortega M.D. 11/14/23 21:25 PM
[2023-11-15] MEDS: LACTATED RINGER'S 1,000 ML IV ONE (01:07)
[2023-11-15] MEDS ORDERED: hydrOXYzine HCl 25 MG TAB PO PRN (01:29)
[2023-11-15] MEDS ORDERED: GLUCOSE 10 TAB/TUBE PO PRN (01:29)
[2023-11-15] MEDS ORDERED: GLUCAGON FOR INJ 1 MG VIAL SQ PRN (01:29)
[2023-11-15] MEDS ORDERED: GLUCOSE 40% GEL 15 GM TUBE PO PRN (01:29)
[2023-11-15] MEDS ORDERED: DEXTROSE 50% 50 ML SYRINGE IV PRN (01:29)
[2023-11-15] MEDS ORDERED: CARBOHYDRATES FOR HYPOGLYCEMIA PO PRN (01:29)
[2023-11-15] MEDS: LACTATED RINGER'S 1,000 ML IV SCH (03:13)
[2023-11-15] MEDS: ACETAMINOPHEN 325 MG TAB PO PRN (04:02)
--- NOTE | 2023-11-15 04:12 | History & Physical Report ---
Date of Service November 15, 2023 Assessment & Plan (1) Rhabdomyolysis: Plan: 58yo male with history of CKD-III presenting after an unwitnessed fall at home - prolonged down time of several hours. Patient with rhabdomyolysis - [id number] Bladder scan x 2 performed in the ER with 174mL urine in the bladder -Admit to medical -Continue aggressive IVF - LR at 200mL/hr x 3 liters ordered -Monitor strict intake/output -Bladder scan with straight cath as needed. Patient refuses Diego catheter placement at this time. Patient with elevation of FAG=800 and ALT=76, has history of NAFLD. Numbers much higher than previously (AST=18, ALT=26 on 08/13/23). Rhabdomyolysis possibly contributing as well -Repeat BMP, LFTs and CK in the AM -If numbers fail to improve would consider additional workup and imaging (2) CHAD (acute kidney injury): Plan: Patient with CHAD on baseline CKD-III. Possibly secondary to rhabdomyolysis vs dehydration vs medication effects - patient on Lisinopril -UA ordered - not yet collected -Check urine Na and Cr -Continue IVF, strict monitoring of urine output -Encourage Diego catheter placement - patient has refused -Renal dosing where needed -Avoid nephrotoxic agents (3) Diabetes mellitus type 2 in obese: Plan: Overall well controlled. Last [id number]=9.4 on 08/13/23 -Lantus 7u BID -ISS -Hold Glimepiride -Continue Empagliflozin (4) Idiopathic thrombocytopenic purpura: Plan: Chronic. Stable. No bleeding -Monitor CBC (5) BPH with obstruction/lower urinary tract symptoms: Plan: Chronic. Stable -Continue Flomax -Closely monitor UOP Admission and Anticipated Discharge Date Admission Date: November 15, 2023 History of Present Illness Chief Complaint: fall, rhabdomyolysis Primary Care Provider: David Pierre DO Arturo Rey is a 48yo male with history of SARINA, HTN, HLP and ITP presenting from home after an unwitnessed fall. Patient lives with his mother. He got tangled in a blanket this afternoon and fell to the floor. He was unable to get up for several hours. His mother found him and called the neighbor to help get him up. They report he had some weakness in the legs and difficulty ambulating. He also reports difficulty urinating. Was recently started on Flomax several months ago. Patient with no complaints. He denies fever, chills, chest pain, cough or SOB. Allergies Allergy/AdvReac Type Severity Reaction Status Date / Time aspirin Allergy Mild NOSE BLEEDS Verified 11/14/23 19:51 bupropion Allergy Mild RASH Verified 11/14/23 19:51 meloxicam Allergy Mild RASH Verified 11/14/23 19:51 Penicillins Allergy Mild Rash Verified 11/14/23 19:51 ciprofloxacin [From Cipro] Allergy Unknown Rash Verified 11/14/23 19:51 Home Medications Medication Instructions Recorded Confirmed Type glucosamine HCl 500 mg tablet 500 mg PO QAM 04/26/19 11/14/23 History acetaminophen 325 mg capsule 325 mg PO QID PRN Pain 05/12/20 11/14/23 History (Tylenol) Accu-Chek Guide Glucose Meter #1 ea 04/01/21 10/26/23 Rx (blood-glucose meter) Accu-Chek Guide test strips (blood #200 ea 04/01/21 10/26/23 Rx sugar diagnostic) lancets (Accu-Chek Softclix #100 ea 04/02/21 10/26/23 Rx Lancets) venlafaxine 150 mg 150 mg PO QAM 09/29/22 11/14/23 History capsule,extended release 24 hr hydroxyzine HCl 50 mg tablet 50 mg PO HS PRN Anxiety 01/12/23 11/14/23 History empagliflozin 10 mg tablet 10 mg PO DAILY #90 tabs 06/30/23 11/14/23 Rx (Jardiance) tamsulosin 0.4 mg capsule 0.4 mg PO DAILY #90 caps 07/06/23 11/14/23 Rx metformin 500 mg tablet,extended 2,000 mg (4 x 500 mg) PO DAILY 10/03/23 11/14/23 Rx release 24 hr #360 tabs glimepiride 4 mg tablet 4 mg PO DAILY #90 tabs 11/09/23 11/14/23 Rx lisinopril 5 mg tablet 5 mg PO QAM #90 tabs 11/09/23 11/14/23 Rx paliperidone palmitate 156 mg/mL 156 mg IM MONTHLY 11/14/23 11/14/23 History intramuscular syringe (Invega Sustenna) Past Med/Surg History Medical History Complex renal cyst Repeat US 05/2023. no further screening Eczema Hyperlipidemia History of colon polyps Morbid obesity with BMI of 45.0-49.9, adult Kidney stones Cervicalgia CKD stage 3 due to type 2 diabetes mellitus BPH with obstruction/lower urinary tract symptoms Benign hypertension (01/22/13) Cyst of kidney, acquired Gastroesophageal reflux disease Idiopathic thrombocytopenic purpura Inguinal hernia Left Side Lumbar radiculopathy Obstructive sleep apnea (adult) (pediatric) (01/22/13) does not use CPAP as ordered Tubulovillous adenoma of colon CHAD (acute kidney injury) CHAD 03/2019 in setting of ureteral stones (b/l stent placed) Fatty liver disease, nonalcoholic (Unknown) Diverticulitis Depression Anxiety Surgical History History of bilateral cataract extraction History of cystoscopy x2--last 05/2019. Cystoscopy b/l stents: 03/26/19: Grade 2 view, MAC#3, ETT 7.5 at [facility] (no anesthesia complications per anesthesia progress note but patient reports post-op confusion) History of colonoscopy 04/2015 recommended 5 yrs--with polypectomy History of hand surgery LEFT History of cholecystectomy Family History Father Colon cancer age 63 Other No family history of adverse response to anesthesia Denies family history of Ovarian cancer Prostate cancer Crohn's disease Breast cancer Lung cancer Ulcerative colitis Social History Smoking Status: Never smoker Second Hand Exposure: No; Do You Dip or Chew Tobacco: No; Tobacco Cessation Education Requested by Patient: No Hx Alcohol Use: No Hx Substance Use: No Preferred Language: Spanish Communication Ability: Effective Visual Impairment: No Limitations Hearing Ability: Normal Boiler Maker Required: No Beliefs That Will Affect Care: None marital status: Single Current Living Situation: Parent current occupational status: unemployed Feels Safe at Home: Yes Safety Concerns: Feels Safe At This Time Childhood Exposure to Second-Hand Smoke: No Diet: regular caffeine: Yes Dental Care, Regularly: No Physical Activity Frequency: 3-4 Times per Week Physical Activity Frequency Comment: WALKS Seatbelt Use: always Sunscreen Use: Yes Gender Identity: Male Assistive Devices: Other Assistive Devices Comment: medical alert necklace Review of Systems Review of Systems: All systems reviewed & are unremarkable except as noted in HPI & below Physical Exam Physical Exam: General: patient resting comfortably, NAD, non-toxic in appearance, AA&O x 4 Skin: warm, dry, intact, no rashes or lesions HEENT: NC/AT, PERRL, EOMI, anicteric sclera, conjunctiva without injection, external ear normal to inspection and nontender, nares patent, moist mucus membranes, dentition intact, no oropharyngeal lesions, neck supple, trachea midline, no LAD, no thyromegaly, no JVD Heart: +S1/S2, regular, no m/r/g Lungs: equal air entry bilaterally, no rales/rhonchi/wheezes Abd: +BS, soft, NT/ND, no masses/organomegaly/ascites Ext: warm, 2+ pulses in UE/LE bilaterally, no clubbing/cyanosis or edema Neuro: nonfocal, patient AA&O x 4, speech intact, no facial droop, moving all extremities on command with equal strength 5/5 Results & Data Results & Data Vital Signs (Past 12 Hours) Vital Signs Temp Pulse Pulse Resp BP BP Pulse Ox 11/15/23 01:35 37.5 C 103 H 18 143/70 H 93 11/15/23 01:00 61 19 133/92 91 11/14/23 23:52 109 H 11/14/23 23:00 105 H 119/84 93 11/14/23 21:00 94 H 23 110/57 L 92 11/14/23 20:02 96 H 11/14/23 19:57 101 H 23 112/57 L 90 11/14/23 19:51 37.4 C 107 H 24 112/57 L 92 O2 Del Method 11/15/23 01:35 Room Air 11/15/23 01:00 Room Air 11/14/23 23:52 11/14/23 23:00 Room Air 11/14/23 21:00 Room Air 11/14/23 20:02 11/14/23 19:57 Room Air 11/14/23 19:51 Room Air Laboratory Results Laboratory Results WBC 12.81 K/ul (4.8-10.8) H 11/14/23 20:34 RBC 4.68 M/uL (4.70-6.10) L 11/14/23 20:34 Hgb 13.7 g/dl (14.0-18.0) L 11/14/23 20:34 Hct 41.1 % (42.0-52.0) L 11/14/23 20:34 MCV 87.8 fL (80.0-100.0) 11/14/23 20:34 MCH 29.3 pg (25.0-34.0) 11/14/23 20:34 MCHC 33.3 g/dL (32.0-36.0) 11/14/23 20:34 RDW Std Deviation 46.1 fL (36.4-46.3) 11/14/23:34 RDW Coeff of Izabela 14.4 % (11.5-14.5) 11/14/23 20:34 Plt Count 88 K/uL (130-400) L 11/14/23 20:34 MPV 12.4 fL (9.4-12.4) 11/14/23 20:34 Immature Gran % (Auto) 0.5 % 11/14/23 20:34 Neut % (Auto) 83.4 % 11/14/23 20:34 Lymph % (Auto) 7.3 % 11/14/23 20:34 Bibb % (Auto) 5.9 % 11/14/23 20:34 Eos % (Auto) 2.6 % 11/14/23 20:34 Baso % (Auto) 0.3 % 11/14/23 20:34 Neut # (Auto) 10.69 K/uL (1.40-6.50) H 11/14/23 20:34 Lymph # (Auto) 0.93 K/uL (1.20-3.40) L 11/14/23 20:34 Bibb # (Auto) 0.75 K/uL (0.11-0.59) H 11/14/23 20:34 Eos # (Auto) 0.33 K/uL (0.00-0.50) 11/14/23 20:34 Baso # (Auto) 0.04 K/uL (0.00-0.20) 11/14/23 20:34 Immature Gran # (Auto) 0.07 K/uL (0.01-0.20) 11/14/23 20:34 Sodium 132 mmol/L (136-145) L 11/14/23 20:34 Potassium 4.6 mmol/L (3.5-5.1) 11/14/23 20:34 Chloride 99 mmol/L (98-107) 11/14/23 20:34 Carbon Dioxide 22 mmol/L (21-32) 11/14/23 20:34 Anion Gap 11 (3-11) 11/14/23 20:34 BUN 38 mg/dl (6-23) H 11/14/23 20:34 Creatinine 2.83 mg/dl (0.6-1.4) H 11/14/23 20:34 Est Cr Clr Drug Dosing 41.9 ml/min 11/14/23 20:34 Est GFR ( Amer) 27.4 ml/min 11/14/23 20:34 Est GFR (Non-Af Amer) 23.6 ml/min 11/14/23 20:34 BUN/Creatinine Ratio 13.4 (10-20) 11/14/23 20:34 Glucose 169 mg/dl (70-99(Fasting)) H 11/14/23 20:34 Calcium 9.6 mg/dl (8.6-10.3) 11/14/23 20:34 Magnesium 2.0 mg/dl (1.7-2.4) 11/14/23 20:34 Total Bilirubin 1.1 mg/dl (0.2-1.0) H 11/14/23 20:34 AST 574 U/L (13-39) H 11/14/23 20:34 ALT 76 U/L (7-52) H 11/14/23 20:34 Alkaline Phosphatase 98 U/L (34-104) 11/14/23 20:34 Total Creatine Kinase 31702 U/L (30-223) H 11/14/23 20:34 Total Protein 7.0 gm/dl (6.0-8.3) 11/14/23 20:34 Albumin 3.7 gm/dl (3.4-5.0) 11/14/23 20:34 Globulin 3.3 gm/dl (2.5-4.0) 11/14/23 20:34 Albumin/Globulin Ratio 1.1 (0.9-2) 11/14/23 20:[address] 11/14/23 20:22 Exam(s): CT C SPINE EXAM: CT Cervical Spine Without Intravenous Contrast CLINICAL HISTORY: Reason for exam: trauma. TECHNIQUE: Axial computed tomography images of the cervical spine without intravenous contrast. CTDI is 26.96 mGy and DLP is 542.95 mGy-cm. Automated exposure control was utilized for the study. A dose lowering technique was utilized adhering to the principles of ALARA. COMPARISON: CT C-spine on 10/01/2020 FINDINGS: Bones: Straightening of the normal cervical lordosis. Ossifications in the nuchal ligament are likely related to remote trauma. No acute fracture or bony lesion. Disc spaces: No subluxation. Degenerative changes of the spine with flowing osteophytes and fusion, suggesting DISH. Soft tissues: Normal. IMPRESSION: No acute traumatic abnormality. Electronically signed by: Madai Ortega M.D. 11/14/23 21:[address] 11/14/23 20:22 Exam(s): CT HEAD Without Contrast EXAM: CT Head Without Intravenous Contrast CLINICAL HISTORY: Reason for exam: trauma. TECHNIQUE: Axial computed tomography images of the head/brain without intravenous contrast. CTDI is 17.41 mGy and DLP is 278.62 mGy-cm. Automated exposure control was utilized for the study. A dose lowering technique was utilized adhering to the principles of ALARA. COMPARISON: CT head on 10/01/2020 FINDINGS: Exam is limited by motion artifact. Brain: No acute infarct or hemorrhage identified. No extra-axial fluid collection. No mass effect or midline shift. Scattered areas of hypoattenuation in the supratentorial white matter likely represent chronic small vessel ischemic changes. Small remote lacunar infarct in the left basal ganglia. Ventricles and sulci: Prominence of the ventricles and sulci is likely secondary to cerebral volume loss. Bones: Normal. No bony lesion or acute fracture. Subcutaneous tissues: Normal. Sinuses: Normal. No air-fluid levels or mucosal thickening. Mastoid air cells: Normal. Orbits: Bilateral lens implants. Other: Atherosclerotic calcifications in the intracranial vasculature. IMPRESSION: 1. No definite acute intracranial abnormality. Exam is limited by motion artifact. 2. Chronic small vessel ischemic changes and cerebral volume loss. Electronically signed by: Madai Ortega M.D. 11/14/23 21:19 PM PG Care Time/CCT Total # of Minutes Spent Total Time Spent with Patient: Total time spent is greater than 50% in coordination of care (as documented) at patient's floor/unit and/or counseling patient: Coding Level of Care Code 58458 INT INP/OBS CARE 3/75MIN Diagnoses Rhabdomyolysis M62.82 CHAD (acute kidney injury) N17.9 Diabetes mellitus type 2 in obese E11.69; E66.9 Idiopathic thrombocytopenic purpura D69.3 BPH with obstruction/lower urinary tract symptoms N40.1; N13.8
--- NOTE | 2023-11-15 06:58 | XRay Report ---
XR chest 1V portable HISTORY: trauma COMPARISON: Chest 04/07/2019. FINDINGS: There are low lung volumes. No pneumothorax. No pleural effusions. The heart remains enlarg ed. No evidence for pulmonary edema. No new focal lung consolidations to suggest a pneumonia. No acut e fractures identified. IMPRESSION: Stable cardiomegaly. Otherwise, no acute process within the chest. ACT 112: Negative or not required by law. Electronically signed by: Hema Guevara M.D. 11/15/2023 6:57 AM
[2023-11-15 08:15] LABS: Hematocrit (blood only) 39.7 % (42.0-52.0); Hemoglobin 13.3 g/dl (14.0-18.0); Mean Corpuscular Hemoglobin 29.1 pg (25.0-34.0); Mean Corpuscular Hgb Conc 33.5 g/dL (32.0-36.0); Mean Corpuscular Volume 86.9 fL (80.0-100.0); Mean Platelet Volume 12.7 fL (9.4-12.4); Platelet Count 80 K/uL (130-400); RDW Coefficient of Variation 14.2 % (11.5-14.5); RDW Standard Deviation 45.1 fL (36.4-46.3); Red Blood Count 4.57 M/uL (4.70-6.10); White Blood Count 11.58 K/ul (4.8-10.8)
[2023-11-15] MEDS: TAMSULOSIN HCL 0.4 MG CAP PO SCH (08:17)
[2023-11-15] MEDS: VENLAFAXINE HCL XR 150 MG CAPXR PO SCH (08:17)
[2023-11-15] MEDS: LANTUS PER UNIT CHARGE SQ SCH (08:19)
[2023-11-15] MEDS: INSULIN ASPART PER UNIT CHARGE SC SCH (08:19)
[2023-11-15 08:47] LABS: BUN Creatinine Ratio 13.4 (10-20); Calcium 8.8 mg/dl (8.6-10.3); Creatinine Clr Calc Pharmacy 32.8 ml/min; Est GFR (African American) 20.6 ml/min; Est GFR (Non-African American) 17.8 ml/min; Potassium 4.5 mmol/L (3.5-5.1)
--- NOTE | 2023-11-15 08:48 | XRay Report ---
XR pelvis 1-2V routine CLINICAL HISTORY: trauma TECHNIQUE: A single frontal view of the pelvis was obtained. Comparison: Comparison is made to abdomen radiograph 05/25/[address] abdomen pelvis 08/01/2019 FINDINGS: There is no evidence of an acute fracture. Joint spaces are well-preserved. No soft tissue abnormalit y is seen. IMPRESSION: No evidence of acute osseous injury. ACT 112: Negative or not required by law. Electronically signed by: Aman Esparza M.D. 11/15/2023 8:47 AM
[2023-11-15 09:09] LABS: Albumin Level 3.4 gm/dl (3.4-5.0); Bilirubin Direct 0.3 mg/dl (0-0.2); Bilirubin,Total 1.4 mg/dl (0.2-1.0); Total Protein 6.5 gm/dl (6.0-8.3)
[2023-11-15] MEDS: SODIUM CHLORIDE 0.9% 1,000 ML IV SCH (14:05)
[2023-11-15 14:45] LABS: Creatinine Urine Random 111.9 mg/dl
[2023-11-15 14:53] LABS: Appearance Urine Turbid (Clear); Bacteria Urine Automated 4+ (None Seen); Bilirubin Urine Negative (Negative); Blood Urine 3+ (Negative); Cast Urine Automated 0-2 /lpf (0-2); Color Urine Yellow; Epithelial Cell Urine Auto 0-2 /hpf (0-2); Glucose Urine UA 1+ (Negative); Ketones Urine Trace (Negative); Leukocyte Esterase Urine 3+ (Negative); Nitrite Urine Negative (Negative); Protein Urine 3+ (Negative); Specific Gravity Urine 1.015 (1.000-1.030); Urobilinogen Urine Negative (Negative); WBC Urine Automated >50 /hpf (0-5)
[2023-11-15] MEDS: cefTRIAXone SODIUM 2,000 MG/50 ML BAG IV SCH (14:53)
--- NOTE | 2023-11-15 22:52 | Communication Note ---
Date of Service: November 15, 2023 Patient with metabolic encephalopathy. Patient developed fever and tachycardia today at 1pm. Patient also having urinary retention. Concern for UTI. obtained UA, urine culture, blood culture. placed on ceftriaxone IV.
[2023-11-15] MEDS: ACETAMINOPHEN 1,000 MG/100 ML VIAL IV STA (23:03)
[2023-11-15] MEDS: ALBUT/IPRATROP 3MG/0.5MG NEB 3 ML VIAL NEB STA (23:35)
--- NOTE | 2023-11-16 00:01 | Communication Note ---
Date of Service: November 16, 2023 I was notified by nursing that Mr. Rey was identified as high risk on EWS due to current vitals of HR 108, resp 22, temperature 39.4, BP 134/83% and oxygen s aturation of 95% on 3L. The patient was reported by nursing to be very SOB with exertion and wheezy. I went to bedside and assessed the patient, wheezes noted as well as mild tachypnea. I ordered a new chest x-ray, duoneb treatment and 1000mg IV Tylenol for his fever. The patient was started on Ceftriaxone this afternoon for possible UTI. Upon further chart review, it was noted that the patient had only produced an output of ~450mL in the past 12 hours despite receiving 200cc/hr IVF since admission due to his rhabdomyolysis. His creatinine from 2.83 to 3.58 in the past day, he also has a history of post obstructive CHAD from uric acid kidney stones 03/2019- considering this history, an order was placed for CT A/P to rule out any renal stones or other renal process. His tachypnea and oxygen requirement is likely secondary to fluid overload, IVF fluid rate was decreased from 200cc/hr to 100cc/hr for his rhabdomyolysis. Consultation for nephrology was placed.
--- NOTE | 2023-11-16 04:08 | Electrocardiogram Report ---
Test Reason : Blood Pressure : / mmHG Vent. Rate : 104 BPM Atrial Rate : 104 BPM P-R Int : 114 ms QRS Dur : 108 ms QT Int : 346 ms P-R-T Axes : 000 -38 009 degrees QTc Int : 454 ms Sinus tachycardia Left axis deviation Abnormal ECG When compared with ECG of 06-APR-2019 23:28, T wave amplitude has decreased in Anterior leads Confirmed by Nawaf Davenport ([id number]) on 11/16/2023 4:08:38 AM Referred By: REFERRED SELF Confirmed By:Nawaf Davenport
--- NOTE | 2023-11-16 07:01 | XRay Report ---
XR chest 1V portable CLINICAL HISTORY: Hypoxia. COMPARISON STUDY: Chest radiograph November 14, 2023. FINDINGS: There is no pneumothorax or pleural effusion. Linear left basilar opacity has developed. Ca rdiomegaly is again noted. Mediastinal contours are stable. There is no evidence for pulmonary edema. IMPRESSION: Interval development of left basilar opacity. The configuration favors atelectasis. Alth ough less likely, an infectious process could appear similar. ACT 112: Negative or not required by law. Electronically signed by: Matthew Mccracken M.D. 11/16/2023 6:59 AM
[2023-11-16 08:26] LABS: Hematocrit (blood only) 39.9 % (42.0-52.0); Hemoglobin 13.6 g/dl (14.0-18.0); Mean Corpuscular Hemoglobin 29.2 pg (25.0-34.0); Mean Corpuscular Hgb Conc 34.1 g/dL (32.0-36.0); Mean Corpuscular Volume 85.6 fL (80.0-100.0); Mean Platelet Volume 12.8 fL (9.4-12.4); Platelet Count 76 K/uL (130-400); RDW Coefficient of Variation 14.2 % (11.5-14.5); Red Blood Count 4.66 M/uL (4.70-6.10); White Blood Count 9.35 K/ul (4.8-10.8)
[2023-11-16 09:11] LABS: BUN Creatinine Ratio 12.6 (10-20); Calcium 8.2 mg/dl (8.6-10.3); Creatinine Clr Calc Pharmacy 20.5 ml/min; Est GFR (African American) 11.7 ml/min; Est GFR (Non-African American) 10.1 ml/min; Potassium 4.8 mmol/L (3.5-5.1)
[2023-11-16 09:57] LABS: C Reactive Protein 31.56 mg/dl (0-0.5)
[2023-11-16] MEDS: PLASMA-LYTE A 1,000 ML IV ONE (11:11)
[2023-11-16] MEDS: SODIUM CHLORIDE 1 GM TABLET PO STA (11:21)
[2023-11-16] MEDS: SODIUM BICARBONATE 8.4% 75 MEQ in SODIUM CHLORIDE 0.45 % 1,000 ML IV SCH (11:21)
[2023-11-16 11:40] LABS: Influenza A virus by PCR Negative (Neg); Influenza B virus by PCR Negative (Neg); RSV by PCR Negative (Neg); SARS CoV2 RNA(COVID-19) Ceph NEGATIVE (Negative)
--- NOTE | 2023-11-16 12:00 | CT Scan Report ---
CT OF THE ABDOMEN AND PELVIS WITHOUT CONTRAST CLINICAL HISTORY: Oliguria, ?renal stones? COMPARISON STUDY: CT of the abdomen and pelvis July 30, 2019. Renal ultrasound June 08, 2023. TECHNIQUE: Axial images of the abdomen and pelvis were obtained without IV contrast. Images were revi ewed in the axial, sagittal, and coronal planes. Automated exposure control was utilized for the anand dy. A dose lowering technique was utilized adhering to the principles of ALARA. FINDINGS: There are small bilateral pleural effusions. Subpleural lower lobe opacities favor atelecta sis. Moderate circumferential wall thickening of the distal esophagus is noted with minimal adjacent stranding. No pneumatosis, free air or portal venous gas is present. Evaluation of the abdomen and pe lvis is suboptimal on this unenhanced exam. There is a 3 mm nonobstructing right renal calculus. Ther e are no ureteral calculi. There is no hydronephrosis. A Diego balloon and gas within the bladder are present. Low-attenuation bilateral renal lesions were shown to reflect cysts on prior renal ultrasou nd. There is slight asymmetric right perinephric stranding. There is mild stranding adjacent to the p roximal duodenum. There is no extraluminal gas. No fluid collection is present. There is no evidence for a bowel obstruction. Colonic diverticulosis without evidence for acute diverticulitis. Probable h epatic steatosis. Unenhanced images of the spleen, adrenal glands and pancreas are unremarkable. Mild diffuse increased sclerosis of visualized skeletal structures is unchanged. Mild body wall edema. IMPRESSION: 1. 3 mm nonobstructing right renal calculus. No ureteral calculi or hydronephrosis. 2. Circumferential wall thickening of the distal esophagus with mild adjacent stranding. This favors esophagitis. 3. Small bilateral pleural effusions with subpleural opacity suggestive of atelectasis. 4. Mild stranding and fluid adjacent to the proximal duodenum. This is likely related to volume overl oad. However, other etiologies such as duodenitis or within the differential. No extraluminal gas. 5. Slight asymmetric right perinephric stranding. This is of questionable significance although could be correlated with urinalysis. ACT 112: Negative or not required by law. Electronically signed by: Matthew Mccracken M.D. 11/16/2023 11:58 AM
--- NOTE | 2023-11-16 12:32 | Nephrology Consultation ---
Date of Consultation November 16, 2023 Assessment & Plan (1) CHAD (acute kidney injury): Non-oliguric. Increased TBW. Associated hyponatremia and mixed AG/NAGMA noted. Electrolytes acceptable otherwise. There is no emergent indication for HD but potential future indications were discussed with Arturo this morning. Urine output low but appears to be increasing. Thankfully, CK is starting to trend downward. IVF was switched to 1/2NS+NaHCO3 this AM. Additional PO NaCl provided for hyponatremia. Medications are currently appropriately dosed for kidney function. Empagliflozin, metformin, and lisinopril have been held. CHAD attributed to rhabdomyolysis and suspected ATN. Urine microscopy notable for WBC and RBC. Culture suggests UTI. Treatment is being provided. Follow up urine studies will be completed. CT demonstrates the kidneys to be unobstructed. Maintain Diego. Document strict I/O's. Renal diet with free water restriction of 1.2 L. Repeat metabolic profile + CK ordered for this afternoon. (2) Rhabdomyolysis: CK trending downward. Repeat labs ordered. (3) Diabetes mellitus type 2 in obese: Metformin and empagliflozin held. (4) CKD stage 3 due to type 2 diabetes mellitus: Baseline creatinine 1.2-1.6 mg/dL. Albuminuria A1-A2 by history. Outpatient follow up encouraged. (5) Kidney stones: Updated CT reviewed. 3 mm non-obstructing calculus noted. Outpatient follow up with nephrology and urology will be coordinated at discharge. (6) BPH with obstruction/lower urinary tract symptoms: Maintain Diego to gravity. Continue Tamsulosin as Rx. History of Present Illness Reason for Consultation: CHAD on CKD, Rhabdomyolysis Requesting Physician: Kurt Portillo MD Attending Physician: Kurt Portillo MD History of Present Illness Mr. Arturo Rey is a 58 year-old male with morbid obesity, diabetes mellitus II, hypertension, hyperlipidemia, BPH, ITP, ADAMS, uric acid kidney stones, and bipolar disorder. Arturo suffered an episode of CHAD in 2019 in the setting of bilateral ureteral obstruction with stones. He underwent a single hemodialysis treatment for hyperkalemia. Thankfully, following stent placement there was rapid renal recovery. Creatinine improved to 1.2-1.6 mg/dL. Electrolytes have been normal. Arturo was started on tamsulosin several months ago for LUTS with improvement. He presented to the ER yesterday following an unwitnessed mechanical fall at home yesterday and presented to the ER for evaluation. ROS notable for generalized weakness and decreased urine output. Arturo was unable to lift himself from the floor. He lives with his mother. He denies syncope or presyncope. He denies chest pains or palpitations. His evaluation in the ER was notable [place] [address]-->[id number]-->[id number]. Aggressive hydration has been provided. Arturo developed increased work of breathing overnight. Nephrology was consulted this AM for evaluation of low urine output and progressive CHAD. He was seen and evaluated in his hospital room this AM. I discussed the plan of care with Dr. Portillo. CT demonstrates the kidneys to be unobstructed. Diego catheter is draining concentrated yellow urine. Arturo denied any complaints at the time of my assessment. He denies fevers or chills. He denies pain. He denies significant injury from his fall. He denied shortness of breath. He denied chest pains or palpitations. No NSAID use. Denies substance abuse. Urine notable for 3+protein, 1+ glucose, trace ketones, 3+ blood. Microscopy with >50 WBC and 11-20 RBC. Cultures +gram negative bacilli. He has been maintained on ceftriaxone since admission. He is maintained on glimepiride, empagliflozin, and metformin for DM. Blood glucose control appropriate. He is also maintained on lisinopril 5 mg daily. Arturo receives monthly Invega and is taking venlafaxine; treatment appears to be for a history of major depressive disorder with psychotic features. He also has followed with urology regarding an acquired renal cyst. Allergies Allergy/AdvReac Type Severity Reaction Status Date / Time aspirin Allergy Mild NOSE BLEEDS Verified 11/14/23 19:51 bupropion Allergy Mild RASH Verified 11/14/23 19:51 meloxicam Allergy Mild RASH Verified 11/14/23 19:51 Penicillins Allergy Mild Rash Verified 11/14/23 19:51 ciprofloxacin [From Cipro] Allergy Unknown Rash Verified 11/14/23 19:51 Home Medications Medication Instructions Recorded Confirmed Type glucosamine HCl 500 mg tablet 500 mg PO QAM 04/26/19 11/14/23 History acetaminophen 325 mg capsule 325 mg PO QID PRN Pain 05/12/20 11/14/23 History (Tylenol) Accu-Chek Guide Glucose Meter #1 ea 04/01/21 10/26/23 Rx (blood-glucose meter) Accu-Chek Guide test strips (blood #200 ea 04/01/21 10/26/23 Rx sugar diagnostic) lancets (Accu-Chek Softclix #100 ea 04/02/21 10/26/23 Rx Lancets) venlafaxine 150 mg 150 mg PO QAM 09/29/22 11/14/23 History capsule,extended release 24 hr hydroxyzine HCl 50 mg tablet 50 mg PO HS PRN Anxiety 01/12/23 11/14/23 History empagliflozin 10 mg tablet 10 mg PO DAILY #90 tabs 06/30/23 11/14/23 Rx (Jardiance) tamsulosin 0.4 mg capsule 0.4 mg PO DAILY #90 caps 07/06/23 11/14/23 Rx metformin 500 mg tablet,extended 2,000 mg (4 x 500 mg) PO DAILY 10/03/23 11/14/23 Rx release 24 hr #360 tabs glimepiride 4 mg tablet 4 mg PO DAILY #90 tabs 11/09/23 11/14/23 Rx lisinopril 5 mg tablet 5 mg PO QAM #90 tabs 11/09/23 11/14/23 Rx paliperidone palmitate 156 mg/mL 156 mg IM MONTHLY 11/14/23 11/14/23 History intramuscular syringe (Invega Sustenna) Patient History Medical History (Updated 11/16/23 @ 15:32 by Freedom Falcon, ) Kidney stones Complex renal cyst Repeat US 05/2023. no further screening Eczema Hyperlipidemia History of colon polyps Morbid obesity with BMI of 45.0-49.9, adult Cervicalgia CKD stage 3 due to type 2 diabetes mellitus BPH with obstruction/lower urinary tract symptoms Benign hypertension (01/22/13) Cyst of kidney, acquired Gastroesophageal reflux disease Idiopathic thrombocytopenic purpura Inguinal hernia Left Side Lumbar radiculopathy Obstructive sleep apnea (adult) (pediatric) (01/22/13) does not use CPAP as ordered Tubulovillous adenoma of colon CHAD (acute kidney injury) CHAD 03/2019 in setting of ureteral stones (b/l stent placed) Fatty liver disease, nonalcoholic (Unknown) Diverticulitis Depression Anxiety Surgical History History of bilateral cataract extraction History of cystoscopy x2--last 05/2019. Cystoscopy b/l stents: 03/26/19: Grade 2 view, MAC#3, ETT 7.5 at [facility] (no anesthesia complications per anesthesia progress note but patient reports post-op confusion) History of colonoscopy 04/2015 recommended 5 yrs--with polypectomy History of hand surgery LEFT History of cholecystectomy Family History Father Colon cancer age 63 Other No family history of adverse response to anesthesia Denies family history of Ovarian cancer Prostate cancer Crohn's disease Breast cancer Lung cancer Ulcerative colitis Social History Smoking Status: Never smoker Second Hand Exposure: No; Do You Dip or Chew Tobacco: No; Tobacco Cessation Education Requested by Patient: No Hx Alcohol Use: No Hx Substance Use: No Preferred Language: [place]al[place] Communication Ability: Effective Visual Impairment: No Limitations Hearing Ability: Normal Director Of Women'S Services Required: No Beliefs That Will Affect Care: None marital status: Single Current Living Situation: Parent current occupational status: unemployed Feels Safe at Home: Yes Safety Concerns: Feels Safe At This Time Childhood Exposure to Second-Hand Smoke: No Diet: regular caffeine: Yes Dental Care, Regularly: No Physical Activity Frequency: 3-4 Times per Week Physical Activity Frequency Comment: WALKS Seatbelt Use: always Sunscreen Use: Yes Gender Identity: Male Assistive Devices: None Assistive Devices Comment: medical alert necklace Review of Systems Review of Systems: All systems reviewed & are unremarkable except as noted in HPI & below Constitutional: + weakness; no fever and no chills Physical Exam Constitutional: well developed and + edematous; no acute distress Eyes: no scleral abnormality and no corneal abnormality ENMT: Mouth: no oral mucosal abnormality and oral mucous membranes not dry Neck: normal visual inspection and trachea midline Respiratory: + tachypneic; no respiratory distress, n o labored breathing and does not use accessory muscles Auscultation: lungs clear to auscultation bilaterally and + diminished lung sounds Cardiovascular: Rate/Rhythm: regular rate and regular rhythm Heart Sounds: normal S1 and normal S2 Extremities: + edema Gastrointestinal (Abdomen): Inspection/Auscultation: + abdomen distended Percussion/Palpation: abdomen nontender, no guarding and abdomen not rigid Musculoskeletal: Extremities: no cyanosis and no clubbing Skin: normal turgor; no lesions Neurologic: Motor/Sensory: no tremor and no asterixis Psychiatric: Orientation: alert and oriented x 3 Results & Data Vital Signs (Past 12 Hours) Vital Signs Temp Pulse Resp BP BP Pulse Ox O2 Del Method 11/16/23 09:00 Nasal Cannula 11/16/23 07:15 37.0 C 98 H 16 128/79 96 Nasal Cannula 11/16/23 03:47 37.2 C 97 H 26 H 153/83 H 95 Nasal Cannula O2 Flow Rate 11/16/23 09:00 3 11/16/23 07:15 3 11/16/23 03:47 3 Laboratory Results Laboratory Results - last 24 hr 11/15/23 11/15/23 11/16/23 16:49 20:26 07:19 WBC 9.35 RBC 4.66 L Hgb 13.6 L Hct 39.9 L MCV 85.6 MCH 29.2 MCHC 34.1 RDW Std Deviation 44.0 RDW Coeff of Izabela 14.2 Plt Count 76 L MPV 12.8 H Sodium 126 L Potassium 4.8 Chloride 93 L Carbon Dioxide 19 L Anion Gap 14 H BUN 72 H D Creatinine 5.73 H* D Est Cr Clr Drug Dosing 20.5 Est GFR ( Amer) 11.7 Est GFR (Non-Af Amer) 10.1 BUN/Creatinine Ratio 12.6 Glucose 288 H POC Glucose 206 H 216 H Calcium 8.2 L Total Creatine Kinase 83568 H C-Reactive Protein 31.56 H Procalcitonin 18.70 H SARS-CoV-2 (PCR) Influenza Type A (PCR) Influenza Type B (PCR) RSV (RT-PCR) 11/16/23 11/16/23 11/16/23 07:52 10:17 11:24 WBC RBC Hgb Hct MCV MCH MCHC RDW Std Deviation RDW Coeff of Izabela Plt Count MPV Sodium Potassium Chloride Carbon Dioxide Anion Gap BUN Creatinine Est Cr Clr Drug Dosing Est GFR ( Amer) Est GFR (Non-Af Amer) BUN/Creatinine Ratio Glucose POC Glucose 264 H 262 H Calcium Total Creatine Kinase C-Reactive Protein Procalcitonin SARS-CoV-2 (PCR) NEGATIVE Influenza Type A (PCR) Negative Influenza Type B (PCR) Negative RSV (RT-PCR) Negative Diagnostic Findings CT OF THE ABDOMEN AND PELVIS WITHOUT CONTRAST COMPARISON STUDY: CT of the abdomen and pelvis July 30, 2019. Renal ultrasound June 08, 2023. FINDINGS: There are small bilateral pleural effusions. Subpleural lower lobe opacities favor atelectasis. Moderate circumferential wall thickening of the distal esophagus is noted with minimal adjacent stranding. No pneumatosis, free air or portal venous gas is present. Evaluation of the abdomen and pelvis is suboptimal on this unenhanced exam. There is a 3 mm nonobstructing right renal calculus. There are no ureteral calculi. There is no hydronephrosis. A Diego balloon and gas within the bladder are present. Low-attenuation bilateral renal lesions were shown to reflect cysts on prior renal ultrasound. There is slight asymmetric right perinephric stranding. There is mild stranding adjacent to the proximal duodenum. There is no extraluminal gas. No fluid collection is present. There is no evidence for a bowel obstruction. Colonic diverticulosis without evidence for acute diverticulitis. Probable hepatic steatosis. Unenhanced images of the spleen, adrenal glands and pancreas are unremarkable. Mild diffuse increased sclerosis of visualized skeletal structures is unchanged. Mild body wall edema. IMPRESSION: 1. 3 mm nonobstructing right renal calculus. No ureteral calculi or hydronephrosis. 2. Circumferential wall thickening of the distal esophagus with mild adjacent stranding. This favors esophagitis. 3. Small bilateral pleural effusions with subpleural opacity suggestive of atelectasis. 4. Mild stranding and fluid adjacent to the proximal duodenum. This is likely related to volume overload. However, other etiologies such as duodenitis or within the differential. No extraluminal gas. 5. Slight asymmetric right perinephric stranding. This is of questionable significance although could be correlated with urinalysis. PG Care Time/CCT Total # of Minutes Spent Total Time Spent with Patient: Total time spent is greater than 50% in coordination of care (as documented) at patient's floor/unit and/or counseling patient: Coding Level of Care Code 57943 IN/OBS CONSULT LVL 4,60M Diagnoses CHAD (acute kidney injury) N17.9 Rhabdomyolysis M62.82 Diabetes mellitus type 2 in obese E11.69; E66.9 CKD stage 3 due to type 2 diabetes mellitus E11.22; N18.3 Kidney stones N20.0 BPH with obstruction/lower urinary tract symptoms N40.1; N13.8
--- NOTE | 2023-11-16 15:18 | XRay Report ---
XR chest 1V portable CLINICAL HISTORY: diffuse wheezing, ?pulm edema COMPARISON STUDY: Chest radiograph November 15, 2023. FINDINGS: Exam is compromised by suboptimal penetration related to portable technique. There are smal l bilateral pleural effusions with mild bibasilar opacities. Cardiomegaly is unchanged. Mediastinal c ontours are stable. There is no radiographic evidence for pulmonary edema. No pneumothorax. IMPRESSION: 1. Cardiomegaly without radiographic evidence for pulmonary edema. 2. Small bilateral pleural effusions with associated bibasilar opacities that favor atelectasis. ACT 112: Negative or not required by law. Electronically signed by: Matthew Mcrcacken M.D. 11/16/2023 3:17 PM
[2023-11-16] MEDS: PANTOprazole 40 MG in SYRINGE 0 ML IV SCH (15:24)
--- NOTE | 2023-11-16 15:38 | XRay Report ---
XR elbow RT 2V CLINICAL HISTORY: R elbow pain, fall w/ trauma COMPARISON STUDY: None. FINDINGS: Posterior soft tissue swelling. No definite elbow effusion. No fracture or dislocation. An intravenous line is noted at the antecubital fossa. IMPRESSION: Posterior soft tissue swelling within the right elbow. No acute fractures. ACT 112: Negative or not required by law. Electronically signed by: Hema Guevara M.D. 11/16/2023 3:36 PM
[2023-11-16 15:51] LABS: BUN Creatinine Ratio 12.5 (10-20); Calcium 8.2 mg/dl (8.6-10.3); Creatinine Clr Calc Pharmacy 18.9 ml/min; Est GFR (African American) 10.6 ml/min; Est GFR (Non-African American) 9.1 ml/min; Phosphorus 3.4 mg/dl (2.5-4.9); Potassium 4.6 mmol/L (3.5-5.1)
[2023-11-16] MEDS: DOXYCYCLINE HYCLATE 100 MG in DEXTROSE 5% MINI-B 100 ML IV SCH (16:23)
--- NOTE | 2023-11-16 17:02 | Hospitalist Progress Note ---
Date of Service November 16, 2023 Assessment & Plan (1) Acute hypoxic respiratory failure: Plan: Severe wheezing, tachypnea, retractions noted today on examination. CXR without pulm edema but lower lobe infiltrates are noted. Uncertain if he is developing a b/l basilar pneumonia. With the extensive wheezing can't rule out a viral bronchitis. To cover for b/l pneumonia the rocephin 2gm daily will suffice; added doxy 100mg BID for atypical coverage. Checked COVID/flu/RSV -- negative. Great response to duonebs - continue qid. Keep head of bed >30 degrees. Family mentioned episodes of dysphagia with coughing -- will ask speech to perform bedside swallow. Need to watch carefully for development of pulm edema in the setting of copious IV fluids and his acute renal failure. (2) Rhabdomyolysis: Plan: unwitnessed fall at home - prolonged down time of several hours. Patient with rhabdomyolysis - peak CPK of 57,274. Rhabdo has likely contributed to acute renal failure. He is not on statin therapy at home. No reported seizures. Received aggressive hydration of LR at 200mL/hr x 3 liters in the first 24 hours of his stay. With development of acute renal failure and acidosis fluids changed to bicarb drip today at lower rate. Fortunately his CPK are trending down; now <20,000. Elevated AST/ALT may be due to rhabdomyolysis itself. Repeat BMP, LFTs and CPK in the AM (3) CHAD (acute kidney injury): Plan: SEVERE. Creatinine at presentation was 2.8. Typical baseline 1.2-1.3. Now Cr >6. Urine output is not robust but has been better today with fluid resuscitation. CT a/p without any obstruction. Rhabdomyolysis and ATN both to blame for his CHAD/ARF. Appreciate Dr Falcon's consultation. LR fluid changed to bicarb infusion this am. Continue such and repeat BMP in am. Hopefully creatinine will level off and urine output will start to improve soon. Hopefully he will not need any short-term HD but thus far his parameters are acceptable enough to defer on HD at this time. (4) Diabetes mellitus type 2 in obese: Plan: Uncontrolled in the setting of sepsis, ARF, resp failure, etc. Last AwcM4J=2.4 on 08/13/23 Increase Lantus to 12 units BID Increase novolog parameters Hold Glimepiride & Empagliflozin (5) Idiopathic thrombocytopenic purpura: Plan: Chronic. Stable. 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 Stable Continue Flomax Diego in place No obstruction on CT a/p (7) Kidney stones: Plan: seen on CT, but not causing obstruction at this time no Rx needed (8) Fall: Plan: unwitnessed was patient getting weak from UTI and/or pulmonary infection which led to fall? needs PT/OT (9) Benign hypertension: Plan: only on flomax at home BPs acceptable today (10) Bipolar 1 disorder, depressed, mild: Plan: on Invega injection therapy monthly family reports he has charges pressed against him and has court date this coming Tuesday, November 20 he will need a note stating he won't be able to attend in person given his severe illness (11) Hyponatremia: Plan: 2nd acute renal failure, etc sodium bicarb infusion sodium bicarb tablets also added by nephrology (12) Severe sepsis: Plan: 2nd to UTI 2nd to pulmonary infection? blood cx's thus far neg follow urine cx (13) UTI (urinary tract infection): Plan: 2nd GNR cont rocephin follow cx's (14) Pneumonia: Plan: suspected b/l basilar rocephin; add doxy follow blood cx's supportive care, O2, etc (15) Morbid obesity: Plan: BMI 43 (16) Esophagitis: Plan: as seen on CT a/p start protonix 40mg IV BID (17) Dysphagia: Plan: will ask speech to see for swallow eval (18) Elbow pain: Plan: b/l 2nd to fall check elbow x-rays, r/o fracture (19) Conjunctivitis: Plan: b/l, R>L somewhat chronic per family conjunctivitis vs bletharitis vs blocked tear ducts vs other while here - erythromycin eye ointment BID send to ophtho post-d/c Plan multiple visits to bedside today extensive family update given multiple correspondences with nephrology very complex care coordination in this sick gentleman total time spent today 85 min on all care activities Admission and Anticipated Discharge Date Admission Date: November 15, 2023 Subjective patient resting in bed during my visit he was visibly tachypneic and had audible wheezes he was lying at about 20 degrees I raised the head of the bed and his symptoms improved but did not resolve despite the above he denied feeling short of breath denied cough he would quickly deny ALL complaints - chest pain, abd pain, nausea, vomiting, dyspnea he ate little for breakfast later in the day I met with the pt's family at bedside gave extensive update to them Mr Ro respiratory distress was improved following duoneb given earlier in the afternoon Review of Systems Review of Systems: gen - appetite loss cv - no pain pulm - denies dyspnea GI - no pain musculo - some pain in b/l elbows from recent fall psych - appears confused Physical Exam Physical Exam: gen - tachypnea, audible wheezing, mild retractions noted, seems confused/altered, gives 1-word responses to questions neck - no obvious JVD mouth - MM dry eyes - conjunctival injection b/l, worse on right, with purulent drainage heart - RRR, s1 s2, no murmur lungs - decreased BS both bases L>R; diffuse wheezing b/l; tachypnea, retractions following a duoneb I listed to Mr Rey again -- wheezing much improved, increased work of breathing improved/resolved, he states he feels better abd - marked distension noted but nontender, BS+ ext - no edema, pulses 2+ b/l psych - alert, awake neuro - rigors musculo - b/l elbow abrasions with swelling around each elbow worse on left; mild tenderness with palpation of both elbow joints Results & Data Results & Data Vital Signs (Past 12 Hours) Vital Signs Temp Pulse Resp BP Pulse Ox O2 Del Method O2 Flow Rate 11/16/23 15:46 38.2 C H 99 H 20 96 Nasal Cannula 3 11/16/23 15:00 39.4 C H 105 H 20 135/79 97 Nasal Cannula 3 11/16/23 09:00 Nasal Cannula 3 11/16/23 07:15 37.0 C 98 H 16 128/79 96 Nasal Cannula 3 Laboratory Results Laboratory Results - last 24 hr 11/16/23 11/16/23 11/16/23 07:19 07:52 10:17 WBC 9.35 RBC 4.66 L Hgb 13.6 L Hct 39.9 L MCV 85.6 MCH 29.2 MCHC 34.1 RDW Std Deviation 44.0 RDW Coeff of Izabela 14.2 Plt Count 76 L MPV 12.8 H Sodium 126 L Potassium 4.8 Chloride 93 L Carbon Dioxide 19 L Anion Gap 14 H BUN 72 H D Creatinine 5.73 H* D Est Cr Clr Drug Dosing 20.5 Est GFR ( Amer) 11.7 Est GFR (Non-Af Amer) 10.1 BUN/Creatinine Ratio 12.6 Glucose 288 H POC Glucose 264 H Calcium 8.2 L Phosphorus Total Creatine Kinase 03751 H C-Reactive Protein 31.56 H Albumin Procalcitonin 18.70 H Urine Color Urine Appearance Urine pH Ur Specific [place] Urine Protein Urine Glucose (UA) Urine Ketones Urine Blood Urine Nitrite Urine Bilirubin Urine Urobilinogen Ur Leukocyte Esterase Urine WBC (Auto) Urine RBC (Auto) U Hyaline Cast (Auto) U Epithel Cells (Auto) Urine Bacteria (Auto) SARS-CoV-2 (PCR) NEGATIVE Influenza Type A (PCR) Negative Influenza Type B (PCR) Negative RSV (RT-PCR) Negative 11/16/23 11/16/23 11/16/23 11:24 15:05 16:39 WBC RBC Hgb Hct MCV MCH MCHC RDW Std Deviation RDW Coeff of Izabela Plt Count MPV Sodium 126 L Potassium 4.6 Chloride 94 L Carbon Dioxide 18 L Anion Gap 14 H BUN 78 H Creatinine 6.22 H* D Est Cr Clr Drug Dosing 18.9 Est GFR ( Amer) 10.6 Est GFR (Non-Af Amer) 9.1 BUN/Creatinine Ratio 12.5 Glucose 297 H POC Glucose 262 H 262 H Calcium 8.2 L Phosphorus 3.4 Total Creatine Kinase 62188 H C-Reactive Protein Albumin 3.0 L Procalcitonin Urine Color Urine Appearance Urine pH Ur Specific [place] Urine Protein Urine Glucose (UA) Urine Ketones Urine Blood Urine Nitrite Urine Bilirubin Urine Urobilinogen Ur Leukocyte Esterase Urine WBC (Auto) Urine RBC (Auto) U Hyaline Cast (Auto) U Epithel Cells (Auto) Urine Bacteria (Auto) SARS-CoV-2 (PCR) Influenza Type A (PCR) Influenza Type B (PCR) RSV (RT-PCR) 11/16/23 20:31 WBC RBC Hgb Hct MCV MCH MCHC RDW Std Deviation RDW Coeff of Izabela Plt Count MPV Sodium Potassium Chloride Carbon Dioxide Anion Gap BUN Creatinine Est Cr Clr Drug Dosing Est GFR ( Amer) Est GFR (Non-Af Amer) BUN/Creatinine Ratio Glucose POC Glucose 253 H Calcium Phosphorus Total Creatine Kinase C-Reactive Protein Albumin Procalcitonin Urine Color Urine Appearance Urine pH Ur Specific [place] Urine Protein Urine Glucose (UA) Urine Ketones Urine Blood Urine Nitrite Urine Bilirubin Urine Urobilinogen Ur Leukocyte Esterase Urine WBC (Auto) Urine RBC (Auto) U Hyaline Cast (Auto) U Epithel Cells (Auto) Urine Bacteria (Auto) SARS-CoV-2 (PCR) Influenza Type A (PCR) Influenza Type B (PCR) RSV (RT-PCR) Diagnostic Findings Chest X-Ray 11/15/23 23:00 XR chest 1V portable CLINICAL HISTORY: Hypoxia. COMPARISON STUDY: Chest radiograph November 14, 2023. FINDINGS: There is no pneumothorax or pleural effusion. Linear left basilar opacity has developed. Cardiomegaly is again noted. Mediastinal contours are stable. There is no evidence for pulmonary edema. IMPRESSION: Interval development of left basilar opacity. The configuration favors atelectasis. Although less likely, an infectious process could appear similar. ACT 112: Negative or not required by law. Electronically signed by: Matthew Mccracken M.D. 11/16/2023 6:59 AM Abdomen/Pelvis CT 11/16/23 01:14 CT OF THE ABDOMEN AND PELVIS WITHOUT CONTRAST CLINICAL HISTORY: Oliguria, ?renal stones? COMPARISON STUDY: CT of the abdomen and pelvis July 30, 2019. Renal ultrasound June 08, 2023. TECHNIQUE: Axial images of the abdomen and pelvis were obtained without IV contrast. Images were reviewed in the axial, sagittal, and coronal planes. Automated exposure control was utilized for the study. A dose lowering technique was utilized adhering to the principles of ALARA. FINDINGS: There are small bilateral pleural effusions. Subpleural lower lobe opacities favor atelectasis. Moderate circumferential wall thickening of the distal esophagus is noted with minimal adjacent stranding. No pneumatosis, free air or portal venous gas is present. Evaluation of the abdomen and pelvis is suboptimal on this unenhanced exam. There is a 3 mm nonobstructing right renal calculus. There are no ureteral calculi. There is no hydronephrosis. A Diego balloon and gas within the bladder are present. Low-attenuation bilateral renal lesions were shown to reflect cysts on prior renal ultrasound. There is slight asymmetric right perinephric stranding. There is mild stranding adjacent to the proximal duodenum. There is no extraluminal gas. No fluid collection is present. There is no evidence for a bowel obstruction. Colonic diverticulosis without evidence for acute diverticulitis. Probable hepatic steatosis. Unenhanced images of the spleen, adrenal glands and pancreas are unremarkable. Mild diffuse increased sclerosis of visualized skeletal structures is unchanged. Mild body wall edema. IMPRESSION: 1. 3 mm nonobstructing right renal calculus. No ureteral calculi or hydronephr osis. 2. Circumferential wall thickening of the distal esophagus with mild adjacent stranding. This favors esophagitis. 3. Small bilateral pleural effusions with subpleural opacity suggestive of a telectasis. 4. Mild stranding and fluid adjacent to the proximal duodenum. This is likely related to volume overload. However, other etiologies such as duodenitis or within the differential. No extraluminal gas. 5. Slight asymmetric right perinephric stranding. This is of questionable significance although could be correlated with urinalysis. ACT 112: Negative or not required by law. Electronically signed by: Matthew Mccracken M.D. 11/16/2023 11:58 AM Chest X-Ray 11/16/23 14:50 XR chest 1V portable CLINICAL HISTORY: diffuse wheezing, ?pulm edema COMPARISON STUDY: Chest radiograph November 15, 2023. FINDINGS: Exam is compromised by suboptimal penetration related to portable technique. There are small bilateral pleural effusions with mild bibasilar opacities. Cardiomegaly is unchanged. Mediastinal contours are stable. There is no radiographic evidence for pulmonary edema. No pneumothorax. IMPRESSION: 1. Cardiomegaly without radiographic evidence for pulmonary edema. 2. Small bilateral pleural effusions with associated bibasilar opacities that favor atelectasis. ACT 112: Negative or not required by law. Electronically signed by: Matthew Mccracken M.D. 11/16/2023 3:17 PM Elbow X-Ray 11/16/23 14:57 XR elbow LT 2V CLINICAL HISTORY: L elbow pain, fall w/ trauma TECHNIQUE: 2 views of the left elbow were obtained. Comparison: None available at the time of this dictation. FINDINGS: There is no evidence of an acute fracture. Triceps enthesophyte is seen. The alignment is anatomic. There is no prominence of the anterior or posterior fat pads to suggest an effusion. No soft tissue abnormality is seen. IMPRESSION: No evidence of acute fracture or dislocation. ACT 112: Negative or not required by law. Electronically signed by: Aman Esparza M.D. 11/16/2023 5:41 PM Elbow X-Ray 11/16/23 14:57 XR elbow RT 2V CLINICAL HISTORY: R elbow pain, fall w/ trauma COMPARISON STUDY: None. FINDINGS: Posterior soft tissue swelling. No definite elbow effusion. No fracture or dislocation. An intravenous line is noted at the antecubital fossa. IMPRESSION: Posterior soft tissue swelling within the right elbow. No acute fractures. ACT 112: Negative or not required by law. Electronically signed by: Hema Guevara M.D. 11/16/2023 3:36 PM PG Care Time/CCT Total # of Minutes Spent Total Time Spent with Patient: Total time spent is greater than 50% in coordination of care (as documented) at patient's floor/unit and/or counseling patient: Prolonged Care Time Prolonged Care Time: Yes Total Prolonged Care Time: 85 Coding Level of Care Code 14320 SUB INP/OBS CARE 3/50MIN (25 - SIGNIFICANT, SEPARATELY IDENTIFIABLE ) Diagnoses Acute hypoxic respiratory failure J96.01 Rhabdomyolysis M62.82 CHAD (acute kidney injury) N17.9 Diabetes mellitus type 2 in obese E11.69; E66.9 Idiopathic thrombocytopenic purpura D69.3 BPH with obstruction/lower urinary tract symptoms N40.1; N13.8 Kidney stones N20.0 Fall W19.XXXA Benign hypertension I10 Bipolar 1 disorder, depressed, mild F31.31 Hyponatremia E87.1 Severe sepsis A41.9; R65.20 UTI (urinary tract infection) N39.0; R31.9 Hematuria presence: with hematuria Urinary tract infection type: site unspecified Pneumonia J18.9 Morbid obesity E66.01 Esophagitis K20.90 Dysphagia R13.10 Elbow pain M25.529 Conjunctivitis H10.9 Additional Codes Prolonged Care Time - Prolonged Care Time: Yes ([id number]) (13) UTI (urinary tract infection) Hematuria presence: with hematuria Urinary tract infection type: site unspecified Qualified Code(s): N39.0 - Urinary tract infection, site not specified; R31.9 - Hematuria, unspecified
[2023-11-16] MEDS: SODIUM BICARBONATE 650 MG TAB PO SCH (17:35)
[2023-11-16] MEDS: ALBUT/IPRATROP 3MG/0.5MG NEB 3 ML VIAL NEB STA (17:39)
--- NOTE | 2023-11-16 17:43 | XRay Report ---
XR elbow LT 2V CLINICAL HISTORY: L elbow pain, fall w/ trauma TECHNIQUE: 2 views of the left elbow were obtained. Comparison: None available at the time of this dictation. FINDINGS: There is no evidence of an acute fracture. Triceps enthesophyte is seen. The alignment is anatomic. T here is no prominence of the anterior or posterior fat pads to suggest an effusion. No soft tissue ab normality is seen. IMPRESSION: No evidence of acute fracture or dislocation. ACT 112: Negative or not required by law. Electronically signed by: Aman Esparza M.D. 11/16/2023 5:41 PM
[2023-11-16] MEDS: SODIUM CHLORIDE 1 GM TABLET PO ONE (18:01)
[2023-11-16] MEDS: ALBUT/IPRATROP 3MG/0.5MG NEB 3 ML VIAL NEB SCH (20:12)
[2023-11-16] MEDS: ERYTHROMYCIN OP OINT 5 MG/GM 3.5 GM TUBE OPB SCH (20:27)
[2023-11-17 01:34] LABS: Appearance Urine Cloudy (Clear); Bacteria Urine Automated None Seen (None Seen); Bilirubin Urine Negative (Negative); Blood Urine 3+ (Negative); Cast Urine Automated 0-2 /lpf (0-2); Color Urine Yellow; Epithelial Cell Urine Auto 0-2 /hpf (0-2); Glucose Urine UA 2+ (Negative); Ketones Urine Negative (Negative); Leukocyte Esterase Urine 2+ (Negative); Nitrite Urine Negative (Negative); Protein Urine 3+ (Negative); RBC Urine Automated >20 /hpf (0-2); Specific Gravity Urine 1.011 (1.000-1.030); Urobilinogen Urine Negative (Negative); WBC Urine Automated >50 /hpf (0-5); pH Urine 5.5 (4.5-7.5)
[2023-11-17 06:28] LABS: Basophils # (auto) 0.03 K/uL (0.00-0.20); Basophils % (auto) 0.4 %; Eosinophils # (auto) 0.02 K/uL (0.00-0.50); Eosinophils % (auto) 0.3 %; Hematocrit (blood only) 36.3 % (42.0-52.0); Hemoglobin 12.3 g/dl (14.0-18.0); Immature Granulocytes # (auto) 0.04 K/uL (0.01-0.20); Immature Granulocytes % (auto) 0.5 %; Lymphocytes # (auto) 0.37 K/uL (1.20-3.40); Lymphocytes % (auto) 4.7 %; Mean Corpuscular Hemoglobin 28.5 pg (25.0-34.0); Mean Corpuscular Hgb Conc 33.9 g/dL (32.0-36.0); Mean Corpuscular Volume 84.2 fL (80.0-100.0); Mean Platelet Volume 12.5 fL (9.4-12.4); Monocytes # (auto) 0.98 K/uL (0.11-0.59); Monocytes % (auto) 12.4 %; Neutrophils # (auto) 6.49 K/uL (1.40-6.50); Neutrophils % (auto) 81.7 %; Platelet Count 67 K/uL (130-400); RDW Coefficient of Variation 14.3 % (11.5-14.5); RDW Standard Deviation 44.4 fL (36.4-46.3); Red Blood Count 4.31 M/uL (4.70-6.10); White Blood Count 7.93 K/ul (4.8-10.8)
[2023-11-17 07:11] LABS: Albumin Level 2.5 gm/dl (3.4-5.0); BUN Creatinine Ratio 12.8 (10-20); Bilirubin Direct 0.1 mg/dl (0-0.2); Bilirubin,Total 0.3 mg/dl (0.2-1.0); Calcium 7.9 mg/dl (8.6-10.3); Creatinine Clr Calc Pharmacy 17.1 ml/min; Est GFR (African American) 9.4 ml/min; Est GFR (Non-African American) 8.1 ml/min; Potassium 4.7 mmol/L (3.5-5.1); Total Protein 5.1 gm/dl (6.0-8.3)
[2023-11-17] MEDS: ONDANSETRON INJ 2 MG/ML 2 ML VIAL IV PRN (08:18)
[2023-11-17] MEDS: LANTUS PER UNIT CHARGE SQ SCH (08:21)
--- NOTE | 2023-11-17 09:49 | Nephrology Progress Note ---
Date of Service November 17, 2023 Assessment & Plan (1) CHAD (acute kidney injury): Plan: Non-oliguric. Increased TBW. Associated hyponatremia and mixed AG/NAGMA noted. Electrolytes normal otherwise. There is no emergent indication for HD. Urine output improving. Thankfully, CK is trending downward. I would like to continue 1/2NS+NaHCO3 infusion as tolerate to encourage urine output. Rodolfo seems to he tolerating fluids relatively well. I will also continue oral NaHCO3 replacement as ordered. Medications are currently appropriately dosed for kidney function. Empagliflozin, metformin, and lisinopril have been held. CHAD attributed to rhabdomyolysis and suspected ATN. Urine microscopy notable for WBC and RBC. Culture c/w E coli UTI. Treatment is being provided. CT demonstrates the kidneys to be unobstructed. Maintain Diego. Document strict I/O's. Renal diet. Repeat metabolic profile ordered for this afternoon. (2) Rhabdomyolysis: Plan: CK trending downward. Clinical presentation, including proximal muscle weakness and upper extremity edema suggests possible underlying polymyositis. Myositis antibody panel, anti-zachary 1, EDUARDO, and ESR will be obtained with net set of labs. Ultimately, Rodolfo may benefit from outpatient rheumatology evaluation or muscle biopsy. (3) Diabetes mellitus type 2 in obese: Plan: Metformin and empagliflozin held. (4) CKD stage 3 due to type 2 diabetes mellitus: Plan: Baseline creatinine 1.2-1.6 mg/dL. Albuminuria A1-A2 by history. Outpatient follow up encouraged. (5) Kidney stones: Plan: Updated CT reviewed. 3 mm non-obstructing calculus noted. Outpatient follow up with nephrology and urology will be coordinated at discharge. (6) BPH with obstruction/lower urinary tract symptoms: Plan: Maintain Diego to gravity. Continue Tamsulosin as Rx. Admission and Anticipated Discharge Date Admission Date: November 15, 2023 Subjective No acute events overnight. Rodolfo was sitting comfortably in bed this morning. He feels well. He denies dyspnea. He denies significant orthopnea. Breathing improved with respiratory treatments. Tmax 39.4 at 3 PM. No rigors. Rodolfo feels that he is tolerating IVF well. His arms are notably edematous. He has difficulty raising them. He states that they have been this way for a long time. He denies pain. He states that he feels well overall. Diego draining cloudy yellow urine. Review of Systems Review of Systems: All systems reviewed & are unremarkable except as noted in HPI & below Physical Exam Constitutional: well developed and + edematous; no acute distress Eyes: no scleral abnormality and no corneal abnormality ENMT: Mouth: no oral mucosal abnormality and oral mucous membranes not dry Neck: normal visual inspection and trachea midline Respiratory: + tachypneic; no respiratory distress, n o labored breathing and does not use accessory muscles Auscultation: lungs clear to auscultation bilaterally and + diminished lung sounds Cardiovascular: Rate/Rhythm: regular rate and regular rhythm Heart Sounds: normal S1 and normal S2 Extremities: + edema (notably BP upper extremity) Gastrointestinal (Abdomen): Inspection/Auscultation: + abdomen distended Percussion/Palpation: abdomen nontender, no guarding and abdomen not rigid Musculoskeletal: Extremities: no cyanosis and no clubbing Skin: normal turgor; no rashes Neurologic: Motor/Sensory: no tremor and no asterixis Psychiatric: Orientation: alert and oriented x 3 Results & Data Vital Signs (Past 12 Hours) Vital Signs Temp Pulse Resp BP Pulse Ox O2 Del Method O2 Flow Rate 11/17/23 07:03 66 20 93 Nasal Cannula 4 11/17/23 07:00 37 C 99 H 18 95/64 L 93 Nasal Cannula 5 Laboratory Results Laboratory Results - last 24 hr 11/16/23 11/16/23 11/16/23 07:19 10:17 11:24 WBC RBC Hgb Hct MCV MCH MCHC RDW Std Deviation RDW Coeff of Izabela Plt Count MPV Immature Gran % (Auto) Neut % (Auto) Lymph % (Auto) Mora % (Auto) Eos % (Auto) Baso % (Auto) Neut # (Auto) Lymph # (Auto) Mora # (Auto) Eos # (Auto) Baso # (Auto) Immature Gran # (Auto) Sodium Potassium Chloride Carbon Dioxide Anion Gap BUN Creatinine Est Cr Clr Drug Dosing Est GFR ( Amer) Est GFR (Non-Af Amer) BUN/Creatinine Ratio Glucose POC Glucose 262 H Calcium Phosphorus Total Bilirubin Direct Bilirubin AST ALT Alkaline Phosphatase Total Creatine Kinase 48727 H C-Reactive Protein 31.56 H Total Protein Albumin Urine Color Urine Appearance Urine pH Ur Specific [place] Urine Protein Urine Glucose (UA) Urine Ketones Urine Blood Urine Nitrite Urine Bilirubin Urine Urobilinogen Ur Leukocyte Esterase Urine WBC (Auto) Urine RBC (Auto) U Hyaline Cast (Auto) U Epithel Cells (Auto) Urine Bacteria (Auto) SARS-CoV-2 (PCR) NEGATIVE Influenza Type A (PCR) Negative Influenza Type B (PCR) Negative RSV (RT-PCR) Negative 11/16/23 11/16/23 11/16/23 15:05 16:39 20:31 WBC RBC Hgb Hct MCV MCH MCHC RDW Std Deviation RDW Coeff of Izabela Plt Count MPV Immature Gran % (Auto) Neut % (Auto) Lymph % (Auto) Mora % (Auto) Eos % (Auto) Baso % (Auto) Neut # (Auto) Lymph # (Auto) Mora # (Auto) Eos # (Auto) Baso # (Auto) Immature Gran # (Auto) Sodium 126 L Potassium 4.6 Chloride 94 L Carbon Dioxide 18 L Anion Gap 14 H BUN 78 H Creatinine 6.22 H* D Est Cr Clr Drug Dosing 18.9 Est GFR ( Amer) 10.6 Est GFR (Non-Af Amer) 9.1 BUN/Creatinine Ratio 12.5 Glucose 297 H POC Glucose 262 H 253 H Calcium 8.2 L Phosphorus 3.4 Total Bilirubin Direct Bilirubin AST ALT Alkaline Phosphatase Total Creatine Kinase 66016 H C-Reactive Protein Total Protein Albumin 3.0 L Urine Color Urine Appearance Urine pH Ur Specific [place] Urine Protein Urine Glucose (UA) Urine Ketones Urine Blood Urine Nitrite Urine Bilirubin Urine Urobilinogen Ur Leukocyte Esterase Urine WBC (Auto) Urine RBC (Auto) U Hyaline Cast (Auto) U Epithel Cells (Auto) Urine Bacteria (Auto) SARS-CoV-2 (PCR) Influenza Type A (PCR) Influenza Type B (PCR) RSV (RT-PCR) 11/17/23 11/17/23 11/17/23 00:35 05:34 07:48 WBC 7.93 RBC 4.31 L Hgb 12.3 L Hct 36.3 L MCV 84.2 MCH 28.5 MCHC 33.9 RDW Std Deviation 44.4 RDW Coeff of Izabela 14.3 Plt Count 67 L MPV 12.5 H Immature Gran % (Auto) 0.5 Neut % (Auto) 81.7 Lymph % (Auto) 4.7 Mora % (Auto) 12.4 Eos % (Auto) 0.3 Baso % (Auto) 0.4 Neut # (Auto) 6.49 Lymph # (Auto) 0.37 L Mora # (Auto) 0.98 H Eos # (Auto) 0.02 Baso # (Auto) 0.03 Immature Gran # (Auto) 0.04 Sodium 128 L Potassium 4.7 Chloride 96 L Carbon Dioxide 17 L Anion Gap 15 H BUN 88 H Creatinine 6.86 H* D Est Cr Clr Drug Dosing 17.1 Est GFR ( Amer) 9.4 Est GFR (Non-Af Amer) 8.1 BUN/Creatinine Ratio 12.8 Glucose 198 H POC Glucose 266 H Calcium 7.9 L Phosphorus Total Bilirubin 0.3 D Direct Bilirubin 0.1 AST 265 H ALT 116 H Alkaline Phosphatase 62 Total Creatine Kinase 8196 H C-Reactive Protein Total Protein 5.1 L D Albumin 2.5 L Urine Color Yellow Urine Appearance Cloudy A Urine pH 5.5 Ur Specific [place] 1.011 Urine Protein 3+ H Urine Glucose (UA) 2+ H Urine Ketones Negative Urine Blood 3+ H Urine Nitrite Negative Urine Bilirubin Negative Urine Urobilinogen Negative Ur Leukocyte Esterase 2+ H Urine WBC (Auto) >50 H Urine RBC (Auto) >20 H U Hyaline Cast (Auto) 0-2 U Epithel Cells (Auto) 0-2 Urine Bacteria (Auto) None Seen SARS-CoV-2 (PCR) Influenza Type A (PCR) Influenza Type B (PCR) RSV (RT-PCR) PG Care Time/CCT Total # of Minutes Spent Total Time Spent with Patient: Total time spent is greater than 50% in coordination of care (as documented) at patient's floor/unit and/or counseling patient: Coding Level of Care Code 20941 SUB INP/OBS CARE 3/50MIN Diagnoses CHAD (acute kidney injury) N17.9 Rhabdomyolysis M62.82 Diabetes mellitus type 2 in obese E11.69; E66.9 CKD stage 3 due to type 2 diabetes mellitus E11.22; N18.3 Kidney stones N20.0 BPH with obstruction/lower urinary tract symptoms N40.1; N13.8
--- NOTE | 2023-11-17 14:31 | Fluoroscopy Report ---
VIDEO SWALLOW STUDY CLINICAL HISTORY: Aspiration. COMPARISON STUDY: No priors. FLUOROSCOPY TIME: 59 seconds. Ka,r: 16.1 mGy FINDINGS: Fluoroscopic guidance was provided to the Department of speech pathology in performing a vi teofilo swallow study. The patient consumed barium-impregnated pudding, cracker with paste, nectar-thick liquids, and thin barium while the swallowing mechanism was observed in real-time. No penetration or aspiration was seen with any of the sampled textures. IMPRESSION: No penetration or aspiration was seen with any of the sampled textures. See dedicated spe ech pathology report for detailed findings and recommendations. Dictated: 11/17/2023 11:55 AM Transcribed: 11/17/2023 12:29 PM Anuel [id number] [email or web address]_Marlys Electronically signed by: Florentino Christensen M.D. 11/17/2023 2:30 PM
[2023-11-17 15:47] LABS: BUN Creatinine Ratio 13.6 (10-20); C Reactive Protein 27.67 mg/dl (0-0.5); Calcium 8.1 mg/dl (8.6-10.3); Creatinine Clr Calc Pharmacy 16.8 ml/min; Est GFR (African American) 9.2 ml/min; Est GFR (Non-African American) 7.9 ml/min; Potassium 4.8 mmol/L (3.5-5.1)
--- NOTE | 2023-11-17 20:43 | Hospitalist Progress Note ---
Date of Service November 17, 2023 Assessment & Plan (1) Acute hypoxic respiratory failure: Plan: Severe wheezing, tachypnea, retractions noted 11/16/23. CXR without pulm edema but lower lobe infiltrates were noted. Uncertain if developing a b/l basilar pneumonia. With the extensive wheezing can't rule out a viral bronchitis. Can't rule out pulmonary edema contributing to the above. To cover for b/l pneumonia the rocephin 2gm daily for UTI will suffice; added doxy 100mg BID for atypical coverage. Day #3 of rocephin; day #2 doxy. Checked COVID/flu/RSV -- negative. Great response to duonebs - continue qid. Keep head of bed >30 degrees. Family mentioned episodes of dysphagia with coughing -- speech performed video swallow today - no aspiration seen fortunately. Need to watch carefully for development of pulm edema in the setting of copious IV fluids and his acute renal failure. If any signs of such stop fluids. (2) Rhabdomyolysis: Plan: unwitnessed fall at home - prolonged down time of several hours. Patient with rhabdomyolysis - peak CPK of 57,274. Rhabdo has likely contributed to acute renal failure. He is not on statin therapy at home. No reported seizures. Received aggressive hydration of LR at 200mL/hr x 3 liters in the first 24 hours of his stay. With development of acute renal failure and acidosis fluids changed to bicarb drip. He is markedly positive for the admission; at least 10+ liters positive since arrival. Fortunately his CPK continues to decrease; now <6755. Elevated AST/ALT may have been due to rhabdomyolysis itself - LFTs all im proving. Repeat BMP, LFTs and CPK in the AM. Of note - NO EVIDENCE of compartment syndrome in arms or legs. Patient does appear to have some element of proximal muscle weakness. To be complete Dr Falcon sent off autoimmune labs to exclude a developing polymyositis or other process. If not present his weakness may be from the resolving rhabdo itself, weakness from UTI/possible pneumonia, etc. Will await pending labs. Elevated inflammatory markers noted today. (3) CHAD (acute kidney injury): Plan: SEVERE. Creatinine at presentation was 2.8. Typical baseline 1.2-1.3. Now Cr just about 7. Urine output today oliguric with <20cc/hr. This is despite copious IV fluids. He is quite positive since admission; at least 10+ liters since arrival. CT a/p without any obstruction. Rhabdomyolysis and ATN both to blame for his CHAD/ARF. Appreciate Dr Falcon's consultation and recs. Remains on bicarb infusion at 150cc/hr. Hopefully creatinine will level off and urine output will start to improve soon. Hopefully he will not need any short-term HD but thus far his parameters are acceptable enough to defer on HD at this time. (no hyperkalemia, tolerating IV fluid without increasing O2 requirements, acidosis is only mild - however his BUN is nearing 100 and he is more sleepy/altered today). BMPs from today noted and BMP ordered for the am. (4) Diabetes mellitus type 2 in obese: Plan: Uncontrolled in the setting of sepsis, ARF, resp failure, etc. Last OyfV3V=8.4 on 08/13/23 Increase Lantus to 15 units BID Increase novolog parameters again Hold Glimepiride & Empagliflozin (5) Idiopathic thrombocytopenic purpura: Plan: Chronic. Stable. 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 Stable Continue Flomax Diego in place No obstruction on CT a/p (7) Kidney stones: Plan: seen on CT, but not causing obstruction at this time no Rx needed (8) Fall: Plan: unwitnessed was patient getting weak from UTI and/or pulmonary infection which led to fall? needs PT/OT (9) Benign hypertension: Plan: only on flomax at home BPs acceptable today (10) Bipolar 1 disorder, depressed, mild: Plan: on Invega injection therapy monthly family reports he has charges pressed against him and has court date this coming Tuesday, November 20 he will need a note stating he won't be able to attend in person given his severe illness (11) Hyponatremia: Plan: 2nd acute renal failure, hyperglycemia, etc. cont sodium bicarb infusion cont sodium bicarb tablets also added by nephrology serial BMPs (12) Severe sepsis: Plan: 2nd to UTI 2nd to pulmonary infection? blood cx's thus far neg urine cx with e.coli (13) UTI (urinary tract infection): Plan: 2nd ecoli cont rocephin, day #3 of such plan at least 7 days consider checking PSA and if elevated perhaps extend the course to cover prostatitis as well (14) Pneumonia: Plan: suspected b/l basilar rocephin; doxy follow blood cx's but they remain negative supportive care, O2, etc COVID/flu/RSV negative (15) Morbid obesity: Plan: BMI 43 (16) Esophagitis: Plan: as seen on CT a/p cont protonix 40mg BID (17) Dysphagia: Plan: appreciate speech eval video swallow NEG for aspiration (18) Elbow pain: Plan: b/l 2nd to fall elbow x-rays without fracture (19) Conjunctivitis: Plan: b/l, R>L somewhat chronic per family conjunctivitis vs bletharitis vs blocked tear ducts vs other while here - erythromycin eye ointment BID send to ophtho post-d/c Plan extensive family update given to his mother & sister at bedside care d/w Dr Falcon from nephrology he remains guarded in light of worsening ARF/CHAD Admission and Anticipated Discharge Date Admission Date: November 15, 2023 Subjective patient sitting in chair during the visit nursing flowsheets show about 50% of meals consumed he was altered during the visit, saying very little family at bedside - they, too, agree he is altered they have also noted tremor or jerks of arms due to altered mental status review of systems was difficult however, he did say he felt achy in multiple places and is weak urine output today poor - <20cc/hr Review of Systems Review of Systems: Unobtainable due to cognitive status +BM on 11/15/23 Physical Exam Physical Exam: gen - obese, sitting in chair, altered, very quiet; myoclonic jerks vs asterixis noted neck - no obvious JVD mouth - MMM heart - RRR but borderline tachy, s1 s2, no murmur lungs - decreased BS both bases; no wheezes today; no distress today abd - again marked distension noted but nontender, BS+ vascular - pulses - radial 2+ b/l; DP/post tib pulses 2+ b/l psych - awake but groggy and altered neuro - myoclonic jerks vs asterixis musculo - b/l elbow abrasions unchanged; significant swelling of b/l arms, worse on left; <1+ edema b/l legs; despite swelling of arms NO evidence of compartment syndrome - nonpainful extremities; pulses all 4 limbs wnl, no signs of ischemia, etc. neuro - handgrip 5/5 b/l; shoulder extension 4/5 b/l; hip flexion about 4-5/5 b/l; dorsiflexion/plantarflexion of b/l feet about 5/5 Results & Data Results & Data Vital Signs (Past 12 Hours) Vital Signs Temp Pulse Resp BP Pulse Ox O2 Del Method O2 Flow Rate 11/17/23 20:04 37.0 C 100 H 16 110/67 96 Nasal Cannula 3 11/17/23 19:38 92 H 20 92 Nasal Cannula 3 11/17/23 15:56 105 H 18 93 Nasal Cannula 3 11/17/23 15:23 95/58 L 11/17/23 15:20 105 H 18 97/59 L 93 Nasal Cannula 2.5 11/17/23 11:42 94 H 22 93 Nasal Cannula 3 11/17/23 09:43 Nasal Cannula 3 Laboratory Results Laboratory Results - last 24 hr 11/17/23 11/17/23 11/17/23 00:35 05:34 07:48 WBC 7.93 RBC 4.31 L Hgb 12.3 L Hct 36.3 L MCV 84.2 MCH 28.5 MCHC 33.9 RDW Std Deviation 44.4 RDW Coeff of Izabela 14.3 Plt Count 67 L MPV 12.5 H Immature Gran % (Auto) 0.5 Neut % (Auto) 81.7 Lymph % (Auto) 4.7 [place] % (Auto) 12.4 Eos % (Auto) 0.3 Baso % (Auto) 0.4 Neut # (Auto) 6.49 Lymph # (Auto) 0.37 L [place] # (Auto) 0.98 H Eos # (Auto) 0.02 Baso # (Auto) 0.03 Immature Gran # (Auto) 0.04 ESR Sodium 128 L Potassium 4.7 Chloride 96 L Carbon Dioxide 17 L Anion Gap 15 H BUN 88 H Creatinine 6.86 H* D Est Cr Clr Drug Dosing 17.1 Est GFR ( Amer) 9.4 Est GFR (Non-Af Amer) 8.1 BUN/Creatinine Ratio 12.8 Glucose 198 H POC Glucose 266 H Calcium 7.9 L Total Bilirubin 0.3 D Direct Bilirubin 0.1 AST 265 H ALT 116 H Alkaline Phosphatase 62 Total Creatine Kinase 8196 H C-Reactive Protein Total Protein 5.1 L D Albumin 2.5 L Aldolase 0-CJ-3-Methylglutar CoA Urine Color Yellow Urine Appearance Cloudy A Urine pH 5.5 Ur Specific [place] 1.011 Urine Protein 3+ H Urine Glucose (UA) 2+ H Urine Ketones Negative Urine Blood 3+ H Urine Nitrite Negative Urine Bilirubin Negative Urine Urobilinogen Negative Ur Leukocyte Esterase 2+ H Urine WBC (Auto) >50 H Urine RBC (Auto) >20 H U Hyaline Cast (Auto) 0-2 U Epithel Cells (Auto) 0-2 Urine Bacteria (Auto) None Seen EDUARDO Screen NANCY-1 Antibody Anti-Nancy-1 Ab (IB) EJ Antibody OJ Antibody Mi-2-Alpha Ab Mi-2-Beta Ab NXP-[address]-12 Antibody SRP Ab MDA5 Ab Myositis TIF1-gamma Ab Anti-cN-1A Antibody 11/17/23 11/17/23 11/17/23 11:55 15:03 16:41 WBC RBC Hgb Hct MCV MCH MCHC RDW Std Deviation RDW Coeff of Izabela Plt Count MPV Immature Gran % (Auto) Neut % (Auto) Lymph % (Auto) [place] % (Auto) Eos % (Auto) Baso % (Auto) Neut # (Auto) Lymph # (Auto) [place] # (Auto) Eos # (Auto) Baso # (Auto) Immature Gran # (Auto) ESR 76 H Sodium 127 L Potassium 4.8 Chloride 94 L Carbon Dioxide 19 L Anion Gap 14 H BUN 95 H Creatinine 6.98 H* Est Cr Clr Drug Dosing 16.8 Est GFR ( Amer) 9.2 Est GFR (Non-Af Amer) 7.9 BUN/Creatinine Ratio 13.6 Glucose 210 H POC Glucose 248 H 177 H Calcium 8.1 L Total Bilirubin Direct Bilirubin AST ALT Alkaline Phosphatase Total Creatine Kinase 6755 H C-Reactive Protein 27.67 H Total Protein Albumin Aldolase Pending 1-SH-9-Methylglutar CoA Pending Urine Color Urine Appearance Urine pH Ur Specific [place] Urine Protein Urine Glucose (UA) Urine Ketones Urine Blood Urine Nitrite Urine Bilirubin Urine Urobilinogen Ur Leukocyte Esterase Urine WBC (Auto) Urine RBC (Auto) U Hyaline Cast (Auto) U Epithel Cells (Auto) Urine Bacteria (Auto) EDUARDO Screen Pending NANCY-1 Antibody Pending Anti-Nancy-1 Ab (IB) Pending EJ Antibody Pending OJ Antibody Pending Mi-2-Alpha Ab Pending Mi-2-Beta Ab Pending NXP-[address]-12 Antibody Pending SRP Ab Pending MDA5 Ab Pending Myositis TIF1-gamma Ab Pending Anti-cN-1A Antibody Pending Diagnostic Findings Microbiology 11/15/23 14:37 Blood Aerobic Blood Culture - Preliminary No growth in Aerobic bottle after 48 hours. 11/15/23 14:37 Blood Anaerobic Blood Culture - Preliminary No growth in Anaerobic bottle after 48 hours. 11/15/23 14:36 Blood Aerobic Blood Culture - Preliminary No growth in Aerobic bottle after 48 hours. 11/15/23 14:36 Blood Anaerobic Blood Culture - Preliminary No growth in Anaerobic bottle after 48 hours. 11/15/23 13:45 Urine,Straight Cath Urine Culture - Final Escherichia coli PG Care Time/CCT Total # of Minutes Spent Total Time Spent with Patient: Total time spent is greater than 50% in coordination of care (as documented) at patient's floor/unit and/or counseling patient: Coding Level of Care Code 69593 SUB INP/OBS CARE 3/50MIN Diagnoses Acute hypoxic respiratory failure J96.01 Rhabdomyolysis M62.82 CHAD (acute kidney injury) N17.9 Diabetes mellitus type 2 in obese E11.69; E66.9 Idiopathic thrombocytopenic purpura D69.3 BPH with obstruction/lower urinary tract symptoms N40.1; N13.8 Kidney stones N20.0 Fall W19.XXXA Benign hypertension I10 Bipolar 1 disorder, depressed, mild F31.31 Hyponatremia E87.1 Severe sepsis A41.9; R65.20 UTI (urinary tract infection) N39.0; R31.9 Hematuria presence: with hematuria Urinary tract infection type: site unspecified Pneumonia J18.9 Morbid obesity E66.01 Esophagitis K20.90 Dysphagia R13.10 Elbow pain M25.529 Conjunctivitis H10.9 (13) UTI (urinary tract infection) Hematuria presence: with hematuria Urinary tract infection type: site unspecified Qualified Code(s): N39.0 - Urinary tract infection, site not specified; R31.9 - Hematuria, unspecified
[2023-11-17] MEDS: PANTOprazole 40 MG TAB PO SCH (20:47)
[2023-11-18 08:00] LABS: Basophils # (auto) 0.03 K/uL (0.00-0.20); Basophils % (auto) 0.4 %; Eosinophils # (auto) 0.13 K/uL (0.00-0.50); Eosinophils % (auto) 1.5 %; Hematocrit (blood only) 32.5 % (42.0-52.0); Hemoglobin 11.1 g/dl (14.0-18.0); Immature Granulocytes % (auto) 1.2 %; Lymphocytes # (auto) 0.71 K/uL (1.20-3.40); Lymphocytes % (auto) 8.4 %; Mean Corpuscular Hemoglobin 29.1 pg (25.0-34.0); Mean Corpuscular Hgb Conc 34.2 g/dL (32.0-36.0); Mean Corpuscular Volume 85.3 fL (80.0-100.0); Monocytes # (auto) 1.28 K/uL (0.11-0.59); Monocytes % (auto) 15.2 %; Neutrophils # (auto) 6.19 K/uL (1.40-6.50); Neutrophils % (auto) 73.3 %; Platelet Count 65 K/uL (130-400); RDW Coefficient of Variation 14.7 % (11.5-14.5); RDW Standard Deviation 45.8 fL (36.4-46.3); Red Blood Count 3.81 M/uL (4.70-6.10); White Blood Count 8.44 K/ul (4.8-10.8)
[2023-11-18 08:13] LABS: Base Excess VBG -5.1 mEq/L; HCO3 VBG 21 mmol/L; Oxygen Saturation VBG 69.2 %; PCO2 VBG 43 mmHg (38-50); PO2 VBG 39 mmHg
[2023-11-18 08:17] LABS: Albumin Level 2.4 gm/dl (3.4-5.0); Bilirubin,Total 0.3 mg/dl (0.2-1.0); Calcium 8.4 mg/dl (8.6-10.3); Potassium 4.3 mmol/L (3.5-5.1)
[2023-11-18 08:34] LABS: Albumin Globulin Ratio 0.9 (0.9-2); BUN Creatinine Ratio 13.1 (10-20); Creatinine Clr Calc Pharmacy 14.7 ml/min; Est GFR (African American) 7.8 ml/min; Est GFR (Non-African American) 6.7 ml/min; Globulin 2.6 gm/dl (2.5-4.0)
[2023-11-18] MEDS: LANTUS PER UNIT CHARGE SQ SCH (08:48)
--- NOTE | 2023-11-18 11:44 | Nephrology Progress Note ---
Date of Service November 18, 2023 Assessment & Plan (1) CHAD (acute kidney injury): Plan: CHAD attributed to rhabdomyolysis and suspected ATN. Non-oliguric. Unfortunately, no signs of renal recovery. Progressive azotemia and potential early uremic symptoms noted. Risks/benefits of dialysis were discussed with Rodolfo. He expressed understanding. He was on HD for CHAD in the past. I attempted to contact his mother but there was no answer. I discussed HD catheter placement with the software configuration analyst and vascular surgery. Temporary HD catheter would be appropriate at this time. Dr. Mclean is available next week to place a permcath, if needed. He is in the OR this AM and not available tomorrow. I have asked Dr. Thornton to evaluate for temp catheter placement in the interim. Once a catheter is placed, HD will be coordinated for clearance. I would like to continue 1/2NS+NaHCO3 infusion as tolerate to encourage urine output. Medications are currently appropriately dosed for kidney function. Empagliflozin, metformin, and lisinopril have been held. Urine microscopy notable for WBC and RBC. Culture c/w E coli UTI. Treatment is being provided. I cannot exclude GN but clinical presentation is very atypical. Repeat urine studies may be completed in the future. CT demonstrates the kidneys to be unobstructed. Maintain Diego. Document strict I/O's. Renal diet. Repeat metabolic profile tomorrow AM. (2) Rhabdomyolysis: Plan: CK trending downward. Etiology not entirely clear. Rodolfo told me that received monthly Invega on November 12. It is very possible that he developed an associated NMS or rhabdomyolysis. He also suffered a fall at home with suspected UTI +/- pneumonia. Clinical presentation, including proximal muscle weakness and upper extremity edema concerning for possible underlying polymyositis. Myositis antibody panel, anti-nancy 1, and EDUARDO are pending. ESR 76. Ultimately, Rodolfo may benefit from outpatient rheumatology evaluation or muscle biopsy. Follow up with psychiatry will also be required regarding risks/benefits of Invega moving forward. (3) Diabetes mellitus type 2 in obese: Plan: Metformin and empagliflozin held. (4) CKD stage 3 due to type 2 diabetes mellitus: Plan: Baseline creatinine 1.2-1.6 mg/dL. Albuminuria A1-A2 by history. Outpatient follow up encouraged. (5) Kidney stones: Plan: Updated CT reviewed. 3 mm non-obstructing calculus noted. Outpatient follow up with nephrology and urology will be coordinated at discharge. (6) BPH with obstruction/lower urinary tract symptoms: Plan: Maintain Diego to gravity. Continue Tamsulosin as Rx. Admission and Anticipated Discharge Date Admission Date: November 15, 2023 Subjective No acute events overnight. No fevers. Rodolfo was sitting comfortably in his bedside chair this AM. He feels that he is tolerating fluids well. Diego draining clear yellow urine. He is answering questions appropriately. We discussed his prior HD treatment and indications for dialysis. He was receptive to the idea of HD catheter placement. He understands that his kidneys are not clearing urea and other toxins despite the fact that he is making urine. I spoke to Dr. Portillo this morning. Dr. Portillo noted mental status changes and tremors /myoclonic jerking yesterday. Rodolfo admits that he continues to feel shaky. He reports some tension in his neck and shoulders and limited mobility in his arms. Rodolfo denies nausea. Appetite is fair. He is breathing comfortably. Weakness persists. He continues to deny pain. Review of Systems Review of Systems: All systems reviewed & are unremarkable except as noted in HPI & below Physical Exam Constitutional: well developed and + edematous; no acute distress Eyes: no scleral abnormality and no corneal abnormality ENMT: Mouth: no oral mucosal abnormality and oral mucous membranes not dry Neck: normal visual inspection and trachea midline Respiratory: normal respiratory effort; no respiratory distress and does not use accessory muscles Auscultation: lungs clear to auscultation bilaterally Cardiovascular: Rate/Rhythm: regular rate and regular rhythm Heart Sounds: normal S1 and normal S2 Extremities: + edema (UE + LE increasing generalized) Musculoskeletal: Extremities: no cyanosis and no clubbing Skin: normal turgor; no rashes and no lesions Neurologic: Motor/Sensory: no tremor and no asterixis Psychiatric: Orientation: alert and oriented x 3 Results & Data Vital Signs (Past 12 Hours) Vital Signs Temp Pulse Pulse Resp BP Pulse Ox O2 Del Method 11/18/23 11:02 83 18 94 Nasal Cannula 11/18/23 07:35 Nasal Cannula 11/18/23 07:04 36.9 C 83 16 116/70 94 Room Air 11/18/23 06:53 82 18 91 Nasal Cannula O2 Flow Rate 11/18/23 11:02 2 11/18/23 07:35 3 11/18/23 07:04 11/18/23 06:53 2 Laboratory Results Laboratory Results - last 24 hr 11/17/23 11/17/23 11/17/23 11:55 15:03 16:41 WBC RBC Hgb Hct MCV MCH MCHC RDW Std Deviation RDW Coeff of Izabela Plt Count MPV Immature Gran % (Auto) Neut % (Auto) Lymph % (Auto) [place] % (Auto) Eos % (Auto) Baso % (Auto) Neut # (Auto) Lymph # (Auto) [place] # (Auto) Eos # (Auto) Baso # (Auto) Immature Gran # (Auto) ESR 76 H VBG pH VBG pCO2 VBG pO2 VBG HCO3 VBG O2 Saturation VBG Base Excess Sodium 127 L Potassium 4.8 Chloride 94 L Carbon Dioxide 19 L Anion Gap 14 H BUN 95 H Creatinine 6.98 H* Est Cr Clr Drug Dosing 16.8 Est GFR ( Amer) 9.2 Est GFR (Non-Af Amer) 7.9 BUN/Creatinine Ratio 13.6 Glucose 210 H POC Glucose 248 H 177 H Calcium 8.1 L Total Bilirubin AST ALT Alkaline Phosphatase Ammonia Total Creatine Kinase 6755 H C-Reactive Protein 27.67 H Total Protein Albumin Globulin Albumin/Globulin Ratio Aldolase Pending 0-SU-7-Methylglutar CoA Pending Vitamin B1 EDUARDO Screen Pending NANCY-1 Antibody Pending Anti-Nancy-1 Ab (IB) Pending EJ Antibody Pending OJ Antibody Pending Mi-2-Alpha Ab Pending Mi-2-Beta Ab Pending NXP-[address]-12 Antibody Pending SRP Ab Pending MDA5 Ab Pending Myositis TIF1-gamma Ab Pending Anti-cN-1A Antibody Pending 11/17/23 11/18/23 11/18/23 20:22 07:34 07:43 WBC 8.44 RBC 3.81 L Hgb 11.1 L Hct 32.5 L MCV 85.3 MCH 29.1 MCHC 34.2 RDW Std Deviation 45.8 RDW Coeff of Izabela 14.7 H Plt Count 65 L MPV 13.0 H Immature Gran % (Auto) 1.2 Neut % (Auto) 73.3 Lymph % (Auto) 8.4 [place] % (Auto) 15.2 Eos % (Auto) 1.5 Baso % (Auto) 0.4 Neut # (Auto) 6.19 Lymph # (Auto) 0.71 L [place] # (Auto) 1.28 H Eos # (Auto) 0.13 Baso # (Auto) 0.03 Immature Gran # (Auto) 0.10 ESR VBG pH 7.30 L VBG pCO2 43 VBG pO2 39 VBG HCO3 21 VBG O2 Saturation 69.2 VBG Base Excess -5.1 Sodium 129 L Potassium 4.3 Chloride 94 L Carbon Dioxide 22 Anion Gap 13 H BUN 105 H Creatinine 8.00 H* D Est Cr Clr Drug Dosing 14.7 Est GFR ( Amer) 7.8 Est GFR (Non-Af Amer) 6.7 BUN/Creatinine Ratio 13.1 Glucose 84 POC Glucose 241 H 77 Calcium 8.4 L Total Bilirubin 0.3 AST 214 H ALT 107 H Alkaline Phosphatase 56 Ammonia 17.0 L Total Creatine Kinase 4900 H C-Reactive Protein Total Protein 5.0 L Albumin 2.4 L Globulin 2.6 Albumin/Globulin Ratio 0.9 Aldolase 8-BE-1-Methylglutar CoA Vitamin B1 Pending EDUARDO Screen NANCY-1 Antibody Anti-Nancy-1 Ab (IB) EJ Antibody OJ Antibody Mi-2-Alpha Ab Mi-2-Beta Ab NXP-[address]-12 Antibody SRP Ab MDA5 Ab Myositis TIF1-gamma Ab Anti-cN-1A Antibody 11/18/23 11:44 WBC RBC Hgb Hct MCV MCH MCHC RDW Std Deviation RDW Coeff of Izabela Plt Count MPV Immature Gran % (Auto) Neut % (Auto) Lymph % (Auto) [place] % (Auto) Eos % (Auto) Baso % (Auto) Neut # (Auto) Lymph # (Auto) [place] # (Auto) Eos # (Auto) Baso # (Auto) Immature Gran # (Auto) ESR VBG pH VBG pCO2 VBG pO2 VBG HCO3 VBG O2 Saturation VBG Base Excess Sodium Potassium Chloride Carbon Dioxide Anion Gap BUN Creatinine Est Cr Clr Drug Dosing Est GFR ( Amer) Est GFR (Non-Af Amer) BUN/Creatinine Ratio Glucose POC Glucose 82 Calcium Total Bilirubin AST ALT Alkaline Phosphatase Ammonia Total Creatine Kinase C-Reactive Protein Total Protein Albumin Globulin Albumin/Globulin Ratio Aldolase 7-IX-2-Methylglutar CoA Vitamin B1 EDUARDO Screen NANCY-1 Antibody Anti-Nancy-1 Ab (IB) EJ Antibody OJ Antibody Mi-2-Alpha Ab Mi-2-Beta Ab NXP-[address]-12 Antibody SRP Ab MDA5 Ab Myositis TIF1-gamma Ab Anti-cN-1A Antibody PG Care Time/CCT Total # of Minutes Spent Total Time Spent with Patient: Total time spent is greater than 50% in coordination of care (as documented) at patient's floor/unit and/or counseling patient: Coding Level of Care Code 94656 SUB INP/OBS CARE 3/50MIN Diagnoses CHAD (acute kidney injury) N17.9 Rhabdomyolysis M62.82 Diabetes mellitus type 2 in obese E11.69; E66.9 CKD stage 3 due to type 2 diabetes mellitus E11.22; N18.3 Kidney stones N20.0 BPH with obstruction/lower urinary tract symptoms N40.1; N13.8
--- NOTE | 2023-11-18 12:37 | Critical Care Consultation ---
Date of Consultation November 18, 2023 Assessment & Plan (1) CHAD (acute kidney injury): Plan Impression: 58-year-old male with morbid obesity ITP and now rhabdomyolysis status post prolonged downtime needing IV access for renal replacement therapy. The patient is somewhat complicated and that his body mass makes anatomic landmarks difficult. In addition he has very limited mobility of his neck. His ITP he also has increased risk of bleeding secondary to low platelets. Neverth eless, I think he is appropriate for a temporary hemodialysis catheter especially given the fact that there are no other options available for him currently. Risks and benefits were discussed with the patient. He agreed to proceed. Recommendations: 1. Patient will undergo bedside ultrasound-guided hemodialysis catheter placement. Will attempt to place in the right internal jugular position. He will need a vascular surgery consult for more permanent catheter going forward if he requires long-term renal replacement therapy. Will obtain chest x-ray post line placement prior to use. The above recommendations and plan were discussed with the patient as well as with nephrology. Critical care services will sign off at this point in time. Feel free to contact us with questions History of Present Illness Attending Physician: Kurt Portillo MD History of Present Illness Asked by nephrology to evaluate this patient for temporary hemodialysis catheter. History is obtained from discussion with nephrology and review of electronic medical record as well as interview the patient. The patient is a 58-year-old male with a history of morbid obesity and ITP who was admitted to the facility 11/19/2023 after a fall. He was found to have rhabdomyolysis. He developed acute kidney injury which has continued to worsen. He is uremic and encephalopathic. Nephrology is anticipating initiation of renal replacement therapy and requests access. Vascular surgery is not available till next week to put a more permanent access and. The patient is sitting up in the chair. He is morbidly obese. He has limited mobility of his neck but is not complaining of any chest pain palpitations or shortness of breath. He has not had any bleeding issues. Allergies Allergy/AdvReac Type Severity Reaction Status Date / Time aspirin Allergy Mild NOSE BLEEDS Verified 11/14/23 19:51 bupropion Allergy Mild RASH Verified 11/14/23 19:51 meloxicam Allergy Mild RASH Verified 11/14/23 19:51 Penicillins Allergy Mild Rash Verified 11/14/23 19:51 ciprofloxacin [From Cipro] Allergy Unknown Rash Verified 11/14/23 19:51 Home Medications Medication Instructions Recorded Confirmed Type glucosamine HCl 500 mg tablet 500 mg PO QAM 04/26/19 11/14/23 History acetaminophen 325 mg capsule 325 mg PO QID PRN Pain 05/12/20 11/14/23 History (Tylenol) Accu-Chek Guide Glucose Meter #1 ea 04/01/21 10/26/23 Rx (blood-glucose meter) Accu-Chek Guide test strips (blood #200 ea 04/01/21 10/26/23 Rx sugar diagnostic) lancets (Accu-Chek Softclix #100 ea 04/02/21 10/26/23 Rx Lancets) venlafaxine 150 mg 150 mg PO QAM 09/29/22 11/14/23 History capsule,extended release 24 hr hydroxyzine HCl 50 mg tablet 50 mg PO HS PRN Anxiety 01/12/23 11/14/23 History empagliflozin 10 mg tablet 10 mg PO DAILY #90 tabs 06/30/23 11/14/23 Rx (Jardiance) tamsulosin 0.4 mg capsule 0.4 mg PO DAILY #90 caps 07/06/23 11/14/23 Rx metformin 500 mg tablet,extended 2,000 mg (4 x 500 mg) PO DAILY 10/03/23 11/14/23 Rx release 24 hr #360 tabs glimepiride 4 mg tablet 4 mg PO DAILY #90 tabs 11/09/23 11/14/23 Rx lisinopril 5 mg tablet 5 mg PO QAM #90 tabs 11/09/23 11/14/23 Rx paliperidone palmitate 156 mg/mL 156 mg IM MONTHLY 11/14/23 11/14/23 History intramuscular syringe (Invega Sustenna) Patient History Medical History (Updated 11/17/23 @ 06:19 by Kurt Portillo MD) Kidney stones Complex renal cyst Repeat US 05/2023. no further screening Eczema Hyperlipidemia History of colon polyps Morbid obesity with BMI of 45.0-49.9, adult Cervicalgia CKD stage 3 due to type 2 diabetes mellitus BPH with obstruction/lower urinary tract symptoms Benign hypertension (01/22/13) Cyst of kidney, acquired Gastroesophageal reflux disease Idiopathic thrombocytopenic purpura Inguinal hernia Left Side Lumbar radiculopathy Obstructive sleep apnea (adult) (pediatric) (01/22/13) does not use CPAP as ordered Tubulovillous adenoma of colon CHAD (acute kidney injury) CHAD 03/2019 in setting of ureteral stones (b/l stent placed) Fatty liver disease, nonalcoholic (Unknown) Diverticulitis Depression Anxiety Surgical History History of bilateral cataract extraction History of cystoscopy x2--last 05/2019. Cystoscopy b/l stents: 03/26/19: Grade 2 view, MAC#3, ETT 7.5 at [facility] (no anesthesia complications per anesthesia progress note but patient reports post-op confusion) History of colonoscopy 04/2015 recommended 5 yrs--with polypectomy History of hand surgery LEFT History of cholecystectomy Family History Father Colon cancer age 63 Other No family history of adverse response to anesthesia Denies family history of Ovarian cancer Prostate cancer Crohn's disease Breast cancer Lung cancer Ulcerative colitis Social History Smoking Status: Never smoker Second Hand Exposure: No; Do You Dip or Chew Tobacco: No; Tobacco Cessation Education Requested by Patient: No Hx Alcohol Use: No Hx Substance Use: No Preferred Language: Cypriot Communication Ability: Effective Visual Impairment: No Limitations Hearing Ability: Normal Acid Pumper Required: No Beliefs That Will Affect Care: None marital status: Single Current Living Situation: Parent current occupational status: unemployed Feels Safe at Home: Yes Safety Concerns: Feels Safe At This Time Childhood Exposure to Second-Hand Smoke: No Diet: regular caffeine: Yes Dental Care, Regularly: No Physical Activity Frequency: 3-4 Times per Week Physical Activity Frequency Comment: WALKS Seatbelt Use: always Sunscreen Use: Yes Gender Identity: Male Assistive Devices: None Assistive Devices Comment: medical alert necklace Review of Systems Review of Systems: Please refer to hospitalist note for full details. No additions or deletions Physical Exam Constitutional: well developed and + edematous; no acute distress Eyes: no scleral abnormality and no corneal abnormality ENMT: Mouth: no oral mucosal abnormality and oral mucous membranes not dry Neck: normal visual inspection and trachea midline Limited mobility of the neck with the patient only able to rotate about 10 degrees in either direction Respiratory: normal respiratory effort; no respiratory distress and does not use accessory muscles Auscultation: lungs clear to auscultation bilaterally Cardiovascular: Rate/Rhythm: regular rate and regular rhythm Heart Sounds: normal S1 and normal S2 Extremities: + edema (UE + LE increasing generalized) Musculoskeletal: Extremities: no cyanosis and no clubbing Skin: normal turgor; no rashes and no lesions Neurologic: Motor/Sensory: no tremor and no asterixis Psychiatric: Orientation: alert and oriented x 3 Results & Data Results & Data Vital Signs (Past 12 Hours) Vital Signs Temp Pulse Pulse Resp BP Pulse Ox O2 Del Method 11/18/23 11:02 83 18 94 Nasal Cannula 11/18/23 07:35 Nasal Cannula 11/18/23 07:04 36.9 C 83 16 116/70 94 Room Air 11/18/23 06:53 82 18 91 Nasal Cannula O2 Flow Rate 11/18/23 11:02 2 11/18/23 07:35 3 11/18/23 07:04 11/18/23 06:53 2 Critical Care Results & Data Vital Signs (Past 12 Hours) Vital Signs Temp Pulse Pulse Resp BP Pulse Ox O2 Del Method 11/18/23 11:02 83 18 94 Nasal Cannula 11/18/23 07:35 Nasal Cannula 11/18/23 07:04 36.9 C 83 16 116/70 94 Room Air 11/18/23 06:53 82 18 91 Nasal Cannula O2 Flow Rate 11/18/23 11:02 2 11/18/23 07:35 3 11/18/23 07:04 11/18/23 06:53 2 Lab & Micro Results (Past 24 Hours) RBC 3.81 M/uL (4.70-6.10) L 11/18/23 WBC 8.44 K/ul (4.8-10.8) 11/18/23 Hgb 11.1 g/dl (14.0-18.0) L 11/18/23 Hct 32.5 % (42.0-52.0) L 11/18/23 MCV 85.3 fL (80.0-100.0) 11/18/23 MCH 29.1 pg (25.0-34.0) 11/18/23 MCHC 34.2 g/dL (32.0-36.0) 11/18/23 RDW Standard Deviation 45.8 fL (36.4-46.3) 11/18/23 RDW Coefficient of Variation 14.7 % (11.5-14.5) H 11/18/23 Plt Count 65 K/uL (130-400) L 11/18/23 MPV 13.0 fL (9.4-12.4) H 11/18/23 Neutrophils (%) (Auto) 73.3 % 11/18/23 Lymphocytes (%) (Auto) 8.4 % 11/18/23 Monocytes # (Auto) 1.28 K/uL (0.11-0.59) H 11/18/23 Eosinophils # (Auto) 0.13 K/uL (0.00-0.50) 11/18/23 Immature Granulocyte % (Auto) 1.2 % 11/18/23 Neutrophils # (Auto) 6.19 K/uL (1.40-6.50) 11/18/23 Lymphocytes # (Auto) 0.71 K/uL (1.20-3.40) L 11/18/23 Monocytes # (Auto) 1.28 K/uL (0.11-0.59) H 11/18/23 Eosinophils # (Auto) 0.13 K/uL (0.00-0.50) 11/18/23 Basophils # (Auto) 0.03 K/uL (0.00-0.20) 11/18/23 Immature Granulocyte # (Auto) 0.10 K/uL (0.01-0.20) 4 Na 129 mmol/L (136-145) L 11/18/23 K 4.3 mmol/L (3.5-5.1) 11/18/23 Cl 94 mmol/L (98-107) L 11/18/23 CO2 22 mmol/L (21-32) 11/18/23 Anion Gap 13 (3-11) H 11/18/23 BUN 105 mg/dl (6-23) H 11/18/23 Creatinine 8.00 mg/dl (0.6-1.4) H* 11/18/23 Estimated GFR ( Amer) 7.8 ml/min 11/18/23 Estimated GFR (Non-Af Amer) 6.7 ml/min 11/18/23 BUN/Creatinine Ratio 13.1 (10-20) 11/18/23 Glu 84 mg/dl (70-99(Fasting)) 11/18/23 Ca 8.4 mg/dl (8.6-10.3) L 11/18/23 Total Bilirubin 0.3 mg/dl (0.2-1.0) 11/18/23 AST 214 U/L (13-39) H 11/18/23 ALT 107 U/L (7-52) H 11/18/23 Alkaline Phosphatase 56 U/L (34-104) 11/18/23 TP 5.0 gm/dl (6.0-8.3) L 11/18/23 Albumin 2.4 gm/dl (3.4-5.0) L 11/18/23 Globulin 2.6 gm/dl (2.5-4.0) 11/18/23 Albumin/Globulin Ratio 0.9 (0.9-2) 11/18/23 Calcium Level 8.4 mg/dl (8.6-10.3) L 11/18/23 07:34 Venous Blood pH 7.30 (7.36-7.41) L 11/18/23 07:34 Venous Blood Partial Pressure CO2 43 mmHg (38-50) 11/18/23 07:3 4 Venous Blood Partial Pressure O2 39 mmHg 11/18/23 07:34 Venous Blood HCO3 21 mmol/L 11/18/23 07:34 Venous Blood Base Excess -5.1 mEq/L 11/18/23 07:34 Venous Blood Oxygen Saturation 69.2 % 11/18/23 07:34 Microbiology 11/15/23 14:37 Aerobic Blood Culture - Preliminary Blood No growth in Aerobic bottle after 48 hours. Anaerobic Blood Culture - Preliminary No growth in Anaerobic bottle after 48 hours. 11/15/23 14:36 Aerobic Blood Culture - Preliminary Blood No growth in Aerobic bottle after 48 hours. Anaerobic Blood Culture - Preliminary No growth in Anaerobic bottle after 48 hours. 11/15/23 13:45 Urine Culture - Final Urine,Straight Cath Escherichia coli Diagnostic Findings (Past 24 Hours) Videofluoroscopic Swallow 11/17/23 10:00 VIDEO SWALLOW STUDY CLINICAL HISTORY: Aspiration. COMPARISON STUDY: No priors. FLUOROSCOPY TIME: 59 seconds. Ka,r: 16.1 mGy FINDINGS: Fluoroscopic guidance was provided to the Department of speech pathology in performing a video swallow study. The patient consumed barium- impregnated pudding, cracker with paste, nectar-thick liquids, and thin barium while the swallowing mechanism was observed in real-time. No penetration or aspiration was seen with any of the sampled textures. IMPRESSION: No penetration or aspiration was seen with any of the sampled textures. See dedicated speech pathology report for detailed findings and recommendations. Dictated: 11/17/2023 11:55 AM Transcribed: 11/17/2023 12:29 PM Anuel [id number] [email or web address] Electronically signed by: Florentino Christensen M.D. 11/17/2023 2:30 PM I & O Totals 24 Hours 11/17/23 11/18/23 11/19/23 06:59 06:59 06:59 Intake Total 4021.666 / 4021.666 4550 / 4550 150 / 150 Output Total 775 / 775 650 / 650 Balance 3246.666 / 3246.666 3900 / 3900 150 / 150 Cumulative 11/14/23 19:36 thru 11/18/23 10:00 Intake Total 05839.666 Output Total 1975 Balance 37544.666 RT Ventilator Mngmt (Last Documented) Ventilator Ordered Settings Respiratory Rate 18 11/18/23 11:02 Ventilator - PT Measurements Respiratory Rate 18 Coding Level of Care Code 86480 IN/OBS CONSULT LVL 3,45M Diagnoses CHAD (acute kidney injury) N17.9
--- NOTE | 2023-11-18 12:37 | Procedure Note ---
Procedure Note Date of Service November 18, 2023 Note CENTRAL LINE PROCEDURE NOTE: Procedure: Ultrasound-guided temporary hemodialysis catheter placement Provider: Wil Thornton MD Indication: Need for IV access for hemodialysis Anesthesia: 5 mL 1% lidocaine locally Site: Right internal jugular Consent was signed and placed on the chart prior to procedure. Indication, risks, and benefits were explained at length. A time-out was completed verifying correct patient, procedure, site, positioning, and implants(s) or special equipment if applicable. Patients right neck was cleansed and draped in the typical sterile fashion using Chloraprep. The Internal Jugular Vein and Carotid Artery were identified using ultrasound. The superficial tissue was anesthetized using 5 mL of 1% lidocaine without epinephrine under direct visualization with the ultrasound. After adequate anesthetization was achieved, the Internal Jugular vein was cannulated under direct ultrasound guidance using an introducer needle on a syringe. Good venous blood return was maintained prior to removal of syringe from introducer needle. Using Seldinger Technique, a guide wire was advanced through the introducer needle without resistance. The introducer needle was removed and ultrasound images were obtained of the guide wire within the Internal Jugular Vein. A small incision was made in penetrating fashion at the guide wire insertion site utilizing an 11 blade scalpel. Serial dilators were advanced to the vessel without resistance. The final dilator was exchanged for the 16 cm HD cath which had been previously flushed with saline which was advanced into the vessel without resistance. The guide wire was removed intact from the catheter without issue. Claves were placed on each catheter tip with confirmation of good blood flow from each lumen. Each port was easily flushed with sterile saline. The catheter was placed at the hub and sutured in place. BioPatch was applied to the catheter and a sterile Tegaderm dressing was applied over the catheter with careful attention to sterility. Patient tolerated procedure well. No immediate complications were met. Post procedure x-ray was ordered Estimated blood loss: 5 mL Coding CPT Codes Tubes, Drains, and Vasc Access - Tubes, Drains, and Vasc Access: [id number] Insertion of cannula for hemodialysis ([id number]) Tubes, Drains, and Vasc Access - Tubes, Drains, and Vasc Access: [id number] t rasound Guidance For Vascular ([id number]) [facility] [place] Codes (Charges) Tubes, Drains, and Vasc Access Procedure 1: Tubes, Drains, and Vasc Access: [id number] Insertion of cannula for hemodialysis Procedure 2: Tubes, Drains, and Vasc Access: [id number] Ultrasound Guidance For Vascular
--- NOTE | 2023-11-18 13:15 | XRay Report ---
XR chest 1V portable HISTORY: line placement COMPARISON: Chest 11/16/2023. FINDINGS: Interval placement of a right jugular central venous catheter. The tip terminates in the ex pected location of the SVC. No pneumothorax. The cardiac silhouette remains moderately enlarged. Ther e is mild central pulmonary vascular congestion without overt edema. This has improved. Small bilater al pleural effusions have also improved. Small left basilar linear density may represent atelectasis. No acute fractures. IMPRESSION: 1. A right jugular central venous catheter terminates in the SVC. No pneumothorax. 2. Stable cardiomegaly. 3. Pulmonary vascular congestion and small bilateral pleural effusions have improved. ACT 112: Negative or not required by law. Electronically signed by: Hema Guevara M.D. 11/18/2023 1:14 PM
--- NOTE | 2023-11-18 13:25 | Hospitalist Progress Note ---
Date of Service November 18, 2023 Assessment & Plan (1) CHAD (acute kidney injury): Plan: SEVERE. Creatinine at presentation was 2.8. Typical baseline 1.2-1.3. Creatinine now 8 with BUN >100. Although he made more urine in the last 24 hours than the previous 24 hours, he is now 15+ liters positive since admission with uremic symptoms and evidence of volume overload. I corresponded with Dr Falcon from nephrology this am. IV fluids stopped. Consulted ICU attending for right IJ temporary HD catheter placement. Post-line placement cxr w/o pneumothorax. To have first HD session this afternoon. CT a/p without any obstruction. Rhabdomyolysis and ATN both to blame for his CHAD/ARF. Appreciate Dr Falcon's assistance. BMP am. Remains to be seen if he will have renal recovery during this admission. I updated pt's mother & sister at bedside today with plan of care. (2) Acute hypoxic respiratory failure: Plan: Severe wheezing, tachypnea, retractions noted 11/16/23. CXR without pulm edema but lower lobe infiltrates were noted. Suspect b/l basilar pneumonia and pulm edema. With the extensive wheezing can't rule out a viral bronchitis. To cover for b/l pneumonia the rocephin 2gm daily for UTI will suffice; added doxy 100mg BID for atypical coverage. Day #4 of rocephin; day #3 doxy. Checked COVID/flu/RSV -- negative. Great response to duonebs - continue qid prn. Keep head of bed >30 degrees. Family mentioned episodes of dysphagia with coughing -- speech performed video swallow - no aspiration seen fortunately. (3) Rhabdomyolysis: Plan: unwitnessed fall at home - prolonged down time of several hours. Patient with rhabdomyolysis - peak CPK of 57,274. Rhabdo has likely contributed to acute renal failure. He is not on statin therapy at home. No reported seizures. Received aggressive hydration of LR at 200mL/hr x 3 liters in the first 24 hours of his stay. With development of acute renal failure and acidosis fluids changed to bicarb drip. He is markedly positive for the admission; at least 15+ liters positive since arrival. Fortunately his CPK continues to decrease but at this point fluids need to be stopped given severe edema. Elevated AST/ALT may have been due to rhabdomyolysis itself - LFTs all improving. Repeat BMP, LFTs and CPK in the AM. Of note - NO EVIDENCE of compartment syndrome in arms or legs. Patient does appear to have some element of proximal muscle weakness. To be complete Dr Falcon sent off autoimmune labs to exclude a developing polymyositis or other process. If not present his weakness may be from the resolving rhabdo itself, weakness from UTI/possible pneumonia, etc. Will await pending labs. Elevated inflammatory markers noted. (4) Diabetes mellitus type 2 in obese: Plan: Uncontrolled in the setting of sepsis, ARF, resp failure, etc. Last BfaN1W=5.4 on 08/13/23 Cont Lantus to 15 units BID Cont novolog STOPPED Glimepiride & Empagliflozin (5) Idiopathic thrombocytopenic purpura: Plan: Chronic. Stable. 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 Stable Continue Flomax Diego in place No obstruction on CT a/p (7) Kidney stones: Plan: seen on CT, but not causing obstruction at this time no Rx needed (8) Fall: Plan: unwitnessed was patient getting weak from UTI and/or pulmonary infection which led to fall? needs PT/OT (9) Benign hypertension: Plan: only on flomax at home BPs acceptable again today (10) Bipolar 1 disorder, depressed, mild: Plan: on Invega injection therapy monthly family reports he has charges pressed against him and has court date this coming November 20 he will need a note stating he won't be able to attend in person given his severe illness note completed and sent to the public policy mediator's office today via fax (11) Hyponatremia: Plan: 2nd acute renal failure stable/acceptable Na level serial BMPs (12) Severe sepsis: Plan: 2nd to UTI 2nd to pulmonary infection? blood cx's thus far neg urine cx with e.coli (13) UTI (urinary tract infection): Plan: 2nd ecoli cont rocephin, day #4 of such plan at least 7 days consider checking PSA and if elevated perhaps extend the course to cover prostatitis as well (14) Pneumonia: Plan: suspected b/l basilar rocephin; doxy follow blood cx's but they remain negative supportive care, O2, etc COVID/flu/RSV negative (15) Morbid obesity: Plan: BMI 43.5 (16) Esophagitis: Plan: as seen on CT a/p cont protonix 40mg BID (17) Dysphagia: Plan: appreciate speech eval video swallow NEG for aspiration (18) Elbow pain: Plan: b/l 2nd to fall elbow x-rays without fracture (19) Conjunctivitis: Plan: b/l, R>L somewhat chronic per family conjunctivitis vs bletharitis vs blocked tear ducts vs other while here - erythromycin eye ointment BID send to ophtho post-d/c Plan extensive family update given to his mother & sister at bedside again today care d/w Dr Falcon from nephrology appreciate his assistance appreciate ICU assistance Admission and Anticipated Discharge Date Admission Date: November 15, 2023 Subjective patient very sleepy during the visit today gives 1 word answers to questions then closes his eyes denies any pain in any location unable to get much information from him today due to the sleepiness Review of Systems Review of Systems: gen - very tired cv - no chest pain pulm - denies cough, denies dyspnea GI - no abd pain Physical Exam Physical Exam: gen - obese, sitting in bed, altered/confused/lethargic neck - no obvious JVD; right IJ dialysis catheter now present mouth - MMM heart - RRR, s1 s2, no murmur lungs - decreased BS both bases; subtle fine basilar rales; no wheezes; no increased work of breathing abd - again marked distension noted but nontender, BS+ vascular - DP/post tib pulses 2+ b/l psych - awake enough to answer questions but sleepy/lethargic ext - arms with severe edema b/l, 3+; legs with 1-2+ edema; edema of face Results & Data Results & Data Vital Signs (Past 12 Hours) Vital Signs Temp Pulse Pulse Resp BP Pulse Ox O2 Del Method 11/18/23 11:02 83 18 94 Nasal Cannula 11/18/23 07:35 Nasal Cannula 11/18/23 07:04 36.9 C 83 16 116/70 94 Room Air 11/18/23 06:53 82 18 91 Nasal Cannula O2 Flow Rate 11/18/23 11:02 2 11/18/23 07:35 3 11/18/23 07:04 11/18/23 06:53 2 Laboratory Results Laboratory Results - last 48 hr 11/17/23 11/17/23 11/17/23 11:55 15:03 16:41 WBC RBC Hgb Hct MCV MCH MCHC RDW Std Deviation RDW Coeff of Izabela Plt Count MPV Immature Gran % (Auto) Neut % (Auto) Lymph % (Auto) [place] % (Auto) Eos % (Auto) Baso % (Auto) Neut # (Auto) Lymph # (Auto) [place] # (Auto) Eos # (Auto) Baso # (Auto) Immature Gran # (Auto) ESR 76 H VBG pH VBG pCO2 VBG pO2 VBG HCO3 VBG O2 Saturation VBG Base Excess Sodium 127 L Potassium 4.8 Chloride 94 L Carbon Dioxide 19 L Anion Gap 14 H BUN 95 H Creatinine 6.98 H* Est Cr Clr Drug Dosing 16.8 Est GFR ( Amer) 9.2 Est GFR (Non-Af Amer) 7.9 BUN/Creatinine Ratio 13.6 Glucose 210 H POC Glucose 248 H 177 H Calcium 8.1 L Total Bilirubin AST ALT Alkaline Phosphatase Ammonia Total Creatine Kinase 6755 H C-Reactive Protein 27.67 H Total Protein Albumin Globulin Albumin/Globulin Ratio 11/17/23 11/18/23 11/18/23 20:22 07:34 07:43 WBC 8.44 RBC 3.81 L Hgb 11.1 L Hct 32.5 L MCV 85.3 MCH 29.1 MCHC 34.2 RDW Std Deviation 45.8 RDW Coeff of Izabela 14.7 H Plt Count 65 L MPV 13.0 H Immature Gran % (Auto) 1.2 Neut % (Auto) 73.3 Lymph % (Auto) 8.4 [place] % (Auto) 15.2 Eos % (Auto) 1.5 Baso % (Auto) 0.4 Neut # (Auto) 6.19 Lymph # (Auto) 0.71 L [place] # (Auto) 1.28 H Eos # (Auto) 0.13 Baso # (Auto) 0.03 Immature Gran # (Auto) 0.10 ESR VBG pH 7.30 L VBG pCO2 43 VBG pO2 39 VBG HCO3 21 VBG O2 Saturation 69.2 VBG Base Excess -5.1 Sodium 129 L Potassium 4.3 Chloride 94 L Carbon Dioxide 22 Anion Gap 13 H BUN 105 H Creatinine 8.00 H* D Est Cr Clr Drug Dosing 14.7 Est GFR ( Amer) 7.8 Est GFR (Non-Af Amer) 6.7 BUN/Creatinine Ratio 13.1 Glucose 84 POC Glucose 241 H 77 Calcium 8.4 L Total Bilirubin 0.3 AST 214 H ALT 107 H Alkaline Phosphatase 56 Ammonia 17.0 L Total Creatine Kinase 4900 H C-Reactive Protein Total Protein 5.0 L Albumin 2.4 L Globulin 2.6 Albumin/Globulin Ratio 0.9 11/18/23 11/18/23 11/18/23 11:44 16:33 20:46 WBC RBC Hgb Hct MCV MCH MCHC RDW Std Deviation RDW Coeff of Izabela Plt Count MPV Immature Gran % (Auto) Neut % (Auto) Lymph % (Auto) [place] % (Auto) Eos % (Auto) Baso % (Auto) Neut # (Auto) Lymph # (Auto) [place] # (Auto) Eos # (Auto) Baso # (Auto) Immature Gran # (Auto) ESR VBG pH VBG pCO2 VBG pO2 VBG HCO3 VBG O2 Saturation VBG Base Excess Sodium Potassium Chloride Carbon Dioxide Anion Gap BUN Creatinine Est Cr Clr Drug Dosing Est GFR ( Amer) Est GFR (Non-Af Amer) BUN/Creatinine Ratio Glucose POC Glucose 82 98 75 Calcium Total Bilirubin AST ALT Alkaline Phosphatase Ammonia Total Creatine Kinase C-Reactive Protein Total Protein Albumin Globulin Albumin/Globulin Ratio Diagnostic Findings Chest X-Ray 11/18/23 12:31 XR chest 1V portable HISTORY: line placement COMPARISON: Chest 11/16/2023. FINDINGS: Interval placement of a right jugular central venous catheter. The tip terminates in the expected location of the SVC. No pneumothorax. The cardiac silhouette remains moderately enlarged. There is mild central pulmonary vascular congestion without overt edema. This has improved. Small bilateral pleural effusions have also improved. Small left basilar linear density may represent atelectasis. No acute fractures. IMPRESSION: 1. A right jugular central venous catheter terminates in the SVC. No pneumothorax. 2. Stable cardiomegaly. 3. Pulmonary vascular congestion and small bilateral pleural effusions have improved. ACT 112: Negative or not required by law. Electronically signed by: Hema Guevara M.D. 11/18/2023 1:14 PM PG Care Time/CCT Total # of Minutes Spent Total Time Spent with Patient: Total time spent is greater than 50% in coordination of care (as documented) at patient's floor/unit and/or counseling patient: Coding Level of Care Code 76305 SUB INP/OBS CARE 3/50MIN Diagnoses CHAD (acute kidney injury) N17.9 Acute hypoxic respiratory failure J96.01 Rhabdomyolysis M62.82 Diabetes mellitus type 2 in obese E11.69; E66.9 Idiopathic thrombocytopenic purpura D69.3 BPH with obstruction/lower urinary tract symptoms N40.1; N13.8 Kidney stones N20.0 Fall W19.XXXA Benign hypertension I10 Bipolar 1 disorder, depressed, mild F31.31 Hyponatremia E87.1 Severe sepsis A41.9; R65.20 UTI (urinary tract infection) N39.0; R31.9 Hematuria presence: with hematuria Urinary tract infection type: site unspecified Pneumonia J18.9 Morbid obesity E66.01 Esophagitis K20.90 Dysphagia R13.10 Elbow pain M25.529 Conjunctivitis H10.9 (13) UTI (urinary tract infection) Hematuria presence: with hematuria Urinary tract infection type: site unspecified Qualified Code(s): N39.0 - Urinary tract infection, site not specified; R31.9 - Hematuria, unspecified
[2023-11-18] MEDS ORDERED: ALBUT/IPRATROP 3MG/0.5MG NEB 3 ML VIAL NEB PRN (15:00)
[2023-11-19 07:54] LABS: Hematocrit (blood only) 31.6 % (42.0-52.0); Hemoglobin 10.7 g/dl (14.0-18.0); Mean Corpuscular Hemoglobin 28.8 pg (25.0-34.0); Mean Corpuscular Hgb Conc 33.9 g/dL (32.0-36.0); Mean Corpuscular Volume 84.9 fL (80.0-100.0); Mean Platelet Volume 12.9 fL (9.4-12.4); Platelet Count 74 K/uL (130-400); RDW Coefficient of Variation 14.7 % (11.5-14.5); RDW Standard Deviation 45.6 fL (36.4-46.3); Red Blood Count 3.72 M/uL (4.70-6.10); White Blood Count 8.38 K/ul (4.8-10.8)
[2023-11-19 08:16] LABS: BUN Creatinine Ratio 13.5 (10-20); Calcium 8.6 mg/dl (8.6-10.3); Creatinine Clr Calc Pharmacy 12.9 ml/min; Est GFR (African American) 6.7 ml/min; Est GFR (Non-African American) 5.8 ml/min; Potassium 4.4 mmol/L (3.5-5.1)
--- NOTE | 2023-11-19 09:14 | Nephrology Progress Note ---
Date of Service November 19, 2023 Assessment & Plan (1) CHAD (acute kidney injury): Plan: * CHAD attributed to rhabdomyolysis/ATN * Patient in nonoliguric but Cr has risen to 9.0. Will provide 1st run HD this am and reassess need for HD tomorrow * Empagliflozin, metformin, and lisinopril have been held. * Urine microscopy notable for WBC and RBC. Culture c/w E coli UTI. Treatment is being provided * CT demonstrates the kidneys to be unobstructed. * Maintain Diego. Document strict I/O's. Renal diet. (2) CKD stage 3 due to type 2 diabetes mellitus: Plan: * Baseline creatinine 1.2-1.6 mg/dL. Albuminuria A1-A2 by history. (3) Rhabdomyolysis: Plan: * CK trending downward. Etiology not entirely clear. November 12 patient received Invega. Suspect low grade NMS and UTI +/- pneumonia. * Await results for polymyositis. Myositis antibody panel, anti-zachary 1, and EDUARDO are pending. ESR 76. If positive, consider outpatient rheumatology evaluation or muscle biopsy * Psychiatry will need to weigh the risks/benefits of Invega moving forward (4) Diabetes mellitus type 2 in obese: Plan: * Metformin and empagliflozin held due to CHAD (5) Kidney stones: Plan: * 3 mm non-obstructing calculus noted on CT. * Outpatient follow up with nephrology and urology will be coordinated at discharge. (6) BPH with obstruction/lower urinary tract symptoms: Plan: * Maintain Diego to gravity. Continue Tamsulosin as Rx. Admission and Anticipated Discharge Date Admission Date: November 15, 2023 Subjective Mr. Rey was evaluated in his hospital room this morning. He was awaiting HD. Mr. Rey was oriented to self, place and month. He c/o neck stiffness but denied angina or dyspnea. He underwent temporary IJ HD catheter insertion yesterday and was awaiting 1st run HD Review of Systems Constitutional: no fever Eyes: no problem reported Ear, Nose, Mouth, Throat: no problem reported Respiratory: no cough and no dyspnea Cardiovascular: no chest pain Gastrointestinal: no abdominal pain, no nausea, no vomiting and no diarrhea/loose stools Integumentary: no rash Physical Exam Constitutional: not in distress Eyes: PERRL, conjunctivae normal, anicteric sclerae ENMT: external ear and nose normal, oropharynx normal Neck: trachea midline, no thyromegaly R IJ temporary HD catheter with clean, dry dressing in place Respiratory: normal respiratory effort, lungs clear to auscultation Cardiovascular: RRR, no murmur, no edema Gastrointestinal (Abdomen): normal bowel sounds, soft, nontender, no hepatosplenomegaly Neurologic: awake; not confused Results & Data Vital Signs (Past 12 Hours) Vital Signs Temp Pulse Resp BP Pulse Ox O2 Del Method O2 Flow Rate 11/19/23 07:27 36.7 C 89 16 116/70 93 Nasal Cannula 2 Laboratory Results Laboratory Results - last 24 hr 11/18/23 11/18/23 11/18/23 07:34 11:44 16:33 WBC RBC Hgb Hct MCV MCH MCHC RDW Std Deviation RDW Coeff of Izabela Plt Count MPV Sodium Potassium Chloride Carbon Dioxide Anion Gap BUN Creatinine Est Cr Clr Drug Dosing Est GFR ( Amer) Est GFR (Non-Af Amer) BUN/Creatinine Ratio Glucose POC Glucose 82 98 Calcium AST ALT Total Creatine Kinase 4900 H 11/18/23 11/18/23 11/19/23 20:46 23:52 07:00 WBC 8.38 RBC 3.72 L Hgb 10.7 L Hct 31.6 L MCV 84.9 MCH 28.8 MCHC 33.9 RDW Std Deviation 45.6 RDW Coeff of Izabela 14.7 H Plt Count 74 L MPV 12.9 H Sodium 130 L Potassium 4.4 Chloride 94 L Carbon Dioxide 21 Anion Gap 15 H BUN 122 H Creatinine 9.07 H* D Est Cr Clr Drug Dosing 12.9 Est GFR ( Amer) 6.7 Est GFR (Non-Af Amer) 5.8 BUN/Creatinine Ratio 13.5 Glucose 79 POC Glucose 75 80 Calcium 8.6 AST 158 H ALT 95 H Total Creatine Kinase 2203 H 11/19/23 07:50 WBC RBC Hgb Hct MCV MCH MCHC RDW Std Deviation RDW Coeff of Izabela Plt Count MPV Sodium Potassium Chloride Carbon Dioxide Anion Gap BUN Creatinine Est Cr Clr Drug Dosing Est GFR ( Amer) Est GFR (Non-Af Amer) BUN/Creatinine Ratio Glucose POC Glucose 91 Calcium AST ALT Total Creatine Kinase PG Care Time/CCT Total # of Minutes Spent Total Time Spent with Patient: Total time spent is greater than 50% in coordination of care (as documented) at patient's floor/unit and/or counseling patient: Coding Level of Care Code 31069 SUB INP/OBS CARE 50MIN Diagnoses CHAD (acute kidney injury) N17.9 CKD stage 3 due to type 2 diabetes mellitus E11.22; N18.3 Rhabdomyolysis M62.82 Diabetes mellitus type 2 in obese E11.69; E66.9 Kidney stones N20.0 BPH with obstruction/lower urinary tract symptoms N40.1; N13.8
--- NOTE | 2023-11-19 15:08 | Hospitalist Progress Note ---
Date of Service November 19, 2023 Assessment & Plan (1) CHAD (acute kidney injury): Plan: SEVERE. Creatinine at presentation was 2.8. Typical baseline 1.2-1.3. Creatinine now 9 with BUN >120. Although his UOP is improving last 48 hours, he is still 15+ liters positive since admission with ongoing uremic symptoms and evidence of volume overload. s/p right IJ temporary HD catheter placement on 11/17. 1st HD session 11/17. 2nd HD session today. CT a/p without any obstruction. Rhabdomyolysis and ATN both to blame for his CHAD/ARF. Dr Barber suggested that perhaps he had developed NMS from his Invega injection (he has been on such for about 6 months). By report had received the injection a few days before admission. Appreciate nephrology assistance. BMP am. Suzie kendall. Hopeful for renal recovery as his UOP has picked up nicely over the last 2-3 days (had been about 300cc/day, now >1000cc/day). (2) Acute hypoxic respiratory failure: Plan: Severe wheezing, tachypnea, retractions noted 11/16/23. CXR without pulm edema but lower lobe infiltrates were noted. Suspect combination of b/l basilar pneumonia and pulm edema. With the extensive wheezing can't rule out a viral bronchitis. To cover for b/l pneumonia the rocephin 2gm daily for UTI will suffice; added doxy 100mg BID for atypical coverage. Day #5 of rocephin; day #4 doxy. Checked COVID/flu/RSV -- negative. Great response to duonebs - continue qid prn. Keep head of bed >30 degrees. Family mentioned episodes of dysphagia with coughing -- speech performed video swallow - no aspiration seen fortunately. (3) Rhabdomyolysis: Plan: unwitnessed fall at home - prolonged down time of several hours. Patient with rhabdomyolysis - peak CPK of 57,274. Rhabdo has likely contributed to acute renal failure. He is not on statin therapy at home. No reported seizures. On Invega injections for bipolar disorder - NMS? (neuroleptic malignant syndrome) - see below discussion. Received aggressive hydration of LR at 200mL/hr x 3 liters in the first 24 hours of his stay. With development of acute renal failure and acidosis fluids changed to bicarb drip. Fluids ultimately stopped as his renal failure progressed despite such and he developed volume overload. At least 15+ liters positive since admission. Fortunately his CPK continues to decrease daily. Elevated AST/ALT likely due to rhabdomyolysis itself - LFTs all improving. Repeat BMP, LFTs and CPK in the AM. Of note - NO EVIDENCE of compartment syndrome in arms or legs. Patient does appear to have some element of proximal muscle weakness. To be complete Dr Falcon sent off autoimmune labs to exclude a developing polymyositis or other process. If not present his weakness may be from the resolving rhabdo itself, weakness from UTI/possible pneumonia, rigidity from NMS, etc. Will await autoimmune labs. Elevated inflammatory markers noted. (4) NMS (neuroleptic malignant syndrome): Plan: possible. known history of antipsychotic use for bipolar d/o (Invega). had fever for 36 hours early in the stay. severe rhabdomyolysis. did not have vital sign instability; only mild tachycardia when he was febrile/early in the stay. altered MS but no agitation; lethargy/fatigue since admission. rigidity on exam? he seems to have proximal muscle weakness c/w muscle injury/rhabdo along with difficulty with movement from severe anasarca. at this point use of dantrolene or bromocriptine likely to be of little benefit. his rhabdo is improving. I spoke with Dr Lau from psychiatry who will consult tomorrow. she advises no use of prn antipsychotics; if any agitation benzos only. (5) Diabetes mellitus type 2 in obese: Plan: Uncontrolled in the setting of sepsis, ARF, resp failure, etc. Last RnnS0R=9.4 on 08/13/23 Now with low normal BSG readings due to poor appetite. Lower Lantus dosing to 10 units daily. Cont novolog STOPPED Glimepiride & Empagliflozin (6) Idiopathic thrombocytopenic purpura: Plan: Chronic. Stable. 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 Stable Continue Flomax Kendall in place No obstruction on CT a/p (8) Kidney stones: Plan: seen on CT, but not causing obstruction at this time no Rx needed (9) Fall: Plan: unwitnessed was patient getting weak from UTI and/or pulmonary infection which led to fall? weakness due to brewing NMS? combination of factors? needs PT/OT (10) Benign hypertension: Plan: only on flomax at home BPs acceptable (11) Bipolar 1 disorder, depressed, mild: Plan: on Invega injection therapy monthly family reports he has charges pressed against him and has court date this coming Tuesday, November 20 he will need a note stating he won't be able to attend in person given his severe illness note completed and sent to the public information relations manager's office today via fax on 11/18/23 see above re: NMS (12) Hyponatremia: Plan: 2nd acute renal failure stable/acceptable and modestly improved today with HD daily BMPs (13) Severe sepsis: Plan: 2nd to UTI 2nd to suspecte pulmonary infection blood cx's remain neg urine cx with e.coli (14) UTI (urinary tract infection): Plan: 2nd ecoli cont rocephin, day #5 of such plan at least 7 days of Rx consider checking PSA and if elevated perhaps extend the course to cover prostatitis as well (15) Pneumonia: Plan: suspected b/l basilar rocephin; doxy follow blood cx's but they remain negative supportive care, O2, etc COVID/flu/RSV negative (16) Morbid obesity: Plan: BMI 43.5 (17) Esophagitis: Plan: as seen on CT a/p cont protonix 40mg BID (18) Dysphagia: Plan: appreciate speech eval video swallow NEG for aspiration (19) Elbow pain: Plan: b/l 2nd to fall elbow x-rays without fracture (20) Conjunctivitis: Plan: b/l, R>L somewhat chronic per family conjunctivitis vs bletharitis vs blocked tear ducts vs other cont erythromycin eye ointment BID send to ophtho post-d/c (21) Acute metabolic encephalopathy: Plan: ongoing multifactorial - 2nd to uremia/CHAD, infection, ?NMS, etc treat individual components Plan extensive family update given to his mother & sister at bedside yesterday left message for pt's mother on her voicemail care d/w Dr Lau from nephrology appreciate Dr Barber's assistance due to worsening lethargy and complexity of care will upgrade level of care to PCU Admission and Anticipated Discharge Date Admission Date: November 15, 2023 Subjective patient was in the chair by the bedside during the visit he was very sleepy able to wake up but would quickly fall back asleep denied pain in his arms, legs, chest or abdomen he offered little history on his own accord without prompting nursing flowsheets show poor appetite, <50% of meals consumed UOP has improved last 24 hours -- >1000cc of urine Review of Systems Review of Systems: CV - no chest pain pulm - mild cough but no dyspnea GI - no nausea or emesis; last stool documented 11/15/23 Physical Exam Physical Exam: gen - obese, sitting in chair, lethargic neck - no obvious JVD; right IJ dialysis catheter now present face - generalized edema mouth - MMM heart - RRR, s1 s2, no murmur lungs - decreased BS both bases; subtle fine basilar rales; mild wheezes b/l; no increased work of breathing abd - distended but nontender, BS+ vascular - DP/post tib pulses 2+ b/l ext - arms with severe edema b/l, 3+; legs with 1-2+ edema; edema of face as noted above neuro - proximal muscle weakness of arms/legs; difficult to tell if increased tone/rigidity vs simply can't move well due to anasarca Results & Data Results & Data Vital Signs (Past 12 Hours) Vital Signs Temp Pulse Pulse Pulse Resp BP BP 11/19/23 15:05 36.7 C 89 16 117/74 11/19/23 13:10 89 22 118/68 11/19/23 11:40 36.8 C 79 11/19/23 11:30 81 131/67 11/19/23 11:00 83 136/67 11/19/23 10:30 81 117/70 11/19/23 10:00 83 123/64 11/19/23 09:30 78 122/66 11/19/23 09:25 36.7 C 83 11/19/23 08:00 11/19/23 07:27 36.7 C 89 16 116/70 BP Pulse Ox O2 Del Method O2 Flow Rate 11/19/23 15:05 96 Nasal Cannula 2 11/19/23 13:10 93 Nasal Cannula 11/19/23 11:40 119/68 11/19/23 11:30 11/19/23 11:00 11/19/23 10:30 11/19/23 10:00 11/19/23 09:30 11/19/23 09:25 11/19/23 08:00 Nasal Cannula 3 11/19/23 07:27 93 Nasal Cannula 2 Laboratory Results Laboratory Results - last 48 hr 11/18/23 11/18/23 11/18/23 07:34 07:43 11:44 WBC 8.44 RBC 3.81 L Hgb 11.1 L Hct 32.5 L MCV 85.3 MCH 29.1 MCHC 34.2 RDW Std Deviation 45.8 RDW Coeff of Izabela 14.7 H Plt Count 65 L MPV 13.0 H Immature Gran % (Auto) 1.2 Neut % (Auto) 73.3 Lymph % (Auto) 8.4 [place] % (Auto) 15.2 Eos % (Auto) 1.5 Baso % (Auto) 0.4 Neut # (Auto) 6.19 Lymph # (Auto) 0.71 L [place] # (Auto) 1.28 H Eos # (Auto) 0.13 Baso # (Auto) 0.03 Immature Gran # (Auto) 0.10 VBG pH 7.30 L VBG pCO2 43 VBG pO2 39 VBG HCO3 21 VBG O2 Saturation 69.2 VBG Base Excess -5.1 Sodium 129 L Potassium 4.3 Chloride 94 L Carbon Dioxide 22 Anion Gap 13 H BUN 105 H Creatinine 8.00 H* D Est Cr Clr Drug Dosing 14.7 Est GFR ( Amer) 7.8 Est GFR (Non-Af Amer) 6.7 BUN/Creatinine Ratio 13.1 Glucose 84 POC Glucose 77 82 Lactate Calcium 8.4 L Total Bilirubin 0.3 AST 214 H ALT 107 H Alkaline Phosphatase 56 Ammonia 17.0 L Total Creatine Kinase 4900 H Total Protein 5.0 L Albumin 2.4 L Globulin 2.6 Albumin/Globulin Ratio 0.9 Vitamin B12 Hep Bs Antigen Hep Bs Ag Confirmation Hep Bs Antibody, Quant Hep B Core IgM Ab 11/18/23 11/18/23 11/18/23 16:33 20:46 23:52 WBC RBC Hgb Hct MCV MCH MCHC RDW Std Deviation RDW Coeff of Izabela Plt Count MPV Immature Gran % (Auto) Neut % (Auto) Lymph % (Auto) [place] % (Auto) Eos % (Auto) Baso % (Auto) Neut # (Auto) Lymph # (Auto) [place] # (Auto) Eos # (Auto) Baso # (Auto) Immature Gran # (Auto) VBG pH VBG pCO2 VBG pO2 VBG HCO3 VBG O2 Saturation VBG Base Excess Sodium Potassium Chloride Carbon Dioxide Anion Gap BUN Creatinine Est Cr Clr Drug Dosing Est GFR ( Amer) Est GFR (Non-Af Amer) BUN/Creatinine Ratio Glucose POC Glucose 98 75 80 Lactate Calcium Total Bilirubin AST ALT Alkaline Phosphatase Ammonia Total Creatine Kinase Total Protein Albumin Globulin Albumin/Globulin Ratio Vitamin B12 Hep Bs Antigen Hep Bs Ag Confirmation Hep Bs Antibody, Quant Hep B Core IgM Ab 11/19/23 11/19/23 11/19/23 07:00 07:50 09:03 WBC 8.38 RBC 3.72 L Hgb 10.7 L Hct 31.6 L MCV 84.9 MCH 28.8 MCHC 33.9 RDW Std Deviation 45.6 RDW Coeff of Izabela 14.7 H Plt Count 74 L MPV 12.9 H Immature Gran % (Auto) Neut % (Auto) Lymph % (Auto) [place] % (Auto) Eos % (Auto) Baso % (Auto) Neut # (Auto) Lymph # (Auto) [place] # (Auto) Eos # (Auto) Baso # (Auto) Immature Gran # (Auto) VBG pH VBG pCO2 VBG pO2 VBG HCO3 VBG O2 Saturation VBG Base Excess Sodium 130 L Potassium 4.4 Chloride 94 L Carbon Dioxide 21 Anion Gap 15 H BUN 122 H Creatinine 9.07 H* D Est Cr Clr Drug Dosing 12.9 Est GFR ( Amer) 6.7 Est GFR (Non-Af Amer) 5.8 BUN/Creatinine Ratio 13.5 Glucose 79 POC Glucose 91 Lactate Calcium 8.6 Total Bilirubin AST 158 H ALT 95 H Alkaline Phosphatase Ammonia Total Creatine Kinase 2203 H Hep Bs Antigen NON-REACTIVE Hep Bs Ag Confirmation TNP Hep Bs Antibody, Quant <5 L Hep B Core IgM Ab NON-REACTIVE 11/19/23 11/19/23 11/19/23 11:56 16:39 19:02 VBG pH 7.29 L VBG pCO2 47 VBG pO2 32 VBG HCO3 23 VBG O2 Saturation < 60.0 VBG Base Excess -4.1 POC Glucose 135 H 89 Lactate 0.9 PG Care Time/CCT Total # of Minutes Spent Total Time Spent with Patient: Total time spent is greater than 50% in coordination of care (as documented) at patient's floor/unit and/or counseling patient: Coding Level of Care Code 66008 SUB INP/OBS CARE 3/50MIN Diagnoses CHAD (acute kidney injury) N17.9 Acute hypoxic respiratory failure J96.01 Rhabdomyolysis M62.82 NMS (neuroleptic malignant syndrome) G21.0 Diabetes mellitus type 2 in obese E11.69; E66.9 Idiopathic thrombocytopenic purpura D69.3 BPH with obstruction/lower urinary tract symptoms N40.1; N13.8 Kidney stones N20.0 Fall W19.XXXA Benign hypertension I10 Bipolar 1 disorder, depressed, mild F31.31 Hyponatremia E87.1 Severe sepsis A41.9; R65.20 UTI (urinary tract infection) N39.0; R31.9 Hematuria presence: with hematuria Urinary tract infection type: site unspecified Pneumonia J18.9 Morbid obesity E66.01 Esophagitis K20.90 Dysphagia R13.10 Elbow pain M25.529 Conjunctivitis H10.9 Acute metabolic encephalopathy G93.41 (14) UTI (urinary tract infection) Hematuria presence: with hematuria Urinary tract infection type: site unspecified Qualified Code(s): N39.0 - Urinary tract infection, site not specified; R31.9 - Hematuria, unspecified
[2023-11-19 19:24] LABS: Base Excess VBG -4.1 mEq/L; HCO3 VBG 23 mmol/L; Oxygen Saturation VBG < 60.0 %; PCO2 VBG 47 mmHg (38-50); PO2 VBG 32 mmHg; pH VBG 7.29 (7.36-7.41)
[2023-11-19] MEDS ORDERED: LANTUS PER UNIT CHARGE SQ SCH (21:00)
[2023-11-19] MEDS: HEPARIN SOD 5,000 UNIT/0.5 ML VIAL SQ SCH (21:42)
[2023-11-20 04:27] LABS: HBSAG NON-REACTIVE (NON-REACTIVE); Hepatitis B Core Antibody IgM NON-REACTIVE (NON-REACTIVE); Hepatitis B Surface Ab, Quant <5 mIU/mL (> OR = 10)
[2023-11-20 06:35] LABS: Hematocrit (blood only) 33.1 % (42.0-52.0); Hemoglobin 11.3 g/dl (14.0-18.0); Mean Corpuscular Hemoglobin 29.2 pg (25.0-34.0); Mean Corpuscular Hgb Conc 34.1 g/dL (32.0-36.0); Mean Corpuscular Volume 85.5 fL (80.0-100.0); Mean Platelet Volume 12.3 fL (9.4-12.4); Platelet Count 85 K/uL (130-400); RDW Coefficient of Variation 14.7 % (11.5-14.5); Red Blood Count 3.87 M/uL (4.70-6.10); White Blood Count 8.36 K/ul (4.8-10.8)
[2023-11-20 07:27] LABS: Calcium 8.8 mg/dl (8.6-10.3); Creatinine Clr Calc Pharmacy 13.5 ml/min; Est GFR (African American) 7.1 ml/min; Est GFR (Non-African American) 6.1 ml/min; Potassium 4.5 mmol/L (3.5-5.1)
[2023-11-20] MEDS: SENNA 8.6 MG TAB PO SCH (08:36)
[2023-11-20] MEDS: POLYETHYLENE (MIRALAX) 17 GM PACK PO SCH (08:37)
[2023-11-20] MEDS: LANTUS PER UNIT CHARGE SQ SCH (08:55)
--- NOTE | 2023-11-20 09:18 | Nephrology Progress Note ---
Date of Service November 20, 2023 Assessment & Plan (1) CHAD (acute kidney injury): Plan: * CHAD attributed to rhabdomyolysis/ATN * Temporary R IJ dialysis catheter placed 11/18/23. 1st HD treatment 11/19/23, no UF * Patient has significant peripheral edema but remains nonoliguric * Hold HD today. Monitor PRP, UO * Continue to hold Empagliflozin, metformin, and lisinopril * CT demonstrates the kidneys to be unobstructed. * Maintain Diego. Document strict I/O's. Renal diet. (2) CKD stage 3 due to type 2 diabetes mellitus: Plan: * Baseline creatinine 1.2-1.6 mg/dL. Albuminuria A1-A2 by history. (3) Rhabdomyolysis: Plan: * CK trending downward. Etiology not entirely clear. November 12 patient received Invega. Suspect low grade NMS and UTI +/- pneumonia. * Await results for polymyositis. Myositis antibody panel, anti-zachary 1, and EDUARDO are pending. ESR 76. If positive, consider outpatient rheumatology evaluation or muscle biopsy * Psychiatry will need to weigh the risks/benefits of Invega moving forward (4) Diabetes mellitus type 2 in obese: Plan: * Metformin and empagliflozin held due to CHAD (5) Kidney stones: Plan: * 3 mm non-obstructing calculus noted on CT. * Outpatient follow up with nephrology and urology will be coordinated at discharge. (6) BPH with obstruction/lower urinary tract symptoms: Plan: * Maintain Diego to gravity. Continue Tamsulosin as Rx. Admission and Anticipated Discharge Date Admission Date: November 15, 2023 Subjective Mr. Rey was evaluated in his hospital room this morning. He completed his 1st run HD yesterday. Dialysis catheter was positional and had to be run A-->V. No UF obtained. Patient does report improved UO Review of Systems Constitutional: no fever Eyes: no problem reported Ear, Nose, Mouth, Throat: no problem reported Respiratory: no cough and no dyspnea Cardiovascular: no chest pain Gastrointestinal: no abdominal pain, no nausea, no vomiting and no diarrhea/lo ose stools Integumentary: no rash Physical Exam Constitutional: not in distress Eyes: PERRL, conjunctivae normal, anicteric sclerae ENMT: external ear and nose normal, oropharynx normal Neck: trachea midline, no thyromegaly Respiratory: normal respiratory effort, lungs clear to auscultation Cardiovascular: RRR, no murmur, no edema Gastrointestinal (Abdomen): normal bowel sounds, soft, nontender, no hepatosplenomegaly Neurologic: awake; not confused Results & Data Vital Signs (Past 12 Hours) Vital Signs Temp Pulse Pulse Pulse Resp BP BP 11/20/23 08:47 90 11/20/23 07:56 36.9 C 86 22 131/71 11/20/23 03:21 36.6 C 88 20 119/75 11/20/23 00:00 37.0 C 91 H 20 128/69 Pulse Ox O2 Del Method O2 Flow Rate 11/20/23 08:47 11/20/23 07:56 93 Nasal Cannula 4 11/20/23 03:21 93 Nasal Cannula 4 11/20/23 00:00 88 L Nasal Cannula 4 Laboratory Results Laboratory Results WBC 8.36 K/ul (4.8-10.8) 11/20/23 05:20 RBC 3.87 M/uL (4.70-6.10) L 11/20/23 05:20 Hgb 11.3 g/dl (14.0-18.0) L 11/20/23 05:20 Hct 33.1 % (42.0-52.0) L 11/20/23 05:20 MCV 85.5 fL (80.0-100.0) 11/20/23 05:20 MCH 29.2 pg (25.0-34.0) 11/20/23 05:20 MCHC 34.1 g/dL (32.0-36.0) 11/20/23 05:20 RDW Std Deviation 46.0 fL (36.4-46.3) 11/20/23 05:20 RDW Coeff of Izabela 14.7 % (11.5-14.5) H 11/20/23 05:20 Plt Count 85 K/uL (130-400) L 11/20/23 05:20 MPV 12.3 fL (9.4-12.4) 11/20/23 05:20 Immature Gran % (Auto) 1.2 % 11/18/23 07:34 Neut % (Auto) 73.3 % 11/18/23 07:34 Lymph % (Auto) 8.4 % 11/18/23 07:34 Pennington % (Auto) 15.2 % 11/18/23 07:34 Eos % (Auto) 1.5 % 11/18/23 07:34 Baso % (Auto) 0.4 % 11/18/23 07:34 Neut # (Auto) 6.19 K/uL (1.40-6.50) 11/18/23 07:34 Lymph # (Auto) 0.71 K/uL (1.20-3.40) L 11/18/23 07:34 [place] # (Auto) 1.28 K/uL (0.11-0.59) H 11/18/23 07:34 Eos # (Auto) 0.13 K/uL (0.00-0.50) 11/18/23 07:34 Baso # (Auto) 0.03 K/uL (0.00-0.20) 11/18/23 07:34 Immature Gran # (Auto) 0.10 K/uL (0.01-0.20) 11/18/23 07:34 ESR 76 mm/hr (0-20) H 11/17/23 15:03 VBG pH 7.29 (7.36-7.41) L 11/19/23 19:02 VBG pCO2 47 mmHg (38-50) 11/19/23 19:02 VBG pO2 32 mmHg 11/19/23 19:02 VBG HCO3 23 mmol/L 11/19/23 19:02 VBG O2 Saturation < 60.0 % 11/19/23 19:02 VBG Base Excess -4.1 mEq/L 11/19/23 19:02 Sodium 133 mmol/L (136-145) L 11/20/23 05:20 Potassium 4.5 mmol/L (3.5-5.1) 11/20/23 05:20 Chloride 98 mmol/L (98-107) 11/20/23 05:20 Carbon Dioxide 21 mmol/L (21-32) 11/20/23 05:20 Anion Gap 14 (3-11) H 11/20/23 05:20 BUN 113 mg/dl (6-23) H 11/20/23 05:20 Creatinine 8.68 mg/dl (0.6-1.4) H* D 11/20/23 05:20 Est Cr Clr Drug Dosing 13.5 ml/min 11/20/23 05:20 Est GFR ( Amer) 7.1 ml/min 11/20/23 05:20 Est GFR (Non-Af Amer) 6.1 ml/min 11/20/23 05:20 BUN/Creatinine Ratio 13.0 (10-20) 11/20/23 05:20 Glucose 68 mg/dl (70-99(Fasting)) L 11/20/23 05:20 POC Glucose 95 mg/dl (70-99) 11/20/23 07:51 Lactate 0.9 mmol/L (0.4-2.0) 11/19/23 19:02 Calcium 8.8 mg/dl (8.6-10.3) 11/20/23 05:20 Phosphorus 3.4 mg/dl (2.5-4.9) 11/16/23 15:05 Magnesium 2.0 mg/dl (1.7-2.4) 11/14/23 20:34 Total Bilirubin 0.3 mg/dl (0.2-1.0) 11/18/23 07:34 Direct Bilirubin 0.1 mg/dl (0-0.2) 11/17/23 05:34 AST 112 U/L (13-39) H 11/20/23 05:20 ALT 84 U/L (7-52) H 11/20/23 05:20 Alkaline Phosphatase 56 U/L (34-104) 11/18/23 07:34 Ammonia 17.0 umol/L (18-72) L 11/18/23 07:34 Total Creatine Kinase 1062 U/L (30-223) H 11/20/23 05:20 C-Reactive Protein 27.67 mg/dl (0-0.5) H 11/17/23 15:03 Total Protein 5.0 gm/dl (6.0-8.3) L 11/18/23 07:34 Albumin 2.4 gm/dl (3.4-5.0) L 11/18/23 07:34 Globulin 2.6 gm/dl (2.5-4.0) 11/18/23 07:34 Albumin/Globulin Ratio 0.9 (0.9-2) 11/18/23 07:34 Vitamin B12 567 pg/ml (180-914) 11/20/23 05:20 Procalcitonin 18.70 ng/ml (0-0.5) H 11/16/23 07:19 Urine Color Yellow 11/17/23 00:35 Urine Appearance Cloudy (Clear) A 11/17/23 00:35 Urine pH 5.5 (4.5-7.5) 11/17/23 00:35 Ur Specific [place] 1.011 (1.000-1.030) 11/17/23 00:35 Urine Protein 3+ (Negative) H 11/17/23 00:35 Urine Glucose (UA) 2+ (Negative) H 11/17/23 00:35 Urine Ketones Negative (Negative) 11/17/23 00:35 Urine Blood 3+ (Negative) H 11/17/23 00:35 Urine Nitrite Negative (Negative) 11/17/23 00:35 Urine Bilirubin Negative (Negative) 11/17/23 00:35 Urine Urobilinogen Negative (Negative) 11/17/23 00:35 Ur Leukocyte Esterase 2+ (Negative) H 11/17/23 00:35 Urine WBC (Auto) >50 /hpf (0-5) H 11/17/23 00:35 Urine RBC (Auto) >20 /hpf (0-2) H 11/17/23 00:35 U Hyaline Cast (Auto) 0-2 /lpf (0-2) 11/17/23 00:35 U Epithel Cells (Auto) 0-2 /hpf (0-2) 11/17/23 00:35 Urine Bacteria (Auto) None Seen (None Seen) 11/17/23 00:35 Ur Random Creatinine 111.9 mg/dl 11/15/23 13:45 Ur Random Sodium 66 mmol/L 11/15/23 13:45 SARS-CoV-2 (PCR) NEGATIVE (Negative) 11/16/23 10:17 Hep Bs Antigen NON-REACTIVE (NON-REACTIVE) 11/19/23 09: Hep Bs Ag Confirmation TNP 11/19/23 09:03 Hep Bs Antibody, Quant <5 mIU/mL (> OR = 10) L 11/19/23 09:03 Hep B Core IgM Ab NON-REACTIVE (NON-REACTIVE) 11/19/23 09:03 Influenza Type A (PCR) Negative (Neg) 11/16/23 10:17 Influenza Type B (PCR) Negative (Neg) 11/16/23 10:17 RSV (RT-PCR) Negative (Neg) 11/16/23 10:[address] 11/14/23 20:22 Exam(s): CT C SPINE EXAM: CT Cervical Spine Without Intravenous Contrast CLINICAL HISTORY: Reason for exam: trauma. TECHNIQUE: Axial computed tomography images of the cervical spine without intravenous contrast. CTDI is 26.96 mGy and DLP is 542.95 mGy-cm. Automated exposure control was utilized for the study. A dose lowering technique was utilized adhering to the principles of ALARA. COMPARISON: CT C-spine on 10/01/2020 FINDINGS: Bones: Straightening of the normal cervical lordosis. Ossifications in the nuchal ligament are likely related to remote trauma. No acute fracture or bony lesion. Disc spaces: No subluxation. Degenerative changes of the spine with flowing osteophytes and fusion, suggesting DISH. Soft tissues: Normal. IMPRESSION: No acute traumatic abnormality. Electronically signed by: Madai Ortega M.D. 11/14/23 21:[address] 11/14/23 20:22 Exam(s): CT HEAD Without Contrast EXAM: CT Head Without Intravenous Contrast CLINICAL HISTORY: Reason for exam: trauma. TECHNIQUE: Axial computed tomography images of the head/brain without intravenous contrast. CTDI is 17.41 mGy and DLP is 278.62 mGy-cm. Automated exposure control was utilized for the study. A dose lowering technique was utilized adhering to the principles of ALARA. COMPARISON: CT head on 10/01/2020 FINDINGS: Exam is limited by motion artifact. Brain: No acute infarct or hemorrhage identified. No extra-axial fluid collection. No mass effect or midline shift. Scattered areas of hypoattenuation in the supratentorial white matter likely represent chronic small vessel ischemic changes. Small remote lacunar infarct in the left basal ganglia. Ventricles and sulci: Prominence of the ventricles and sulci is likely secondary to cerebral volume loss. Bones: Normal. No bony lesion or acute fracture. Subcutaneous tissues: Normal. Sinuses: Normal. No air-fluid levels or mucosal thickening. Mastoid air cells: Normal. Orbits: Bilateral lens implants. Other: Atherosclerotic calcifications in the intracranial vasculature. IMPRESSION: 1. No definite acute intracranial abnormality. Exam is limited by motion artifact. 2. Chronic small vessel ischemic changes and cerebral volume loss. Electronically signed by: Madai Ortega M.D. 11/14/23 21:19 PM Pelvis X-Ray 11/14/23 20:22 XR pelvis 1-2V routine CLINICAL HISTORY: trauma TECHNIQUE: A single frontal view of the pelvis was obtained. Comparison: Comparison is made to abdomen radiograph 05/25/[address] abdomen pelvis 08/01/2019 FINDINGS: There is no evidence of an acute fracture. Joint spaces are well-preserved. No soft tissue abnormality is seen. IMPRESSION: No evidence of acute osseous injury. ACT 112: Negative or not required by law. Electronically signed by: Aman Esparza M.D. 11/15/2023 8:47 AM Abdomen/Pelvis CT 11/16/23 01:14 CT OF THE ABDOMEN AND PELVIS WITHOUT CONTRAST CLINICAL HISTORY: Oliguria, ?renal stones? COMPARISON STUDY: CT of the abdomen and pelvis July 30, 2019. Renal ultrasound June 08, 2023. TECHNIQUE: Axial images of the abdomen and pelvis were obtained without IV contrast. Images were reviewed in the axial, sagittal, and coronal planes. A utomated exposure control was utilized for the study. A dose lowering technique was utilized adhering to the principles of ALARA. FINDINGS: There are small bilateral pleural effusions. Subpleural lower lobe opacities favor atelectasis. Moderate circumferential wall thickening of the distal esophagus is noted with minimal adjacent stranding. No pneumatosis, free air or portal venous gas is present. Evaluation of the abdomen and pelvis is suboptimal on this unenhanced exam. There is a 3 mm nonobstructing right renal calculus. There are no ureteral calculi. There is no hydronephrosis. A Diego balloon and gas within the bladder are present. Low-attenuation bilateral renal lesions were shown to reflect cysts on prior renal ultrasound. There is slight asymmetric right perinephric stranding. There is mild stranding adjacent to the proximal duodenum. There is no extraluminal gas. No fluid collection is present. There is no evidence for a bowel obstruction. Colonic diverticulosis without evidence for acute diverticulitis. Probable hepatic steatosis. Unenhanced images of the spleen, adrenal glands and pancreas are unremarkable. Mild diffuse increased sclerosis of visualized skeletal structures is unchanged. Mild body wall edema. IMPRESSION: 1. 3 mm nonobstructing right renal calculus. No ureteral calculi or hydronephrosis. 2. Circumferential wall thickening of the distal esophagus with mild adjacent stranding. This favors esophagitis. 3. Small bilateral pleural effusions with subpleural opacity suggestive of atelectasis. 4. Mild stranding and fluid adjacent to the proximal duodenum. This is likely related to volume overload. However, other etiologies such as duodenitis or within the differential. No extraluminal gas. 5. Slight asymmetric right perinephric stranding. This is of questionable significance although could be correlated with urinalysis. ACT 112: Negative or not required by law. Electronically signed by: Matthew Mccracken M.D. 11/16/2023 11:58 AM Elbow X-Ray 11/16/23 14:57 XR elbow LT 2V CLINICAL HISTORY: L elbow pain, fall w/ trauma TECHNIQUE: 2 views of the left elbow were obtained. Comparison: None available at the time of this dictation. FINDINGS: There is no evidence of an acute fracture. Triceps enthesophyte is seen. The alignment is anatomic. There is no prominence of the anterior or posterior fat pads to suggest an effusion. No soft tissue abnormality is seen. IMPRESSION: No evidence of acute fracture or dislocation. ACT 112: Negative or not required by law. Electronically signed by: Aman Esparza M.D. 11/16/2023 5:41 PM Videofluoroscopic Swallow 11/17/23 10:00 VIDEO SWALLOW STUDY CLINICAL HISTORY: Aspiration. COMPARISON STUDY: No priors. FLUOROSCOPY TIME: 59 seconds. Ka,r: 16.1 mGy FINDINGS: Fluoroscopic guidance was provided to the Department of speech pathology in performing a video swallow study. The patient consumed barium- impregnated pudding, cracker with paste, nectar-thick liquids, and thin barium while the swallowing mechanism was observed in real-time. No penetration or aspiration was seen with any of the sampled textures. IMPRESSION: No penetration or aspiration was seen with any of the sampled textures. See dedicated speech pathology report for detailed findings and recommendations. Dictated: 11/17/2023 11:55 AM Transcribed: 11/17/2023 12:29 PM Anuel [id number] [email or web address] Electronically signed by: Florentino Christensen M.D. 11/17/2023 2:30 PM Chest X-Ray 11/18/23 12:31 XR chest 1V portable HISTORY: line placement COMPARISON: Chest 11/16/2023. FINDINGS: Interval placement of a right jugular central venous catheter. The tip terminates in the expected location of the SVC. No pneumothorax. The cardiac silhouette remains moderately enlarged. There is mild central pulmonary vascular congestion without overt edema. This has improved. Small bilateral pleural effusions have also improved. Small left basilar linear density may represent atelectasis. No acute fractures. IMPRESSION: 1. A right jugular central venous catheter terminates in the SVC. No pneumothorax. 2. Stable cardiomegaly. 3. Pulmonary vascular congestion and small bilateral pleural effusions have improved. ACT 112: Negative or not required by law. Electronically signed by: Hema Guevara M.D. 11/18/2023 1:14 PM PG Care Time/CCT Total # of Minutes Spent Total Time Spent with Patient: Total time spent is greater than 50% in coordination of care (as documented) at patient's floor/unit and/or counseling patient: Coding Level of Care Code 22144 SUB INP/OBS CARE 3/50MIN Diagnoses CHAD (acute kidney injury) N17.9 CKD stage 3 due to type 2 diabetes mellitus E11.22; N18.3 Rhabdomyolysis M62.82 Diabetes mellitus type 2 in obese E11.69; E66.9 Kidney stones N20.0 BPH with obstruction/lower urinary tract symptoms N40.1; N13.8
[2023-11-20] MEDS: SODIUM CHLORIDE 0.65% NA SOLN 45 ML (OCEAN) ONE (13:30)
--- NOTE | 2023-11-20 14:43 | Psychiatric Consultation ---
Date of Consultation November 20, 2023 Impression / Recommendations Impression 58 yo man with history of bipolar affective disorder requiring prolonged inpatient psychiatric hospitalizations in the past, including [facility] at age 26 for one year, with his psychiatric symptoms seemingly well managed in recent years on Invega MAX now admitted with elevated CPK and concern for NMS. Given improvement in CPK agree with ongoing symptomatic treatment. Given potential for NMS would avoid use of any antipsychotics moving forward. Due to renal impacts would avoid Villalba so Depakote likely to be best option moving forward for mood stabilization when he is due for his next Invega MAX th ough will defer to his outpatient psychiatric provider on selecting the most appropriate mood stabilizer at that time. For now, if symptoms of delirium or mood instability occur would avoid use of an tipsychotics given NMS concern. Valproic acid is preferred agent at this time and benzodiazepines if necessary for acute agitation. Overall, I spent a total of 60 minutes with this case including review of chart records, review of labwork, direct evaluation of the patient at bedside, counseling the patient, discussion of the patient with the hospitalist provider, discussion with the psychiatric liason during clinical rounds and documentation in the electronic health record. (1) NMS (neuroleptic malignant syndrome): (2) Acute metabolic encephalopathy: (3) Bipolar affective disorder in remission: Plan -Psych liason to help ensure records are shared with his outpatient psychiatric provider at [facility] to aid in decision making for future mood stabilizer -For behavioral emergency: * Lorazepam 2mg IV or IM * If ineffective and liver function stable could consider use of Depacon/Valproic Acid 500mg IV BID prn for agitation/aggression -AVOID all antipsychotics given concern for possible NMS -Moving forward would recommend discontinuation of Invega MAX in favor of Depakote for mood stabilization (with close follow-up of LFTs as these are currently elevated). Villalba would not be a safe option given his kidney impairment. Carbamazepine could also be considered. Psych History Identifying Data 58 yo man with psychiatric history of BPAD and intermittent explosive disorder admitted medically for rhabdomyo following a fall at home. Psychiatry consulted due to potential for NMS and medication recommendations. Chief Complaint "I'm taking it day by day". History of Present Illness Arturo had fallen at home and was unable to get up for several hours until his mother and neighbors were able to assist him. Apparently had been somewhat sick in the preceding week. Initially with very high CPK, autonomic changes, altered mental status and unclear if any rigidity or hyporeflexia present (per initial ED note he had normal neurological exam, current assessment limited by his volume overload). He's been on Invega 156mg MAX qmonthly for at least a few months with most recent injection a few days prior to admission. He is also prescribed Effexor XR 150mg daily. He denies any history of issues from his psychiatric medications. Denies any current SI. Feels he is coping with his current medical issues by taking it one day at a time. Current pending legal charges from taking packages off a neighbor's porch. Review of outpatient psychiatric records from [facility], where he sees Yair Robison, notable for history of chlorpromazine and Vistaril in the past. Previous inpatient psychiatric hospitalizations including at [facility] at age 26, [place] [facility] [place]. History of suicide attempt. Review of previous psychiatry consult on 04/09/2019 notable for multiple past medication trials including Villalba, Trileptal, Depakote, Thorazine. Allergies Allergy/AdvReac Type Severity Reaction Status Date / Time aspirin Allergy Mild NOSE BLEEDS Verified 11/14/23 19:51 bupropion Allergy Mild RASH Verified 11/14/23 19:51 meloxicam Allergy Mild RASH Verified 11/14/23 19:51 Penicillins Allergy Mild Rash Verified 11/14/23 19:51 ciprofloxacin [From Cipro] Allergy Unknown Rash Verified 11/14/23 19:51 Home Medications Medication Instructions Recorded Confirmed Type glucosamine HCl 500 mg tablet 500 mg PO QAM 04/26/19 11/14/23 History acetaminophen 325 mg capsule 325 mg PO QID PRN Pain 05/12/20 11/14/23 History (Tylenol) Accu-Chek Guide Glucose Meter #1 ea 04/01/21 10/26/23 Rx (blood-glucose meter) Accu-Chek Guide test strips (blood #200 ea 04/01/21 10/26/23 Rx sugar diagnostic) lancets (Accu-Chek Softclix #100 ea 04/02/21 10/26/23 Rx Lancets) venlafaxine 150 mg 150 mg PO QAM 09/29/22 11/14/23 History capsule,extended release 24 hr hydroxyzine HCl 50 mg tablet 50 mg PO HS PRN Anxiety 01/12/23 11/14/23 History empagliflozin 10 mg tablet 10 mg PO DAILY #90 tabs 06/30/23 11/14/23 Rx (Jardiance) tamsulosin 0.4 mg capsule 0.4 mg PO DAILY #90 caps 07/06/23 11/14/23 Rx metformin 500 mg tablet,extended 2,000 mg (4 x 500 mg) PO DAILY 10/03/23 11/14/23 Rx release 24 hr #360 tabs glimepiride 4 mg tablet 4 mg PO DAILY #90 tabs 11/09/23 11/14/23 Rx lisinopril 5 mg tablet 5 mg PO QAM #90 tabs 11/09/23 11/14/23 Rx paliperidone palmitate 156 mg/mL 156 mg IM MONTHLY 11/14/23 11/14/23 History intramuscular syringe (Invega Sustenna) Patient History Medical History (Updated 11/20/23 @ 14:44 by Eryn Lau MD) Kidney stones Complex renal cyst Repeat US 05/2023. no further screening Eczema Hyperlipidemia History of colon polyps Morbid obesity with BMI of 45.0-49.9, adult Cervicalgia CKD stage 3 due to type 2 diabetes mellitus BPH with obstruction/lower urinary tract symptoms Benign hypertension (01/22/13) Cyst of kidney, acquired Gastroesophageal reflux disease Idiopathic thrombocytopenic purpura Inguinal hernia Left Side Lumbar radiculopathy Obstructive sleep apnea (adult) (pediatric) (01/22/13) does not use CPAP as ordered Tubulovillous adenoma of colon CHAD (acute kidney injury) CHAD 03/2019 in setting of ureteral stones (b/l stent placed) Fatty liver disease, nonalcoholic (Unknown) Diverticulitis Depression Anxiety Surgical History History of bilateral cataract extraction History of cystoscopy x2--last 05/2019. Cystoscopy b/l stents: 03/26/19: Grade 2 view, MAC#3, ETT 7.5 at [facility] (no anesthesia complications per anesthesia progress note but patient reports post-op confusion) History of colonoscopy 04/2015 recommended 5 yrs--with polypectomy History of hand surgery LEFT History of cholecystectomy Family History Father Colon cancer age 63 Other No family history of adverse response to anesthesia Denies family history of Ovarian cancer Prostate cancer Crohn's disease Breast cancer Lung cancer Ulcerative colitis Social History Smoking Status: Never smoker Second Hand Exposure: No; Do You Dip or Chew Tobacco: No; Tobacco Cessation Education Requested by Patient: No Hx Alcohol Use: No Hx Substance Use: No Preferred Language: Slovenian Communication Ability: Effective Visual Impairment: No Limitations Hearing Ability: Normal [employer] Supervisor Required: No Beliefs That Will Affect Care: None marital status: Single Current Living Situation: Parent current occupational status: unemployed Feels Safe at Home: Yes Safety Concerns: Feels Safe At This Time Childhood Exposure to Second-Hand Smoke: No Diet: regular caffeine: Yes Dental Care, Regularly: No Physical Activity Frequency: 3-4 Times per Week Physical Activity Frequency Comment: WALKS Seatbelt Use: always Sunscreen Use: Yes Gender Identity: Male Assistive Devices: None Assistive Devices Comment: medical alert necklace Physical Exam Psychiatric: Orientation: alert, oriented to person, oriented to place and cooperative Eye Contact: + fair eye contact Speech: + abnormal rate/rhythm/volume of speech (brief, decreased intonation) Affect: + blunted affect Mood: no depressed mood and no anxious mood Thought Process: + concrete thought process Suicidal Thoughts: denies suicidal thoughts Hallucinations: no auditory hallucinations and no visual hallucinations Vital Signs (Past 24 Hours): Last Vital Signs Temp 36.8 C 11/20/23 11:53 Pulse 90 11/20/23 11:53 Resp 22 11/20/23 11:53 BP 114/66 11/20/23 11:53 Pulse Ox 93 11/20/23 11:53 O2 Del Method Nasal Cannula 11/20/23 11:53 O2 Flow Rate 4 11/20/23 11:53 Results & Data (PSY) Medications Administered Acetaminophen (Acetaminophen 325 Mg Tab) 650 mg PO Q4H PRN PRN Reason: Pain or Fever Stop: 12/15/23 01:28 Last Admin: 11/16/23 15:09 Dose: 650 mg Documented By: Admin: 11/15/23 13:21 Dose: 650 mg Documented By: Admin: 11/15/23 04:02 Dose: 650 mg Documented By: ZULMA Erythromycin (Erythromycin Op Oint 5 Mg/Gm 3.5 Gm Tube) 1 appln OPB BID KULDEEP Stop: 11/26/23 20:59 Last Admin: 11/20/23 09:02 Dose: 1 appln Documented By: Admin: 11/19/23 20:52 Dose: 1 appln Documented By: Admin: 11/19/23 09:01 Dose: 1 appln Documented By: Admin: 11/18/23 20:19 Dose: 1 appln Documented By: Admin: 11/18/23 08:32 Dose: 1 appln Documented By: Admin: 11/17/23 20:47 Dose: 1 appln Documented By: Admin: 11/17/23 07:41 Dose: 1 appln Documented By: Admin: 11/16/23 20:27 Dose: 1 appln Documented By: JIGNA Heparin Sodium (Porcine) (Heparin Sod 5,000 Unit/0.5 Ml Vial) 5,000 units SQ Q12 KULDEEP Stop: 12/19/23 20:59 Last Admin: 11/20/23 10:06 Dose: 5,000 units Documented By: Admin: 11/19/23 21:42 Dose: 5,000 units Documented By: MARISOL Ceftriaxone Sodium (Rocephin) 2,000 mg in 50 mls @ 100 mls/hr IV Q24H KULDEEP Stop: 11/25/23 13:59 Last Infusion: 11/19/23 13:48 Dose: Infused Documented By: Admin: 11/19/23 13:12 Dose: 100 mls/hr Documented By: Infusion: 11/18/23 20:20 Dose: Infused Documented By: Infusion: 11/18/23 13:53 Dose: 0 mls/hr Documented By: Admin: 11/18/23 13:24 Dose: 100 mls/hr Documented By: Infusion: 11/17/23 14:22 Dose: Infused Documented By: Admin: 11/17/23 13:53 Dose: 100 mls/hr Documented By: Infusion: 11/16/23 13:32 Dose: Infused Documented By: Admin: 11/16/23 13:04 Dose: 100 mls/hr Documented By: Infusion: 11/15/23 15:22 Dose: Infused Documented By: Admin: 11/15/23 14:53 Dose: 100 mls/hr Documented By: PARTHA Doxycycline Hyclate 100 mg/ (Dextrose) 100 mls @ 50 mls/hr IV Q12H KULDEEP Stop: 11/23/23 15:59 Last Infusion: 11/20/23 05:30 Dose: Infused Documented By: Admin: 11/20/23 03:26 Dose: 50 mls/hr Documented By: Infusion: 11/19/23 19:11 Dose: Infused Documented By: Admin: 11/19/23 16:53 Dose: 50 mls/hr Documented By: Infusion: 11/19/23 05:55 Dose: Infused Documented By: Admin: 11/19/23 03:53 Dose: 50 mls/hr Documented By: Infusion: 11/18/23 18:33 Dose: Infused Documented By: Admin: 11/18/23 16:19 Dose: 50 mls/hr Documented By: Infusion: 11/18/23 06:47 Dose: Infused Documented By: Admin: 11/18/23 04:45 Dose: 50 mls/hr Documented By: Infusion: 11/17/23 18:12 Dose: Infused Documented By: Admin: 11/17/23 16:10 Dose: 50 mls/hr Documented By: Infusion: 11/17/23 06:56 Dose: Infused Documented By: Admin: 11/17/23 04:56 Dose: 50 mls/hr Documented By: Infusion: 11/16/23 18:31 Dose: Infused Documented By: Admin: 11/16/23 16:23 Dose: 50 mls/hr Documented By: PARTHA Insulin Aspart (Insulin Aspart Per Unit Charge) 0 units SC ACHS KULDEEP Stop: 12/15/23 07:29 Last Admin: 11/20/23 13:21 Dose: 4 units Documented By: Co-signed By: PAMELA Admin: 11/20/23 08:54 Dose: Not Given Documented By: Co-signed By: PAMELA Admin: 11/19/23 20:51 Dose: 4 units Documented By: MARISOL Co-signed By: NILSA Admin: 11/19/23 17:25 Dose: 3 units Documented By: ALEJANDRO Co-signed By: GERBER Admin: 11/19/23 12:26 Dose: 4 units Documented By: ALEJANDRO Co-signed By: OLE Admin: 11/19/23 08:52 Dose: Not Given Documented By: Admin: 11/18/23 20:56 Dose: Not Given Documented By: JIGNA Co-signed By: AIDAN Admin: 11/18/23 17:34 Dose: 2 units Documented By: ALEJANDRO Co-signed By: EW Admin: 11/18/23 12:41 Dose: Not Given Documented By: Admin: 11/18/23 08:48 Dose: Not Given Documented By: ALEJANDRO Co-signed By: AU Admin: 11/17/23 20:46 Dose: 6 units Documented By: JIGNA Co-signed By: AIDAN Admin: 11/17/23 17:51 Dose: 5 units Documented By: ISIDRO Co-signed By: JUVE Admin: 11/17/23 12:29 Dose: 9 units Documented By: ISIDRO Co-signed By: FANY Admin: 11/17/23 08:21 Dose: 15 units Documented By: ISIDRO Co-signed By: FANY Admin: 11/16/23 20:35 Dose: 6 units Documented By: JIGNA Co-signed By: ZULMA Admin: 11/16/23 17:24 Dose: 11 units Documented By: PARTHA Co-signed By: RAJIV Admin: 11/16/23 12:20 Dose: 13 units Documented By: PARTHA Co-signed By: NIEVES Admin: 11/16/23 08:54 Dose: 8 units Documented By: PARTHA Co-signed By: NIEVES Admin: 11/15/23 21:37 Dose: 3 units Documented By: NICHO Co-signed By: ZULMA Admin: 11/15/23 17:14 Dose: 8 units Documented By: PARTHA Co-signed By: NIEVES Admin: 11/15/23 12:19 Dose: 6 units Documented By: PARTHA Co-signed By: NIEVES Admin: 11/15/23 08:19 Dose: 7 units Documented By: PARTHA Co-signed By: NIEVES Insulin Glargine (Lantus Per Unit Charge) 10 units SQ DAILY KULDEEP Stop: 12/20/23 08:59 Last Admin: 11/20/23 08:55 Dose: 10 units Documented By: Co-signed By: PAMELA Miscellaneous (*Jardiance*Order Awaiting Action) 1 each N/A QS KULDEEP Stop: 12/15/23 07:59 Last Admin: 11/18/23 08:30 Dose: Not Given Documented By: Admin: 11/18/23 01:03 Dose: Not Given Documented By: Admin: 11/17/23 16:04 Dose: Not Given Documented By: Admin: 11/17/23 07:19 Dose: Not Given Documented By: Admin: 11/16/23 23:24 Dose: Not Given Documented By: Admin: 11/16/23 13:33 Dose: Not Given Documented By: Admin: 11/16/23 07:20 Dose: Not Given Documented By: Admin: 11/16/23 06:08 Dose: Not Given Documented By: Admin: 11/15/23 14:22 Dose: Not Given Documented By: Admin: 11/15/23 08:17 Dose: Not Given Documented By: PARHTA Ondansetron HCl (Ondansetron Inj 2 Mg/Ml 2 Ml Vial) 4 mg IV Q6H PRN PRN Reason: Nausea And Vomiting Stop: 12/15/23 01:28 Last Admin: 11/17/23 08:18 Dose: 4 mg Documented By: ISIDRO Pantoprazole Sodium (Pantoprazole 40 Mg Tab) 40 mg PO BID [facility] Stop: 12/17/23 20:59 Last Admin: 11/20/23 08:35 Dose: 40 mg Documented By: Admin: 11/19/23 20:53 Dose: 40 mg Documented By: Admin: 11/19/23 09:14 Dose: 40 mg Documented By: Admin: 11/18/23 20:18 Dose: 40 mg Documented By: Admin: 11/18/23 08:32 Dose: 40 mg Documented By: Admin: 11/17/23 20:47 Dose: 40 mg Documented By: JIGNA Polyethylene Glycol (Polyethylene (Miralax) 17 Gm Pack) 17 gm PO DAILY KULDEEP Stop: 12/20/23 08:59 Last Admin: 11/20/23 08:37 Dose: 17 gm Documented By: Sennosides (Senna 8.6 Mg Tab) 17.2 mg PO QAM KULDEEP Stop: 12/20/23 08:59 Last Admin: 11/20/23 08:36 Dose: 17.2 mg Documented By: Sodium Bicarbonate (Sodium Bicarbonate 650 Mg Tab) 1,300 mg PO BID17 KULDEEP Stop: 12/16/23 16:59 Last Admin: 11/20/23 08:35 Dose: 1,300 mg Documented By: Admin: 11/19/23 17:28 Dose: 1,300 mg Documented By: Admin: 11/19/23 09:14 Dose: 1,300 mg Documented By: Admin: 11/18/23 16:23 Dose: 1,300 mg Documented By: Admin: 11/18/23 08:32 Dose: 1,300 mg Documented By: Admin: 11/17/23 17:07 Dose: 1,300 mg Documented By: Admin: 11/17/23 07:40 Dose: 1,300 mg Documented By: Admin: 11/16/23 17:35 Dose: 1,300 mg Documented By: PARTHA Tamsulosin HCl (Tamsulosin Hcl 0.4 Mg Cap) 0.4 mg PO DAILY KULDEEP Stop: 12/15/23 08:59 Last Admin: 11/20/23 08:36 Dose: 0.4 mg Documented By: Admin: 11/19/23 09:14 Dose: 0.4 mg Documented By: Admin: 11/18/23 08:32 Dose: 0.4 mg Documented By: Admin: 11/17/23 07:40 Dose: 0.4 mg Documented By: Admin: 11/16/23 08:50 Dose: 0.4 mg Documented By: Admin: 11/15/23 08:17 Dose: 0.4 mg Documented By: PARTHA Venlafaxine HCl (Venlafaxine Hcl Xr 150 Mg Capxr) 150 mg PO QAM KULDEEP Stop: 12/15/23 08:59 Last Admin: 11/20/23 08:35 Dose: 150 mg Documented By: Admin: 11/19/23 09:14 Dose: 150 mg Documented By: Admin: 11/18/23 08:32 Dose: 150 mg Documented By: Admin: 11/17/23 07:40 Dose: 150 mg Documented By: Admin: 11/16/23 08:50 Dose: 150 mg Documented By: Admin: 11/15/23 08:17 Dose: 150 mg Documented By: PARTHA Coding Level of Care Code 52657 IN/OBS CONSULT LVL 4,60M Diagnoses NMS (neuroleptic malignant syndrome) G21.0 Acute metabolic encephalopathy G93.41 Bipolar affective disorder in remission F31.70
--- NOTE | 2023-11-20 14:55 | Hospitalist Progress Note ---
Date of Service November 20, 2023 Assessment & Plan (1) CHAD (acute kidney injury): Plan: SEVERE. Creatinine at presentation was 2.8. Typical baseline 1.2-1.3. Creatinine 8.6 today; BUN >100. Markedly positive from volume standpoint. 10-15+ liters still. UOP IS IMPROVING FORTUNATELY HOPEFULLY SIGNALING renal recovery. s/p right IJ temporary HD catheter placement on 11/17. 1st HD session 11/17. 2nd HD session 11/18. no HD today but likely tomorrow due to ongoing uremia & volume overload. CT a/p without any obstruction. Rhabdomyolysis and ATN both to blame for his CHAD/ARF. Dr Barber suggested that perhaps he had developed NMS from his Invega injection (he has been on such for about 6 months). By report had received the injection a few days before admission. Appreciate nephrology assistance. BMP am. Suzie kendall. (2) Acute hypoxic respiratory failure: Plan: Severe wheezing, tachypnea, retractions noted 11/16/23. CXR without pulm edema but lower lobe infiltrates were noted. Suspect combination of b/l basilar pneumonia and pulm edema. With the extensive wheezing can't rule out a viral bronchitis. To cover for b/l pneumonia the rocephin 2gm daily for UTI will suffice; added doxy 100mg BID for atypical coverage. Day #6 of rocephin; day #5 doxy. Checked COVID/flu/RSV -- negative. Great response to duonebs - continue qid prn. Keep head of bed >30 degrees. Family mentioned episodes of dysphagia with coughing -- speech performed video swallow - no aspiration seen fortunately. (3) Rhabdomyolysis: Plan: unwitnessed fall at home - prolonged down time of several hours. Patient with rhabdomyolysis - peak CPK of 57,274. Rhabdo has likely contributed to acute renal failure. He is not on statin therapy at home. No reported seizures. On Invega injections for bipolar disorder - NMS? (neuroleptic malignant syndrome) - see below discussion. Received aggressive hydration of LR at 200mL/hr x 3 liters in the first 24 hours of his stay. With development of acute renal failure and acidosis fluids changed to bicarb drip. Fluids ultimately stopped as his renal failure progressed despite such and he developed volume overload. At least 15+ liters positive since admission. Fortunately his CPK continues to decrease daily. Elevated AST/ALT likely due to rhabdomyolysis itself - LFTs all improving. Of note - NO EVIDENCE of compartment syndrome in arms or legs. Patient does appear to have some element of proximal muscle weakness. To be complete Dr Falcon sent off autoimmune labs to exclude a developing polymyositis or other process. If not present his weakness may be from the resolving rhabdo itself, weakness from UTI/possible pneumonia, rigidity from NMS, etc. Will await autoimmune labs. Elevated inflammatory markers noted. See below re: possible NMS. (4) NMS (neuroleptic malignant syndrome): Plan: possible. known history of antipsychotic use for bipolar d/o (Invega). had fever for 36 hours early in the stay. severe rhabdomyolysis. did not have vital sign instability; only mild tachycardia when he was febrile/early in the stay. altered MS but no agitation; lethargy/fatigue since admission. rigidity on exam? he seems to have proximal muscle weakness c/w muscle injury/rhabdo along with difficulty with movement from severe anasarca. typically NMS causes hypo-reflexia; he has hyper-reflexia. [id number] NMS still possible/concern for. at this point use of dantrolene or bromocriptine likely to be of little benefit. his rhabdo is improving nicely. appreciate Dr Lau's consultation from psychiatry, she advises no use of prn antipsychotics; if any agitation benzos only. possible addition of depakote if needed. she will reach out to [facility] where he gets his psych care on Tuesday. (5) Diabetes mellitus type 2 in obese: Plan: Uncontrolled in the setting of sepsis, ARF, resp failure, etc. Last UfrC2S=2.4 on 08/13/23 Cont Lantus Cont novolog STOPPED Glimepiride & Empagliflozin (6) Idiopathic thrombocytopenic purpura: Plan: Chronic. Stable. 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 Stable Continue Flomax Kendall in place No obstruction on CT a/p (8) Kidney stones: Plan: seen on CT, but not causing obstruction at this time no Rx needed (9) Fall: Plan: unwitnessed was patient getting weak from UTI and/or pulmonary infection which led to fall? weakness due to brewing NMS? combination of factors? needs PT/OT (10) Benign hypertension: Plan: only on flomax at home BPs acceptable (11) Bipolar 1 disorder, depressed, mild: Plan: on Invega injection therapy monthly family reports he has charges pressed against him and has court date this coming Tuesday, November 20 he will need a note stating he won't be able to attend in person given his severe illness note completed and sent to the public records officer's office today via fax on 11/18/23 see above re: NMS (12) Hyponatremia: Plan: 2nd acute renal failure stable/acceptable and modestly improving day to day daily BMPs (13) Severe sepsis: Plan: 2nd to UTI 2nd to suspecte pulmonary infection blood cx's remain neg urine cx with e.coli (14) UTI (urinary tract infection): Plan: 2nd ecoli cont rocephin, day #6 of such plan at least 7 days of Rx consider checking PSA and if elevated perhaps extend the course to cover prostatitis as well (15) Pneumonia: Plan: suspected b/l basilar rocephin; doxy follow blood cx's but they remain negative supportive care, O2, etc COVID/flu/RSV negative (16) Morbid obesity: Plan: BMI 43.5 (17) Esophagitis: Plan: as seen on CT a/p cont protonix 40mg BID (18) Dysphagia: Plan: appreciate speech eval video swallow NEG for aspiration (19) Elbow pain: Plan: b/l 2nd to fall elbow x-rays without fracture (20) Conjunctivitis: Plan: b/l, R>L somewhat chronic per family improving conjunctivitis vs bletharitis vs blocked tear ducts vs other cont erythromycin eye ointment BID send to ophtho post-d/c (21) Acute metabolic encephalopathy: Plan: improved multifactorial - 2nd to uremia/CHAD, infection, possible NMS, etc treat individual components Plan extensive family update given to his mother & sister at bedside today care d/w Dr Lau from psych appreciate Dr Barber's assistance cont tele Admission and Anticipated Discharge Date Admission Date: November 15, 2023 Subjective tele overnight - NSR patient without any major complaints - much like previous visits he was lying in bed during my visit at least twice he had what looked like myoclonic movements of both legs he was awake during the spells both lasted <10 seconds he states he sometimes has this at home denies pain ANY location Review of Systems Review of Systems: gen - appetite better this am with breakfast; no fevers; very tired cv - no chest pain pulm - coughing; no dyspnea at rest GI - no abd pain; no N/V - kendall remains in place; no complaints or spasm musculo - still denies ANY pain or myalgias in any limb neuro - still feels weak in arms and legs Physical Exam Physical Exam: gen - obese, laying in bed, seemingly sleepy but answers all questions neck - no obvious JVD; right IJ dialysis catheter clean face - generalized edema mouth - MMM heart - RRR, s1 s2, no murmur lungs - decreased BS both bases; subtle fine basilar rales; mild wheezes b/l; no increased work of breathing abd - distended but nontender, BS+, no obvious HSM vascular - DP/post tib pulses 2+ b/l ext - arms with severe edema b/l, 2+; legs with 1+ edema; edema of face as noted above neuro - proximal muscle weakness of arms/legs, slightly stronger left leg and left arm; seems to have rigidity/increased tone all 4 limbs; arm reflexes and patellar reflexes NOT hyporeflexic, more so hyper-reflexic 3+ -- especially the patellar reflexes psych - denies SI; awake, able to answer questions, knows he is in hospital Results & Data Results & Data Vital Signs (Past 12 Hours) Vital Signs Temp Pulse Pulse Pulse Resp BP BP 11/20/23 11:53 36.8 C 90 22 114/66 11/20/23 08:47 90 11/20/23 07:56 36.9 C 86 22 131/71 11/20/23 03:21 36.6 C 88 20 119/75 Pulse Ox O2 Del Method O2 Flow Rate 11/20/23 11:53 93 Nasal Cannula 4 11/20/23 08:47 11/20/23 07:56 93 Nasal Cannula 4 11/20/23 03:21 93 Nasal Cannula 4 Laboratory Results Laboratory Results - last 48 hr 11/19/23 11/19/23 11/19/23 09:03 11:56 16:39 WBC RBC Hgb Hct MCV MCH MCHC RDW Std Deviation RDW Coeff of Izabela Plt Count MPV VBG pH VBG pCO2 VBG pO2 VBG HCO3 VBG O2 Saturation VBG Base Excess Sodium Potassium Chloride Carbon Dioxide Anion Gap BUN Creatinine Est Cr Clr Drug Dosing Est GFR ( Amer) Est GFR (Non-Af Amer) BUN/Creatinine Ratio Glucose POC Glucose 135 H 89 Lactate Calcium AST ALT Total Creatine Kinase Vitamin B12 Hep Bs Antigen NON-REACTIVE Hep Bs Ag Confirmation TNP Hep Bs Antibody, Quant <5 L Hep B Core IgM Ab NON-REACTIVE 11/19/23 11/19/23 11/20/23 19:02 20:07 05:20 WBC 8.36 RBC 3.87 L Hgb 11.3 L Hct 33.1 L MCV 85.5 MCH 29.2 MCHC 34.1 RDW Std Deviation 46.0 RDW Coeff of Izabela 14.7 H Plt Count 85 L MPV 12.3 VBG pH 7.29 L VBG pCO2 47 VBG pO2 32 VBG HCO3 23 VBG O2 Saturation < 60.0 VBG Base Excess -4.1 Sodium 133 L Potassium 4.5 Chloride 98 Carbon Dioxide 21 Anion Gap 14 H BUN 113 H Creatinine 8.68 H* D Est Cr Clr Drug Dosing 13.5 Est GFR ( Amer) 7.1 Est GFR (Non-Af Amer) 6.1 BUN/Creatinine Ratio 13.0 Glucose 68 L POC Glucose 198 H Lactate 0.9 Calcium 8.8 AST 112 H ALT 84 H Total Creatine Kinase 1062 H Vitamin B12 567 Hep Bs Antigen Hep Bs Ag Confirmation Hep Bs Antibody, Quant Hep B Core IgM Ab 11/20/23 11/20/23 11/20/23 07:51 11:48 16:31 WBC RBC Hgb Hct MCV MCH MCHC RDW Std Deviation RDW Coeff of Izabela Plt Count MPV VBG pH VBG pCO2 VBG pO2 VBG HCO3 VBG O2 Saturation VBG Base Excess Sodium Potassium Chloride Carbon Dioxide Anion Gap BUN Creatinine Est Cr Clr Drug Dosing Est GFR ( Amer) Est GFR (Non-Af Amer) BUN/Creatinine Ratio Glucose POC Glucose 95 92 271 H Lactate Calcium AST ALT Total Creatine Kinase Vitamin B12 Hep Bs Antigen Hep Bs Ag Confirmation Hep Bs Antibody, Quant Hep B Core IgM Ab PG Care Time/CCT Total # of Minutes Spent Total Time Spent with Patient: Total time spent is greater than 50% in coordination of care (as documented) at patient's floor/unit and/or counseling patient: Coding Level of Care Code 14351 SUB INP/OBS CARE 3/50MIN Diagnoses CHAD (acute kidney injury) N17.9 Acute hypoxic respiratory failure J96.01 Rhabdomyolysis M62.82 NMS (neuroleptic malignant syndrome) G21.0 Diabetes mellitus type 2 in obese E11.69; E66.9 Idiopathic thrombocytopenic purpura D69.3 BPH with obstruction/lower urinary tract symptoms N40.1; N13.8 Kidney stones N20.0 Fall W19.XXXA Benign hypertension I10 Bipolar 1 disorder, depressed, mild F31.31 Hyponatremia E87.1 Severe sepsis A41.9; R65.20 UTI (urinary tract infection) N39.0; R31.9 Hematuria presence: with hematuria Urinary tract infection type: site unspecified Pneumonia J18.9 Morbid obesity E66.01 Esophagitis K20.90 Dysphagia R13.10 Elbow pain M25.529 Conjunctivitis H10.9 Acute metabolic encephalopathy G93.41 (14) UTI (urinary tract infection) Hematuria presence: with hematuria Urinary tract infection type: site unspecified Qualified Code(s): N39.0 - Urinary tract infection, site not specified; R31.9 - Hematuria, unspecified
[2023-11-21 06:20] LABS: Hemoglobin 10.8 g/dl (14.0-18.0); Mean Corpuscular Hemoglobin 29.1 pg (25.0-34.0); Mean Corpuscular Hgb Conc 33.8 g/dL (32.0-36.0); Mean Corpuscular Volume 86.3 fL (80.0-100.0); Mean Platelet Volume 12.2 fL (9.4-12.4); Platelet Count 103 K/uL (130-400); RDW Coefficient of Variation 14.9 % (11.5-14.5); RDW Standard Deviation 47.1 fL (36.4-46.3); Red Blood Count 3.71 M/uL (4.70-6.10); White Blood Count 8.07 K/ul (4.8-10.8)
[2023-11-21 06:56] LABS: BUN Creatinine Ratio 13.7 (10-20); Creatinine Clr Calc Pharmacy 12.4 ml/min; Est GFR (African American) 6.3 ml/min; Est GFR (Non-African American) 5.5 ml/min; Potassium 4.8 mmol/L (3.5-5.1)
[2023-11-21] MEDS ORDERED: SODIUM CHLORIDE 0.9% 1,000 ML IV PRN (08:38)
--- NOTE | 2023-11-21 08:41 | Nephrology Progress Note ---
Date of Service November 21, 2023 Assessment & Plan (1) CHAD (acute kidney injury): Plan: * CHAD attributed to rhabdomyolysis/ATN * Temporary R IJ dialysis catheter placed 11/18/23. 1st HD treatment 11/19/23, no UF * Although patient is nonoliguric, he has persistent azotemia. Will provide 2nd HD today * HD orders have been placed in EMR and HD RN notified * Hold on TCC as patient is nonoliguric and may enter recovery phase of CHAD * Continue to hold Empagliflozin, metformin, and lisinopril * CT demonstrates the kidneys to be unobstructed. * Maintain Diego. Document strict I/O's. Renal diet. (2) CKD stage 3 due to type 2 diabetes mellitus: Plan: * Baseline creatinine 1.2-1.6 mg/dL. Albuminuria A1-A2 by history. (3) Rhabdomyolysis: Plan: * CK trending downward. Etiology not entirely clear. 11/13/23 patient received Invega. Suspect low grade NMS and UTI +/- pneumonia. * Await results for polymyositis. Myositis antibody panel, anti-zachary 1, and EDUARDO are pending. ESR 76. If positive, consider outpatient rheumatology evaluation or muscle biopsy * 11/20/23 Psychiatry consultation reviewed - avoid Invega in favor of Depakote for mood stabilization. Carbamazepine could also be considered (4) Diabetes mellitus type 2 in obese: Plan: * Metformin and empagliflozin held due to CHAD (5) Kidney stones: Plan: * 3 mm non-obstructing calculus noted on CT. * Outpatient follow up with nephrology and urology will be coordinated at discharge. (6) BPH with obstruction/lower urinary tract symptoms: Plan: * Maintain Diego to gravity. Continue Tamsulosin as Rx. Admission and Anticipated Discharge Date Admission Date: November 15, 2023 Subjective Mr. Rey was evaluated in his hospital room this morning. He c/o abdominal distention and notes that he has not had a BM for several days. Review of Systems Constitutional: no fever Eyes: no problem reported Ear, Nose, Mouth, Throat: no problem reported Respiratory: no cough and no dyspnea Cardiovascular: no chest pain Gastrointestinal: no abdominal pain, no nausea, no vomiting and no diarrhea/loose stools Integumentary: no rash Physical Exam Constitutional: not in distress Eyes: PERRL, conjunctivae normal, anicteric sclerae ENMT: external ear and nose normal, oropharynx normal Neck: trachea midline, no thyromegaly Respiratory: normal respiratory effort, lungs clear to auscultation Cardiovascular: RRR, no murmur, no edema Gastrointestinal (Abdomen): normal bowel sounds, soft, nontender, no hepatosplenomegaly Neurologic: awake; not confused Results & Data Vital Signs (Past 12 Hours) Vital Signs Temp Pulse Pulse Resp BP BP Pulse Ox 11/21/23 08:15 37.0 C 79 20 109/68 93 11/21/23 02:51 37.0 C 78 19 117/70 94 11/20/23 23:17 36.8 C 84 19 111/70 94 11/20/23 21:57 82 O2 Del Method O2 Flow Rate 11/21/23 08:15 Nasal Cannula 11/21/23 02:51 Nasal Cannula 4 11/20/23 23:17 Nasal Cannula 4 11/20/23 21:57 Laboratory Results Laboratory Results - last 24 hr 11/20/23 11/20/23 11/20/23 11:48 16:31 16:34 WBC RBC Hgb Hct MCV MCH MCHC RDW Std Deviation RDW Coeff of Izabela Plt Count MPV Sodium Potassium Chloride Carbon Dioxide Anion Gap BUN Creatinine Est Cr Clr Drug Dosing Est GFR ( Amer) Est GFR (Non-Af Amer) BUN/Creatinine Ratio Glucose POC Glucose 92 271 H 130 H Calcium 11/20/23 11/21/23 11/21/23 20:00 06:02 08:20 WBC 8.07 RBC 3.71 L Hgb 10.8 L Hct 32.0 L MCV 86.3 MCH 29.1 MCHC 33.8 RDW Std Deviation 47.1 H RDW Coeff of Izabela 14.9 H Plt Count 103 L MPV 12.2 Sodium 136 Potassium 4.8 Chloride 99 Carbon Dioxide 20 L Anion Gap 17 H BUN 130 H Creatinine 9.49 H* D Est Cr Clr Drug Dosing 12.4 Est GFR ( Amer) 6.3 Est GFR (Non-Af Amer) 5.5 BUN/Creatinine Ratio 13.7 Glucose 123 H POC Glucose 180 H 119 H Calcium 9.0 PG Care Time/CCT Total # of Minutes Spent Total Time Spent with Patient: Total time spent is greater than 50% in coordination of care (as documented) at patient's floor/unit and/or counseling patient: Coding Level of Care Code 77403 SUB INP/OBS CARE MIN Diagnoses CHAD (acute kidney injury) N17.9 CKD stage 3 due to type 2 diabetes mellitus E11.22; N18.3 Rhabdomyolysis M62.82 Diabetes mellitus type 2 in obese E11.69; E66.9 Kidney stones N20.0 BPH with obstruction/lower urinary tract symptoms N40.1; N13.8
[2023-11-21] MEDS: HEPARIN SOD (PORCINE) 1000 UNIT/ML IV ONE (13:38)
--- NOTE | 2023-11-21 20:07 | Hospitalist Progress Note ---
Date of Service November 21, 2023 Assessment & Plan (1) CHAD (acute kidney injury): Plan: SEVERE. Creatinine at presentation was 2.8. Typical baseline 1.2-1.3. Creatinine 9.5 and BUN 130 today. Markedly positive from volume standpoint. About 15+ liters positive for this hospitalization. 24-hour UOP IS IMPROVING -- HOPEFULLY SIGNALING renal recovery. With that said, in light of volume status & very high BUN/Cr, HD performed again this am. s/p right IJ temporary HD catheter placement on 11/17. 1st HD session 11/17. 2nd HD session 11/18. 3rd session today, 11/20. CT a/p without any obstruction. Rhabdomyolysis and ATN both to blame for his CHAD/ARF. Dr Barber suggested that perhaps he had developed NMS from his Invega injection (he has been on such for about 6 months). By report had received the injection a few days before admission. Appreciate nephrology assistance. BMP am. Cont kendall. Repeat CPK am. (2) Acute hypoxic respiratory failure: Plan: Severe wheezing, tachypnea, retractions noted 11/16/23. CXR without pulm edema but lower lobe infiltrates were noted. Suspect combination of b/l basilar pneumonia and pulm edema. With the extensive wheezing can't rule out a viral bronchitis but COVID/flu/RSV negative. To cover for b/l pneumonia the rocephin 2gm daily for UTI would have sufficed; also receiving doxy 100mg BID for atypical coverage. Day #7 of rocephin today - stop after today's dose. Day #6 doxy - continue until 7 days then stop. Hemodialysis per nephrology. Cont prn duonebs. Keep head of bed >30 degrees. Family mentioned episodes of dysphagia with coughing -- speech performed video swallow - no aspiration seen fortunately. (3) Rhabdomyolysis: Plan: unwitnessed fall at home - prolonged down time of several hours. Patient with rhabdomyolysis - peak CPK of 57,274. Rhabdo has contributed to acute renal failure. He is not on statin therapy at home. No reported seizures. On Invega injections for bipolar disorder - NMS? (neuroleptic malignant syndrome) - see below discussion. Received aggressive hydration of LR at 200mL/hr x 3 liters in the first 24 hours of his stay. With development of acute renal failure and acidosis fluids changed to bicarb drip. Fluids ultimately stopped as his renal failure progressed despite such and he developed volume overload. At least 15+ liters positive since admission. Fortunately his CPK continues to decrease daily. Recheck CPK am. Elevated AST/ALT likely due to rhabdomyolysis itself - LFTs all improving. Rep eat ast and alt in am tomorrow. Of note - NO EVIDENCE of compartment syndrome in arms or legs since admission. Patient does appear to have some element of proximal muscle weakness. To be complete Dr Falcon sent off autoimmune labs to exclude a developing polymyositis or other process. If not present his weakness may be from the resolving rhabdo itself, weakness from UTI/possible pneumonia, rigidity from NMS, etc. Will await autoimmune labs. Elevated inflammatory markers noted. See below re: possible NMS. (4) NMS (neuroleptic malignant syndrome): Plan: heavy concern for/suspected. known history of antipsychotic use for bipolar d/o (Invega). had fever for 36 hours early in the stay. severe rhabdomyolysis. did not have vital sign instability; only mild tachycardia when he was febrile/early in the stay. altered MS but no agitation; lethargy/fatigue since admission. suspected rigidity on exam. he also seems to have proximal muscle weakness c/w muscle injury/rhabdo along with difficulty with movement from severe anasarca. typically NMS causes hypo-reflexia; he has hyper-reflexia. [id number] NMS still possible/concern for. at this point use of dantrolene or bromocriptine likely to be of little benefit. his rhabdo is improving nicely. appreciate Dr Lau's consultation from psychiatry, she advises no use of prn antipsychotics; if any agitation benzos only. possible addition of depakote if needed for mood stabilization. she will reach out to [facility] where he gets his psych care today to discuss the above. (5) Diabetes mellitus type 2 in obese: Plan: Uncontrolled in the setting of sepsis, ARF, resp failure, etc. Last FpjI3C=6.4 on 08/13/23 Cont Lantus Cont novolog STOPPED Glimepiride & Empagliflozin (6) Idiopathic thrombocytopenic purpura: Plan: Chronic. Stable. 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 Stable Continue Flomax Kendall in place No obstruction on CT a/p (8) Kidney stones: Plan: seen on CT, but not causing obstruction at this time no Rx needed (9) Fall: Plan: unwitnessed was patient getting weak from UTI and/or pulmonary infection which led to fall? weakness due to brewing NMS? combination of factors? cont PT/OT will need rehab post-d/c (10) Benign hypertension: Plan: only on flomax at home BPs acceptable (11) Bipolar 1 disorder, depressed, mild: Plan: on Invega injection therapy monthly family reports he has charges pressed against him and has court date this coming Tuesday, November 20 he will need a note stating he won't be able to attend in person given his severe illness note completed and sent to the public address systems mechanic's office via fax on 11/18/23 see above re: concern for NMS (12) Hyponatremia: Plan: 2nd acute renal failure resolved with serial HD sessions daily BMP (13) Severe sepsis: Plan: 2nd to UTI 2nd to suspect pulmonary infection resolved blood cx's neg urine cx with e.coli s/p full 7-day course of rocephin for UTI/pneumonia (14) UTI (urinary tract infection): Plan: 2nd ecoli cont rocephin, day #7 of such - stop after today's dose consider checking PSA and if elevated perhaps extend the course to cover prostatitis as well but defer for now (15) Pneumonia: Plan: suspected b/l basilar rocephin; doxy follow blood cx's but they remain negative supportive care, O2, etc COVID/flu/RSV negative (16) Morbid obesity: Plan: BMI 43 (17) Esophagitis: Plan: as seen on CT a/p cont protonix 40mg BID (18) Dysphagia: Plan: appreciate speech eval video swallow NEGATIVE for aspiration (19) Elbow pain: Plan: b/l 2nd to fall elbow x-rays without fracture has abrasions - cont local wound care for this have placed formal wound care consult for the abrasions and other skin issues (20) Conjunctivitis: Plan: b/l, R>L somewhat chronic per family improving nicely conjunctivitis vs bletharitis vs blocked tear ducts vs other cont erythromycin eye ointment BID x 7-10 days (21) Acute metabolic encephalopathy: Plan: improving multifactorial - 2nd to uremia/CHAD, infection, possible NMS, etc treat individual components Plan extensive family update given to his mother & sister at bedside yesterday appreciate Dr Lau's consultation from psych appreciate Dr Barber's assistance attempted to call pt's mother at her home # no answer, extensive voicemail message left for her (11/21/23) Admission and Anticipated Discharge Date Admission Date: November 15, 2023 Subjective patient lying in bed comfortably during the visit was eating his meal he offered no complaints he stated "I think I'm doing a bit better" when asked what was better he said "my energy" eating is improved had over 1000cc of urine output yesterday tolerated HD this am still with weakness/rigidity of arms > legs tele stable overnight - NSR Review of Systems Review of Systems: CV - no chest pain pulm - occasional cough; occasional dyspnea GI - no pain or N/V ; large BM this am by report Physical Exam Physical Exam: gen - obese, laying in bed comfortably, more awake/alert than previous visits neck - no obvious JVD; right IJ dialysis catheter clean at insertion site face - mild edema/puffiness mouth - MMM heart - RRR, s1 s2, no murmur lungs - decreased BS both bases; no increased work of breathing; no wheezes or rales today abd - distension mildly better today; nontender, BS+, no obvious HSM vascular - DP/post tib pulses 2+ b/l ext - arms with edema b/l - improving, but still present; legs with 1+ edema; edema of face as noted above neuro - proximal muscle weakness of arms/legs, much worse in arms/shoulder region; slightly stronger left leg and left arm; rigidity/increased tone all 4 limbs psych - awake, alert, follows commands, oriented to person/place Results & Data Results & Data Vital Signs (Past 12 Hours) Vital Signs Temp Pulse Pulse Pulse Resp BP BP 11/21/23 19:40 36.6 C 78 20 11/21/23 16:16 36.3 C L 80 20 11/21/23 16:00 11/21/23 13:10 36.3 C L 84 20 132/78 11/21/23 12:00 95 H 80/64 L 11/21/23 11:30 72 96/57 L 11/21/23 11:00 90 117/48 L 11/21/23 10:30 62 92/58 L 11/21/23 10:00 72 100/54 L 11/21/23 09:30 64 100/51 L 11/21/23 09:22 37.0 C 72 11/21/23 08:15 37.0 C 79 20 109/68 BP Pulse Ox O2 Del Method O2 Flow Rate 11/21/23 19:40 138/81 95 Nasal Cannula 4 11/21/23 16:16 112/69 94 Nasal Cannula 11/21/23 16:00 Nasal Cannula 4 11/21/23 13:10 93 Nasal Cannula 11/21/23 12:00 11/21/23 11:30 11/21/23 11:00 11/21/23 10:30 11/21/23 10:00 11/21/23 09:30 11/21/23 09:22 11/21/23 08:15 93 Nasal Cannula Laboratory Results Laboratory Results - last 24 hr 11/21/23 11/21/23 11/21/23 06:02 08:20 12:53 WBC 8.07 RBC 3.71 L Hgb 10.8 L Hct 32.0 L MCV 86.3 MCH 29.1 MCHC 33.8 RDW Std Deviation 47.1 H RDW Coeff of Izabela 14.9 H Plt Count 103 L MPV 12.2 Sodium 136 Potassium 4.8 Chloride 99 Carbon Dioxide 20 L Anion Gap 17 H BUN 130 H Creatinine 9.49 H* D Est Cr Clr Drug Dosing 12.4 Est GFR ( Amer) 6.3 Est GFR (Non-Af Amer) 5.5 BUN/Creatinine Ratio 13.7 Glucose 123 H POC Glucose 119 H 99 Calcium 9.0 11/21/23 16:33 WBC RBC Hgb Hct MCV MCH MCHC RDW Std Deviation RDW Coeff of Izabela Plt Count MPV Sodium Potassium Chloride Carbon Dioxide Anion Gap BUN Creatinine Est Cr Clr Drug Dosing Est GFR ( Amer) Est GFR (Non-Af Amer) BUN/Creatinine Ratio Glucose POC Glucose 115 H Calcium PG Care Time/CCT Total # of Minutes Spent Total Time Spent with Patient: Total time spent is greater than 50% in coordination of care (as documented) at patient's floor/unit and/or counseling patient: Coding Level of Care Code 54514 SUB INP/OBS CARE 3/50MIN Diagnoses CHAD (acute kidney injury) N17.9 Acute hypoxic respiratory failure J96.01 Rhabdomyolysis M62.82 NMS (neuroleptic malignant syndrome) G21.0 Diabetes mellitus type 2 in obese E11.69; E66.9 Idiopathic thrombocytopenic purpura D69.3 BPH with obstruction/lower urinary tract symptoms N40.1; N13.8 Kidney stones N20.0 Fall W19.XXXA Benign hypertension I10 Bipolar 1 disorder, depressed, mild F31.31 Hyponatremia E87.1 Severe sepsis A41.9; R65.20 UTI (urinary tract infection) N39.0; R31.9 Hematuria presence: with hematuria Urinary tract infection type: site unspecified Pneumonia J18.9 Morbid obesity E66.01 Esophagitis K20.90 Dysphagia R13.10 Elbow pain M25.529 Conjunctivitis H10.9 Acute metabolic encephalopathy G93.41 (14) UTI (urinary tract infection) Hematuria presence: with hematuria Urinary tract infection type: site unspecified Qualified Code(s): N39.0 - Urinary tract infection, site not specified; R31.9 - Hematuria, unspecified
[2023-11-22 08:13] LABS: Alanine Aminotransferase 62 U/L (7-52); Aspartate Aminotransferase 44 U/L (13-39); Creatine Kinase 257 U/L (30-223)
[2023-11-22 08:25] LABS: Creatinine Clr Calc Pharmacy 16.2 ml/min; Est GFR (African American) 8.8 ml/min; Est GFR (Non-African American) 7.6 ml/min; Potassium 4.6 mmol/L (3.5-5.1)
[2023-11-22] MEDS: DOXYCYCLINE HYCLATE 100 MG CAP PO SCH (08:43)
--- NOTE | 2023-11-22 10:12 | Nephrology Progress Note ---
Date of Service November 22, 2023 Assessment & Plan (1) CHAD (acute kidney injury): Plan: * CHAD attributed to rhabdomyolysis/ATN * Temporary R IJ dialysis catheter placed 11/18/23. HD provided 11/19/23 and 11/21/23 * Although patient has significant azotemia, his UO has markedly improved. Electrolyte balance is acceptable. Will hold HD today and recheck PRP in am to assess for renal recovery * Hold on TCC as patient is nonoliguric and may enter recovery phase of CHAD * Continue to hold Empagliflozin, metformin, and lisinopril * CT demonstrates the kidneys to be unobstructed. * Maintain Diego. Document strict I/O's. Renal diet. (2) CKD stage 3 due to type 2 diabetes mellitus: Plan: * Baseline creatinine 1.2-1.6 mg/dL. Albuminuria A1-A2 by history. (3) Rhabdomyolysis: Plan: * CK now ~ 200. Etiology of rhabdomyolysis was not entirely clear. 11/13/23 patient received Invega. Suspect low grade NMS and UTI +/- pneumonia. * Await results for polymyositis. Myositis antibody panel, anti-zachary 1, and EDUARDO are pending. ESR 76. If positive, consider outpatient rheumatology evaluation or muscle biopsy * 11/20/23 Psychiatry consultation reviewed - avoid Invega in favor of Depakote for mood stabilization. Carbamazepine could also be considered (4) Diabetes mellitus type 2 in obese: Plan: * Metformin and empagliflozin held due to CHAD (5) Kidney stones: Plan: * 3 mm non-obstructing calculus noted on CT. * Outpatient follow up with nephrology and urology will be coordinated at discharge. (6) BPH with obstruction/lower urinary tract symptoms: Plan: * Maintain Diego to gravity. Continue Tamsulosin as Rx. Admission and Anticipated Discharge Date Admission Date: November 15, 2023 Subjective Mr. Rey was evaluated in his hospital room this morning. He appeared somewhat anxious/agitated but voiced no new medical concerns Review of Systems Constitutional: no fever Eyes: no problem reported Ear, Nose, Mouth, Throat: no problem reported Respiratory: no cough and no dyspnea Cardiovascular: no chest pain Gastrointestinal: no abdominal pain, no nausea, no vomiting and no diarrhea/loose stools Integumentary: no rash Physical Exam Constitutional: not in distress Eyes: PERRL, conjunctivae normal, anicteric sclerae ENMT: external ear and nose normal, oropharynx normal Neck: trachea midline, no thyromegaly Respiratory: normal respiratory effort, lungs clear to auscultation Cardiovascular: RRR, no murmur, no edema Gastrointestinal (Abdomen): normal bowel sounds, soft, nontender, no hepatosplenomegaly Neurologic: awake; not confused Results & Data Vital Signs (Past 12 Hours) Vital Signs Temp Pulse Pulse Pulse Resp BP Pulse Ox 11/22/23 07:54 36.7 C 80 17 150/67 H 91 11/22/23 03:20 36.6 C 78 19 127/70 93 11/21/23 23:16 36.7 C 82 19 110/67 94 11/21/23 22:52 78 O2 Del Method O2 Flow Rate 11/22/23 07:54 Nasal Cannula 4 11/22/23 03:20 Nasal Cannula 4 11/21/23 23:16 Nasal Cannula 4 11/21/23 22:52 Laboratory Results Laboratory Results - last 24 hr 11/21/23 11/21/23 11/21/23 12:53 16:33 20:32 Sodium Potassium Chloride Carbon Dioxide Anion Gap BUN Creatinine Est Cr Clr Drug Dosing Est GFR ( Amer) Est GFR (Non-Af Amer) BUN/Creatinine Ratio Glucose POC Glucose 99 115 H 117 H Calcium AST ALT Total Creatine Kinase 11/22/23 11/22/23 06:03 08:17 Sodium 138 Potassium 4.6 Chloride 101 Carbon Dioxide 22 Anion Gap 15 H BUN 94 H D Creatinine 7.23 H* D Est Cr Clr Drug Dosing 16.2 Est GFR ( Amer) 8.8 Est GFR (Non-Af Amer) 7.6 BUN/Creatinine Ratio 13.0 Glucose 100 H POC Glucose 101 H Calcium 9.0 AST 44 H ALT 62 H Total Creatine Kinase 257 H PG Care Time/CCT Total # of Minutes Spent Total Time Spent with Patient: Total time spent is greater than 50% in coordination of care (as documented) at patient's floor/unit and/or counseling patient: Coding Level of Care Code 38434 SUB INP/OBS CARE 3/50MIN Diagnoses CHAD (acute kidney injury) N17.9 CKD stage 3 due to type 2 diabetes mellitus E11.22; N18.3 Rhabdomyolysis M62.82 Diabetes mellitus type 2 in obese E11.69; E66.9 Kidney stones N20.0 BPH with obstruction/lower urinary tract symptoms N40.1; N13.8
--- NOTE | 2023-11-22 17:36 | Hospitalist Progress Note ---
Date of Service November 22, 2023 Assessment & Plan (1) CHAD (acute kidney injury): Plan: 58 y/o presented with severe CHAD due to rhabdomyolysis and ATN Creatinine at presentation was 2.8. CT a/p without any obstruction. Has required dialysis s/p right IJ temporary HD catheter placement on 11/17. HD sessions 11/17, 11/18, 11/20 UOP has improved 1700 UOP/24h, still has [employer] HD today and following labs - BUN/Cr elevated but electrolytes acceptable today [employer] (2) Acute hypoxic respiratory failure: Plan: Severe wheezing, tachypnea, retractions noted 11/16/23. CXR without pulm edema but lower lobe infiltrates were noted. Suspect combination of b/l basilar pneumonia and pulm edema. Resolved - completed 7d ceftriaxone and doxycycline VFSS negative for aspiration (3) Rhabdomyolysis: Plan: unwitnessed fall at home - prolonged down time of several hours. Patient with rhabdomyolysis - peak CPK of 57,274. He is not on statin therapy at home. No reported seizures. On Invega injections for bipolar disorder - NMS? (neuroleptic malignant syndrome) - see below discussion. To be complete Dr Falcon sent off autoimmune labs to exclude a developing polymyositis or other process. Received aggressive hydration of LR at 200mL/hr x 3 liters in the first 24 hours of his stay. With development of acute renal failure and acidosis fluids changed to bicarb drip. Fluids ultimately stopped as his renal failure progressed despite such and he developed volume overload. Elevated AST/ALT likely due to rhabdomyolysis itself - LFTs continue improving (4) NMS (neuroleptic malignant syndrome): Plan: heavy concern for/suspected. known history of antipsychotic use for bipolar d/o (Invega). had fever for 36 hours early in the stay. severe rhabdomyolysis. did not have vital sign instability; only mild tachycardia when he was febrile/early in the stay. altered MS but no agitation; lethargy/fatigue since admission. suspected rigidity on exam. he also seems to have proximal muscle weakness c/w muscle injury/rhabdo along with difficulty with movement from severe anasarca. typically NMS causes hypo-reflexia; he has hyper-reflexia. [id number] NMS still possible/concern for. at this point use of dantrolene or bromocriptine likely to be of little benefit. his rhabdo is resolved appreciate Dr Lau's consultation from psychiatry, she advises no use of prn antipsychotics; if any agitation benzos only. possible addition of depakote if needed for mood stabilization. she will reach out to [place] where he gets his psych care today to discuss the above. (5) Diabetes mellitus type 2 in obese: Plan: Uncontrolled in the setting of sepsis, ARF, resp failure, etc. Last NfoY8N=2.4 on 08/13/23 Cont Lantus Cont novolog BG at goal 11/21 STOPPED Glimepiride & Empagliflozin (6) Idiopathic thrombocytopenic purpura: Plan: Chronic. Stable. 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 Stable Continue Flomax Kendall in place No obstruction on CT a/p (8) Kidney stones: Plan: seen on CT, but not causing obstruction at this time follow up with urology outpatient (9) Benign hypertension: Plan: only on flomax at home BPs acceptable (10) Bipolar 1 disorder, depressed, mild: Plan: was on Invega injection therapy monthly see above (11) Hyponatremia: Plan: 2nd acute renal failure resolved with serial HD sessions daily BMP (12) Severe sepsis: Plan: 2nd to UTI 2nd to suspect pulmonary infection resolved blood cx's neg urine cx with e.coli s/p full 7-day course of rocephin for UTI/pneumonia (13) UTI (urinary tract infection): Plan: 2nd ecoli, completed treatment (14) Pneumonia: Plan: completed course of ceftriaxone/doxy x 7d as above (15) Morbid obesity: Plan: BMI 43 (16) Esophagitis: Plan: as seen on CT a/p cont protonix 40mg BID (17) Dysphagia: Plan: appreciate speech eval video swallow NEGATIVE for aspiration (18) Elbow pain: Plan: b/l 2nd to fall elbow x-rays without fracture has abrasions - cont local wound care for this have placed formal wound care consult for the abrasions and other skin issues (19) Conjunctivitis: Plan: b/l, R>L somewhat chronic per family improving nicely conjunctivitis vs bletharitis vs blocked tear ducts vs other cont erythromycin eye ointment BID x 7-10 days (20) Acute metabolic encephalopathy: Plan: improving multifactorial - 2nd to uremia/CHAD, infection, possible NMS, etc treat individual components Plan extensive family update given to his mother & sister at bedside 11/19, VM 11/20 OT rec rehab, updated PT eval pending Admission and Anticipated Discharge Date Admission Date: November 15, 2023 Subjective no complaints slight cough no dyspnea muscles/legs have not been sore felt a little poorly or off for a few days before falling down but can't specify Physical Exam 2 Physical Exam: PHYSICAL EXAMINATION Last 24h vital signs reviewed, see documentation in flowsheet General: comfortable appearing, no distress, lying flat on bed HEENT: Normocephalic, atraumatic, pupils round and equal, sclerae anicteric, no conjunctival injection, moist mucus membranes Lungs: Normal respiratory effort. Clear to auscultation bilaterally. No RRW Heart: Regular rate and rhythm, no murmurs. No JVD HD catheter Rt upper chest Abdomen: Soft, nontender, nondistended. Bowel sounds present. Extremities: Warm, dry, well-perfused. No extremity edema. No quad tenderness Neuro: Alert and oriented x 4, face symmetric, moves 4 extremities, some lead pipe rigidity of ext without cogwheeling Psych: flat affect and normal behavior Results & Data Results & Data Vital Signs (Past 12 Hours) Vital Signs Temp Pulse Resp BP BP Pulse Ox O2 Del Method 11/22/23 15:30 37.0 C 77 19 134/74 91 Room Air 11/22/23 10:52 36.6 C 77 17 121/67 95 Nasal Cannula 11/22/23 08:00 Nasal Cannula 11/22/23 07:54 36.7 C 80 17 150/67 H 91 Nasal Cannula O2 Flow Rate 11/22/23 15:30 11/22/23 10:52 4 11/22/23 08:00 4 11/22/23 07:54 4 Laboratory Results 11/21/23 06:02 11/22/23 06:03 PG Care Time/CCT Total # of Minutes Spent Total Time Spent with Patient: Total time spent is greater than 50% in coordination of care (as documented) at patient's floor/unit and/or counseling patient: Coding Level of Care Code 25556 SUB INP/OBS CARE 2/35MIN Diagnoses CHAD (acute kidney injury) N17.9 Acute hypoxic respiratory failure J96.01 Rhabdomyolysis M62.82 NMS (neuroleptic malignant syndrome) G21.0 Diabetes mellitus type 2 in obese E11.69; E66.9 Idiopathic thrombocytopenic purpura D69.3 BPH with obstruction/lower urinary tract symptoms N40.1; N13.8 Kidney stones N20.0 Benign hypertension I10 Bipolar 1 disorder, depressed, mild F31.31 Hyponatremia E87.1 Severe sepsis A41.9; R65.20 UTI (urinary tract infection) N39.0; R31.9 Hematuria presence: with hematuria Urinary tract infection type: site unspecified Pneumonia J18.9 Morbid obesity E66.01 Esophagitis K20.90 Dysphagia R13.10 Elbow pain M25.529 Conjunctivitis H10.9 Acute metabolic encephalopathy G93.41 (13) UTI (urinary tract infection) Hematuria presence: with hematuria Urinary tract infection type: site unspecified Qualified Code(s): N39.0 - Urinary tract infection, site not specified; R31.9 - Hematuria, unspecified
[2023-11-22] MEDS ORDERED: POLYETHYLENE (MIRALAX) 17 GM PACK PO PRN (18:19)
[2023-11-22] MEDS ORDERED: SENNA 8.6 MG TAB PO PRN (18:20)
[2023-11-22] MEDS: Nursing to Pharmacy Communication SCH (23:22)
[2023-11-23 07:46] LABS: BUN Creatinine Ratio 13.7 (10-20); Calcium 9.1 mg/dl (8.6-10.3); Creatinine Clr Calc Pharmacy 15.3 ml/min; Est GFR (Non-African American) 6.9 ml/min; Potassium 4.4 mmol/L (3.5-5.1)
[2023-11-23] MEDS ORDERED: SODIUM CHLORIDE 0.9% 1,000 ML IV PRN (08:55)
--- NOTE | 2023-11-23 08:58 | Nephrology Progress Note ---
Date of Service November 23, 2023 Assessment & Plan (1) CHAD (acute kidney injury): Plan: * CHAD attributed to rhabdomyolysis/ATN * Temporary R IJ dialysis catheter placed 11/18/23. HD provided 11/19/23 and 11/21/23 * UO continues to improve but patient has worsening azotemia. Will provide HD today for urea clearance and recheck PRP, UO in am. Hopefully patient will enter recovery phase of CHAD and not require TCC placement * Continue to hold Empagliflozin, metformin, and lisinopril * CT demonstrates the kidneys to be unobstructed. * Maintain Diego. Document strict I/O's. Renal diet. (2) CKD stage 3 due to type 2 diabetes mellitus: Plan: * Baseline creatinine 1.2-1.6 mg/dL. Albuminuria A1-A2 by history. (3) Rhabdomyolysis: Plan: * CK now< 200. Rhabdomyolysis may have been low grade NMS related to Invega therapy * Await results for polymyositis. Myositis antibody panel, anti-zachary 1, and EDUARDO are pending. ESR 76. If positive, consider outpatient rheumatology evaluation or muscle biopsy * 11/20/23 Psychiatry consultation reviewed - avoid Invega in favor of Depakote for mood stabilization. Carbamazepine could also be considered (4) Diabetes mellitus type 2 in obese: Plan: * Metformin and empagliflozin held due to CHAD (5) Kidney stones: Plan: * 3 mm non-obstructing calculus noted on CT. * Outpatient follow up with nephrology and urology will be coordinated at discharge. (6) BPH with obstruction/lower urinary tract symptoms: Plan: * Maintain Diego to gravity. Continue Tamsulosin as Rx. Admission and Anticipated Discharge Date Admission Date: November 15, 2023 Subjective Mr. Rey was evaluated in his hospital room this morning. He appeared somewhat anxious/agitated but voiced no new medical concerns Review of Systems Constitutional: no fever Eyes: no problem reported Ear, Nose, Mouth, Throat: no problem reported Respiratory: no cough and no dyspnea Cardiovascular: no chest pain Gastrointestinal: no abdominal pain, no nausea, no vomiting and no diarrhea/loose stools Integumentary: no rash Physical Exam Constitutional: not in distress Eyes: PERRL, conjunctivae normal, anicteric sclerae ENMT: external ear and nose normal, oropharynx normal Neck: trachea midline, no thyromegaly Respiratory: normal respiratory effort, lungs clear to auscultation Cardiovascular: RRR, no murmur, no edema Gastrointestinal (Abdomen): normal bowel sounds, soft, nontender, no hepatosplenomegaly Neurologic: awake; not confused Results & Data Vital Signs (Past 12 Hours) Vital Signs Temp Pulse Pulse Pulse Resp BP BP 11/23/23 07:52 36.7 C 71 18 131/77 11/23/23 03:25 36.7 C 79 19 115/62 11/23/23 00:00 11/22/23 23:28 36.6 C 81 19 131/76 11/22/23 23:00 77 11/22/23 22:05 Pulse Ox O2 Del Method 11/23/23 07:52 91 Room Air 11/23/23 03:25 92 Room Air 11/23/23 00:00 Room Air 11/22/23 23:28 91 Room Air 11/22/23 23:00 11/22/23 22:05 Room Air Laboratory Results Laboratory Results - last 24 hr 11/18/23 11/22/23 11/22/23 07:34 12:15 16:15 Sodium Potassium Chloride Carbon Dioxide Anion Gap BUN Creatinine Est Cr Clr Drug Dosing Est GFR ( Amer) Est GFR (Non-Af Amer) BUN/Creatinine Ratio Glucose POC Glucose 118 H 143 H Calcium Vitamin B1 6 L 11/22/23 11/23/23 11/23/23 20:12 06:42 08:02 Sodium 137 Potassium 4.4 Chloride 100 Carbon Dioxide 23 Anion Gap 14 H BUN 107 H Creatinine 7.82 H* D Est Cr Clr Drug Dosing 15.3 Est GFR ( Amer) 8.0 Est GFR (Non-Af Amer) 6.9 BUN/Creatinine Ratio 13.7 Glucose 137 H POC Glucose 146 H 136 H Calcium 9.1 Vitamin B1 PG Care Time/CCT Total # of Minutes Spent Total Time Spent with Patient: Total time spent is greater than 50% in coordination of care (as documented) at patient's floor/unit and/or counseling patient: Coding Level of Care Code 85315 SUB INP/OBS CARE 3/50MIN Diagnoses CHAD (acute kidney injury) N17.9 CKD stage 3 due to type 2 diabetes mellitus E11.22; N18.3 Rhabdomyolysis M62.82 Diabetes mellitus type 2 in obese E11.69; E66.9 Kidney stones N20.0 BPH with obstruction/lower urinary tract symptoms N40.1; N13.8
[2023-11-23] MEDS: HEPARIN SOD (PORCINE) 1000 UNIT/ML IV ONE (10:09)
--- NOTE | 2023-11-23 18:49 | Hospitalist Progress Note ---
Date of Service November 23, 2023 Assessment & Plan (1) CHAD (acute kidney injury): Plan: 58 y/o presented with severe CHAD due to rhabdomyolysis and ATN Creatinine at presentation was 2.8. CT a/p without any obstruction. Has required dialysis s/p right IJ temporary HD catheter placement on 11/17. 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 CXR without pulm edema but lower lobe infiltrates were noted. Suspect combination of b/l basilar pneumonia and pulm edema. Resolved - completed 7d ceftriaxone and doxycycline VFSS negative for aspiration (3) Rhabdomyolysis: Plan: unwitnessed fall at home - prolonged down time of several hours. Patient with rhabdomyolysis - peak CPK of 57,274. He is not on statin therapy at home. No reported seizures. On Invega injections for bipolar disorder - NMS? (neuroleptic malignant syndrome) - see below discussion. To be complete Dr Falcon sent off autoimmune labs to exclude a developing polymyositis or other process. Received aggressive hydration of LR at 200mL/hr x 3 liters in the first 24 hours of his stay. With development of acute renal failure and acidosis fluids changed to bicarb drip. Fluids ultimately stopped as his renal failure progressed despite such and he developed volume overload. Elevated AST/ALT likely due to rhabdomyolysis itself - LFTs continue improving (4) NMS (neuroleptic malignant syndrome): Plan: heavy concern for/suspected. known history of antipsychotic use for bipolar d/o (Invega). had fever for 36 hours early in the stay. severe rhabdomyolysis. did not have vital sign instability; only mild tachycardia when he was febrile/early in the stay. altered MS but no agitation; lethargy/fatigue since admission. suspected rigidity on exam. he also seems to have proximal muscle weakness c/w muscle injury/rhabdo along with difficulty with movement from severe anasarca. typically NMS causes hypo-reflexia; he has hyper-reflexia. [id number] NMS still possible/concern for. at this point use of dantrolene or bromocriptine likely to be of little benefit. his rhabdo is resolved appreciate Dr Lau's consultation from psychiatry, she advises no use of prn antipsychotics; if any agitation benzos only. possible addition of depakote if needed for mood stabilization. she will reach out to [place] where he gets his psych care today to discuss the above. (5) Diabetes mellitus type 2 in obese: Plan: Uncontrolled in the setting of sepsis, ARF, resp failure, etc. Last HbiE4B=4.4 on 08/13/23 Cont Lantus Cont novolog BG at goal 11/21 STOPPED Glimepiride & Empagliflozin (6) Idiopathic thrombocytopenic purpura: Plan: Chronic. Stable. No bleeding at this time Thus far platelets remain acceptable Plt 103 (7) BPH with obstruction/lower urinary tract symptoms: Plan: Chronic. Stable Continue Flomax Kendall in place No obstruction on CT a/p (8) Kidney stones: Plan: seen on CT, but not causing obstruction at this time follow up with urology outpatient (9) Benign hypertension: Plan: only on flomax at home BPs acceptable (10) Bipolar 1 disorder, depressed, mild: Plan: was on Invega injection therapy monthly see above (11) Hyponatremia: Plan: 2nd acute renal failure resolved with serial HD sessions daily BMP (12) Severe sepsis: Plan: 2nd to UTI 2nd to suspect pulmonary infection resolved blood cx's neg urine cx with e.coli s/p full 7-day course of rocephin for UTI/pneumonia (13) UTI (urinary tract infection): Plan: 2nd ecoli, completed treatment (14) Pneumonia: Plan: completed course of ceftriaxone/doxy x 7d as above (15) Morbid obesity: Plan: BMI 43 (16) Esophagitis: Plan: as seen on CT a/p cont protonix 40mg BID (17) Dysphagia: Plan: appreciate speech eval video swallow NEGATIVE for aspiration (18) Elbow pain: Plan: b/l 2nd to fall elbow x-rays without fracture has abrasions - cont local wound care for this have placed formal wound care consult for the abrasions and other skin issues (19) Conjunctivitis: Plan: b/l, R>L somewhat chronic per family improving nicely conjunctivitis vs bletharitis vs blocked tear ducts vs other cont erythromycin eye ointment BID x 7-10 days improved today on exam (20) Acute metabolic encephalopathy: Plan: improving multifactorial - 2nd to uremia/CHAD, infection, possible NMS, etc treat individual components will need to meet with family at bedside to see if he is back to his baseline Plan extensive family update given to his mother & sister at bedside 11/19, VM 11/20 OT rec rehab, updated PT eval pending Admission and Anticipated Discharge Date Admission Date: November 15, 2023 Subjective sitting in bed eating lunch, flat affect and not very interactive but laughed when I talked about ice cream denies any pain or shortness of breath, agrees that edema is improving today's weight of 146 kg may be an accurate Physical Exam 2 Physical Exam: PHYSICAL EXAMINATION Last 24h vital signs reviewed, see documentation in flowsheet General: comfortable appearing, no distress, sitting in bed eating ice cream and sandwich HEENT: Normocephalic, atraumatic, pupils round and equal, sclerae anicteric, no conjunctival injection, moist mucus membranes Lungs: Normal respiratory effort. Clear to auscultation bilaterally. No RRW Heart: Regular rate and rhythm, no murmurs. No JVD HD catheter Rt upper chest Abdomen: Soft, nontender, nondistended. Bowel sounds present. Extremities: Warm, dry, well-perfused. some diffuse extremity edema/ anasarca. Neuro: Alert and oriented x basic situation of hospital, limited verbal responses, face symmetric, moves 4 extremities, some lead pipe rigidity of ext without cogwheeling Psych: flat affect and normal behavior Results & Data Results & Data Vital Signs (Past 12 Hours) Vital Signs Temp Pulse Pulse Pulse Resp BP BP 11/23/23 17:59 37.5 C 82 20 159/77 H 11/23/23 15:27 37.0 C 81 19 11/23/23 13:05 36.5 C 72 11/23/23 12:30 69 117/60 11/23/23 12:00 92 H 94/59 L 11/23/23 11:30 74 102/54 L 11/23/23 11:00 70 106/60 11/23/23 10:30 77 104/56 L 11/23/23 10:00 73 113/51 L 11/23/23 09:49 36.5 C 78 11/23/23 08:00 11/23/23 07:52 36.7 C 71 18 131/77 BP Pulse Ox O2 Del Method 11/23/23 17:59 90 Room Air 11/23/23 15:27 130/72 91 Room Air 11/23/23 13:05 104/55 L 11/23/23 12:30 11/23/23 12:00 11/23/23 11:30 11/23/23 11:00 11/23/23 10:30 11/23/23 10:00 11/23/23 09:49 11/23/23 08:00 Room Air 11/23/23 07:52 91 Room Air Laboratory Results 11/21/23 06:02 11/23/23 06:42 PG Care Time/CCT Total # of Minutes Spent Total Time Spent with Patient: Total time spent is greater than 50% in coordination of care (as documented) at patient's floor/unit and/or counseling patient: Coding Level of Care Code 41597 SUB INP/OBS CARE 2/35MIN Diagnoses CHAD (acute kidney injury) N17.9 Acute hypoxic respiratory failure J96.01 Rhabdomyolysis M62.82 NMS (neuroleptic malignant syndrome) G21.0 Diabetes mellitus type 2 in obese E11.69; E66.9 Idiopathic thrombocytopenic purpura D69.3 BPH with obstruction/lower urinary tract symptoms N40.1; N13.8 Kidney stones N20.0 Benign hypertension I10 Bipolar 1 disorder, depressed, mild F31.31 Hyponatremia E87.1 Severe sepsis A41.9; R65.20 UTI (urinary tract infection) N39.0; R31.9 Hematuria presence: with hematuria Urinary tract infection type: site unspecified Pneumonia J18.9 Morbid obesity E66.01 Esophagitis K20.90 Dysphagia R13.10 Elbow pain M25.529 Conjunctivitis H10.9 Acute metabolic encephalopathy G93.41 (13) UTI (urinary tract infection) Hematuria presence: with hematuria Urinary tract infection type: site unspecified Qualified Code(s): N39.0 - Urinary tract infection, site not specified; R31.9 - Hematuria, unspecified
[2023-11-24 07:53] LABS: Hemoglobin 10.8 g/dl (14.0-18.0); Mean Corpuscular Hemoglobin 28.4 pg (25.0-34.0); Mean Corpuscular Hgb Conc 32.7 g/dL (32.0-36.0); Mean Corpuscular Volume 86.8 fL (80.0-100.0); Mean Platelet Volume 11.5 fL (9.4-12.4); Platelet Count 139 K/uL (130-400); RDW Coefficient of Variation 14.4 % (11.5-14.5); RDW Standard Deviation 45.7 fL (36.4-46.3)
[2023-11-24 08:26] LABS: BUN Creatinine Ratio 12.9 (10-20); Calcium 9.1 mg/dl (8.6-10.3); Creatinine Clr Calc Pharmacy 20.4 ml/min; Est GFR (African American) 11.3 ml/min; Est GFR (Non-African American) 9.8 ml/min; Potassium 4.6 mmol/L (3.5-5.1)
--- NOTE | 2023-11-24 08:47 | Nephrology Progress Note ---
Date of Service November 24, 2023 Assessment & Plan (1) CHAD (acute kidney injury): Plan: * CHAD attributed to rhabdomyolysis/ATN * Temporary R IJ dialysis catheter placed 11/18/23. HD provided 11/19/23, 11/21/23 and 11/23/23. * Volume status and electrolyte balance are acceptable today. UO improved. Will hold HD today and check PRP in am. Hopefully patient will enter recovery phase of CHAD and not require TCC placement * Continue to hold Empagliflozin, metformin, and lisinopril * CT demonstrates the kidneys to be unobstructed. * Maintain Diego. Document strict I/O's. Renal diet. (2) CKD stage 3 due to type 2 diabetes mellitus: Plan: * Baseline creatinine 1.2-1.6 mg/dL. Albuminuria A1-A2 by history. (3) Rhabdomyolysis: Plan: * Rhabdomyolysis resolved. This may have been low grade NMS related to Invega therapy * Await results for polymyositis. Myositis antibody panel, anti-zachary 1, and EDUARDO are pending. ESR 76. If positive, consider outpatient rheumatology evaluation or muscle biopsy * 11/20/23 Psychiatry consultation reviewed - avoid Invega in favor of Depakote for mood stabilization. Carbamazepine could also be considered (4) Diabetes mellitus type 2 in obese: Plan: * Metformin and empagliflozin held due to CHAD (5) Kidney stones: Plan: * 3 mm non-obstructing calculus noted on CT. * Outpatient follow up with nephrology and urology will be coordinated at discharge. (6) BPH with obstruction/lower urinary tract symptoms: Plan: * Maintain Diego to gravity. Continue Tamsulosin as Rx. Admission and Anticipated Discharge Date Admission Date: November 15, 2023 Subjective Mr. eRy was evaluated in his hospital room this morning. He was sitting up on the edge of the bed eating breakfast. He notes less swelling and improved ROM of his arms. He voiced no new medical concerns Review of Systems Constitutional: no fever Eyes: no problem reported Ear, Nose, Mouth, Throat: no problem reported Respiratory: no cough and no dyspnea Cardiovascular: no chest pain Gastrointestinal: no abdominal pain, no nausea, no vomiting and no diarrhea/loose stools Integumentary: no rash Physical Exam Constitutional: not in distress Eyes: PERRL, conjunctivae normal, anicteric sclerae ENMT: external ear and nose normal, oropharynx normal Neck: trachea midline, no thyromegaly temporary R IJ HD catheter in place w/ clean dry dressing Respiratory: normal respiratory effort, lungs clear to auscultation Cardiovascular: RRR, no murmur, no edema Gastrointestinal (Abdomen): normal bowel sounds, soft, nontender, no hepatosplenomegaly Neurologic: awake; not confused Results & Data Vital Signs (Past 12 Hours) Vital Signs Temp Pulse Resp BP Pulse Ox O2 Del Method 11/24/23 07:52 36.5 C 72 16 134/76 96 Room Air 11/23/23 21:00 37.0 C 79 17 128/84 98 Room Air 11/23/23 20:50 Room Air Laboratory Results Laboratory Results - last 24 hr 11/23/23 11/23/23 11/23/23 13:23 13:24 16:02 WBC RBC Hgb Hct MCV MCH MCHC RDW Std Deviation RDW Coeff of Izabela Plt Count MPV Sodium Potassium Chloride Carbon Dioxide Anion Gap BUN Creatinine Est Cr Clr Drug Dosing Est GFR ( Amer) Est GFR (Non-Af Amer) BUN/Creatinine Ratio Glucose POC Glucose 491 H* 215 H 146 H Calcium 11/23/23 11/24/23 11/24/23 20:55 07:15 07:54 WBC 7.30 RBC 3.80 L Hgb 10.8 L Hct 33.0 L MCV 86.8 MCH 28.4 MCHC 32.7 RDW Std Deviation 45.7 RDW Coeff of Izabela 14.4 Plt Count 139 MPV 11.5 Sodium 139 Potassium 4.6 Chloride 105 Carbon Dioxide 25 Anion Gap 9 BUN 76 H D Creatinine 5.87 H* D Est Cr Clr Drug Dosing 20.4 Est GFR ( Amer) 11.3 Est GFR (Non-Af Amer) 9.8 BUN/Creatinine Ratio 12.9 Glucose 165 H POC Glucose 200 H 197 H Calcium 9.1 PG Care Time/CCT Total # of Minutes Spent Total Time Spent with Patient: Total time spent is greater than 50% in coordination of care (as documented) at patient's floor/unit and/or counseling patient: Coding Level of Care Code 07859 SUB INP/OBS CARE 3/50MIN Diagnoses CHAD (acute kidney injury) N17.9 CKD stage 3 due to type 2 diabetes mellitus E11.22; N18.3 Rhabdomyolysis M62.82 Diabetes mellitus type 2 in obese E11.69; E66.9 Kidney stones N20.0 BPH with obstruction/lower urinary tract symptoms N40.1; N13.8
--- NOTE | 2023-11-24 18:29 | Hospitalist Progress Note ---
Date of Service November 24, 2023 Assessment & Plan (1) CHAD (acute kidney injury): Plan: 58 y/o presented with severe CHAD due to rhabdomyolysis and ATN Creatinine at presentation was 2.8. CT a/p without any obstruction. Has required dialysis s/p right IJ temporary HD catheter placement on 11/17. 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 CXR without pulm edema but lower lobe infiltrates were noted. Suspect combination of b/l basilar pneumonia and pulm edema. Resolved - completed 7d ceftriaxone and doxycycline VFSS negative for aspiration (3) Rhabdomyolysis: Plan: unwitnessed fall at home - prolonged down time of several hours. Patient with rhabdomyolysis - peak CPK of 57,274. He is not on statin therapy at home. No reported seizures. On Invega injections for bipolar disorder - NMS? (neuroleptic malignant syndrome) - see below discussion. To be complete Dr Falcon sent off autoimmune labs to exclude a developing polymyositis or other process. Received aggressive hydration of LR at 200mL/hr x 3 liters in the first 24 hours of his stay. With development of acute renal failure and acidosis fluids changed to bicarb drip. Fluids ultimately stopped as his renal failure progressed despite such and he developed volume overload. Elevated AST/ALT likely due to rhabdomyolysis itself - LFTs continue improving - check in AM (4) NMS (neuroleptic malignant syndrome): Plan: heavy concern for/suspected. known history of antipsychotic use for bipolar d/o (Invega). had fever for 36 hours early in the stay. severe rhabdomyolysis. did not have vital sign instability; only mild tachycardia when he was febrile/early in the stay. altered MS but no agitation; lethargy/fatigue since admission. suspected rigidity on exam. he also seems to have proximal muscle weakness c/w muscle injury/rhabdo along with difficulty with movement from severe anasarca. typically NMS causes hypo-reflexia; he has hyper-reflexia. [id number] NMS still possible/concern for. at this point use of dantrolene or bromocriptine likely to be of little benefit. his rhabdo is resolved appreciate Dr Lau's consultation from psychiatry, she advises no use of prn antipsychotics; if any agitation benzos only. possible addition of depakote if needed for mood stabilization. she will reach out to [place] where he gets his psych care today to discuss the above. (5) Diabetes mellitus type 2 in obese: Plan: Uncontrolled in the setting of sepsis, ARF, resp failure, etc. Last [id number]=9.4 on 08/13/23 Cont Lantus Cont novolog adjusted insulins - BG improved STOPPED Glimepiride & Empagliflozin (6) Idiopathic thrombocytopenic purpura: Plan: Chronic. Stable. No bleeding at this time Thus far platelets remain acceptable Plt 139 (7) BPH with obstruction/lower urinary tract symptoms: Plan: Chronic. Stable Continue Flomax Diego in place No obstruction on CT a/p (8) Kidney stones: Plan: seen on CT, but not causing obstruction at this time follow up with urology outpatient (9) Benign hypertension: Plan: only on flomax at home BPs acceptable (10) Bipolar 1 disorder, depressed, mild: Plan: was on Invega injection therapy monthly see above (11) Hyponatremia: Plan: 2nd acute renal failure resolved with serial HD sessions daily BMP (12) Severe sepsis: Plan: 2nd to E. coli UTI and suspected pneumonia blood cx's neg completed 7-day course of rocephin/doxy for UTI/pneumonia resolved (13) Morbid obesity: Plan: BMI 43 (14) Esophagitis: Plan: as seen on CT a/p cont protonix 40mg BID (15) Dysphagia: Plan: appreciate speech eval video swallow NEGATIVE for aspiration (16) Elbow pain: Plan: b/l 2nd to fall elbow x-rays without fracture has abrasions - cont local wound care for this have placed formal wound care consult for the abrasions and other skin issues (17) Conjunctivitis: Plan: b/l, R>L somewhat chronic per family improving nicely conjunctivitis vs bletharitis vs blocked tear ducts vs other cont erythromycin eye ointment BID x 7-10 days improved (18) Acute metabolic encephalopathy: Plan: improving multifactorial - 2nd to uremia/CHAD, infection, possible NMS, etc Plan extensive family update given to his mother & sister at bedside 11/19, 11/20. Spoke with his mother by phone 11/23 OT rec rehab, updated PT eval pending Admission and Anticipated Discharge Date Admission Date: November 15, 2023 Subjective feels ok, laughed when I said ice cream again edema better and can move arms and legs better Physical Exam 2 Physical Exam: PHYSICAL EXAMINATION Last 24h vital signs reviewed, see documentation in flowsheet General: comfortable appearing, no distress, sitting in bed awake HEENT: Normocephalic, atraumatic, pupils round and equal, sclerae anicteric, no conjunctival injection, moist mucus membranes Lungs: Normal respiratory effort. Clear to auscultation bilaterally. No RRW Heart: Regular rate and rhythm, no murmurs. No JVD HD catheter Rt upper chest Abdomen: Soft, nontender, nondistended. Bowel sounds present. Extremities: Warm, dry, well-perfused. some diffuse extremity edema/ anasarca which is improving. Neuro: Alert and oriented x basic situation of hospital, limited verbal responses, face symmetric, moves 4 extremities, some lead pipe rigidity of ext without cogwheeling - improved Psych: flat affect and normal behavior Results & Data Results & Data Vital Signs (Past 12 Hours) Vital Signs Temp Pulse Pulse Resp BP BP Pulse Ox 11/24/23 16:16 36.7 C 90 16 122/70 97 11/24/23 08:15 11/24/23 07:52 36.5 C 72 16 134/76 96 O2 Del Method 11/24/23 16:16 Room Air 11/24/23 08:15 Room Air 11/24/23 07:52 Room Air Laboratory Results 11/24/23 07:15 11/24/23 07:15 PG Care Time/CCT Total # of Minutes Spent Total Time Spent with Patient: Total time spent is greater than 50% in coordination of care (as documented) at patient's floor/unit and/or counseling patient: Coding Level of Care Code 75876 SUB INP/OBS CARE 2/35MIN Diagnoses CHAD (acute kidney injury) N17.9 Acute hypoxic respiratory failure J96.01 Rhabdomyolysis M62.82 NMS (neuroleptic malignant syndrome) G21.0 Diabetes mellitus type 2 in obese E11.69; E66.9 Idiopathic thrombocytopenic purpura D69.3 BPH with obstruction/lower urinary tract symptoms N40.1; N13.8 Kidney stones N20.0 Benign hypertension I10 Bipolar 1 disorder, depressed, mild F31.31 Hyponatremia E87.1 Severe sepsis A41.9; R65.20 Morbid obesity E66.01 Esophagitis K20.90 Dysphagia R13.10 Elbow pain M25.529 Conjunctivitis H10.9 Acute metabolic encephalopathy G93.41
[2023-11-25 08:18] LABS: Albumin Level 2.6 gm/dl (3.4-5.0); Bilirubin Direct 0.1 mg/dl (0-0.2); Bilirubin,Total 0.4 mg/dl (0.2-1.0); Total Protein 5.5 gm/dl (6.0-8.3)
[2023-11-25] MEDS: LANTUS PER UNIT CHARGE SQ SCH (08:41)
--- NOTE | 2023-11-25 08:51 | Nephrology Progress Note ---
Date of Service November 25, 2023 Assessment & Plan (1) CHAD (acute kidney injury): Plan: * CHAD attributed to rhabdomyolysis/ATN * Temporary R IJ dialysis catheter placed 11/18/23. HD provided 11/19/23, 11/21/23 and 11/23/23. * Creatinine was stable overnight and patient is nonoliguric. Will provide 2 hr HD today for urea clearance * Plan to hold HD over weekend and assess for renal recovery * Continue to hold Empagliflozin, metformin, and lisinopril * CT demonstrates the kidneys to be unobstructed. * Maintain Diego. Document strict I/O's. Renal diet. (2) CKD stage 3 due to type 2 diabetes mellitus: Plan: * Baseline creatinine 1.2-1.6 mg/dL. Albuminuria A1-A2 by history. (3) Rhabdomyolysis: Plan: * Rhabdomyolysis resolved. This may have been low grade NMS related to Invega therapy * Await results for polymyositis. Myositis antibody panel, anti-zachary 1, and EDUARDO are pending. ESR 76. If positive, consider outpatient rheumatology evaluation or muscle biopsy * 11/20/23 Psychiatry consultation reviewed - avoid Invega in favor of Depakote for mood stabilization. Carbamazepine could also be considered (4) Diabetes mellitus type 2 in obese: Plan: * Metformin and empagliflozin held due to CHAD (5) Kidney stones: Plan: * 3 mm non-obstructing calculus noted on CT. * Outpatient follow up with nephrology and urology will be coordinated at discharge. (6) BPH with obstruction/lower urinary tract symptoms: Plan: * Maintain Diego to gravity. Continue Tamsulosin as Rx. Admission and Anticipated Discharge Date Admission Date: November 15, 2023 Subjective Mr. Rey was evaluated in his hospital room this morning. He was sitting up on the edge of the bed eating breakfast. He notes less swelling and improved ROM of his arms. He voiced no new medical concerns Review of Systems Constitutional: no fever Eyes: no problem reported Ear, Nose, Mouth, Throat: no problem reported Respiratory: no cough and no dyspnea Cardiovascular: no chest pain Gastrointestinal: no abdominal pain, no nausea, no vomiting and no diarrhea/loose stools Integumentary: no rash Physical Exam Constitutional: not in distress Eyes: PERRL, conjunctivae normal, anicteric sclerae ENMT: external ear and nose normal, oropharynx normal Neck: trachea midline, no thyromegaly Respiratory: normal respiratory effort, lungs clear to auscultation Cardiovascular: RRR, no murmur, no edema Gastrointestinal (Abdomen): normal bowel sounds, soft, nontender, no hepatosplenomegaly Neurologic: awake; not confused Results & Data Vital Signs (Past 12 Hours) Vital Signs Temp Pulse Resp BP Pulse Ox O2 Del Method 11/25/23 07:38 37.3 C 84 14 154/94 H 90 Room Air Laboratory Results Laboratory Results - last 24 hr 11/24/23 11/24/23 11/24/23 11:50 11:51 16:40 POC Glucose 363 H* 257 H 139 H Total Bilirubin Direct Bilirubin AST ALT Alkaline Phosphatase Total Protein Albumin 11/24/23 11/25/23 11/25/23 20:47 07:20 07:51 POC Glucose 150 H 160 H Total Bilirubin 0.4 Direct Bilirubin 0.1 AST 22 ALT 42 Alkaline Phosphatase 58 Total Protein 5.5 L Albumin 2.6 L Laboratory Results - last 24 hr 11/24/23 11/24/23 11/24/23 11:50 11:51 16:40 Sodium Potassium Chloride Carbon Dioxide Anion Gap BUN Creatinine Est Cr Clr Drug Dosing Est GFR ( Amer) Est GFR (Non-Af Amer) BUN/Creatinine Ratio Glucose POC Glucose 363 H* 257 H 139 H Calcium Total Bilirubin Direct Bilirubin AST ALT Alkaline Phosphatase Total Protein Albumin 11/24/23 11/25/23 11/25/23 20:47 07:20 07:51 Sodium 143 Potassium 4.6 Chloride 107 Carbon Dioxide 24 Anion Gap 12 H BUN 80 H Creatinine 5.98 H* Est Cr Clr Drug Dosing 20.0 Est GFR ( Amer) 11.1 Est GFR (Non-Af Amer) 9.6 BUN/Creatinine Ratio 13.4 Glucose 148 H POC Glucose 150 H 160 H Calcium 9.2 Total Bilirubin 0.4 Direct Bilirubin 0.1 AST 22 ALT 42 Alkaline Phosphatase 58 Total Protein 5.5 L Albumin 2.6 L PG Care Time/CCT Total # of Minutes Spent Total Time Spent with Patient: Total time spent is greater than 50% in coordination of care (as documented) at patient's floor/unit and/or counseling patient: Coding Level of Care Code 10771 SUB INP/OBS CARE 3/50MIN Diagnoses CHAD (acute kidney injury) N17.9 CKD stage 3 due to type 2 diabetes mellitus E11.22; N18.3 Rhabdomyolysis M62.82 Diabetes mellitus type 2 in obese E11.69; E66.9 Kidney stones N20.0 BPH with obstruction/lower urinary tract symptoms N40.1; N13.8
[2023-11-25 10:24] LABS: BUN Creatinine Ratio 13.4 (10-20); Calcium 9.2 mg/dl (8.6-10.3); Est GFR (African American) 11.1 ml/min; Est GFR (Non-African American) 9.6 ml/min; Potassium 4.6 mmol/L (3.5-5.1)
[2023-11-25] MEDS ORDERED: SODIUM CHLORIDE 0.9% 1,000 ML IV PRN (10:30)
[2023-11-25] MEDS: HEPARIN SOD (PORCINE) 1000 UNIT/ML IV ONE (11:46)
--- NOTE | 2023-11-25 17:59 | Hospitalist Progress Note ---
Date of Service November 25, 2023 Assessment & Plan (1) CHAD (acute kidney injury): Plan: 58 y/o presented with severe CHAD due to rhabdomyolysis and ATN Creatinine at presentation was 2.8. CT a/p without any obstruction. Has required dialysis s/p right IJ temporary HD catheter placement on 11/17. 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 plan for 2h HD today and hold over the weekend -follow qAM BMP -update weight (2) Acute hypoxic respiratory failure: Plan: Severe wheezing, tachypnea, retractions noted 11/16/23. CXR without pulm edema but lower lobe infiltrates were noted. Suspect combination of b/l basilar pneumonia and pulm edema. Resolved - completed 7d ceftriaxone and doxycycline VFSS negative for aspiration (3) Rhabdomyolysis: Plan: unwitnessed fall at home - prolonged down time of several hours. Patient with rhabdomyolysis - peak CPK of 57,274. He is not on statin therapy at home. No reported seizures. On Invega injections for bipolar disorder - NMS? (neuroleptic malignant syndrome) - see below discussion. To be complete Dr Falcon sent off autoimmune labs to exclude a developing polymyositis or other process. Received aggressive hydration of LR at 200mL/hr x 3 liters in the first 24 hours of his stay. With development of acute renal failure and acidosis fluids changed to bicarb drip. Fluids ultimately stopped as his renal failure progressed despite such and he developed volume overload. Elevated AST/ALT due to rhabdo - normalized, 11/24 labs (4) NMS (neuroleptic malignant syndrome): Plan: heavy concern for/suspected. known history of antipsychotic use for bipolar d/o (Invega). had fever for 36 hours early in the stay. severe rhabdomyolysis. did not have vital sign instability; only mild tachycardia when he was febrile/early in the stay. altered MS but no agitation; lethargy/fatigue since admission. suspected rigidity on exam. he also seems to have proximal muscle weakness c/w muscle injury/rhabdo along with difficulty with movement from severe anasarca. typically NMS causes hypo-reflexia; he has hyper-reflexia. [id number] NMS still possible/concern for. at this point use of dantrolene or bromocriptine likely to be of little benefit. his rhabdo is resolved appreciate Dr Lau's consultation from psychiatry, she advises no use of prn antipsychotics; if any agitation benzos only. possible addition of depakote if needed for mood stabilization. she will reach out to [facility] where he gets his psych care today to discuss the above. (5) Diabetes mellitus type 2 in obese: Plan: Uncontrolled in the setting of sepsis, ARF, resp failure, etc. Last [id number]=8.4 on 08/13/23 Cont Lantus Cont novolog BG at goal 11/24 STOPPED Glimepiride & Empagliflozin (6) Idiopathic thrombocytopenic purpura: Plan: Chronic. Stable. No bleeding at this time Thus far platelets remain acceptable Plt 139 (7) BPH with obstruction/lower urinary tract symptoms: Plan: Chronic. Stable Continue Flomax Diego in place No obstruction on CT a/p (8) Kidney stones: Plan: seen on CT, but not causing obstruction at this time follow up with urology outpatient (9) Benign hypertension: Plan: only on flomax at home BPs acceptable (10) Bipolar 1 disorder, depressed, mild: Plan: was on Invega injection therapy monthly see above (11) Hyponatremia: Plan: 2nd acute renal failure resolved with serial HD sessions daily BMP (12) Severe sepsis: Plan: 2nd to E. coli UTI and suspected pneumonia blood cx's neg completed 7-day course of rocephin/doxy for UTI/pneumonia resolved (13) Morbid obesity: Plan: BMI 43 (14) Esophagitis: Plan: as seen on CT a/p cont protonix 40mg BID (15) Dysphagia: Plan: appreciate speech eval video swallow NEGATIVE for aspiration (16) Elbow pain: Plan: b/l 2nd to fall elbow x-rays without fracture has abrasions - cont local wound care for this have placed formal wound care consult for the abrasions and other skin issues (17) Conjunctivitis: Plan: b/l, R>L somewhat chronic per family improving nicely conjunctivitis vs bletharitis vs blocked tear ducts vs other cont erythromycin eye ointment BID x 10 days improved (18) Acute metabolic encephalopathy: Plan: improving multifactorial - 2nd to uremia/CHAD, infection, possible NMS, etc Plan extensive family update given to his mother & sister at bedside 11/19, VM 11/20. Spoke with his mother by phone 11/23 PT/OT rec rehab Admission and Anticipated Discharge Date Admission Date: November 15, 2023 Subjective doing ok. no pain, maybe a little less stiffness, edema slowly improved, no shortness of breath Physical Exam 2 Physical Exam: PHYSICAL EXAMINATION Last 24h vital signs reviewed, see documentation in flowsheet General: comfortable appearing, no distress, lying flat on bed exam unchanged 11/24 HEENT: Normocephalic, atraumatic, pupils round and equal, sclerae anicteric, no conjunctival injection, moist mucus membranes Lungs: Normal respiratory effort. Clear to auscultation bilaterally. No RRW Heart: Regular rate and rhythm, no murmurs. No JVD HD catheter Rt upper chest Abdomen: Soft, nontender, nondistended. Bowel sounds present. Extremities: Warm, dry, well-perfused. some diffuse extremity edema/ anasarca which is improving. Neuro: Alert and oriented x basic situation of hospital, limited verbal responses, face symmetric, moves 4 extremities, some lead pipe rigidity of ext without cogwheeling - improved Psych: flat affect and normal behavior Results & Data Results & Data Vital Signs (Past 12 Hours) Vital Signs Temp Pulse Pulse Pulse Pulse Resp BP 11/25/23 14:35 37.5 C 80 16 11/25/23 13:48 37.3 C 88 16 11/25/23 13:40 37.2 C 81 11/25/23 13:33 37.2 C 78 109/62 11/25/23 13:23 81 108/67 11/25/23 13:00 79 114/67 11/25/23 12:30 82 116/68 11/25/23 12:00 76 118/67 11/25/23 11:30 81 125/68 11/25/23 11:23 80 114/70 11/25/23 11:12 36.8 C 78 11/25/23 07:38 37.3 C 84 14 BP Pulse Ox O2 Del Method 11/25/23 14:35 121/76 93 Room Air 11/25/23 13:48 148/84 H 91 Room Air 11/25/23 13:40 109/62 11/25/23 13:33 11/25/23 13:23 11/25/23 13:00 11/25/23 12:30 11/25/23 12:00 11/25/23 11:30 11/25/23 11:23 11/25/23 11:12 11/25/23 07:38 154/94 H 90 Room Air Laboratory Results 11/24/23 07:15 11/25/23 07:20 PG Care Time/CCT Total # of Minutes Spent Total Time Spent with Patient: Total time spent is greater than 50% in coordination of care (as documented) at patient's floor/unit and/or counseling patient: Coding Level of Care Code 14915 SUB INP/OBS CARE 2/35MIN Diagnoses CHAD (acute kidney injury) N17.9 Acute hypoxic respiratory failure J96.01 Rhabdomyolysis M62.82 NMS (neuroleptic malignant syndrome) G21.0 Diabetes mellitus type 2 in obese E11.69; E66.9 Idiopathic thrombocytopenic purpura D69.3 BPH with obstruction/lower urinary tract symptoms N40.1; N13.8 Kidney stones N20.0 Benign hypertension I10 Bipolar 1 disorder, depressed, mild F31.31 Hyponatremia E87.1 Severe sepsis A41.9; R65.20 Morbid obesity E66.01 Esophagitis K20.90 Dysphagia R13.10 Elbow pain M25.529 Conjunctivitis H10.9 Acute metabolic encephalopathy G93.41
[2023-11-26 08:23] LABS: BUN Creatinine Ratio 13.8 (10-20); Calcium 8.9 mg/dl (8.6-10.3); Creatinine Clr Calc Pharmacy 25.7 ml/min; Potassium 4.5 mmol/L (3.5-5.1)
--- NOTE | 2023-11-26 11:40 | Nephrology Progress Note ---
Date of Service November 26, 2023 Assessment & Plan (1) CHAD (acute kidney injury): Plan: * CHAD attributed to rhabdomyolysis/ATN * Temporary R IJ dialysis catheter placed 11/18/23. HD provided 11/19/23, 11/21/23, 11/23/23, and 11/25/23 * Plan to hold HD over weekend and assess for renal recovery * Continue to hold Empagliflozin, metformin, and lisinopril * CT demonstrates the kidneys to be unobstructed * Monitor PRP daily * Document strict I/O's * Renal diet * Diego may be removed for voiding trial (2) CKD stage 3 due to type 2 diabetes mellitus: Plan: * Baseline creatinine 1.2-1.6 mg/dL. Albuminuria A1-A2 by history. (3) Rhabdomyolysis: Plan: * Rhabdomyolysis resolved. This may have been low grade NMS related to Invega therapy * Await results for polymyositis. Myositis antibody panel, anti-zachary 1, and EDUARDO are pending. ESR 76. If positive, consider outpatient rheumatology evaluation or muscle biopsy * 11/20/23 Psychiatry consultation reviewed - avoid Invega in favor of Depakote for mood stabilization. Carbamazepine could also be considered (4) Diabetes mellitus type 2 in obese: Plan: * Metformin and empagliflozin held due to CHAD (5) Kidney stones: Plan: * 3 mm non-obstructing calculus noted on CT. * Outpatient follow up with nephrology and urology will be coordinated at discharge. (6) BPH with obstruction/lower urinary tract symptoms: Plan: * Continue Tamsulosin as Rx. * Diego may be removed for voiding trial. Admission and Anticipated Discharge Date Admission Date: November 15, 2023 Subjective No acute events overnight. Resting comfortably in bed this AM. Tolerated HD well yesterday. No complications with treatment. Breathing comfortably. Reports continued improvement in edema. Diego remains in place draining clear yellow urine. Review of Systems Review of Systems: All systems reviewed & are unremarkable except as noted in HPI & below Physical Exam Constitutional: well developed; no acute distress Eyes: no scleral abnormality and no corneal abnormality ENMT: Mouth: no oral mucosal abnormality and oral mucous membranes not dry Neck: normal visual inspection and trachea midline Respiratory: normal respiratory effort Auscultation: lungs clear to auscultation bilaterally Cardiovascular: Rate/Rhythm: regular rate and regular rhythm Heart Sounds: normal S1 and normal S2 Extremities: + edema (generalized improving) Musculoskeletal: Extremities: no cyanosis and no clubbing Skin: normal turgor; no rashes and no lesions Neurologic: Motor/Sensory: no tremor and no asterixis Psychiatric: Orientation: alert and oriented x 3 Genitourinary: Diego draining clear yellow urine Results & Data Vital Signs (Past 12 Hours) Vital Signs Temp Pulse Resp BP Pulse Ox O2 Del Method 11/26/23 07:50 Room Air 11/26/23 07:50 36.8 C 74 18 130/75 92 Room Air Laboratory Results Laboratory Results - last 24 hr 11/25/23 11/25/23 11/25/23 14:24 16:33 20:51 Sodium Potassium Chloride Carbon Dioxide Anion Gap BUN Creatinine Est Cr Clr Drug Dosing Est GFR ( Amer) Est GFR (Non-Af Amer) BUN/Creatinine Ratio Glucose POC Glucose 132 H 165 H 182 H Calcium 11/26/23 11/26/23 06:53 07:52 Sodium 142 Potassium 4.5 Chloride 107 Carbon Dioxide 28 Anion Gap 7 BUN 64 H Creatinine 4.65 H* D Est Cr Clr Drug Dosing 25.7 Est GFR ( Amer) 15.0 Est GFR (Non-Af Amer) 13.0 BUN/Creatinine Ratio 13.8 Glucose 152 H POC Glucose 154 H Calcium 8.9 PG Care Time/CCT Total # of Minutes Spent Total Time Spent with Patient: Total time spent is greater than 50% in coordination of care (as documented) at patient's floor/unit and/or counseling patient: Coding Level of Care Code 11909 SUB INP/OBS CARE 3/50MIN Diagnoses CHAD (acute kidney injury) N17.9 CKD stage 3 due to type 2 diabetes mellitus E11.22; N18.3 Rhabdomyolysis M62.82 Diabetes mellitus type 2 in obese E11.69; E66.9 Kidney stones N20.0 BPH with obstruction/lower urinary tract symptoms N40.1; N13.8
--- NOTE | 2023-11-26 12:30 | Hospitalist Progress Note ---
Date of Service November 26, 2023 Assessment & Plan (1) CHAD (acute kidney injury): Plan: 58 y/o presented with severe CHAD due to rhabdomyolysis and ATN Creatinine at presentation was 2.8. CT a/p without any obstruction. Has required dialysis s/p right IJ temporary HD catheter placement on 11/17. HD sessions 11/17, 11/18, 11/20, 11/22, 11/24 (2h) UOP has improved, but still needing HD for azotemia hoping for renal recovery cassandra consultant consulting, plan to hold off on dialysis this weekend I/O -1999 edema clearly improving labs today acceptable - 64/4.65, potassium normal -follow qAM BMP (2) Acute hypoxic respiratory failure: Plan: combination of b/l basilar pneumonia and pulmonary edema. Resolved - completed 7d ceftriaxone and doxycycline VFSS negative for aspiration (3) Rhabdomyolysis: Plan: unwitnessed fall at home - prolonged down time of several hours. Patient with rhabdomyolysis - peak CPK of 57,274. He is not on statin therapy at home. No reported seizures. On Invega injections for bipolar disorder - NMS? (neuroleptic malignant syndrome) - see below discussion. To be complete Dr Falcon sent off autoimmune labs to exclude a developing polymyositis or other process - pending Received aggressive hydration of LR at 200mL/hr x 3 liters in the first 24 hours of his stay. With development of acute renal failure and acidosis fluids changed to bicarb drip. Fluids ultimately stopped as his renal failure progressed and he developed volume overload. Elevated AST/ALT due to rhabdo - normalized, 11/24 labs (4) NMS (neuroleptic malignant syndrome): Plan: heavy concern for/suspected. known history of antipsychotic use for bipolar d/o (Invega). had fever for 36 hours early in the stay. severe rhabdomyolysis. did not have vital sign instability; only mild tachycardia when he was febrile/early in the stay. altered MS but no agitation; lethargy/fatigue since admission. suspected rigidity on exam. he also seems to have proximal muscle weakness c/w muscle injury/rhabdo along with difficulty with movement from severe anasarca. typically NMS causes hypo-reflexia; he has hyper-reflexia. [id number] NMS still possible/concern for. at this point use of dantrolene or bromocriptine likely to be of little benefit. his rhabdo is resolved appreciate Dr Lau's consultation from psychiatry, she advises no use of prn antipsychotics; if any agitation benzos only. continues on venlefaxine possible addition of depakote if needed for mood stabilization. he gets his psychiatric care at [place] (5) Diabetes mellitus type 2 in obese: Plan: Uncontrolled in the setting of sepsis, ARF, resp failure, etc. Last [id number]=1.4 on 08/13/23 Cont Lantus Cont novolog BG at goal 11/25 STOPPED Glimepiride & Empagliflozin (6) Idiopathic thrombocytopenic purpura: Plan: Chronic. Stable. No bleeding at this time Thus far platelets remain acceptable Plt 139 (7) BPH with obstruction/lower urinary tract symptoms: Plan: Chronic. Stable Continue Flomax Diego in place No obstruction on CT a/p (8) Kidney stones: Plan: seen on CT, but not causing obstruction at this time follow up with urology outpatient (9) Benign hypertension: Plan: only on flomax at home BPs acceptable (10) Bipolar 1 disorder, depressed, mild: Plan: was on Invega injection therapy monthly see above (11) Hyponatremia: Plan: 2nd acute renal failure resolved with serial HD sessions daily BMP (12) Severe sepsis: Plan: 2nd to E. coli UTI and suspected pneumonia blood cx's neg completed 7-day course of rocephin/doxy for UTI/pneumonia resolved (13) Morbid obesity: Plan: BMI 43 (14) Esophagitis: Plan: as seen on CT a/p cont protonix 40mg BID (15) Dysphagia: Plan: appreciate speech eval video swallow NEGATIVE for aspiration (16) Elbow pain: Plan: b/l 2nd to fall elbow x-rays without fracture has abrasions - cont local wound care for this wound care consulted (17) Conjunctivitis: Plan: b/l, R>L conjunctivitis vs blepharitis somewhat chronic per family resolved after erythromycin eye ointment BID x 10 days (18) Acute metabolic encephalopathy: Plan: improving multifactorial - 2nd to uremia/CHAD, infection, possible NMS, etc more talkative and animated last 48h Plan extensive family update given to his mother & sister at bedside 11/19, VM 11/20. Spoke with his mother by phone 11/23 PT/OT rec rehab Admission and Anticipated Discharge Date Admission Date: November 15, 2023 Subjective More animated and talkative today. We discussed the construction outside No pain. Edema continues improving. Feels less stiff Sat at E[facility] with PT Physical Exam 2 Physical Exam: PHYSICAL EXAMINATION Last 24h vital signs reviewed, see documentation in flowsheet General: comfortable appearing, lying in bed awake HEENT: Normocephalic, atraumatic, pupils round and equal, sclerae anicteric, no conjunctival injection, moist mucus membranes Lungs: Normal respiratory effort. Clear to auscultation bilaterally. No RRW Heart: Regular rate and rhythm, no murmurs. No JVD HD catheter Rt neck Abdomen: Soft, nontender, nondistended. Bowel sounds present. Extremities: Warm, dry, well-perfused. still with UE edema, LE edema significantly improved - wrinkling on feet/ankles Neuro: Alert and oriented x basic situation of hospital, more talkative and animated today, moves 4 extremities, UE less stiff bilaterally Psych: flat affect and normal behavior Results & Data Results & Data Vital Signs (Past 12 Hours) Vital Signs Temp Pulse Resp BP Pulse Ox O2 Del Method 11/26/23 07:50 Room Air 11/26/23 07:50 36.8 C 74 18 130/75 92 Room Air Laboratory Results 11/24/23 07:15 11/26/23 06:53 PG Care Time/CCT Total # of Minutes Spent Total Time Spent with Patient: Total time spent is greater than 50% in coordination of care (as documented) at patient's floor/unit and/or counseling patient: Coding Level of Care Code 28603 SUB INP/OBS CARE 2/35MIN Diagnoses CHAD (acute kidney injury) N17.9 Acute hypoxic respiratory failure J96.01 Rhabdomyolysis M62.82 NMS (neuroleptic malignant syndrome) G21.0 Diabetes mellitus type 2 in obese E11.69; E66.9 Idiopathic thrombocytopenic purpura D69.3 BPH with obstruction/lower urinary tract symptoms N40.1; N13.8 Kidney stones N20.0 Benign hypertension I10 Bipolar 1 disorder, depressed, mild F31.31 Hyponatremia E87.1 Severe sepsis A41.9; R65.20 Morbid obesity E66.01 Esophagitis K20.90 Dysphagia R13.10 Elbow pain M25.529 Conjunctivitis H10.9 Acute metabolic encephalopathy G93.41
[2023-11-27 08:17] LABS: BUN Creatinine Ratio 14.2 (10-20); Calcium 9.3 mg/dl (8.6-10.3); Creatinine Clr Calc Pharmacy 25.8 ml/min; Est GFR (African American) 15.1 ml/min; Potassium 4.8 mmol/L (3.5-5.1)
--- NOTE | 2023-11-27 08:53 | Hospitalist Progress Note ---
Date of Service November 27, 2023 Assessment & Plan (1) CHAD (acute kidney injury): Plan: 58 y/o presented with severe CHAD due to rhabdomyolysis and ATN Creatinine at presentation was 2.8. CT a/p without any obstruction. Has required dialysis s/p right IJ temporary HD catheter placement on 11/17. HD sessions 11/17, 11/18, 11/20, 11/22, 11/24 (2h) UOP has improved, but still needing HD for azotemia hoping for renal recovery tile edger consulting, plan to hold off on dialysis this weekend I/O neg, UOP 3000, 3000, 1200 so far today and significant rise in sodium overnight, now mildly hypernatremic at 146 - ordered 1L 1/2NS. Not on oral fluid restriction but hypoactive and unlikely to orally hydrate well labs today acceptable - BUN/Cr 66/4.64 reassuringly did not go up overnight, potassium normal 4.8 -follow qAM BMP -discussed with Dr. Falcon Acute metabolic encephalopathy Continues to have hypoactive delirium, uremia has been a factor, also underlying psychiatric illness history of bipolar depression and difficult to assess depression component at this time -met with his sister at bedside last night, he is more animated and conversational last 3-4 days but not at his baseline, she notices the flat affect and long latency before verbal responses (2) Acute metabolic encephalopathy: Plan: improving multifactorial - 2nd to uremia/CHAD, infection, possible NMS, etc more talkative and animated last few days (3) Rhabdomyolysis: Plan: unwitnessed fall at home - prolonged down time of several hours. Patient with rhabdomyolysis - peak CPK of 57,274. He is not on statin therapy at home. No reported seizures. On Invega injections for bipolar disorder - NMS? (neuroleptic malignant syndrome) - see below discussion. To be complete Dr Falcon sent off autoimmune labs to exclude a developing polymyositis or other process - pending Received aggressive hydration of LR at 200mL/hr x 3 liters in the first 24 hours of his stay. With development of acute renal failure and acidosis fluids changed to bicarb drip. Fluids ultimately stopped as his renal failure progressed and he developed volume overload. Elevated AST/ALT due to rhabdo - normalized, 11/24 labs (4) NMS (neuroleptic malignant syndrome): Plan: heavy concern for/suspected. known history of antipsychotic use for bipolar d/o (Invega). had fever for 36 hours early in the stay. severe rhabdomyolysis. did not have vital sign instability; only mild tachycardia when he was febrile/early in the stay. altered MS but no agitation; lethargy/fatigue since admission. suspected rigidity on exam. he also seems to have proximal muscle weakness c/w muscle injury/rhabdo along with difficulty with movement from severe anasarca. typically NMS causes hypo-reflexia; he has hyper-reflexia. [id number] NMS still possible/concern for. at this point use of dantrolene or bromocriptine likely to be of little benefit. his rhabdo is resolved appreciate Dr Lau's consultation from psychiatry, she advises no use of prn antipsychotics; if any agitation benzos only. continues on venlefaxine possible addition of depakote if needed for mood stabilization. he gets his psychiatric care at [place] (5) Diabetes mellitus type 2 in obese: Plan: Uncontrolled in the setting of sepsis, ARF, resp failure, etc. Last XljR8P=5.4 on 08/13/23 Cont Lantus Cont novolog BG at goal 11/26 STOPPED Glimepiride & Empagliflozin (6) Idiopathic thrombocytopenic purpura: Plan: Chronic. Stable. No bleeding at this time Thus far platelets remain acceptable Plt 139 (7) Bipolar 1 disorder, depressed, mild: Plan: was on Invega injection therapy monthly see above Plan Chronic/resolved problems: Severe sepsis - due to bibasilar pneumonia and E. coli UTI - resolved, completed antibiotics - 7d ceftriaxone and doxycycline Acute hypoxic respiratory failure - combination of pneumonia and pulmonary edema. Resolved Elbow pain - xrays negative, resolved, cont wound care for abrasions Dysphagia - resolved. ST consulted, VFSS negative for aspiration R>L conjunctivitis vs blepharitis resolved with 10d E-myc ointment Hyponatremia due to renal failure, resolved Esophagitis based on CT - cont bid PPI BPH with LUTS. Cont flomax. Diego removed 11/25. Voiding spontaneously History of hypertension, not currently requiring medication Nephrolithiasis - seen on CT, but not causing obstruction at this time. follow up with urology outpatient Morbid obesity with BMI 43 extensive family update given to his mother & sister at bedside 11/19, VM 11/20. Spoke with his mother by phone 11/23, with mother and sister in room 11/26 PT/OT rec rehab Admission and Anticipated Discharge Date Admission Date: November 15, 2023 Subjective He is thirsty today Yesterday got in chair, but took 4 staff members help to get him back in bed. RN states he stands pretty well. Planned for chair again today. Physical Exam 2 Physical Exam: PHYSICAL EXAMINATION Last 24h vital signs reviewed, see documentation in flowsheet General: comfortable appearing, lying in bed awake HEENT: Normocephalic, atraumatic, pupils round and equal, sclerae anicteric, no conjunctival injection, moist mucus membranes erythematous patch between chin and lower lip Lungs: Normal respiratory effort. Clear to auscultation bilaterally. No RRW Heart: Regular rate and rhythm, no murmurs. No JVD HD catheter Rt neck Abdomen: Soft, nontender, nondistended. Bowel sounds present. Extremities: Warm, dry, well-perfused. still with UE edema, LE edema significantly improved - wrinkling on feet/ankles Neuro: Alert and oriented x basic situation of hospital, more talkative and animated today, moves 4 extremities, UE now minimally stiff bilaterally Psych: flat affect and normal behavior Results & Data Results & Data Vital Signs (Past 12 Hours) Vital Signs Temp Pulse Resp BP BP Pulse Ox O2 Del Method 11/27/23 07:35 36.9 C 75 18 123/76 90 Room Air 11/26/23 21:25 37 C 84 20 119/65 91 Room Air Laboratory Results 11/24/23 07:15 11/27/23 06:45 PG Care Time/CCT Total # of Minutes Spent Total Time Spent with Patient: Total time spent is greater than 50% in coordination of care (as documented) at patient's floor/unit and/or counseling patient: Coding Level of Care Code 68569 SUB INP/OBS CARE 2/35MIN Diagnoses CHAD (acute kidney injury) N17.9 Acute metabolic encephalopathy G93.41 Rhabdomyolysis M62.82 NMS (neuroleptic malignant syndrome) G21.0 Diabetes mellitus type 2 in obese E11.69; E66.9 Idiopathic thrombocytopenic purpura D69.3 Bipolar 1 disorder, depressed, mild F31.31
[2023-11-27] MEDS: SODIUM CHLORIDE 0.45 % 1,000 ML IV SCH (09:14)
--- NOTE | 2023-11-27 13:32 | Nephrology Progress Note ---
Date of Service November 27, 2023 Assessment & Plan (1) CHAD (acute kidney injury): Plan: * CHAD attributed to rhabdomyolysis/ATN * Temporary R IJ dialysis catheter placed 11/18/23. HD provided 11/19/23, 11/21/23, 11/23/23, and 11/25/23 * Plan to continue to hold HD assess for renal recovery * If kidney function continues to improve, HD catheter can be removed in the next 24-48 hours. If additional HD is required, permcath placement will likely be required. * Creatinine stable and electrolytes acceptable * Free water deficit noted on labs today -- bolus of 1/2 NS provided. Free water loss anticipated due to azotemia as kidney function recovers; additional free was may be provided through the IV as needed * Continue to hold Empagliflozin, metformin, and lisinopril * CT demonstrates the kidneys to be unobstructed * Monitor PRP daily * Document I/O's * Renal diet (2) CKD stage 3 due to type 2 diabetes mellitus: Plan: * Baseline creatinine 1.2-1.6 mg/dL. Albuminuria A1-A2 by history. (3) Rhabdomyolysis: Plan: * Rhabdomyolysis resolved. This may have been low grade NMS related to Invega therapy * Await results for polymyositis. Myositis antibody panel, anti-zachary 1, and EDUARDO are pending. ESR 76. If positive, consider outpatient rheumatology evaluation or muscle biopsy * 11/20/23 Psychiatry consultation reviewed (4) Diabetes mellitus type 2 in obese: Plan: * Metformin and empagliflozin held due to CHAD (5) Kidney stones: Plan: * 3 mm non-obstructing calculus noted on CT. * Outpatient follow up with nephrology and urology will be coordinated at discharge. (6) BPH with obstruction/lower urinary tract symptoms: Plan: * Continue Tamsulosin as Rx. * Diego may be removed for voiding trial. Admission and Anticipated Discharge Date Admission Date: November 15, 2023 Subjective No acute events overnight. Arturo feels well today. He is breathing comfortably. Appetite is good. He denies increased fluid retention or edema. The HD catheter bothers his neck a little but not significantly uncomfortable. Review of Systems Review of Systems: All systems reviewed & are unremarkable except as noted in HPI & below Physical Exam Constitutional: well developed; no acute distress Eyes: no scleral abnormality and no corneal abnormality ENMT: Mouth: no oral mucosal abnormality and oral mucous membranes not dry Neck: normal visual inspection and trachea midline RIJ HD catheter with clean exit site Respiratory: normal respiratory effort Auscultation: lungs clear to auscultation bilaterally Cardiovascular: Rate/Rhythm: regular rate and regular rhythm Heart Sounds: normal S1 and normal S2 Extremities: + edema (generalized improving) Musculoskeletal: Extremities: no cyanosis and no clubbing Skin: normal turgor; no rashes and no lesions Neurologic: Motor/Sensory: no tremor and no asterixis Psychiatric: Orientation: alert and oriented x 3 Results & Data Vital Signs (Past 12 Hours) Vital Signs Temp Pulse Resp BP Pulse Ox O2 Del Method 11/27/23 07:35 36.9 C 75 18 123/76 90 Room Air 11/27/23 07:30 Room Air Laboratory Results Laboratory Results - last 24 hr 11/26/23 11/26/23 11/27/23 16:41 21:04 06:45 Sodium 146 H Potassium 4.8 Chloride 109 H Carbon Dioxide 29 Anion Gap 8 BUN 66 H Creatinine 4.64 H* Est Cr Clr Drug Dosing 25.8 Est GFR ( Amer) 15.1 Est GFR (Non-Af Amer) 13.0 BUN/Creatinine Ratio 14.2 Glucose 151 H POC Glucose 167 H 130 H Calcium 9.3 11/27/23 11/27/23 07:39 11:41 Sodium Potassium Chloride Carbon Dioxide Anion Gap BUN Creatinine Est Cr Clr Drug Dosing Est GFR ( Amer) Est GFR (Non-Af Amer) BUN/Creatinine Ratio Glucose POC Glucose 164 H 170 H Calcium PG Care Time/CCT Total # of Minutes Spent Total Time Spent with Patient: Total time spent is greater than 50% in coordination of care (as documented) at patient's floor/unit and/or counseling patient: Coding Level of Care Code 24856 SUB INP/OBS CARE 3/50MIN Diagnoses CHAD (acute kidney injury) N17.9 CKD stage 3 due to type 2 diabetes mellitus E11.22; N18.3 Rhabdomyolysis M62.82 Diabetes mellitus type 2 in obese E11.69; E66.9 Kidney stones N20.0 BPH with obstruction/lower urinary tract symptoms N40.1; N13.8
[2023-11-28 07:14] LABS: BUN Creatinine Ratio 15.1 (10-20); Calcium 9.3 mg/dl (8.6-10.3); Creatinine Clr Calc Pharmacy 29.5 ml/min; Est GFR (African American) 17.8 ml/min; Est GFR (Non-African American) 15.3 ml/min; Potassium 4.8 mmol/L (3.5-5.1)
--- NOTE | 2023-11-28 13:31 | Nephrology Progress Note ---
Date of Service November 28, 2023 Assessment & Plan (1) CHAD (acute kidney injury): (2) Rhabdomyolysis: (3) Severe sepsis: (4) Benign hypertension: (5) Diabetes mellitus type 2 in obese: Plan 58 year-old male with morbid obesity, diabetes mellitus II, hypertension, hyperlipidemia, BPH, ITP, ADAMS, uric acid kidney stones, and bipolar disorder, h/o CHAD in 2019 requiring single HD Rx for hyperkalemia. Admitted on 11/18/23 with CHAD and rhabdomyolysis after mechanical [place]. [place] [id number]-->[id number]-->72754. Initially treated with aggressive hydration but had to be started on dialysis with a temporary dialysis catheter was on dialysis until Tuesday11/25/23. Over last few days urine output increased significantly and kidney function has been staying stable without dialysis since Tuesday. In fact this morning creatinine was further down to 4.1, electrolyte acceptable. --Will continue to keep off of dialysis, if kidney function stays stable or improve, will plan to remove the temporary dialysis catheter tomorrow. --keep well hydrated Admission and Anticipated Discharge Date Admission Date: November 15, 2023 Daron Morris was seen and evaluated this morning. Overall he feels well, denied any symptoms. Has been having decent urine output, no shortness of breath or chest pain. Sodium normalized today. Kidney function improved, creatinine down to 4.1, electrolyte acceptable. Review of Systems Review of Systems: Detailed review of system was otherwise unremarkable. Physical Exam Constitutional: WD/WN, vitals as above no acute distress Eyes: + anicteric sclerae Neck: normal visual inspection Respiratory: Auscultation: lungs clear to auscultation bilaterally Cardiovascular: RRR, no murmur, no edema Skin: no rashes, warm and dry Neurologic: no focal motor deficits Psychiatric: Orientation: alert and oriented x 3 Results & Data Vital Signs (Past 12 Hours) Vital Signs Temp Pulse Resp BP Pulse Ox O2 Del Method 11/28/23 09:06 Room Air 11/28/23 07:24 36.2 C L 61 13 105/67 95 Room Air PG Care Time/CCT Total # of Minutes Spent Total Time Spent with Patient: Total time spent is greater than 50% in coordination of care (as documented) at patient's floor/unit and/or counseling patient: Coding Level of Care Code 59085 SUB INP/OBS CARE MIN Diagnoses CHAD (acute kidney injury) N17.9 Rhabdomyolysis M62.82 Severe sepsis A41.9; R65.20 Benign hypertension I10 Diabetes mellitus type 2 in obese E11.69; E66.9
--- NOTE | 2023-11-28 18:29 | Hospitalist Progress Note ---
Date of Service November 28, 2023 Assessment & Plan (1) CHAD (acute kidney injury): Plan: 58 y/o presented with severe CHAD due to rhabdomyolysis and ATN Creatinine at presentation was 2.8. CT a/p without any obstruction. Has required dialysis s/p right IJ temporary HD catheter placement on 11/17. HD sessions 11/17, 11/18, 11/20, 11/22, 11/24 (2h) UOP has improved, BUN stable /Cr improved a little to 4 despite no dialysis since short run on Tuesday Per superintendent of schools remove HD catheter tomorrow if labs remain stable (2) Acute metabolic encephalopathy: Plan: Acute metabolic encephalopathy Continues to have hypoactive delirium, uremia has been a factor, also underlying psychiatric illness history of bipolar depression and difficult to assess depression component at this time -met with his sister at bedside 11/25, he is more animated and conversational last several days but not at his baseline, she notices the flat affect and long latency before verbal responses -nevertheless, clearly improved compared to a week ago (3) Rhabdomyolysis: Plan: unwitnessed fall at home - prolonged down time of several hours. Patient with rhabdomyolysis - peak CPK of 57,274. He is not on statin therapy at home. No reported seizures. On Invega injections for bipolar disorder - NMS? (neuroleptic malignant syndrome) - see below discussion. To be complete Dr Falcon sent off autoimmune labs to exclude a developing polymyositis or other process - pending Received aggressive hydration of LR at 200mL/hr x 3 liters in the first 24 hours of his stay. With development of acute renal failure and acidosis fluids changed to bicarb drip. Fluids ultimately stopped as his renal failure progressed and he developed volume overload. Elevated AST/ALT due to rhabdo - normalized, 11/24 labs (4) NMS (neuroleptic malignant syndrome): Plan: heavy concern for/suspected. known history of antipsychotic use for bipolar d/o (Invega). had fever for 36 hours early in the stay. severe rhabdomyolysis. did not have vital sign instability; only mild tachycardia when he was febrile/early in the stay. altered MS but no agitation; lethargy/fatigue since admission. suspected rigidity on exam. he also seems to have proximal muscle weakness c/w muscle injury/rhabdo along with difficulty with movement from severe anasarca. typically NMS causes hypo-reflexia; he has hyper-reflexia. [id number] NMS still possible/concern for. at this point use of dantrolene or bromocriptine likely to be of little benefit. his rhabdo is resolved appreciate Dr Lau's consultation from psychiatry, she advises no use of prn antipsychotics; if any agitation benzos only. continues on venlefaxine possible addition of depakote if needed for mood stabilization. he gets his psychiatric care at [place] (5) Diabetes mellitus type 2 in obese: Plan: Uncontrolled in the setting of sepsis, ARF, resp failure, etc. Last KrfW9D=7.4 on 08/13/23 Cont Lantus Cont novolog BG at goal 11/27 STOPPED Glimepiride & Empagliflozin (6) Idiopathic thrombocytopenic purpura: Plan: Chronic. Stable. No bleeding at this time Thus far platelets remain acceptable Plt 139 (7) Bipolar 1 disorder, depressed, mild: Plan: was on Invega injection therapy monthly see above Plan Chronic/resolved problems: Severe sepsis - due to bibasilar pneumonia and E. coli UTI - resolved, completed antibiotics - 7d ceftriaxone and doxycycline Acute hypoxic respiratory failure - combination of pneumonia and pulmonary edema. Resolved Elbow pain - xrays negative, resolved, cont wound care for abrasions Dysphagia - resolved. ST consulted, VFSS negative for aspiration R>L conjunctivitis vs blepharitis resolved with 10d E-myc ointment Hyponatremia due to renal failure, resolved Esophagitis based on CT - cont bid PPI BPH with LUTS. Cont flomax. Diego removed 11/25. Voiding spontaneously History of hypertension, not currently requiring medication Nephrolithiasis - seen on CT, but not causing obstruction at this time. follow up with urology outpatient Morbid obesity with BMI 43 family update given mother and sister in room 11/26 PT/OT rec acute rehab - getting stronger, consistently in chair over w/e and now walking short distance with walker/assistance Admission and Anticipated Discharge Date Admission Date: November 15, 2023 Subjective doing well, pretty talkative today and able to relate to me what the superintendent of schools told him. Sitting up in the chair Physical Exam 2 Physical Exam: PHYSICAL EXAMINATION Last 24h vital signs reviewed, see documentation in flowsheet General: sitting up in chair, has had a shave HEENT: Normocephalic, atraumatic, pupils round and equal, sclerae anicteric, no conjunctival injection, moist mucus membranes erythematous patch between chin and lower lip - looks improved Lungs: Normal respiratory effort. Clear to auscultation bilaterally. No RRW Heart: Regular rate and rhythm, no murmurs. No JVD HD catheter Rt neck Abdomen: Soft, nontender, nondistended. Bowel sounds present. Extremities: Warm, dry, well-perfused. UE edema, LE edema significantly improved - wrinkling on feet/ankles Neuro: Alert and oriented x basic situation of hospital, can relate what superintendent of schools told him today, more talkative and animated, moves 4 extremities, UE now minimally stiff bilaterally Psych: flat affect and normal behavior Results & Data Results & Data Vital Signs (Past 12 Hours) Vital Signs Temp Pulse Resp BP BP Pulse Ox O2 Del Method 11/28/23 13:40 36.4 C L 79 14 128/84 86 L Room Air 11/28/23 09:06 Room Air 11/28/23 07:24 36.2 C L 61 13 105/67 95 Room Air Laboratory Results 11/24/23 07:15 11/28/23 06:15 PG Care Time/CCT Total # of Minutes Spent Total Time Spent with Patient: Total time spent is greater than 50% in coordination of care (as documented) at patient's floor/unit and/or counseling patient: Coding Level of Care Code 18887 SUB INP/OBS CARE 2/35MIN Diagnoses CHAD (acute kidney injury) N17.9 Acute metabolic encephalopathy G93.41 Rhabdomyolysis M62.82 NMS (neuroleptic malignant syndrome) G21.0 Diabetes mellitus type 2 in obese E11.69; E66.9 Idiopathic thrombocytopenic purpura D69.3 Bipolar 1 disorder, depressed, mild F31.31
[2023-11-29 07:02] LABS: BUN Creatinine Ratio 15.8 (10-20); Calcium 9.3 mg/dl (8.6-10.3); Creatinine Clr Calc Pharmacy 32.5 ml/min; Est GFR (Non-African American) 17.2 ml/min; Potassium 4.6 mmol/L (3.5-5.1)
[2023-11-29] MEDS: THIAMINE HCL 500 MG in SODIUM CHLORIDE 0.9% 50 ML IV SCH (11:52)
--- NOTE | 2023-11-29 12:38 | Nephrology Progress Note ---
Date of Service November 29, 2023 Assessment & Plan (1) CHAD (acute kidney injury): (2) Rhabdomyolysis: (3) Severe sepsis: (4) Benign hypertension: (5) Diabetes mellitus type 2 in obese: Plan 58 year-old male with morbid obesity, diabetes mellitus II, hypertension, hyperlipidemia, BPH, ITP, ADAMS, uric acid kidney stones, and bipolar disorder, h/o CHAD in 2019 requiring single HD Rx for hyperkalemia. Admitted on 11/18/23 with CHAD and rhabdomyolysis [place] 30471-->23918-->48320. Initially treated with aggressive hydration but had to be started on dialysis with a temporary dialysis catheter was on dialysis until Tuesday11/25/23. Has been having decent urine output, blood pressure, volume status acceptable. Kidney function continues to improve slowly, creatinine down to 3.7, electrolyte acceptable. --Will remove temporary dialysis catheter today. --keep well hydrated --Discontinue sodium bicarbonate --Expect kidney function to continue to improve, okay to be discharged with close outpatient follow-up and lab monitoring, will have labs done in 2 days and then in a week Admission and Anticipated Discharge Date Admission Date: November 15, 2023 Daron Morris was seen and evaluated this morning. Overall he feels well, denies any symptoms. Blood pressure, volume status acceptable. Kidney function continues to improve, creatinine down to 3.7, electrolyte acceptable. Voiding normally. Review of Systems Review of Systems: Detailed review of system was otherwise unremarkable. Physical Exam Constitutional: WD/WN, vitals as above no acute distress Eyes: + anicteric sclerae Neck: normal visual inspection Respiratory: Auscultation: lungs clear to auscultation bilaterally Cardiovascular: RRR, no murmur, no edema Skin: no rashes, warm and dry Neurologic: no focal motor deficits Psychiatric: Orientation: alert and oriented x 3 Results & Data Vital Signs (Past 12 Hours) Vital Signs Temp Pulse Resp BP Pulse Ox O2 Del Method 11/29/23 07:40 Room Air 11/29/23 07:21 36.8 C 68 18 127/78 92 Room Air PG Care Time/CCT Total # of Minutes Spent Total Time Spent with Patient: Total time spent is greater than 50% in coordination of care (as documented) at patient's floor/unit and/or counseling patient: Coding Level of Care Code 16549 SUB INP/OBS CARE MIN Diagnoses CHAD (acute kidney injury) N17.9 Rhabdomyolysis M62.82 Severe sepsis A41.9; R65.20 Benign hypertension I10 Diabetes mellitus type 2 in obese E11.69; E66.9
--- NOTE | 2023-11-29 17:59 | Hospitalist Progress Note ---
Date of Service November 29, 2023 Assessment & Plan (1) CHAD (acute kidney injury): Plan: SEVERE. 2nd to rhabdomyolysis & ATN. IMPROVING NICELY. Creatinine at presentation was 2.8. Typical baseline 1.2-1.3. Creatinine peak was between 9-10; BUN 130 at peak. s/p right IJ temporary HD catheter placement on 11/17. 1st HD session 11/17. 2nd HD session 11/18. 3rd session 11/20. 4th - 11/22. 5th - 11/24. UOP has been robust and creatinine continues to improve; today - <4. Daily BMP while here. CT a/p without any obstruction. Nephrology stopping bicarb tabs today. They feel that temporary HD catheter can be removed today. Will contact Dr Thornton from ICU team who placed the catheter. (2) Acute hypoxic respiratory failure: Plan: 2nd to pulmonary edema +/- pneumonia. Received 7 days of abx for possible pneumonia. Hypoxia resolved. Family mentioned episodes of dysphagia with coughing -- speech performed video swallow - no aspiration seen fortunately. (3) Rhabdomyolysis: Plan: unwitnessed fall at home - prolonged down time of several hours. Patient with rhabdomyolysis - peak CPK of 57,274. Rhabdo contributed to acute renal failure. He was not on statin therapy at home. No reported seizures. On Invega injections for bipolar disorder - NMS? (neuroleptic malignant syndrome) - see below discussion. Rhabdomyolysis biochemically & clinically resolved (last CPK was <500). Patient did have some element of proximal muscle weakness early in the stay in the absence of any compartment syndrome. To be complete Dr Falcon sent off autoimmune labs to exclude a developing polymyositis or other process. See below re: possible NMS. (4) NMS (neuroleptic malignant syndrome): Plan: heavy concern for/suspected earlier in the stay. known history of antipsychotic use for bipolar d/o (Invega). had fever for 36 hours early in the stay. severe rhabdomyolysis. did not have vital sign instability; only mild tachycardia when he was febrile/early in the stay. altered MS but no agitation; lethargy/fatigue since admission. suspected rigidity on exam. he also had proximal muscle weakness c/w muscle injury/rhabdo along with difficulty with movement from severe anasarca. typically NMS causes hypo-reflexia; he had hyper-reflexia. [id number] NMS still possible/concern for. did not need dantrolene or bromocriptine. rhabdomyolysis resolved. appreciate Dr Lau's consultation from psychiatry, she advises no use of prn antipsychotics; if any agitation benzos only. possible addition of depakote if needed for mood stabilization. will ask psych to reconsult re: meds. fortunately no agitation, delirium, or ray. (5) Diabetes mellitus type 2 in obese: Plan: Last FfwP4I=5.4 on 08/13/23 Controlled at this time Cont Lantus Cont novolog STOPPED Glimepiride & Empagliflozin (6) Idiopathic thrombocytopenic purpura: Plan: Chronic. Stable. 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 Stable Continue Flomax No obstruction on CT a/p Diego removed (8) Kidney stones: Plan: seen on CT, but not causing obstruction at this time no Rx needed (9) Fall: Plan: unwitnessed was patient getting weak from UTI and/or pulmonary infection which led to fall? weakness due to brewing NMS? combination of factors? cont PT/OT will need rehab post-d/c -- apply for auth (10) Benign hypertension: Plan: only on flomax at home BPs acceptable (11) Bipolar 1 disorder, depressed, mild: Plan: on Invega injection therapy monthly see above re: concern for NMS (12) Hyponatremia: Plan: 2nd acute renal failure resolved with serial HD sessions (13) Severe sepsis: Plan: 2nd to UTI 2nd to suspect pulmonary infection resolved blood cx's neg urine cx with e.coli s/p full 7-day course of rocephin for UTI/pneumonia (14) UTI (urinary tract infection): Plan: 2nd ecoli s/p full 7 day course of IV abx (15) Pneumonia: Plan: suspected resolved s/p full course of IV abx COVID/flu/RSV negative (16) Morbid obesity: Plan: BMI 45 (17) Esophagitis: Plan: as seen on CT a/p cont protonix 40mg BID (18) Dysphagia: Plan: appreciate speech eval video swallow NEGATIVE for aspiration (19) Elbow pain: Plan: b/l 2nd to fall elbow x-rays without fracture resolved has abrasions - cont local wound care for this (20) Conjunctivitis: Plan: b/l, R>L somewhat chronic per family resolved conjunctivitis vs bletharitis vs blocked tear ducts vs other (21) Acute metabolic encephalopathy: Plan: resolved multifactorial - 2nd to uremia/CHAD, infection, possible NMS, etc Plan attempted to call pt's mother at her home # no answer, left voicemail message left for her (11/29/23) apply for auth for rehab Admission and Anticipated Discharge Date Admission Date: November 15, 2023 Subjective patient resting comfortably in bed denies any complaints arm and leg strength improved from the last visit I had with him denies dyspnea or orthopnea eating well Review of Systems Review of Systems: CV - no chest pain GI - no abd pain pulm - no cough musculo - no myalgias psych - denies manic symptoms Physical Exam Physical Exam: gen - obese, laying in bed comfortably, very awake/alert and talkative today neck - no obvious JVD; right IJ dialysis catheter clean at insertion site face - mild edema resolved mouth - MMM heart - RRR, s1 s2, no murmur lungs - decreased BS both bases but o/w CTA b/l abd - soft NT ND BS+ vascular - DP/post tib pulses 2+ b/l ext - edema of all 4 limbs resolved neuro - proximal muscle weakness of arms/legs resolved; rigidity resolved psych - no manic symptoms, affect wnl Results & Data Results & Data Vital Signs (Past 12 Hours) Vital Signs Temp Pulse Pulse Resp BP Pulse Ox O2 Del Method 11/29/23 15:33 37.3 C 71 16 111/73 93 Room Air 11/29/23 07:40 Room Air 11/29/23 07:21 36.8 C 68 18 127/78 92 Room Air Laboratory Results Laboratory Results - last 24 hr 11/28/23 11/29/23 11/29/23 20:50 05:47 07:54 Sodium 144 Potassium 4.6 Chloride 108 H Carbon Dioxide 28 Anion Gap 8 BUN 58 H Creatinine 3.68 H D Est Cr Clr Drug Dosing 32.5 Est GFR ( Amer) 20.0 Est GFR (Non-Af Amer) 17.2 BUN/Creatinine Ratio 15.8 Glucose 133 H POC Glucose 163 H 131 H Calcium 9.3 11/29/23 11/29/23 11:44 16:55 Sodium Potassium Chloride Carbon Dioxide Anion Gap BUN Creatinine Est Cr Clr Drug Dosing Est GFR ( Amer) Est GFR (Non-Af Amer) BUN/Creatinine Ratio Glucose POC Glucose 169 H 178 H Calcium PG Care Time/CCT Total # of Minutes Spent Total Time Spent with Patient: Total time spent is greater than 50% in coordination of care (as documented) at patient's floor/unit and/or counseling patient: Coding Level of Care Code 25626 SUB INP/OBS CARE 2/35MIN Diagnoses CHAD (acute kidney injury) N17.9 Acute hypoxic respiratory failure J96.01 Rhabdomyolysis M62.82 NMS (neuroleptic malignant syndrome) G21.0 Diabetes mellitus type 2 in obese E11.69; E66.9 Idiopathic thrombocytopenic purpura D69.3 BPH with obstruction/lower urinary tract symptoms N40.1; N13.8 Kidney stones N20.0 Fall W19.XXXA Benign hypertension I10 Bipolar 1 disorder, depressed, mild F31.31 Hyponatremia E87.1 Severe sepsis A41.9; R65.20 UTI (urinary tract infection) N39.0; R31.9 Hematuria presence: with hematuria Urinary tract infection type: site unspecified Pneumonia J18.9 Morbid obesity E66.01 Esophagitis K20.90 Dysphagia R13.10 Elbow pain M25.529 Conjunctivitis H10.9 Acute metabolic encephalopathy G93.41 (14) UTI (urinary tract infection) Hematuria presence: with hematuria Urinary tract infection type: site unspecified Qualified Code(s): N39.0 - Urinary tract infection, site not specified; R31.9 - Hematuria, unspecified
[2023-11-30 07:44] LABS: Hematocrit (blood only) 35.1 % (42.0-52.0); Hemoglobin 10.9 g/dl (14.0-18.0); Mean Corpuscular Hemoglobin 28.6 pg (25.0-34.0); Mean Corpuscular Hgb Conc 31.1 g/dL (32.0-36.0); Mean Corpuscular Volume 92.1 fL (80.0-100.0); Mean Platelet Volume 11.6 fL (9.4-12.4); Platelet Count 130 K/uL (130-400); RDW Coefficient of Variation 14.6 % (11.5-14.5); RDW Standard Deviation 48.8 fL (36.4-46.3); Red Blood Count 3.81 M/uL (4.70-6.10); White Blood Count 6.75 K/ul (4.8-10.8)
[2023-11-30 08:15] LABS: Anion Gap 5 (3-11); BUN Creatinine Ratio 15.1 (10-20); Blood Urea Nitrogen 52 mg/dl (6-23); Calcium 9.6 mg/dl (8.6-10.3); Carbon Dioxide 31 mmol/L (21-32); Chloride 109 mmol/L (98-107); Creatinine Clr Calc Pharmacy 34.6 ml/min; Est GFR (African American) 21.6 ml/min; Est GFR (Non-African American) 18.6 ml/min; Glucose 125 mg/dl (70-99(Fasting)); Sodium 145 mmol/L (136-145)
--- NOTE | 2023-11-30 10:11 | Nephrology Progress Note ---
Date of Service November 30, 2023 Assessment & Plan (1) CHAD (acute kidney injury): (2) Rhabdomyolysis: (3) Severe sepsis: (4) Benign hypertension: (5) Diabetes mellitus type 2 in obese: Plan 58 year-old male with morbid obesity, diabetes mellitus II, hypertension, hyperlipidemia, BPH, ITP, ADAMS, uric acid kidney stones, and bipolar disorder, h/o CHAD in 2019 requiring single HD Rx for hyperkalemia. Admitted on 11/18/23 with CHAD and rhabdomyolysis [place] [address]602-->[id number]-->39132. Initially treated with aggressive hydration but had to be started on dialysis with a temporary dialysis catheter was on dialysis until Tuesday11/25/23. Has been having decent urine output, blood pressure, volume status acceptable. Kidney function continues to improve slowly, creatinine down to 3.5 metabolic acidosis resolved, off of sodium bicarbonate. -- removal of temporary dialysis catheter today. -- Advised to keep well hydrated while having diuresis and concern for free water deficit. --Expect kidney function to continue to improve, okay to be discharged with close outpatient follow-up and lab monitoring. Admission and Anticipated Discharge Date Admission Date: November 15, 2023 Daron Morris was seen and evaluated this morning. Overall he feels well, denies any symptoms. Blood pressure, volume status acceptable. Kidney function continues to improve but slowly, creatinine down to 3.5, electrolyte acceptable. Voiding normally. Review of Systems Review of Systems: Detailed review of system was otherwise unremarkable. Physical Exam Constitutional: WD/WN, vitals as above no acute distress Eyes: + anicteric sclerae Neck: normal visual inspection Respiratory: Auscultation: lungs clear to auscultation bilaterally Cardiovascular: RRR, no murmur, no edema Skin: no rashes, warm and dry Neurologic: no focal motor deficits Psychiatric: Orientation: alert and oriented x 3 Results & Data Vital Signs (Past 12 Hours) Vital Signs Temp Pulse Resp BP Pulse Ox O2 Del Method 11/30/23 09:30 Room Air 11/30/23 07:49 36.7 C 72 18 124/82 94 Room Air PG Care Time/CCT Total # of Minutes Spent Total Time Spent with Patient: Total time spent is greater than 50% in coordination of care (as documented) at patient's floor/unit and/or counseling patient: Coding Level of Care Code 75504 SUB INP/OBS CARE MIN Diagnoses CHAD (acute kidney injury) N17.9 Rhabdomyolysis M62.82 Severe sepsis A41.9; R65.20 Benign hypertension I10 Diabetes mellitus type 2 in obese E11.69; E66.9
--- NOTE | 2023-11-30 22:21 | Hospitalist Progress Note ---
Date of Service November 30, 2023 Assessment & Plan (1) CHAD (acute kidney injury): Plan: SEVERE. 2nd to rhabdomyolysis & ATN. IMPROVING NICELY. Cr today 3.4. Creatinine at presentation was 2.8. Typical baseline 1.2-1.3. Creatinine peak was between 9-10; BUN 130 at peak. s/p right IJ temporary HD catheter placement on 11/17. 1st HD session 11/17. 2nd HD session 11/18. 3rd session 11/20. 4th - 11/22. - 11/24. UOP has been robust. Daily BMP while here. CT a/p without any obstruction. HD catheter (temporary line) was removed today by the ICU physician information assistant; appreciate his assistance. will need nephrology f/u post-discharge. avoid nephrotoxic meds, etc. (2) Acute hypoxic respiratory failure: Plan: 2nd to pulmonary edema +/- pneumonia. Received 7 days of abx for possible pneumonia. Hypoxia resolved. Family mentioned episodes of dysphagia with coughing -- speech performed video swallow - no aspiration seen fortunately. (3) Rhabdomyolysis: Plan: unwitnessed fall at home - prolonged down time of several hours. Patient with rhabdomyolysis - peak CPK of 57,274. Rhabdo contributed to acute renal failure. Rhabdo likely 2nd to fall/trauma and suspected NMS. He was not on statin therapy at home. No reported seizures. On Invega injections for bipolar disorder - NMS? (neuroleptic malignant syndrome) - see below discussion. Rhabdomyolysis biochemically & clinically resolved (last CPK was <500). Recheck CPK am for normalization. Patient did have some element of proximal muscle weakness early in the stay in the absence of any compartment syndrome. To be complete Dr Falcon sent off autoimmune labs to exclude a developing polymyositis or other process. See below re: possible NMS. (4) NMS (neuroleptic malignant syndrome): Plan: heavy concern for/suspected earlier in the stay. known history of antipsychotic use for bipolar d/o (Invega). had fever for 36 hours early in the stay. severe rhabdomyolysis. did not have vital sign instability; only mild tachycardia when he was febrile/early in the stay. altered MS but no agitation; lethargy/fatigue since admission. suspected rigidity on exam. he also had proximal muscle weakness c/w muscle injury/rhabdo along with difficulty with movement from severe anasarca. typically NMS causes hypo-reflexia; he had hyper-reflexia. [id number] NMS still possible/concern for. did not need dantrolene or bromocriptine. rhabdomyolysis resolved. appreciate Dr Lau's consultation from psychiatry, she advises no use of prn antipsychotics; if any agitation benzos only. possible addition of depakote if needed for mood stabilization. will ask psych to reconsult re: meds. fortunately no agitation, delirium, or ray. (5) Diabetes mellitus type 2 in obese: Plan: Last FytO2H=1.4 on 08/13/23 Controlled at this time Cont Lantus Cont novolog STOPPED Glimepiride & Empagliflozin (6) Idiopathic thrombocytopenic purpura: Plan: Chronic. Stable. Most recent platelet count >100. 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 Stable Continue Flomax No obstruction on CT a/p Diego removed Having some incontinence - will check u/a to ensure his UTI has cleared. Check bladder scan for PVR to ensure no retention issues. (8) Kidney stones: Plan: seen on CT, but not causing obstruction at this time no Rx needed (9) Fall: Plan: unwitnessed was patient getting weak from UTI and/or pulmonary infection which led to fall? weakness due to brewing NMS? combination of factors? cont PT/OT will need rehab post-d/c -- auth for [facility] pending. (10) Benign hypertension: Plan: only on flomax at home BPs acceptable (11) Bipolar 1 disorder, depressed, mild: Plan: on Invega injection therapy monthly see above re: concern for NMS will d/w psych tomorrow what the recommended agent(s) will be for his bipolar he would typically be due for Invega injection on December 06 per his family (12) Hyponatremia: Plan: 2nd acute renal failure resolved with serial HD sessions (13) Severe sepsis: Plan: 2nd to UTI 2nd to suspect pulmonary infection resolved blood cx's neg urine cx with e.coli s/p full 7-day course of rocephin for UTI/pneumonia (14) UTI (urinary tract infection): Plan: 2nd ecoli s/p full 7 day course of IV abx recheck a u/a today (15) Pneumonia: Plan: suspected resolved s/p full course of IV abx COVID/flu/RSV negative (16) Morbid obesity: Plan: BMI 45 (17) Esophagitis: Plan: as seen on CT a/p cont protonix 40mg BID recommend outpatient GI f/u for consideration of EGD (18) Dysphagia: Plan: appreciate speech eval video swallow NEGATIVE for aspiration (19) Elbow pain: Plan: b/l 2nd to fall elbow x-rays without fracture resolved has abrasions - cont local wound care for this (20) Conjunctivitis: Plan: b/l, R>L somewhat chronic per family resolved conjunctivitis vs bletharitis vs blocked tear ducts vs other (21) Acute metabolic encephalopathy: Plan: resolved multifactorial - 2nd to uremia/CHAD, infection, possible NMS, etc Plan family extensively updated at bedside today auth for rehab pending once auth has been obtained & there is a bed at rehab can d/c Admission and Anticipated Discharge Date Admission Date: November 15, 2023 Subjective patient resting comfortably in bed no issues overnight denies any complaints he was fully awake/alert - got all orientation questions correct; he remembered why he came to hospital (he had fallen); got 75% of saying the months backwards correct no agitation moving bowels eating he has been incontinent of urine which is not typical for him per family sister/mother at bedside they ask about [facility], plan for his Invega, etc they really would like Invega to be continued but we had lengthy discussion about recurrent risk of NMS with such Review of Systems Review of Systems: CV - no chest pain pulm - no dyspnea or cough GI - no abd pain or N/V musculo - denies myalgias Physical Exam Physical Exam: gen - obese, laying in bed comfortably, NAD neck - no obvious JVD; right IJ dialysis catheter has been removed mouth - MMM heart - RRR, s1 s2, no murmur lungs - decreased BS both bases but o/w CTA b/l abd - soft NT ND BS+ vascular - DP/post tib pulses 2+ b/l ext - edema of all 4 limbs resolved neuro - proximal muscle weakness of arms/legs resolved; rigidity resolved psych - no manic symptoms, affect wnl, no agitation Results & Data Results & Data Vital Signs (Past 12 Hours) Vital Signs Temp Pulse Pulse Resp BP BP Pulse Ox 11/30/23 20:00 11/30/23 20:00 36.8 C 83 16 122/73 93 11/30/23 13:31 36.8 C 70 18 120/82 92 O2 Del Method 11/30/23 20:00 Room Air 11/30/23 20:00 Room Air 11/30/23 13:31 Room Air Laboratory Results Laboratory Results - last 24 hr 11/30/23 11/30/23 11/30/23 06:43 07:54 08:38 WBC 6.75 RBC 3.81 L Hgb 10.9 L Hct 35.1 L MCV 92.1 MCH 28.6 MCHC 31.1 L RDW Std Deviation 48.8 H RDW Coeff of Izabela 14.6 H Plt Count 130 MPV 11.6 Sodium 145 Potassium TNP 4.7 Chloride 109 H Carbon Dioxide 31 Anion Gap 5 BUN 52 H Creatinine 3.45 H Est Cr Clr Drug Dosing 34.6 Est GFR ( Amer) 21.6 Est GFR (Non-Af Amer) 18.6 BUN/Creatinine Ratio 15.1 Glucose 125 H POC Glucose 108 H Calcium 9.6 11/30/23 11/30/23 11/30/23 11:45 16:47 20:53 WBC RBC Hgb Hct MCV MCH MCHC RDW Std Deviation RDW Coeff of Izabela Plt Count MPV Sodium Potassium Chloride Carbon Dioxide Anion Gap BUN Creatinine Est Cr Clr Drug Dosing Est GFR ( Amer) Est GFR (Non-Af Amer) BUN/Creatinine Ratio Glucose POC Glucose 175 H 97 167 H Calcium PG Care Time/CCT Total # of Minutes Spent Total Time Spent with Patient: Total time spent is greater than 50% in coordination of care (as documented) at patient's floor/unit and/or counseling patient: Coding Level of Care Code 85128 SUB INP/OBS CARE 2/35MIN Diagnoses CHAD (acute kidney injury) N17.9 Acute hypoxic respiratory failure J96.01 Rhabdomyolysis M62.82 NMS (neuroleptic malignant syndrome) G21.0 Diabetes mellitus type 2 in obese E11.69; E66.9 Idiopathic thrombocytopenic purpura D69.3 BPH with obstruction/lower urinary tract symptoms N40.1; N13.8 Kidney stones N20.0 Fall W19.XXXA Benign hypertension I10 Bipolar 1 disorder, depressed, mild F31.31 Hyponatremia E87.1 Severe sepsis A41.9; R65.20 UTI (urinary tract infection) N39.0; R31.9 Hematuria presence: with hematuria Urinary tract infection type: site unspecified Pneumonia J18.9 Morbid obesity E66.01 Esophagitis K20.90 Dysphagia R13.10 Elbow pain M25.529 Conjunctivitis H10.9 Acute metabolic encephalopathy G93.41 (14) UTI (urinary tract infection) Hematuria presence: with hematuria Urinary tract infection type: site unspecified Qualified Code(s): N39.0 - Urinary tract infection, site not specified; R31.9 - Hematuria, unspecified
[2023-12-01 08:44] LABS: Blood Urea Nitrogen 49 mg/dl (6-23); Calcium 9.7 mg/dl (8.6-10.3); Carbon Dioxide 30 mmol/L (21-32); Chloride 108 mmol/L (98-107); Creatine Kinase 58 U/L (30-223); Est GFR (African American) 21.1 ml/min; Est GFR (Non-African American) 18.2 ml/min; Glucose 141 mg/dl (70-99(Fasting))
[2023-12-01 09:30] LABS: Potassium 4.9 mmol/L (3.5-5.1)
[2023-12-01 09:51] LABS: Appearance Urine Clear (Clear); Bacteria Urine Automated None Seen (None Seen); Bilirubin Urine Negative (Negative); Blood Urine 1+ (Negative); Cast Urine Automated 0-2 /lpf (0-2); Color Urine Yellow; Epithelial Cell Urine Auto 0-2 /hpf (0-2); Glucose Urine UA Negative (Negative); Ketones Urine Negative (Negative); Leukocyte Esterase Urine 1+ (Negative); Nitrite Urine Negative (Negative); Protein Urine Negative (Negative); RBC Urine Automated 0-2 /hpf (0-2); Specific Gravity Urine 1.008 (1.000-1.030); Urobilinogen Urine Negative (Negative); WBC Urine Automated 0-5 /hpf (0-5); pH Urine 6.5 (4.5-7.5)
--- NOTE | 2023-12-01 10:21 | Nephrology Progress Note ---
Date of Service December 01, 2023 Assessment & Plan (1) CHAD (acute kidney injury): (2) Rhabdomyolysis: (3) Severe sepsis: (4) Benign hypertension: (5) Diabetes mellitus type 2 in obese: Plan 58 year-old male with morbid obesity, diabetes mellitus II, hypertension, hyperlipidemia, BPH, ITP, ADAMS, uric acid kidney stones, and bipolar disorder, h/o CHAD in 2019 requiring single HD Rx for hyperkalemia. Admitted on 11/18/23 with CHAD and rhabdomyolysis after mechanical [place]. [place] 13681-->14774-->09486. Initially treated with aggressive hydration but had to be started on dialysis with a temporary dialysis catheter was on dialysis until Tuesday11/25/23. Has been having decent urine output, blood pressure, volume status acceptable. Slow recovery of kidney function, has been off dialysis for almost a week, creatinine staying around 3.5 over last few days, electrolyte acceptable. Had temporary dialysis catheter removed yesterday. -- Advised to keep well hydrated while having diuresis and concern for free water deficit. --Expect kidney function to continue to improve, okay to be discharged with close outpatient follow-up and lab monitoring. Admission and Anticipated Discharge Date Admission Date: November 15, 2023 Daron Morris was seen and evaluated this morning. Overall he feels well, denies any symptoms. Blood pressure, volume status acceptable. Kidney function staying relatively stable with creatinine around 3.5, electrolyte acceptable. Voiding normally. Review of Systems Review of Systems: Detailed review of system was otherwise unremarkable. Physical Exam Constitutional: WD/WN, vitals as above no acute distress Eyes: + anicteric sclerae Neck: normal visual inspection Respiratory: Auscultation: lungs clear to auscultation bilaterally Cardiovascular: RRR, no murmur, no edema Skin: no rashes, warm and dry Neurologic: no focal motor deficits Psychiatric: Orientation: alert and oriented x 3 Results & Data Vital Signs (Past 12 Hours) Vital Signs Temp Pulse Resp BP Pulse Ox O2 Del Method 12/01/23 08:17 36.2 C L 71 16 109/71 92 Room Air PG Care Time/CCT Total # of Minutes Spent Total Time Spent with Patient: Total time spent is greater than 50% in coordination of care (as documented) at patient's floor/unit and/or counseling patient: Coding Level of Care Code 27664 SUB INP/OBS CARE 08/04MIN Diagnoses CHAD (acute kidney injury) N17.9 Rhabdomyolysis M62.82 Severe sepsis A41.9; R65.20 Benign hypertension I10 Diabetes mellitus type 2 in obese E11.69; E66.9
[2023-12-01 16:17] LABS: Anti Nuclear Antibody Screen NEGATIVE (NEGATIVE); Cytosolic 5 Nucleotidas E 1A <5 Units; EJ Ab <11 SI (<11); HMGCR Ab <2 CU (<20); JO 1 Antibody <1.0 NEG AI (<1.0 NEG); JO-1 Antibody <11 SI (<11); MDA5 Ab <11 SI (<11); MI-2 Alpha Ab <11 SI (<11); MI-2 Beta Ab <11 SI (<11); NXP-2 Ab (MJ Ab) <11 SI (<11); OJ Ab <11 SI (<11); PL-12 Ab <11 SI (<11); PL-7 Ab <11 SI (<11); SRP Ab <11 SI (<11); TIF1 Gamma Ab <11 SI (<11)
--- NOTE | 2023-12-01 16:34 | Discharge Summary ---
Date of Service December 01, 2023 Admission HPI Per Admitting Provider Arturo Rey is a 48yo male with history of SARINA, HTN, HLP and ITP presenting from home after an unwitnessed fall. Patient lives with his mother. He got tangled in a blanket this afternoon and fell to the floor. He was unable to get up for several hours. His mother found him and called the neighbor to help get him up. They report he had some weakness in the legs and difficulty ambulating. He also reports difficulty urinating. Was recently started on Flomax several months ago. Patient with no complaints. He denies fever, chills, chest pain, cough or SOB. Discharge Exam gen - obese, laying in bed comfortably, NAD neck - no obvious JVD; right IJ dialysis catheter has been removed mouth - MMM heart - RRR, s1 s2, no murmur lungs - decreased BS both bases but o/w CTA b/l abd - soft NT ND BS+ vascular - DP/post tib pulses 2+ b/l ext - edema of all 4 limbs resolved neuro - proximal muscle weakness of arms/legs resolved; rigidity resolved psych - no manic symptoms, affect wnl, no agitation Discharge Data Allergies Allergy/AdvReac Type Severity Reaction Status Date / Time aspirin Allergy Mild NOSE BLEEDS Verified 11/14/23 19:51 bupropion Allergy Mild RASH Verified 11/14/23 19:51 meloxicam Allergy Mild RASH Verified 11/14/23 19:51 Penicillins Allergy Mild Rash Verified 11/14/23 19:51 ciprofloxacin [From Cipro] Allergy Unknown Rash Verified 11/14/23 19:51 Consultations 11/14/23 23:09 ED Decision to Admit Stat 11/16/23 00:47 Consult Nephrology Routine 11/18/23 11:53 Consult Senior Business Analyst Routine Ordered Studies 11/14/23 20:22 CT cervical spine wo con Stat CT head/brain wo con Stat 11/16/23 01:14 CT abd pelvis wo con Routine 11/17/23 10:00 Fluoro video [FL video swallow] Routine Hospital Course (1) CHAD (acute kidney injury): SEVERE. 2nd to rhabdomyolysis & ATN. IMPROVING NICELY. Cr today 3.4. Creatinine at presentation was 2.8. Typical baseline 1.2-1.3. Creatinine peak was between 9-10; BUN 130 at peak. s/p right IJ temporary HD catheter placement on 11/17. 1st HD session 11/17. 2nd HD session 11/18. 3rd session 11/20. 4th - 11/22. 5th - 11/24. UOP has been robust. Daily BMP while here. CT a/p without any obstruction. HD catheter (temporary line) was removed today by the ICU physician sociology research assistant; appreciate his assistance. will need nephrology f/u post-discharge. avoid nephrotoxic meds, etc. (2) Acute hypoxic respiratory failure: 2nd to pulmonary edema +/- pneumonia. Received 7 days of abx for possible pneumonia. Hypoxia resolved. Family mentioned episodes of dysphagia with coughing -- speech performed video swallow - no aspiration seen fortunately. (3) Rhabdomyolysis: unwitnessed fall at home - prolonged down time of several hours. Patient with rhabdomyolysis - peak CPK of 57,274. Rhabdo contributed to acute renal failure. Rhabdo likely 2nd to fall/trauma and suspected NMS. He was not on statin therapy at home. No reported seizures. On Invega injections for bipolar disorder - NMS? (neuroleptic malignant syndrome) - see below discussion. Rhabdomyolysis biochemically & clinically resolved (last CPK was <500). Recheck CPK am for normalization. Patient did have some element of proximal muscle weakness early in the stay in the absence of any compartment syndrome. To be complete Dr Falcon sent off autoimmune labs to exclude a developing polymyositis or other process. See below re: possible NMS. (4) NMS (neuroleptic malignant syndrome): heavy concern for/suspected earlier in the stay. known history of antipsychotic use for bipolar d/o (Invega). had fever for 36 hours early in the stay. severe rhabdomyolysis. did not have vital sign instability; only mild tachycardia when he was febrile/early in the stay. altered MS but no agitation; lethargy/fatigue since admission. suspected rigidity on exam. he also had proximal muscle weakness c/w muscle injury/rhabdo along with difficulty with movement from severe anasarca. typically NMS causes hypo-reflexia; he had hyper-reflexia. [id number] NMS still possible/concern for. did not need dantrolene or bromocriptine. rhabdomyolysis resolved. appreciate Dr Lau's consultation from psychiatry, she advises no use of prn antipsychotics; if any agitation benzos only. possible addition of depakote if needed for mood stabilization. will ask psych to reconsult re: meds. fortunately no agitation, delirium, or ray. (5) Diabetes mellitus type 2 in obese: Last [id number]=1.4 on 08/13/23 Controlled at this time Cont Lantus Cont novolog STOPPED Glimepiride & Empagliflozin (6) Idiopathic thrombocytopenic purpura: Chronic. Stable. Most recent platelet count >100. 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 Stable Continue Flomax No obstruction on CT a/p Diego removed Having some incontinence - will check u/a to ensure his UTI has cleared. Check bladder scan for PVR to ensure no retention issues. (8) Kidney stones: seen on CT, but not causing obstruction at this time no Rx needed (9) Fall: unwitnessed was patient getting weak from UTI and/or pulmonary infection which led to fall? weakness due to brewing NMS? combination of factors? cont PT/OT will need rehab post-d/c -- auth for [facility] pending. (10) Benign hypertension: only on flomax at home BPs acceptable (11) Bipolar 1 disorder, depressed, mild: on Invega injection therapy monthly see above re: concern for NMS will d/w psych tomorrow what the recommended agent(s) will be for his bipolar he would typically be due for Invega injection on December 06 per his family (12) Hyponatremia: 2nd acute renal failure resolved with serial HD sessions (13) Severe sepsis: 2nd to UTI 2nd to suspect pulmonary infection resolved blood cx's neg urine cx with e.coli s/p full 7-day course of rocephin for UTI/pneumonia (14) UTI (urinary tract infection): 2nd ecoli s/p full 7 day course of IV abx recheck a u/a today (15) Pneumonia: suspected resolved s/p full course of IV abx COVID/flu/RSV negative (16) Morbid obesity: BMI 45 (17) Esophagitis: as seen on CT a/p cont protonix 40mg BID recommend outpatient GI f/u for consideration of EGD (18) Dysphagia: appreciate speech eval video swallow NEGATIVE for aspiration (19) Elbow pain: b/l 2nd to fall elbow x-rays without fracture resolved has abrasions - cont local wound care for this (20) Conjunctivitis: b/l, R>L somewhat chronic per family resolved conjunctivitis vs bletharitis vs blocked tear ducts vs other (21) Acute metabolic encephalopathy: resolved multifactorial - 2nd to uremia/CHAD, infection, possible NMS, etc Plan family extensively updated at bedside today auth for rehab pending once auth has been obtained & there is a bed at rehab can d/c Discharge Plan Discharge Items Patient Disposition: Transfer Inpatient Rehab Fac Reason For Visit: FALL, RHABDOMYOLYSIS Discharge Diagnosis: 1. severe rhabdomyolysis - 2nd to fall and possible Neuroleptic Malignant Syndrome (NMS) 2. acute renal failure due to ATN & #1 - resolving; needed temporary dialysis; discharge creatinine 3.5; peak creatinine 10; no longer on dialysis - nephrology follow-up needed 3. long-standing history of bipolar disorder - on recent Invega injections 4. urinary tract infection - resolved 5. likely pneumonia - resolved 6. conjunctivitis - resolved 7. abnormal LFTs - due to #1 - resolved 8. probable BPH 9. urinary incontinence - urology follow-up needed 10. type 2 diabetes 11. chronic ITP 12. esophagitis as seen on CT - GI follow-up needed Activity: Resume your previous activity Non-emergency contact: Primary Care Provider and Specialist Call non-emergency contact if: you have any medication questions and your symptoms worsen Follow-up/Referrals: [facility] [Outside] - 12/07/23 (scheduled to have next Invega injection, but [facility] DOES NOT RECOMMEND SUCH. PLEASE CON[facility]CT [facility] FOR FURTHER GUIDANCE AND TO DETERMINE NEXT STEPS.) Valdo,Ramon Murillo DO [Physician] - (FIRST available - need for EGD ) Freedom Falcon DO [Physician] - (Dr Falcon or any partner - 5-7 days; dx - resolving acute renal failure ) David Pierre DO [Primary Care Provider] - Diet: Carb Consistent or DM2 Diet Texture: Easy to Chew Addtl Attending Provider Instructions: 1. PT/OT - eval and treat. 2. BSG checks AC and HS. 3. BMP every 48 hours to trend creatinine levels; all results to medical records analyst. 4. FOLLOW-UP WITH [facility] WITHIN 1 WEEK. 5. AVOID ALL ANTI-PSYCHOTIC MEDICINE AT THIS TIME (HALDOL, SEROQUEL, RISPERDAL, ZYPREXA, ETC). 6. Ativan is ok on prn basis for any agitation. 7. Keep dressing on right neck until the AM of 12/03/23 then may remove. Keep clean/dry. You can replace the dressing over the next 2 days if it comes off or soiled. 8. Patient is scheduled to receive an Invega injection at [facility] on December 06. At this time it is not advisable due to concerns he had Neuroleptic Malignant Syndrome from the Invega. Please call [facility] to coordinate his care. Pending Studies at Discharge: No Stand-Alone Forms: My [facility] Skilled Items Patient informed of condition?: Yes DNR: No Discharge Level of Care: Acute rehab Communicable Disease: No Discharge Prognosis: Improving Lines: None Urinary Catheter: No Medications and DC Order Prescriptions: New heparin, porcine (PF) 5,000 unit/0.5 mL Syringe 5,000 unit subcut Q12 30 Days Qty: 30 0RF insulin glargine [Lantus U-100 Insulin] 100 unit/mL Solution 12 unit subcut DAILY Qty: 1 0RF insulin aspart U-100 [Novolog U-100 Insulin aspart] 100 unit/mL Solution See Rx Instructions .ROUTE .COMPLEX Qty: 10 0RF Rx Instructions: sliding scale novolog with meals & bedtime. BSG goal range: 120-160. Correction factor: 15. Carb ratio: 1 unit for every 5 grams carbs consumed. pantoprazole 40 mg Tablet,Delayed Release (Dr/Ec) 40 mg PO BID Qty: 60 1RF Continued (DME) blood-glucose meter [Accu-Chek Guide Glucose Meter] Misc See Rx Instructions .Route Qty: 1 0RF Rx Instructions: TEST TWICE DAILY. DX: E13.9 (DME) Accu-Chek Guide test strips Strip See Rx Instructions .Route Qty: 200 0RF Rx Instructions: TEST TWICE DAILY. DX: E13.9 (DME) lancets [Accu-Chek Softclix Lancets] Misc See Rx Instructions .Route Qty: 100 5RF Rx Instructions: test twice daily tamsulosin 0.4 mg capsule 0.4 mg PO DAILY Qty: 90 3RF venlafaxine 150 mg capsule,extended release 24hr 150 mg PO QAM acetaminophen [Tylenol] 325 mg Capsule 325 mg PO QID PRN (Reason: Pain) Changed hydroxyzine HCl 50 mg tablet 25 mg PO HS PRN (Reason: Anxiety) Qty: 1 0RF Discontinued Jardiance 10 mg tablet 10 mg PO DAILY Qty: 90 3RF metformin 500 mg tablet extended release 24 hr 2,000 mg PO DAILY Qty: 360 3RF lisinopril 5 mg tablet 5 mg PO QAM Qty: 90 3RF glimepiride 4 mg tablet 4 mg PO DAILY Qty: 90 3RF Hold Instructions: determining dosing glucosamine HCl 500 mg tablet 500 mg PO QAM Invega Sustenna 156 mg/mL syringe 156 mg IM MONTHLY Discharge Orders: Discharge Order (Routine); Ordered 12/01/23 Ordered By: Kurt Portillo Admission Data Admit Date/Time: 11/15/23 00:00 Attending Provider: Kurt Portillo Admit Provider: Yumiko Long Primary Care Provider: David Pierre [facility]; Yumiko Long; Freedom Falcon; Wil Thornton Coding Diagnoses CHAD (acute kidney injury) N17.9 Acute hypoxic respiratory failure J96.01 Rhabdomyolysis M62.82 NMS (neuroleptic malignant syndrome) G21.0 Diabetes mellitus type 2 in obese E11.69; E66.9 Idiopathic thrombocytopenic purpura D69.3 BPH with obstruction/lower urinary tract symptoms N40.1; N13.8 Kidney stones N20.0 Fall W19.XXXA Benign hypertension I10 Bipolar 1 disorder, depressed, mild F31.31 Hyponatremia E87.1 Severe sepsis A41.9; R65.20 UTI (urinary tract infection) N39.0; R31.9 Hematuria presence: with hematuria Urinary tract infection type: site unspecified Pneumonia J18.9 Morbid obesity E66.01 Esophagitis K20.90 Dysphagia R13.10 Elbow pain M25.529 Conjunctivitis H10.9 Acute metabolic encephalopathy G93.41
== END 2023-12-01 16:47 | DRG 557 ==
LOC: ED 19:45 → SUATTDRO 11-15 → 3W 11-15 → 4W 11-19 20:22 → 3W 11-23 18:03